=== PATIENT | male | born 1940 | race Caucasian/White ===

== ENCOUNTER 2016-11-20 06:00 | Inpatient (IN) | payer MEDICARE, BC ==
[2016-11-20] MEDS ORDERED: DILTIAZEM 125 MG in SODIUM CHLORIDE 0.9% 100 ML IV ONE (06:15)
[2016-11-20] MEDS ORDERED: DILTIAZEM 5 MG/ML 5 ML VIAL IVP STA (06:15)
[2016-11-20 06:35] LABS: Basophils # (A) 0.1 k/uL (0-0.2); Basophils % (A) 1 %; CH 27.6; CHCM 32.5; Eosinophils # (A) 0.3 k/uL (0-0.7); Eosinophils % (A) 3 %; HCT 43.8 % (39.0-53.0); HDW 2.66; HGB 14.3 gm/dL (13.0-17.5); Luc # (Auto) 0.13; Luc % (Auto) 1; Lymphocytes % (A) 10 %; MCHC 32.7 g/dL (31.0-37.0); MCV 85.6 fL (80.0-100.0); Mean Platelet Volume 6.9; Monocytes # (A) 0.6 k/uL (0-1.0); Monocytes % (A) 5 %; Neutrophils # (A) 8.5 k/uL (1.3-7.7); Neutrophils % (A) 80 %; RBC 5.12 m/uL (4.30-5.90); RDW 14.4 % (11.5-15.5); WBC 10.7 k/uL (3.8-10.6); WBC (Perox) 10.75
--- NOTE | 2016-11-20 06:40 | XR ---
EXAMINATION TYPE: XR chest 1V portable DATE OF EXAM: 11/20/2016 6:36 AM COMPARISON: Chest x-ray September 17, 2008. HISTORY: Chest pain today. TECHNIQUE: Single frontal view of the chest is obtained. FINDINGS: There is cardiomegaly with single lead pacemaker/AICD redemonstrated. Sternal wires and m ediastinal clips are again seen. There is new mild to moderate central vascular congestion. No suspic ious focal airspace opacity or pneumothorax is seen bilaterally. The osseous structures are intact. IMPRESSION: Consider CHF exacerbation as there is cardiomegaly with new mild to moderate central vas cular congestion felt present.
--- NOTE | 2016-11-20 06:50 | ED ---
SOB HPI - General Chief Complaint: Shortness of Breath Stated Complaint: YANETH Time Seen by Provider: 11/20/16 06:08 Source: EMS Mode of arrival: EMS Limitations: no limitations - History of Present Illness Initial Comments: This patient is 75-year-old man who presents to be evaluated for shortness of breath. States that it started coming on late in the night and continued to worsen over the course of this morning. She also is having orthopnea. Patient denies chest pain, diaphoresis, nausea or vomiting. MD Complaint: shortness of breath -: hour(s) Severity: moderate Consistency: constant Improves With: nothing Worsens With: lying flat Associated Symptoms: denies other symptoms Treatments Prior to Arrival: oxygen - Related Data Home Oxygen Therapy: No Home Medications Medication Instructions Recorded Confirmed Aspirin 81 mg PO DAILY 12/06/13 10/22/15 Metoprolol Succinate [Toprol XL] 50 mg PO W/SUPPER 12/06/13 10/22/15 Metoprolol Succinate [Toprol XL] 100 mg PO QAM 12/06/13 10/22/15 Quinapril HCl [Accupril] 20 mg PO DAILY 12/06/13 10/22/15 Spironolactone [Aldactone] 25 mg PO DAILY 12/06/13 10/22/15 Warfarin [Coumadin] 5 mg PO MOWEFR 12/06/13 10/23/15 Warfarin [Coumadin] 7.5 mg PO SUTUTHSA 12/06/13 10/23/15 amLODIPine [Norvasc] 5 mg PO DAILY 12/06/13 10/22/15 Cholecalciferol [Vitamin D3] 4,000 unit PO DAILY 10/22/15 10/22/15 Cyanocobalamin [Vitamin B-12] 2,500 mcg PO DAILY 10/22/15 10/22/15 INSULIN LISPRO (HumaLOG) [HumaLOG] 28 units SQ TID-W/MEALS 10/22/15 10/22/15 Lovastatin [Mevacor] 40 mg PO HS 10/22/15 10/22/15 Insuln Asp Prt/Insulin Aspart 65 AC-BRKFST 10/23/15 10/23/15 [NovoLOG MIX 70-30 VIAL] Insuln Asp Prt/Insulin Aspart 80 AC-SUPPER 10/23/15 10/23/15 [NovoLOG MIX 70-30 VIAL] Allergies Allergy/AdvReac Type Severity Reaction Status Date / Time No Known Allergies Allergy Verified 10/22/15 08:41 Review of Systems ROS Statement: Those systems with pertinent positive or pertinent negative responses have been documented in the HPI. ROS Other: All systems not noted in ROS Statement are negative. Constitutional: Denies: fever, chills, weakness Respiratory: Reports: dyspnea. Denies: cough, wheezes, hemoptysis Cardiovascular: Reports: orthopnea. Denies: chest pain, palpitations, edema, syncope Gastrointestinal: Denies: abdominal pain, nausea, vomiting Genitourinary: Denies: dysuria, hematuria Musculoskeletal: Denies: back pain Skin: Denies: rash Neurological: Denies: headache, weakness, numbness Past Medical History Past Medical History: Atrial Fibrillation, Diabetes Mellitus, GERD/Reflux, Hyperlipidemia, Hypertension, Rheumatoid Arthritis (RA) Additional Past Medical History / Comment(s): SEE DR NIETO H&P History of Any Multi-Drug Resistant Organisms: None Reported Past Surgical History: AICD, Coronary Bypass/CABG, Heart Catheterization Additional Past Surgical History / Comment(s): DEFIBRILLATOR THRESHOLD TESTING, JOSE cataracts Past Anesthesia/Blood Transfusion Reactions: No Reported Reaction Type of Cardiac Device: AICD Device Placement Date:: 2009 Past Psychological History: No Psychological Hx Reported Smoking Status: Former smoker Past Alcohol Use History: None Reported Additional Past Alcohol Use History / Comment(s): quit smoking 1994, smoked for 30 yrs < 1PPD Past Drug Use History: None Reported - Past Family History Sister(s) Family Medical History: Cancer General Exam Limitations: no limitations General appearance: alert, in distress (Patient is appear to be in mild respiratory distress), obese Head exam: Present: atraumatic, normocephalic Eye exam: Present: normal appearance. Absent: scleral icterus, conjunctival injection Neck exam: Present: normal inspection. Absent: meningismus Respiratory exam: Present: respiratory distress, rales. Absent: rhonchi, stridor, accessory muscle use, decreased breath sounds, prolonged expiratory Cardiovascular Exam: Present: tachycardia, irregular rhythm, normal heart sounds. Absent: systolic murmur, diastolic murmur, rubs, gallop GI/Abdominal exam: Present: soft. Absent: distended, tenderness, guarding, rebound Extremities exam: Present: normal inspection, normal capillary refill. Absent: pedal edema, calf tenderness Back exam: Present: normal inspection. Absent: CVA tenderness (R), CVA tenderness (L) Neurological exam: Present: alert Skin exam: Present: warm, dry, intact, normal color. Absent: rash Course Vital Signs 11/20/16 11/20/16 11/20/16 06:02 06:42 07:21 Temperature 97 F L Pulse Rate 87 96 70 Respiratory 20 20 18 Rate Blood Pressure 127/97 135/85 114/76 O2 Sat by Pulse 98 92 L 91 L Oximetry Medical Decision Making - Lab Data Result diagrams: 11/20/16 06:25 11/20/16 06:25 Lab Results 11/20/16 11/20/16 11/20/16 Range/Units 06:25 06:25 06:25 WBC 10.7 H (3.8-10.6) k/uL RBC 5.12 (4.30-5.90) m/uL Hgb 14.3 (13.0-17.5) gm/dL Hct 43.8 (39.0-53.0) % MCV 85.6 (80.0-100.0) fL MCH 28.0 (25.0-35.0) pg MCHC 32.7 (31.0-37.0) g/dL RDW 14.4 (11.5-15.5) % Plt Count 307 (150-450) k/uL Neutrophils % 80 % Lymphocytes % 10 % Monocytes % 5 % Eosinophils % 3 % Basophils % 1 % Neutrophils # 8.5 H (1.3-7.7) k/uL Lymphocytes # 1.0 (1.0-4.8) k/uL Monocytes # 0.6 (0-1.0) k/uL Eosinophils # 0.3 (0-0.7) k/uL Basophils # 0.1 (0-0.2) k/uL PT (9.0-12.0) sec INR (<1.1) APTT (22.0-30.0) sec D-Dimer (<0.60) mg/L FEU Sodium 143 (137-145) mmol/L Potassium 4.7 (3.5-5.1) mmol/L Chloride 105 (98-107) mmol/L Carbon Dioxide 25 (22-30) mmol/L Anion Gap 13 mmol/L BUN 27 H (9-20) mg/dL Creatinine 0.97 (0.66-1.25) mg/dL Est GFR (MDRD) Af Amer >60 (>60 ml/min/1.73 sqM) Est GFR (MDRD) Non-Af >60 (>60 ml/min/1.73 sqM) Glucose 140 H (74-99) mg/dL Calcium 9.4 (8.4-10.2) mg/dL Magnesium 1.9 (1.6-2.3) mg/dL Total Bilirubin 1.1 (0.2-1.3) mg/dL AST 29 (17-59) U/L ALT 32 (21-72) U/L Alkaline Phosphatase 163 H (38-126) U/L Total Creatine Kinase 96 (55-170) U/L CK-MB (CK-2) 1.2 (0.0-2.4) ng/mL CK-MB (CK-2) Rel Index 1.3 Troponin I 0.065 H* (0.000-0.034) ng/mL NT-Pro-B Natriuret Pep pg/mL Total Protein 8.7 H (6.3-8.2) g/dL Albumin 4.5 (3.5-5.0) g/dL 11/20/16 11/20/16 Range/Units 06:25 06:25 WBC (3.8-10.6) k/uL RBC (4.30-5.90) m/uL Hgb (13.0-17.5) gm/dL Hct (39.0-53.0) % MCV (80.0-100.0) fL MCH (25.0-35.0) pg MCHC (31.0-37.0) g/dL RDW (11.5-15.5) % Plt Count (150-450) k/uL Neutrophils % % Lymphocytes % % Monocytes % % Eosinophils % % Basophils % % Neutrophils # (1.3-7.7) k/uL Lymphocytes # (1.0-4.8) k/uL Monocytes # (0-1.0) k/uL Eosinophils # (0-0.7) k/uL Basophils # (0-0.2) k/uL PT 25.8 H (9.0-12.0) sec INR 2.7 (<1.1) APTT 36.0 H (22.0-30.0) sec D-Dimer 0.52 (<0.60) mg/L FEU Sodium (137-145) mmol/L Potassium (3.5-5.1) mmol/L Chloride (98-107) mmol/L Carbon Dioxide (22-30) mmol/L Anion Gap mmol/L BUN (9-20) mg/dL Creatinine (0.66-1.25) mg/dL Est GFR (MDRD) Af Amer (>60 ml/min/1.73 sqM) Est GFR (MDRD) Non-Af (>60 ml/min/1.73 sqM) Glucose (74-99) mg/dL Calcium (8.4-10.2) mg/dL Magnesium (1.6-2.3) mg/dL Total Bilirubin (0.2-1.3) mg/dL AST (17-59) U/L ALT (21-72) U/L Alkaline Phosphatase (38-126) U/L Total Creatine Kinase (55-170) U/L CK-MB (CK-2) (0.0-2.4) ng/mL CK-MB (CK-2) Rel Index Troponin I (0.000-0.034) ng/mL NT-Pro-B Natriuret Pep 2170 pg/mL Total Protein (6.3-8.2) g/dL Albumin (3.5-5.0) g/dL - EKG Data -: EKG Interpreted by Ms EKG shows normal: axis (Normal), intervals (Normal) Rate: tachycardia (Rate approximately 106 bpm) Interpretation: other (The underlying rhythm is atrial fibrillation and there is a rapid ventricular rate at 106 BPM. There is a left posterior fascicular block. Possible old anterior infarct) Disposition Clinical Impression: Congestive heart failure, Atrial fibrillation with rapid ventricular response Disposition: ADMITTED IP TO THIS [facility] Condition: Fair Referrals: None,Stated [Primary Care Provider] - 1-2 days
[2016-11-20 06:53] LABS: ALT 32 U/L (21-72); AST 29 U/L (17-59); Alkaline Phosphatase 163 U/L (38-126); Anion Gap 13 mmol/L; Blood Urea Nitrogen 27 mg/dL (9-20); Calcium 9.4 mg/dL (8.4-10.2); Carbon Dioxide 25 mmol/L (22-30); Chloride 105 mmol/L (98-107); Glucose 140 mg/dL (74-99); Magnesium 1.9 mg/dL (1.6-2.3); Non-African American GFR(MDRD) >60 (>60 ml/min/1.73 sqM); Potassium 4.7 mmol/L (3.5-5.1); Sodium 143 mmol/L (137-145); Total Bilirubin 1.1 mg/dL (0.2-1.3); Total Protein 8.7 g/dL (6.3-8.2)
[2016-11-20 07:02] LABS: INR 2.7 (<1.1)
[2016-11-20 07:03] LABS: Prothrombin Time 25.8 sec (9.0-12.0)
[2016-11-20 07:10] LABS: Creatine Kinase MB 1.2 ng/mL (0.0-2.4)
[2016-11-20 07:11] LABS: Troponin I 0.065 ng/mL (0.000-0.034)
[2016-11-20] MEDS ORDERED: FUROSEMIDE 10 MG/ML 4 ML VIAL IV STA (07:22)
[2016-11-20 08:51] LABS: Appearance,Urine Clear (Clear); Bacteria,Urine Rare /hpf; Bilirubin,Urine Negative (Negative); Glucose,Urine (UA) Negative (Negative); Ketones,Urine Negative (Negative); Leukocyte Esterase,Urine Negative (Negative); Mucus,Urine Rare /hpf; Nitrite,Urine Negative (Negative); PH, Urine 5.5 (5.0-8.0); Particle Count 837; Protein,Urine Trace (Negative); RBC,Urine 27 /hpf (0-5); UA Billing (MACRO vs. MICRO) MICRO; Urobilinogen,Urine <2.0 mg/dL (<2.0); WBC,Urine 1 /hpf (0-5)
[2016-11-20] MEDS: ASPIRIN 325 MG TAB PO SCH (09:27)
[2016-11-20] MEDS: NITROGLYCERIN OINT 1 INCH/GM PACKET TOPICAL SCH ×4 (09:27→21:06)
[2016-11-20 12:21] LABS: Glucose,Whole Blood 124 mg/dL (75-99)
[2016-11-20] MEDS: INSULIN LISPRO (humaLOG) 300 UNIT/3 ML VIAL SQ SCH ×2 (13:24→17:23)
--- NOTE | 2016-11-20 14:29 | HP ---
DATE OF ADMISSION: CHIEF COMPLAINT: A 75-year-old white male with PND, orthopnea, worsening shortness of breath. HISTORY OF PRESENT ILLNESS: This 75-year-old white male was noted to have increased PND, orthopnea, shortness of breath with exertion. Denied any chest pain, diaphoresis, nausea or vomiting. It was moderate in nature. He has never had this before. Improved with nothing. He had to sleep up in a chair for the last few days versus lying flat. Home medications include: 1. Aspirin 81 daily. 2. Metoprolol succinate 50 mg daily. 3. Toprol XL 100 mg each morning. 4. Accupril 20 daily. 5. Aldactone 25 daily. 6. Coumadin 5 mg Tuesday, Tuesday, Tuesday; 7.5 Tuesday, Tuesday, , Tuesday. 7. Norvasc 5 mg daily. 8. Humalog 28 units subcutaneously t.i.d. with meals. 9. Mevacor 40 at bedtime. 10. NovoLog Mix 70/30, ( ) units at supper, 65 in the morning. ALLERGIES: NO KNOWN DRUG ALLERGIES. REVIEW OF SYSTEMS: Fourteen-point review of systems negative except as mentioned in HPI. PULMONARY: As mentioned above. CARDIAC: As mentioned above. : Negative. MUSCULOSKELETAL: Generalized weakness. SKIN: Negative. ENDOCRINE: Difficulty with obesity. NEUROLOGIC: Negative. PAST MEDICAL HISTORY: 1. Atrial fibrillation. 2. Diabetes mellitus. 3. GERD. 4. Dyslipidemia. 5. Hypertension. 6. Rheumatoid arthritis. 7. AICD. 8. CABG surgery 20 years ago. 9. Heart catheterization. 10. Defibrillator. 11. Bilateral cataracts. Quit smoking in 1994; smoked for 30 years, 1 pack a day. FAMILY HISTORY: Sister with cancer. PHYSICAL EXAM: ENDOCRINE: BMI is over 40. He is on 2 L of oxygen, breathing okay at this time, in no acute distress. ABDOMEN: Obese, as mentioned above. OPHTHALMOLOGIC: Pupils equal, round and reactive to light and accommodation. No scleral icterus. CARDIOVASCULAR: S1, S2. Lungs show accessory muscle use, rales at the bases. Prolonged expiratory. HEART: S1, S2 without any murmurs, rubs, gallops. GI: Soft, nontender, distended, obese. Extremities show normal capillary. Two to three plus pedal edema bilaterally. BACK: Tenderness to palpation, left, and lower lumbar spine. NEUROLOGIC: Alert and oriented x3. SKIN: Warm, dry, intact. VITAL SIGNS: Temperature 97, pulse 86, respiratory rate 18 to 20, blood pressure 114 to 127 over 76 to 97. Oxygen saturation 91% on 2 L. White count 10.7, hemoglobin 14.3. Troponin 0.065. D-dimer is negative. BNP 2170. ASSESSMENT: 1. Atrial fibrillation with rapid ventricular response. 2. Congestive heart failure. 3. Obesity. 4. History of coronary artery disease. 5. Hypertension. 6. Diabetes mellitus. Please see further orders. Continue his Coumadin. Cardiology has been consulted. Given some IV Lasix at 40 IV q.12. Will await Cardiology's recommendations.
[2016-11-20 17:20] LABS: Glucose,Whole Blood 149 mg/dL (75-99)
[2016-11-20] MEDS: metFORMIN 500 MG TAB PO SCH (17:24)
[2016-11-20] MEDS: METOPROLOL SUCCINATE (ER) 50 MG TAB.ER.24H PO SCH (18:22)
[2016-11-20] MEDS: WARFARIN 7.5 MG TAB PO SCH (18:22)
[2016-11-20] MEDS: FUROSEMIDE 10 MG/ML 4 ML VIAL IV SCH (18:24)
[2016-11-20] MEDS: ATORVASTATIN 10 MG TAB PO SCH (21:06)
[2016-11-20 21:19] LABS: Glucose,Whole Blood 196 mg/dL (75-99)
[2016-11-20] MEDS: INSULIN GLARGINE 100 UNIT/ML 10 ML VIAL SQ SCH (21:24)
[2016-11-21 06:29] LABS: Glucose,Whole Blood 119 mg/dL (75-99)
[2016-11-21] MEDS: FUROSEMIDE 10 MG/ML 4 ML VIAL IV SCH ×2 (06:40→18:11)
[2016-11-21] MEDS: metFORMIN 500 MG TAB PO SCH ×2 (06:40→17:27)
[2016-11-21 07:20] LABS: INR 2.4 (<1.1); Prothrombin Time 23.4 sec (9.0-12.0)
[2016-11-21] MEDS: INSULIN LISPRO (humaLOG) 300 UNIT/3 ML VIAL SQ SCH ×3 (07:25→17:27)
[2016-11-21 07:27] LABS: ALT 34 U/L (21-72); AST 21 U/L (17-59); Alkaline Phosphatase 127 U/L (38-126); Anion Gap 10 mmol/L; Blood Urea Nitrogen 23 mg/dL (9-20); Calcium 9.1 mg/dL (8.4-10.2); Carbon Dioxide 28 mmol/L (22-30); Chloride 103 mmol/L (98-107); Glucose 123 mg/dL (74-99); Non-African American GFR(MDRD) >60 (>60 ml/min/1.73 sqM); Sodium 141 mmol/L (137-145); Total Bilirubin 1.7 mg/dL (0.2-1.3); Total Protein 7.5 g/dL (6.3-8.2)
[2016-11-21] MEDS: DORZOLAMIDE HCL 2% DROPS 10 ML BTL BOTH EYES SCH ×2 (08:24→21:00)
[2016-11-21] MEDS: ASPIRIN 325 MG TAB PO SCH (08:24)
[2016-11-21] MEDS: SPIRONOLACTONE 25 MG TAB PO SCH (08:25)
[2016-11-21] MEDS: METOPROLOL SUCCINATE (ER) 100 MG TAB.ER.24H PO SCH (08:25)
[2016-11-21] MEDS: LINAGLIPTIN 5 MG TABLET PO SCH (08:26)
[2016-11-21] MEDS: NITROGLYCERIN OINT 1 INCH/GM PACKET TOPICAL SCH ×4 (08:30→21:00)
[2016-11-21] MEDS: INSULIN GLARGINE 100 UNIT/ML 10 ML VIAL SQ SCH ×2 (08:32→22:01)
--- NOTE | 2016-11-21 10:29 | P.CRDCN ---
History of Present Illness Consult date: 11/21/16 Chief complaint: shortness of breath History of present illness: this is a pleasant 75-year-old gentleman who sees Dr. Alexander in as an outpatient with a past medical history significant for CAD and status post CABG with unknown details at this point, severe ischemic cardiomyopathy and status post AICD, chronic atrial fibrillation, as well as obesity, presented to the hospital because he was not feeling well. The patient has been experiencing slowly progressing exertional dyspnea without orthopnea and without any PND. He did not have any symptoms of bilateral lower extremities edema. He did not have any chest pain or chest discomfort. The patient did not gain any weight as well. In the ER, he was found to be in A. fib with RVR but currently the patient is in A. fib with controlled heart rates. He is not on any drips. The chest x-ray showed findings consistent with congestive heart failure. He had an echo enzymes which came in to be slightly abnormal which I do think it is related to the tachycardia when he presented to the emergency room. We will continue the current above dose of Lasix. The heart rate continues to be controlled on metoprolol by mouth. He is on, then for anticoagulation. We' ll obtain an echocardiogram was Doppler. e will obtain the results of the last stress test from the officeas well. Past Medical History Past Medical History: Atrial Fibrillation, Chest Pain / Angina, Heart Failure, Diabetes Mellitus, GERD/Reflux, Hyperlipidemia, Hypertension, Myocardial Infarction (CO), Rheumatoid Arthritis (RA) Additional Past Medical History / Comment(s): SEE DR NIETO H&P Last Myocardial Infarction Date:: 1991 History of Any Multi-Drug Resistant Organisms: None Reported Past Surgical History: AICD, Coronary Bypass/CABG, Heart Catheterization Additional Past Surgical History / Comment(s): DEFIBRILLATOR THRESHOLD TESTING, JOSE cataracts. 4 VESSEL BIPASS 1991, AICD 2009 Past Anesthesia/Blood Transfusion Reactions: No Reported Reaction Type of Cardiac Device: AICD Device Placement Date:: 2009 Past Psychological History: No Psychological Hx Reported Smoking Status: Former smoker Past Alcohol Use History: None Reported Additional Past Alcohol Use History / Comment(s): quit smoking 1994, smoked for 30 yrs < 1PPD Past Drug Use History: None Reported - Past Family History Sister(s) Family Medical History: Cancer Medications and Allergies Home Medications Medication Instructions Recorded Confirmed Type Metoprolol Succinate [Toprol XL] 50 mg PO W/SUPPER 12/06/13 11/20/16 History Metoprolol Succinate [Toprol XL] 100 mg PO QAM 12/06/13 11/20/16 History Quinapril HCl [Accupril] 20 mg PO DAILY 12/06/13 11/20/16 History Spironolactone [Aldactone] 25 mg PO DAILY 12/06/13 11/20/16 History Warfarin [Coumadin] 5 mg PO MOFR 12/06/13 11/20/16 History Warfarin [Coumadin] 7.5 mg PO SUTUWETHSA 12/06/13 11/20/16 History amLODIPine [Norvasc] 5 mg PO DAILY 12/06/13 11/20/16 History Cholecalciferol [Vitamin D3] 4,000 unit PO DAILY 10/22/15 11/20/16 History Cyanocobalamin (Vitamin B-12) 2,500 mcg PO DAILY 11/20/16 11/20/16 History [Vitamin B12] Dorzolamide 2% [Trusopt 2%] 1 drops BOTH EYES BID 11/20/16 11/20/16 History Insulin Glargine [Lantus] 45 units SQ BID 11/20/16 11/20/16 History Insulin Glulisine [Apidra] 10 unit SQ AC-TID 11/20/16 11/20/16 History Lovastatin [Mevacor] 20 mg PO HS 11/20/16 11/20/16 History metFORMIN HCL [Glucophage] 500 mg PO BID 11/20/16 11/20/16 History sitaGLIPtin PHOSPHATE [Januvia] 100 mg PO DAILY 11/20/16 11/20/16 History Allergies Allergy/AdvReac Type Severity Reaction Status Date / Time No Known Allergies Allergy Verified 11/20/16 10:08 Physical Exam Vitals: Vital Signs Temp Pulse Pulse Pulse Resp BP BP 11/21/16 08:00 97.6 F 77 16 122/67 11/21/16 03:16 97.1 F L 54 L 16 108/59 11/21/16 00:14 105/53 11/20/16 23:51 96.8 F L 67 16 90/53 11/20/16 19:35 96.8 F L 79 18 133/72 11/20/16 18:20 86 122/65 11/20/16 16:00 96.7 F L 73 16 110/65 11/20/16 12:45 97 F L 7 L 20 123/78 11/20/16 12:20 97.7 F 73 16 131/67 11/20/16 10:59 98.1 F 75 18 147/79 Pulse Ox 11/21/16 08:00 93 L 11/21/16 03:16 96 11/21/16 00:14 11/20/16 23:51 97 11/20/16 19:35 95 11/20/16 18:20 11/20/16 16:00 96 11/20/16 12:45 95 11/20/16 12:20 94 L 11/20/16 10:59 93 L Intake and Output 11/20/16 11/21/16 11/21/16 22:59 06:59 14:59 Intake Total 200 160 Output Total 1100 600 Balance -900 160 -600 Intake: IV 200 160 0.9% NS @ 20mL/hr 160 160 Diltiazem 125 mg In 40 Sodium Chloride 0.9% 100 ml @ 5 MG/HR 5 mls/hr IV .Q24H ONE Rx#:[id number] Output: Urine 1100 600 Other: Voiding Method Urinal Urinal Weight 104.8 kg - Constitutional General appearance: no acute distress - Respiratory Respiratory: bilateral: diminished - Cardiovascular Rhythm: irregularly irregular Heart sounds: normal: S1, S2 Results 11/20/16 06:25 11/21/16 06:41 Cardiac Enzymes 11/20/16 11/20/16 11/21/16 Range/Units 12:44 18:35 06:41 AST 21 (17-59) U/L Troponin I 0.069 H* 0.063 H* (0.000-0.034) ng/mL Coagulation 11/21/16 Range/Units 06:41 PT 23.4 H (9.0-12.0) sec Comprehensive Metabolic Panel 11/21/16 Range/Units 06:41 Sodium 141 (137-145) mmol/L Potassium 4.0 (3.5-5.1) mmol/L Chloride 103 (98-107) mmol/L Carbon Dioxide 28 (22-30) mmol/L BUN 23 H (9-20) mg/dL Creatinine 0.88 (0.66-1.25) mg/dL Glucose 123 H (74-99) mg/dL Calcium 9.1 (8.4-10.2) mg/dL AST 21 (17-59) U/L ALT 34 (21-72) U/L Alkaline Phosphatase 127 H (38-126) U/L Total Protein 7.5 (6.3-8.2) g/dL Albumin 3.8 (3.5-5.0) g/dL Current Medications Generic Name Dose Route Start Last Admin Trade Name Freq PRN Reason Stop Dose Admin Amlodipine Besylate 5 mg 11/21/16 09:00 Norvasc PO DAILY HEAVEN Aspirin 325 mg 11/20/16 09:00 11/21/16 08:24 Aspirin PO 325 mg DAILY HEAVEN Administration Atorvastatin Calcium 10 mg 11/20/16 21:00 11/20/16 21:06 Lipitor PO 10 mg HS HEAVEN Administration Dorzolamide HCl 1 drops 11/21/16 09:00 11/21/16 08:24 Trusopt BOTH EYES 1 drops BID HEAVEN Administration Furosemide 40 mg 11/20/16 18:00 11/21/16 06:40 Lasix IV 40 mg Q12H [facility]EN Administration Insulin Glargine 45 unit 11/20/16 21:00 11/21/16 08:32 Lantus SQ 45 unit BID HEAVEN Administration Insulin Human Lispro 10 unit 11/20/16 12:30 11/21/16 07:25 Humalog SQ 10 unit AC-TID [facility]EN Administration Linagliptin 5 mg 11/21/16 09:00 11/21/16 08:26 Tradjenta PO 5 mg DAILY [facility] Administration Lisinopril 20 mg 11/21/16 09:00 Zestril PO DAILY [facility] Metformin HCl 500 mg 11/20/16 17:30 11/21/16 06:40 Glucophage PO 500 mg BID-W/MEALS [facility] Administration Metoprolol Succinate 50 mg 11/20/16 17:30 11/20/16 18:22 Toprol Xl PO 50 mg W/SUPPER [facility] Administration Metoprolol Succinate 100 mg 11/21/16 09:00 11/21/16 08:25 Toprol Xl PO 100 mg QAM [facility]EN Administration Nitroglycerin 0.5 inch 11/20/16 09:00 11/21/16 08:30 Nitro-Bid Oint TOPICAL 0.5 inch QID [facility]EN Administration Sodium Chloride 10 ml 11/20/16 09:00 11/21/16 08:35 Saline Flush IV 10 ml BID [facility]EN Administration Spironolactone 25 mg 11/21/16 09:00 11/21/16 08:25 Aldactone PO 25 mg DAILY [facility]EN Administration Warfarin Sodium 5 mg 11/22/16 18:00 Coumadin PO MOFR [facility]EN Warfarin Sodium 7.5 mg 11/20/16 18:00 11/20/16 18:22 Coumadin PO 7.5 mg SUTUWETHSA [facility]EN Administration Intake and Output 11/20/16 11/21/16 11/21/16 22:59 06:59 14:59 Intake Total 200 160 Output Total 1100 600 Balance -900 160 -600 Intake: IV 200 160 0.9% NS @ 20mL/hr 160 160 Diltiazem 125 mg In 40 Sodium Chloride 0.9% 100 ml @ 5 MG/HR 5 mls/hr IV .Q24H ONE Rx#:[id number] Output: Urine 1100 600 Other: Voiding Method Urinal Urinal Weight 104.8 kg 11/21/16 06:41 Assessment and Plan Plan: Assessment Congestive heart failure exacerbation secondary to systolic dysfunction Severe cardiomyopathy Severe CAD and status post CABG Chronic atrial fibrillation was controlled heart rate Obesity Plan Continue the current above dose of Lasix Monitor the kidney function and electrolytes Obtain an echocardiogram was Doppler Follow-up with the patient
[2016-11-21] MEDS: LISINOPRIL 20 MG TAB PO SCH (12:11)
[2016-11-21 12:22] LABS: Glucose,Whole Blood 131 mg/dL (75-99)
--- NOTE | 2016-11-21 13:25 | PN ---
SUBJECTIVE: A 75-year-old white male with atrial fibrillation with rapid ventricular response. Overnight the patient has been doing fairly well. He is having no chest pain. Dyspnea is decreased. CARDIOVASCULAR: Irregular irregular rhythm. LUNGS: Transmitted upper airway sounds. HEMATOLOGIC: Negative Homans. PSYCHIATRIC: Fair mood and affect. Labs were reviewed. ASSESSMENT: 1. Congestive heart failure secondary to systolic dysfunction. 2. Severe cardiomyopathy. 3. Severe coronary artery disease, status post coronary artery bypass graft. 4. Controlled atrial fibrillation. 5. Obesity. Continue Lasix. Monitor kidney function. Echo. Possible discharge home in the next 24 to 48 hours.
[2016-11-21 13:59] LABS: Hemoglobin A1C 6.6 % (4.2-6.1)
[2016-11-21] MEDS: amLODIPine 5 MG TAB PO SCH (15:53)
[2016-11-21 17:09] LABS: Glucose,Whole Blood 134 mg/dL (75-99)
[2016-11-21] MEDS: WARFARIN 7.5 MG TAB PO SCH (18:11)
[2016-11-21] MEDS: METOPROLOL SUCCINATE (ER) 50 MG TAB.ER.24H PO SCH (18:12)
[2016-11-21] MEDS: ATORVASTATIN 10 MG TAB PO SCH (21:00)
[2016-11-21] MEDS ORDERED: ZOLPIDEM 5 MG TAB PO PRN (21:37)
[2016-11-21 21:56] LABS: Glucose,Whole Blood 129 mg/dL (75-99)
[2016-11-22 06:11] LABS: Glucose,Whole Blood 123 mg/dL (75-99)
[2016-11-22] MEDS: FUROSEMIDE 10 MG/ML 4 ML VIAL IV SCH (06:30)
[2016-11-22] MEDS: metFORMIN 500 MG TAB PO SCH (06:31)
[2016-11-22] MEDS: INSULIN LISPRO (humaLOG) 300 UNIT/3 ML VIAL SQ SCH ×2 (07:22→12:08)
[2016-11-22 07:24] LABS: ALT 29 U/L (21-72); AST 21 U/L (17-59); Alkaline Phosphatase 136 U/L (38-126); Anion Gap 15 mmol/L; Blood Urea Nitrogen 26 mg/dL (9-20); Calcium 9.3 mg/dL (8.4-10.2); Carbon Dioxide 26 mmol/L (22-30); Chloride 101 mmol/L (98-107); Glucose 123 mg/dL (74-99); Non-African American GFR(MDRD) >60 (>60 ml/min/1.73 sqM); Potassium 4.1 mmol/L (3.5-5.1); Sodium 142 mmol/L (137-145); Total Bilirubin 1.5 mg/dL (0.2-1.3); Total Protein 7.7 g/dL (6.3-8.2)
[2016-11-22] MEDS: LINAGLIPTIN 5 MG TABLET PO SCH (08:50)
[2016-11-22] MEDS: SPIRONOLACTONE 25 MG TAB PO SCH (08:51)
[2016-11-22] MEDS: ASPIRIN 325 MG TAB PO SCH (08:51)
[2016-11-22] MEDS: amLODIPine 5 MG TAB PO SCH (08:51)
[2016-11-22] MEDS: METOPROLOL SUCCINATE (ER) 100 MG TAB.ER.24H PO SCH (08:51)
[2016-11-22] MEDS: LISINOPRIL 20 MG TAB PO SCH (08:51)
[2016-11-22] MEDS: NITROGLYCERIN OINT 1 INCH/GM PACKET TOPICAL SCH ×2 (08:52→11:22)
[2016-11-22] MEDS: DORZOLAMIDE HCL 2% DROPS 10 ML BTL BOTH EYES SCH (08:56)
[2016-11-22] MEDS: INSULIN GLARGINE 100 UNIT/ML 10 ML VIAL SQ SCH (08:56)
[2016-11-22 11:25] VITALS: BP 96/51; PULSE 52; RESP 16; TEMP 97.4
--- NOTE | 2016-11-22 11:34 | ECHOF ---
Referral Reason:chf MEASUREMENTS -------- HEIGHT: 175.3 cm WEIGHT: 103.0 kg BP: 124/81 RVIDd: 3.1 cm (< 3.3) IVSd: 1.1 cm (0.6 - 1.1) LVIDd: 5.6 cm (3.9 - 5.3) LVPWd: 1.4 cm (0.6 - 1.1) IVSs: 1.3 cm LVIDs: 3.9 cm LVPWs: 1.7 cm LA Diam: 5.1 cm (2.7 - 3.8) Ao Diam: 3.4 cm (2.0 - 3.7) AV Cusp: 1.6 cm (1.5 - 2.6) LA Diam: 5.2 cm (2.7 - 3.8) MV EXCURSION: 15.119 mm (> 18.000) MV EF SLOPE: 87 mm/s (70 - 150) EPSS: 0.6 cm MV E Martin: 1.15 m/s MV DecT: 193 ms MV A Martin: 0.37 m/s MV E/A Ratio: 3.15 RAP: 5.00 mmHg RVSP: 32.43 mmHg FINDINGS -------- Atrial fibrillation. This was a techncally difficult study with suboptimal views, , Definity utilized for enhancement of images. There is mild concentric left ventricular hypertrophy. There is moderate global hypokinesis of LV . Overall left ventricular systolic function is moderately impaired with, an EF between 35 - 40 %. The right ventricle is normal in size. The left atrium is moderately dilated. The right atrial size is normal. 1.5MG OF DEFINITY UTLIZED: 2 OR MORE WALL SEGMENTS NOT VISUALIZED. There is mild aortic valve sclerosis. There is no evidence of aortic regurgitation. Mild mitral annular calcification present. Mild mitral regurgitation is present. Mild tricuspid regurgitation present. There is no evidence of pulmonary hypertension. The right ventricular systolic pressure, as measured by Doppler, is 32.43mmHg. The pulmonic valve was not well visualized. The aortic root size is normal. There is no pericardial effusion. CONCLUSIONS -------- 1. This was a techncally difficult study with suboptimal views, , Definity utilized for enhancement of images. 2. There is no evidence of pulmonary hypertension. 3. The right ventricular systolic pressure, as measured by Doppler, is 32.43mmHg. 4. The pulmonic valve was not well visualized. 5. There is mild concentric left ventricular hypertrophy. 6. There is moderate global hypokinesis of LV . 7. The left atrium is moderately dilated. 8. 1.5MG OF DEFINITY UTLIZED: 2 OR MORE WALL SEGMENTS NOT VISUALIZED. 9. There is mild aortic valve sclerosis. 10. Mild mitral annular calcification present. 11. Mild mitral regurgitation is present. 12. Mild tricuspid regurgitation present. APARTMENT MAINTENANCE MANAGER: Destiney Mcmullen RDCS
[2016-11-22 11:43] LABS: Glucose,Whole Blood 138 mg/dL (75-99)
--- NOTE | 2016-11-22 13:46 | P.PN ---
Subjective Principal diagnosis: Shortness of breath this is a pleasant 75-year-old gentleman who sees Dr. Gallardo as an outpatient with a past medical history significant for CAD and status post CABG with unknown details at this point, severe ischemic cardiomyopathy and status post AICD, chronic atrial fibrillation, as well as obesity, presented to the hospital because he was not feeling well. The patient has been experiencing slowly progressing exertional dyspnea without orthopnea and without any PND. He did not have any symptoms of bilateral lower extremity edema. He did not have any chest pain or chest discomfort. The patient did not gain any weight. In the ER, he was found to be in A. fib with RVR ,but currently the patient is in A. fib with controlled heart rates. enzymes came in to be slightly abnormal which I do think it is related to the tachycardia when he presented to the emergency room. A shunt was initiated on IV Lasix, he diuresed well through the night last night. Weight today is down 1 kg. Overall he is feeling significantly better and quite eager to be discharged home today. He is on Coumadin for anticoagulation, his INR yesterday 2.2. Objective - Vital Signs Vital signs: Vital Signs Temp 97.4 F L 11/22/16 11:23 Pulse 52 L 11/22/16 11:23 Resp 16 11/22/16 11:23 BP 96/51 11/22/16 11:23 Pulse Ox 96 11/22/16 11:23 Intake & Output 11/21/16 11/22/16 11/22/16 18:59 06:59 18:59 Intake Total 320 380 Output Total 1100 Balance -1100 320 380 Weight 103 kg Intake: IV 320 0.9% NS @ 20mL/hr 320 Oral 380 Output: Urine 1100 Other: Voiding Method Urinal Toilet # Voids 1 - Exam PHYSICAL EXAMINATION: HEENT: Head is atraumatic, normocephalic. Pupils equal, round. Neck is supple. There is no elevated jugular venous pressure. HEART EXAMINATION: S1 and S2 irregularly irregular CHEST EXAMINATION: Lungs reveal diminished air entry to bilateral bases. ABDOMEN: Soft, nontender. Bowel sounds are heard. No organomegaly noted. EXTREMITIES: 2+ peripheral pulses with no evidence of peripheral edema and no calf tenderness noted. NEUROLOGIC patient is awake, alert and oriented -3. . - Labs CBC & Chem 7: 11/20/16 06:25 11/22/16 06:18 Labs: Abnormal Lab Results - Last 24 Hours (Table) 11/21/16 11/21/16 11/21/16 Range/Units 06:41 16:41 21:54 BUN (9-20) mg/dL Glucose (74-99) mg/dL POC Glucose (mg/dL) 134 H 129 H (75-99) mg/dL Hemoglobin A1c 6.6 H (4.2-6.1) % Total Bilirubin (0.2-1.3) mg/dL Alkaline Phosphatase (38-126) U/L 11/22/16 11/22/16 11/22/16 Range/Units 06:00 06:18 11:41 BUN 26 H (9-20) mg/dL Glucose 123 H (74-99) mg/dL POC Glucose (mg/dL) 123 H 138 H (75-99) mg/dL Hemoglobin A1c (4.2-6.1) % Total Bilirubin 1.5 H (0.2-1.3) mg/dL Alkaline Phosphatase 136 H (38-126) U/L Assessment and Plan (1) Chronic a-fib Status: Acute (2) Systolic CHF, acute on chronic Status: Acute (3) Ischemic cardiomyopathy Status: Acute (4) AICD (automatic cardioverter/defibrillator) present Status: Acute (5) Hx of CABG Status: Acute (6) GERD (gastroesophageal reflux disease) Status: Acute Plan: From cardiology's perspective, we will discontinue the IV Lasix, start the patient on oral diuretics. Continue current dose of Coumadin. He may be able to be discharged home from cardiology's perspective, a follow-up appointment will be made in the office post discharge. DNP note has been reviewed, I agree with a documented findings and plan of care. Patient was seen and examined.
[2016-11-22 14:09] VITALS: BMI 33.5
[2016-11-22] MEDS ORDERED: FUROSEMIDE 40 MG TAB PO SCH (16:00)
[2016-11-22] MEDS ORDERED: WARFARIN 5 MG TAB PO SCH (18:00)
[2016-11-23] MEDS ORDERED: ASPIRIN 81 MG CHEW PO SCH (09:00)
--- NOTE | 2016-11-27 20:26 | DS ---
DATE OF ADMISSION: 11/20/2016 DATE OF DISCHARGE: 11/22/2016 DISCHARGE DIAGNOSES: 1. Congestive heart failure. 2. Atrial fibrillation with rapid ventricular response. 3. Atherosclerotic heart disease. 4. Hypertension. 5. Elevated troponin. 6. Defibrillator. 7. AICD. CONDITION: Stable. PROGNOSIS: Guarded. Ambulate as tolerated. HOSPITAL COURSE OF EVENTS: White male was admitted to the hospital, congestive heart failure, atrial fibrillation, was stabilized per cardiology and monitored for a couple days. Patient was cleared by cardiology for discharge. He has severe ischemic cardiomyopathy. He has chronic atrial fibrillation, obesity. He was given IV Lasix overnight and patient was stabilized after IV Lasix was given and switched to oral Lasix and Coumadin and he was discharged home to follow up as an outpatient. DISCHARGE MEDICATIONS: For 11/22/2016 include: 1. Coumadin 5 mg daily. Tuesday and Tuesday. 2. Amlodipine 5 mg daily. 3. Aldactone 25 mg daily. 4. Coumadin 7.5 on Tuesday, Tuesday, Tuesday, , Tuesday. 5. Quinapril 20 mg daily. 6. Metoprolol 30 milligrams daily. 7. Succinate 50 mg daily. 8. Vitamin D3 4000 units daily. 9. Januvia 100 mg daily. 10. Metformin 500 b.i.d. 11. Apidra 10 units subcu t.i.d. 12. Lantus 45 units subcu b.i.d. 13. Mevacor 20 mg daily. 14. Lasix 40 mg p.o. daily. Follow up as an outpatient in a week. Condition stable. Prognosis guarded.
== END 2016-11-22 14:33 | disposition home or self-care (01) | DRG 308 ==
LOC: EC 06:00 → 6SEL 07:34
PROVIDERS: ADMIT Family Medicine; ATTEND Family Medicine
DX: I48.2 Chronic atrial fibrillation (principal); I50.23 Acute on chronic systolic (congestive) heart failure; E11.9 Type 2 diabetes mellitus without complications; I44.5 Left posterior fascicular block; I11.0 Hypertensive heart disease with heart failure; I25.5 Ischemic cardiomyopathy; I25.10 Atherosclerotic heart disease of native coronary artery without angina pectoris; M06.9 Rheumatoid arthritis, unspecified; E78.5 Hyperlipidemia, unspecified; R53.1 Weakness; E66.9 Obesity, unspecified; K21.9 Gastro-esophageal reflux disease without esophagitis; Z79.82 Long term (current) use of aspirin; Z79.899 Other long term (current) drug therapy; Z80.9 Family history of malignant neoplasm, unspecified; Z95.810 Presence of automatic (implantable) cardiac defibrillator; Z87.891 Personal history of nicotine dependence; Z95.1 Presence of aortocoronary bypass graft; Z79.4 Long term (current) use of insulin; Z79.01 Long term (current) use of anticoagulants; I25.2 Old myocardial infarction; Z68.33 Body mass index [BMI] 33.0-33.9, adult; Z71.3 Dietary counseling and surveillance; Z98.42 Cataract extraction status, left eye; Z98.41 Cataract extraction status, right eye
CPT/HCPCS: 36415; 71010; 80053; 81001; 82550; 82553; 83036; 83735; 83880; 84443; 84484; 85025; 85379; 85610; 85730; 87040; 93005; 93306; 94760; 96365; 96366; 96375; 96376; 99285

== ENCOUNTER 2016-12-21 12:44 | Day surgery (SDC) | payer MEDICARE, BC ==
[2016-12-16 09:37] VITALS: BMI 34.0
[~2016-12-21 12:44] MED LIST: LACTATED RINGERS 1,000 ML IV SCH; SODIUM CHLORIDE 0.9% 1,000 ML IV SCH
[2016-12-21 13:31] LABS: Glucose,Whole Blood 135 mg/dL (75-99)
[2016-12-21] MEDS ORDERED: PROPOFOL 10 MG/ML 20 ML VIAL IV ONE (13:40)
[2016-12-21] MEDS ORDERED: LIDOCAINE 1% INJ 10MG/ML (20 ML MDV) ONE (13:40)
[2016-12-21] MEDS ORDERED: MIDAZOLAM 2 MG/2 ML VIAL ONE (13:40)
[2016-12-21 13:44] LABS: INR 2.3 (<1.1); Prothrombin Time 22.3 sec (9.0-12.0)
[2016-12-21 14:28] VITALS: TEMP 97.2
--- NOTE | 2016-12-21 15:26 | CE ---
DATE OF SERVICE: Myron Rey is admitted to the hospital for evaluation and management of a single-chamber defibrillator with elevated ventricular thresholds. He has a [employer] [place] model #[id number] cm in length. The patient was brought to the EP lab in a fasting state. Written informed consent was obtained prior to the procedure. Cinefluoroscopy of the leads performed. While there were no fractures or breaks noted, the screw of the ventricular lead appeared to be stressed and this is compared with 2014 and 2016 images and definitely it appears that the screw seems to be stressed out a bit. This device was interrogated and the pacing threshold is elevated at 2.5 v at 1.5 ms, sensing greater than 12 mV, pacing impedance 800 ohms, shock impedance 96 ohms. DFT TESTING: A shock and T wave protocol was used to induce ventricular fibrillation. This was adequately and appropriately detected at least sensitivity and with one dropout and successfully internally defibrillated with a 10 joule shock in anodal configuration. No postshock noise. Successful energy 10 joules. The device was then reprogrammed. The sensitivity was reprogrammed to 0.3 mV. Madit RIT Program was programmed. Patient tolerated the procedure well without any acute complications. IMPRESSION: Elevated RV thresholds most likely on account of the change in the shape and configuration of the screw at the tip of the lead. The patient does not pace the ventricle at all. The device was reprogrammed accordingly. cc: Lauren/Mary at [facility]
[2016-12-21 17:02] VITALS: BP 109/57; RESP 18
[2016-12-21 17:03] VITALS: PULSE 74
== END 2016-12-21 16:02 | disposition home or self-care (01) ==
LOC: CATHEP 12:44
PROVIDERS: ATTEND Internal Medicine Clinical Cardiac Electrophysiology
DX: I25.5 Ischemic cardiomyopathy (principal); E11.9 Type 2 diabetes mellitus without complications; I10 Essential (primary) hypertension; E78.2 Mixed hyperlipidemia; I48.92 Unspecified atrial flutter; I25.2 Old myocardial infarction; Z95.1 Presence of aortocoronary bypass graft; Z95.810 Presence of automatic (implantable) cardiac defibrillator; Z79.84 Long term (current) use of oral hypoglycemic drugs; Z79.899 Other long term (current) drug therapy; Z79.4 Long term (current) use of insulin; Z87.891 Personal history of nicotine dependence
CPT/HCPCS: 76000; 93644; 85610; J2250; J2001; J2704

== ENCOUNTER → 2016-12-27 | Outpatient (CLI) | payer MEDICARE, BC ==
--- NOTE | 2016-12-27 11:19 | FL ---
EXAMINATION TYPE: FL barium swallow w video DATE OF EXAM ORDERED: 12/27/2016 HISTORY: R13.10 dysphagia. COMPARISON: None. TECHNIQUE: The patient was challenged with varying food substances ranging from thin liquids through solids. FINDINGS: The patient handled all foodstuffs well. There is no evidence of penetration or aspiration . IMPRESSION: NORMAL MODIFIED BARIUM SWALLOW.
== END | disposition home or self-care (01) ==
LOC: RADFLMAIN 10:48
PROVIDERS: ATTEND Otolaryngology
DX: R13.10 Dysphagia, unspecified (principal); D68.9 Coagulation defect, unspecified
CPT/HCPCS: 74230

== ENCOUNTER → 2018-01-31 | Outpatient (CLI) | payer MEDICARE, BC ==
[2018-01-31 10:07] LABS: HCT 41.8 % (39.0-53.0); HGB 13.5 gm/dL (13.0-17.5); MCH 28.7 pg (25.0-35.0); MCHC 32.3 g/dL (31.0-37.0); MCV 88.9 fL (80.0-100.0); Mean Platelet Volume 6.9; Platelet Count 287 k/uL (150-450); RDW 15.3 % (11.5-15.5); WBC 14.6 k/uL (3.8-10.6)
[2018-01-31 10:43] LABS: Calcium 9.5 mg/dL (8.4-10.2); Potassium 5.1 mmol/L (3.5-5.1)
== END | disposition home or self-care (01) ==
LOC: LABWHC1 09:36
PROVIDERS: ATTEND Internal Medicine Clinical Cardiac Electrophysiology
DX: I25.5 Ischemic cardiomyopathy (principal)
CPT/HCPCS: 36415; 80048; 85027

== ENCOUNTER → 2018-02-16 | Day surgery (SDC) | payer MEDICARE, BC ==
[2018-02-10 12:49] VITALS: BMI 34.0
[~2018-02-16] MED LIST changes: -LACTATED RINGERS 1,000 ML IV SCH; +MIDAZOLAM 2 MG/2 ML VIAL ONE; +PROPOFOL 10 MG/ML 20 ML VIAL IV ONE
[2018-02-16 07:18] LABS: Glucose,Whole Blood 112 mg/dL (75-99)
[2018-02-16 07:30] LABS: INR 2.6 (<1.2); Prothrombin Time 23.8 sec (9.0-12.0)
[2018-02-16 08:03] VITALS: TEMP 97.4
--- NOTE | 2018-02-16 08:05 | P.PCN ---
Preoperative Diagnosis: Indication Cardio myopathy single-chamber ICD atrial fibrillation elevated RV thresholds Cinefluoroscopy of the leads Cinefluoroscopy of the ICD lead was performed. No fractures or breaks were noted with the lead screw with the tip appears stretched. ICD was interrogated threshold was 2.75 V at 1 ms for the RV lead pacing impedance Pacing impedance 780 ohms R waves greater than 12 mV Shocking impedance 94 DC. fibber shock was used to induce ventricular fibrillation this is adequately and appropriately detected at least sensitivity and successfully internally defibrillated with 10 J shock no post shock noise. Single chamber ICD was reprogrammed. Pacing after at 3.25 V at 1 ms. VVI 40 beats a minute backup pacing. MADIT RIT programming
[2018-02-16 08:45] LABS: Glucose,Whole Blood 119 mg/dL (75-99)
[2018-02-16 08:48] VITALS: PULSE 68
[2018-02-16 10:09] VITALS: BP 105/58; RESP 18
== END | disposition home or self-care (01) ==
LOC: CATHEP 06:32
PROVIDERS: ATTEND Internal Medicine Clinical Cardiac Electrophysiology
DX: I25.5 Ischemic cardiomyopathy (principal); Z45.02 Encounter for adjustment and management of automatic implantable cardiac defibrillator; Z95.1 Presence of aortocoronary bypass graft; I25.2 Old myocardial infarction; E78.2 Mixed hyperlipidemia; E11.9 Type 2 diabetes mellitus without complications; Z79.01 Long term (current) use of anticoagulants; Z79.4 Long term (current) use of insulin; Z79.899 Other long term (current) drug therapy
CPT/HCPCS: 93642; 76000; 85610; J2250; J2704

== ENCOUNTER → 2018-04-21 | Outpatient (CLI) | payer MEDICARE ==
[2018-04-21 10:52] LABS: HCT 40.7 % (39.0-53.0); MCH 28.8 pg (25.0-35.0); MCHC 32.1 g/dL (31.0-37.0); MCV 89.9 fL (80.0-100.0); Mean Platelet Volume 6.8; Platelet Count 295 k/uL (150-450); RBC 4.52 m/uL (4.30-5.90); RDW 15.5 % (11.5-15.5)
[2018-04-21 11:17] LABS: Albumin 3.8 g/dL (3.5-5.0); Calcium 9.1 mg/dL (8.4-10.2); Total Bilirubin 0.6 mg/dL (0.2-1.3); Total Protein 6.9 g/dL (6.3-8.2)
== END | disposition home or self-care (01) ==
LOC: LABPAT 09:56
PROVIDERS: ATTEND Internal Medicine Clinical Cardiac Electrophysiology
DX: Z01.812 Encounter for preprocedural laboratory examination (principal); I47.2 Ventricular tachycardia; I25.5 Ischemic cardiomyopathy
CPT/HCPCS: 80053; 84443; 85027

== ENCOUNTER 2018-04-28 17:17 | Inpatient (IN) | payer MEDICARE, BC ==
[2018-04-28] MEDS ORDERED: SODIUM CHLORIDE 0.9% 1,000 ML IV STA (17:38)
--- NOTE | 2018-04-28 17:44 | ED ---
General Adult HPI - General Chief complaint: Dizziness Stated complaint: Defibrillator went off Time Seen by Provider: 04/28/18 17:34 Source: patient, RN notes reviewed, old records reviewed Mode of arrival: wheelchair Limitations: no limitations - History of Present Illness Initial comments: This is a 77-year-old male the ER for evaluation. Patient is known heart patient with the fibrillator. Patient has difficulty with her fired today earlier to arrival. Patient has no recent medical history recent change in medications no nausea vomiting or diarrhea. Denies chest pain shows of breath or abdominal pain Liz. Patient currently has no complaints MD Complaint: Defibrillator firing -: minutes(s) Improves with: none Worsens with: none Associated Symptoms: denies other symptoms Treatments Prior to Arrival: none - Related Data Home Medications Medication Instructions Recorded Confirmed Metoprolol Succinate [Toprol XL] 150 mg PO QAM 12/06/13 04/28/18 Quinapril HCl [Accupril] 20 mg PO DAILY 12/06/13 04/28/18 Spironolactone [Aldactone] 25 mg PO DAILY 12/06/13 04/28/18 Warfarin [Coumadin] 5 mg PO MOTUWEFRSA 12/06/13 04/28/18 Warfarin [Coumadin] 7.5 mg PO SUTH 12/06/13 04/28/18 amLODIPine [Norvasc] 5 mg PO DAILY 12/06/13 04/28/18 Cholecalciferol [Vitamin D3] 1,000 unit PO DAILY 10/22/15 04/28/18 Dorzolamide 2% [Trusopt 2%] 1 drops BOTH EYES BID 11/20/16 04/28/18 Insulin Glargine [Lantus] 45 units SQ BID 11/20/16 04/28/18 metFORMIN HCL [Glucophage] 500 mg PO BID 11/20/16 04/28/18 sitaGLIPtin PHOSPHATE [Januvia] 100 mg PO DAILY 11/20/16 04/28/18 Cyanocobalamin [Vitamin B-12] 500 mcg PO DAILY 12/16/16 04/28/18 Insulin Glulisine [Apidra Solostar] 10 unit SQ AC-BRKFST 04/28/18 04/28/18 Insulin Glulisine [Apidra Solostar] 15 unit SQ AC-LUNCH 04/28/18 04/28/18 Insulin Glulisine [Apidra Solostar] 15 unit SQ HS 04/28/18 04/28/18 Lovastatin [Mevacor] 40 mg PO DAILY 04/28/18 04/28/18 Previous Rx's Medication Instructions Recorded Furosemide [Lasix] 40 mg PO BID #1 tablet 11/22/16 Allergies Allergy/AdvReac Type Severity Reaction Status Date / Time No Known Allergies Allergy Verified 04/28/18 17:43 Review of Systems ROS Statement: Those systems with pertinent positive or pertinent negative responses have been documented in the HPI. ROS Other: All systems not noted in ROS Statement are negative. Past Medical History Past Medical History: Atrial Fibrillation, Chest Pain / Angina, Heart Failure, Diabetes Mellitus, GERD/Reflux, Hyperlipidemia, Hypertension, Myocardial Infarction ([place]), Rheumatoid Arthritis ([place]) Additional Past Medical History / Comment(s): SEE DR NIETO H&P Last Myocardial Infarction Date:: 1991 History of Any Multi-Drug Resistant Organisms: None Reported Past Surgical History: AICD, Coronary Bypass/CABG, Heart Catheterization Additional Past Surgical History / Comment(s): DEFIBRILLATOR THRESHOLD TESTING, JOSE cataracts. 4 VESSEL BIPASS 1991, AICD 2009 Past Anesthesia/Blood Transfusion Reactions: No Reported Reaction Type of Cardiac Device: AICD Device Placement Date:: 2009 Past Psychological History: No Psychological Hx Reported Smoking Status: Former smoker Past Alcohol Use History: None Reported Past Drug Use History: None Reported - Past Family History Sister(s) Family Medical History: Cancer General Exam Limitations: no limitations General appearance: alert, in no apparent distress Head exam: Present: atraumatic, normocephalic, normal inspection Eye exam: Present: normal appearance, PERRL, EOMI. Absent: scleral icterus, conjunctival injection, periorbital swelling ENT exam: Present: normal exam, mucous membranes moist Neck exam: Present: normal inspection. Absent: tenderness, meningismus, lymphadenopathy Respiratory exam: Present: normal lung sounds bilaterally. Absent: respiratory distress, wheezes, rales, rhonchi, stridor Cardiovascular Exam: Present: regular rate, normal rhythm, normal heart sounds. Absent: systolic murmur, diastolic murmur, rubs, gallop, clicks GI/Abdominal exam: Present: soft, normal bowel sounds. Absent: distended, tenderness, guarding, rebound, rigid Extremities exam: Present: normal inspection, full ROM, normal capillary refill. Absent: tenderness, pedal edema, joint swelling, calf tenderness Back exam: Present: normal inspection Neurological exam: Present: alert, oriented X3, CN II-XII intact Psychiatric exam: Present: normal affect, normal mood Skin exam: Present: warm, dry, intact, normal color. Absent: rash Course Vital Signs 04/28/18 04/28/18 17:21 19:18 Temperature 97.9 F Pulse Rate 92 81 Respiratory 18 18 Rate Blood Pressure 120/70 103/67 O2 Sat by Pulse 96 98 Oximetry - Reevaluation(s) Reevaluation #1: 04/28/18 20:56 Patient remains asymptomatic EKG Findings - EKG Comments: EKG Findings:: EKG shows A. fib rate of 78, QRS 110, QTc 446 Medical Decision Making - Medical Decision Making 77 male the ER for evaluation of defibrillator firing, patient states he has had multiple events in the recent days and was told by cardiology this evening ablation next week, at this time patient secondary to fibular firing will be admitted for cardiology evaluation - Lab Data Result diagrams: 04/28/18 17:53 04/28/18 17:53 Lab Results 04/28/18 04/28/18 04/28/18 Range/Units 17:53 17:53 17:53 WBC 11.9 H (3.8-10.6) k/uL RBC 4.58 (4.30-5.90) m/uL Hgb 13.6 (13.0-17.5) gm/dL Hct 40.4 (39.0-53.0) % MCV 88.3 (80.0-100.0) fL MCH 29.6 (25.0-35.0) pg MCHC 33.6 (31.0-37.0) g/dL RDW 15.8 H (11.5-15.5) % Plt Count 304 (150-450) k/uL Neutrophils % 80 % Lymphocytes % 9 % Monocytes % 6 % Eosinophils % 4 % Basophils % 1 % Neutrophils # 9.4 H (1.3-7.7) k/uL Lymphocytes # 1.0 (1.0-4.8) k/uL Monocytes # 0.8 (0-1.0) k/uL Eosinophils # 0.4 (0-0.7) k/uL Basophils # 0.1 (0-0.2) k/uL PT (9.0-12.0) sec INR (<1.2) APTT (22.0-30.0) sec Sodium 135 L (137-145) mmol/L Potassium 5.3 H (3.5-5.1) mmol/L Chloride 99 (98-107) mmol/L Carbon Dioxide 26 (22-30) mmol/L Anion Gap 10 mmol/L BUN 36 H (9-20) mg/dL Creatinine 1.22 (0.66-1.25) mg/dL Est GFR (CKD-EPI)AfAm 67 (>60 ml/min/1.73 sqM) Est GFR (CKD-EPI)NonAf 58 (>60 ml/min/1.73 sqM) Glucose 195 H (74-99) mg/dL Calcium 9.9 (8.4-10.2) mg/dL Phosphorus 4.7 H (2.5-4.5) mg/dL Magnesium 2.0 (1.6-2.3) mg/dL Total Bilirubin 0.6 (0.2-1.3) mg/dL AST 32 (17-59) U/L ALT 27 (21-72) U/L Alkaline Phosphatase 129 H (38-126) U/L Total Creatine Kinase 60 (55-170) U/L CK-MB (CK-2) 0.8 (0.0-2.4) ng/mL CK-MB (CK-2) Rel Index 1.3 Troponin I <0.012 (0.000-0.034) ng/mL Total Protein 7.3 (6.3-8.2) g/dL Albumin 4.0 (3.5-5.0) g/dL 04/28/18 Range/Units 17:53 WBC (3.8-10.6) k/uL RBC (4.30-5.90) m/uL Hgb (13.0-17.5) gm/dL Hct (39.0-53.0) % MCV (80.0-100.0) fL MCH (25.0-35.0) pg MCHC (31.0-37.0) g/dL RDW (11.5-15.5) % Plt Count (150-450) k/uL Neutrophils % % Lymphocytes % % Monocytes % % Eosinophils % % Basophils % % Neutrophils # (1.3-7.7) k/uL Lymphocytes # (1.0-4.8) k/uL Monocytes # (0-1.0) k/uL Eosinophils # (0-0.7) k/uL Basophils # (0-0.2) k/uL PT 22.0 H (9.0-12.0) sec INR 2.4 H (<1.2) APTT 36.5 H (22.0-30.0) sec Sodium (137-145) mmol/L Potassium (3.5-5.1) mmol/L Chloride (98-107) mmol/L Carbon Dioxide (22-30) mmol/L Anion Gap mmol/L BUN (9-20) mg/dL Creatinine (0.66-1.25) mg/dL Est GFR (CKD-EPI)AfAm (>60 ml/min/1.73 sqM) Est GFR (CKD-EPI)NonAf (>60 ml/min/1.73 sqM) Glucose (74-99) mg/dL Calcium (8.4-10.2) mg/dL Phosphorus (2.5-4.5) mg/dL Magnesium (1.6-2.3) mg/dL Total Bilirubin (0.2-1.3) mg/dL AST (17-59) U/L ALT (21-72) U/L Alkaline Phosphatase (38-126) U/L Total Creatine Kinase (55-170) U/L CK-MB (CK-2) (0.0-2.4) ng/mL CK-MB (CK-2) Rel Index Troponin I (0.000-0.034) ng/mL Total Protein (6.3-8.2) g/dL Albumin (3.5-5.0) g/dL Critical Care Time Critical Care Time: Yes Total Critical Care Time: 31 Disposition Clinical Impression: Defibrillator discharge, Atrial fibrillation with rapid ventricular response, AICD (automatic cardioverter/defibrillator) present, Ischemic cardiomyopathy Disposition: ADMITTED IP TO THIS HOSP Condition: Fair Is patient prescribed a controlled substance at d/c from ED?: No Referrals: Walt Pastrana MD [Primary Care Provider] - 1-2 days
[2018-04-28 18:07] LABS: Basophils # (A) 0.1 k/uL (0-0.2); Basophils % (A) 1 %; Eosinophils # (A) 0.4 k/uL (0-0.7); Eosinophils % (A) 4 %; HCT 40.4 % (39.0-53.0); HGB 13.6 gm/dL (13.0-17.5); Lymphocytes % (A) 9 %; MCH 29.6 pg (25.0-35.0); MCHC 33.6 g/dL (31.0-37.0); MCV 88.3 fL (80.0-100.0); Mean Platelet Volume 6.4; Monocytes # (A) 0.8 k/uL (0-1.0); Monocytes % (A) 6 %; Neutrophils # (A) 9.4 k/uL (1.3-7.7); Neutrophils % (A) 80 %; Platelet Count 304 k/uL (150-450); RBC 4.58 m/uL (4.30-5.90); RDW 15.8 % (11.5-15.5); WBC 11.9 k/uL (3.8-10.6)
[2018-04-28 18:17] LABS: INR 2.4 (<1.2); Partial Thromboplastin Time 36.5 sec (22.0-30.0)
[2018-04-28 18:32] LABS: Calcium 9.9 mg/dL (8.4-10.2); Creatine Kinase 60 U/L (55-170); Phosphorus 4.7 mg/dL (2.5-4.5); Potassium 5.3 mmol/L (3.5-5.1); Total Bilirubin 0.6 mg/dL (0.2-1.3); Total Protein 7.3 g/dL (6.3-8.2)
[2018-04-28 18:44] LABS: Creatine Kinase MB 0.8 ng/mL (0.0-2.4); Troponin I <0.012 ng/mL (0.000-0.034)
[2018-04-28] MEDS ORDERED: NITROGLYCERIN SL TABS 0.4 MG TAB SUBLINGUAL PRN (20:55)
[2018-04-28 22:07] VITALS: BMI 34.0
[2018-04-28 22:14] LABS: Glucose,Whole Blood 243 mg/dL (75-99)
[2018-04-28] MEDS: INSULIN ASPART 100 UNIT/ML 1 ML 10 ML VIAL SQ SCH (22:36)
[2018-04-28] MEDS: INSULIN DETEMIR 100 UNIT/ML 10 ML VIAL SQ SCH (22:37)
[2018-04-29 00:59] LABS: Creatine Kinase MB 0.9 ng/mL (0.0-2.4); Troponin I 0.021 ng/mL (0.000-0.034)
[2018-04-29 06:13] LABS: Glucose,Whole Blood 124 mg/dL (75-99)
[2018-04-29 07:25] LABS: Cholesterol 113 mg/dL (<200); HDL Cholesterol 28 mg/dL (40-60); LDL Cholesterol,Calculated 64 mg/dL (0-99); Triglycerides 107 mg/dL (<150)
[2018-04-29 07:59] LABS: Creatine Kinase MB 0.9 ng/mL (0.0-2.4); Troponin I 0.021 ng/mL (0.000-0.034)
[2018-04-29] MEDS ORDERED: DEXTROSE 5% IN WATER 100 ML with AMIODARONE 150 MG IV ONE (09:00)
[2018-04-29] MEDS: AMIODARONE 450 MG in DEXTROSE 5% IN WATER 250 ML IV SCH ×4 (10:14→17:23)
[2018-04-29] MEDS: ASPIRIN 325 MG TAB PO SCH (10:21)
[2018-04-29] MEDS: INSULIN DETEMIR 100 UNIT/ML 10 ML VIAL SQ SCH ×2 (10:28→21:55)
--- NOTE | 2018-04-29 11:48 | P.HPIM ---
History of Present Illness H&P Date: 04/29/18 This is a 77-year-old male patient of Dr. Reyes would with a history of atrial fibrillation, MS, angina, cardiomyopathy, diabetes, GERD, hyperlipidemia, hypertension and, rheumatoid arthritis. Patient has a history of coronary bypass surgery in 1991, AICD insertion 2009. Patient is scheduled for a ventricular tachycardia ablation on 05/[address] Gallardo. Patient presented to the ER yesterday after his ICD fired. Patient denies any loss of consciousness. Patient did feel unwell prior to the episode. He reported feeling warm and dizziness. He denied any chest pain at that time. Patient was found to have multiple episodes of V. tach through his device with one episode resulting in defibrillation. Patient states that this is the first time his defibrillator has fired. Patient presents resting in bed with no acute distress. Patient denies abdominal pain, nausea or vomiting, shortness of breath, or chest pain at this time. Cardiology consult for possible addition of amiodarone to control VT. Review of Systems All systems: negative Constitutional: Reports fatigue, Denies chills, Denies fever Eyes: denies blurred vision, denies pain Ears, nose, mouth and throat: Denies headache, Denies sore throat Cardiovascular: Denies chest pain, Denies lightheadedness, Denies shortness of breath, Denies syncope, denies decreased exercise tolerance, denies dyspnea on exertion Respiratory: Denies cough, Denies cough with sputum, Denies dyspnea, Denies excessive sputum, Denies hemoptysis, Denies home oxygen, Denies wheezing Gastrointestinal: Denies abdominal pain, Denies diarrhea, Denies nausea, Denies vomiting Genitourinary: Denies dysuria Musculoskeletal: Denies myalgias Integumentary: Denies pruritus, Denies rash Neurological: Denies numbness, Denies weakness Psychiatric: Denies anxiety, Denies depression Endocrine: Denies fatigue, Denies weight change Past Medical History Past Medical History: Atrial Fibrillation, Chest Pain / Angina, Heart Failure, Diabetes Mellitus, GERD/Reflux, Hyperlipidemia, Hypertension, Myocardial Infarction ([place]), Rheumatoid Arthritis (RA) Last Myocardial Infarction Date:: 1991 History of Any Multi-Drug Resistant Organisms: None Reported Past Surgical History: AICD, Coronary Bypass/CABG, Heart Catheterization Additional Past Surgical History / Comment(s): DEFIBRILLATOR THRESHOLD TESTING, JOSE cataracts. 4 VESSEL BIPASS 1991, AICD 2009 Past Anesthesia/Blood Transfusion Reactions: No Reported Reaction Type of Cardiac Device: AICD Device Placement Date:: 2009 Past Psychological History: No Psychological Hx Reported Smoking Status: Former smoker Past Alcohol Use History: None Reported Additional Past Alcohol Use History / Comment(s): quit smoking 1994, smoked for 30 yrs < 1PPD Past Drug Use History: None Reported - Past Family History Sister(s) Family Medical History: Cancer Medications and Allergies Home Medications Medication Instructions Recorded Confirmed Type Metoprolol Succinate [Toprol XL] 150 mg PO QAM 12/06/13 04/28/18 History Quinapril HCl [Accupril] 20 mg PO DAILY 12/06/13 04/28/18 History Spironolactone [Aldactone] 25 mg PO DAILY 12/06/13 04/28/18 History Warfarin [Coumadin] 5 mg PO MOTUWEFRSA 12/06/13 04/28/18 History Warfarin [Coumadin] 7.5 mg PO SUTH 12/06/13 04/28/18 History amLODIPine [Norvasc] 5 mg PO DAILY 12/06/13 04/28/18 History Cholecalciferol [Vitamin D3] 1,000 unit PO DAILY 10/22/15 04/28/18 History Dorzolamide 2% [Trusopt 2%] 1 drops BOTH EYES BID 11/20/16 04/28/18 History Insulin Glargine [Lantus] 45 units SQ BID 11/20/16 04/28/18 History metFORMIN HCL [Glucophage] 500 mg PO BID 11/20/16 04/28/18 History sitaGLIPtin PHOSPHATE [Januvia] 100 mg PO DAILY 11/20/16 04/28/18 History Furosemide [Lasix] 40 mg PO BID #1 tablet 11/22/16 04/28/18 Rx Cyanocobalamin [Vitamin B-12] 500 mcg PO DAILY 12/16/16 04/28/18 History Insulin Glulisine [Apidra Solostar] 10 unit SQ AC-BRKFST 04/28/18 04/28/18 History Insulin Glulisine [Apidra Solostar] 15 unit SQ AC-LUNCH 04/28/18 04/28/18 History Insulin Glulisine [Apidra Solostar] 15 unit SQ HS 04/28/18 04/28/18 History Lovastatin [Mevacor] 40 mg PO DAILY 04/28/18 04/28/18 History Allergies Allergy/AdvReac Type Severity Reaction Status Date / Time No Known Allergies Allergy Verified 04/28/18 17:43 Physical Exam Vitals: Vital Signs Temp Pulse Pulse Resp BP BP Pulse Ox 04/29/18 04:00 97.8 F 85 18 127/70 99 04/29/18 00:00 97.9 F 65 18 118/52 100 04/28/18 21:39 97.3 F L 78 18 142/71 95 04/28/18 21:22 97.4 F L 67 16 122/59 97 04/28/18 21:01 93 18 121/64 100 04/28/18 19:18 81 18 103/67 98 04/28/18 17:21 97.9 F 92 18 120/70 96 Intake and Output 04/28/18 04/29/18 04/29/18 22:59 06:59 14:59 Intake Total 480 0 Balance 480 0 Intake: Oral 480 0 Other: Voiding Method Toilet Urinal # Voids 1 2 Weight 104.326 kg 102.6 kg Gen: HEENT: Head is atraumatic, normocephalic. Pupils equal, round. Sclerae is anicteric. NECK: Supple. No JVD. No lymphadenopathy. No thyromegaly. LUNGS: Clear to auscultation. No wheezes or rhonchi. No intercostal retractions. HEART: Regular rate and rhythm. No murmur. ABDOMEN: Soft. Bowel sounds are present. No masses. No tenderness. EXTREMITIES: No pedal edema. No calf tenderness. NEUROLOGICAL: Patient is awake, alert and oriented x3. Cranial nerves 2 through 12 are grossly intact. Results CBC & Chem 7: 04/28/18 17:53 04/28/18 17:53 Labs: Abnormal Lab Results - Last 24 Hours (Table) 04/28/18 04/28/18 04/28/18 Range/Units 17:53 17:53 17:53 WBC 11.9 H (3.8-10.6) k/uL RDW 15.8 H (11.5-15.5) % Neutrophils # 9.4 H (1.3-7.7) k/uL PT 22.0 H (9.0-12.0) sec INR 2.4 H (<1.2) APTT 36.5 H (22.0-30.0) sec Sodium 135 L (137-145) mmol/L Potassium 5.3 H (3.5-5.1) mmol/L BUN 36 H (9-20) mg/dL Glucose 195 H (74-99) mg/dL POC Glucose (mg/dL) (75-99) mg/dL Phosphorus 4.7 H (2.5-4.5) mg/dL Alkaline Phosphatase 129 H (38-126) U/L Total Creatine Kinase (55-170) U/L HDL Cholesterol (40-60) mg/dL 04/28/18 04/28/18 04/29/18 Range/Units 22:03 23:47 06:12 WBC (3.8-10.6) k/uL RDW (11.5-15.5) % Neutrophils # (1.3-7.7) k/uL PT (9.0-12.0) sec INR (<1.2) APTT (22.0-30.0) sec Sodium (137-145) mmol/L Potassium (3.5-5.1) mmol/L BUN (9-20) mg/dL Glucose (74-99) mg/dL POC Glucose (mg/dL) 243 H 124 H (75-99) mg/dL Phosphorus (2.5-4.5) mg/dL Alkaline Phosphatase (38-126) U/L Total Creatine Kinase 48 L (55-170) U/L HDL Cholesterol (40-60) mg/dL 04/29/18 04/29/18 Range/Units 06:34 06:34 WBC (3.8-10.6) k/uL RDW (11.5-15.5) % Neutrophils # (1.3-7.7) k/uL PT (9.0-12.0) sec INR (<1.2) APTT (22.0-30.0) sec Sodium (137-145) mmol/L Potassium (3.5-5.1) mmol/L BUN (9-20) mg/dL Glucose (74-99) mg/dL POC Glucose (mg/dL) (75-99) mg/dL Phosphorus (2.5-4.5) mg/dL Alkaline Phosphatase (38-126) U/L Total Creatine Kinase 48 L (55-170) U/L HDL Cholesterol 28 L (40-60) mg/dL Thrombosis Risk Factor Assmnt - Choose All That Apply Each Risk Factor Represents 3 Points: Age 75 years or older Thrombosis Risk Factor Assessment Total Risk Factor Score: 3 Thrombosis Risk Factor Assessment Level: Moderate Risk Assessment and Plan Plan: 1. Ventricular tachycardia status post AICD defibrillation. Cardiology consult , amiodarone titration, A. fib rhythm at this time. Echo scheduled Scheduled for ventricular tachycardia ablation 05/02 2. Atrial fibrillation, continue metoprolol 150 mg daily, Coumadin 5 mg daily, aspirin 325 mg 3. Diabetes mellitus, monitor blood sugars before meals at bedtime, continue Levemir 45 units twice a day, continue NovoLog 15 units at bedtime, insulin sliding scale before meals at bedtime. Obtain hemoglobin A1c. 4. Cardiomyopathy, stable 5. Hyperlipidemia, Lipitor 10 mg daily 6. Hypertension, stable 7. GERD, stable 8. Remote history of tobacco use 9. DVT prophylaxis, Coumadin Patient will be admitted to the hospital for minimum of 5 nights day. Discharge plan: To be determined is likely return home Impression and plan of care have been directed as dictated by the signing physician. Zaiad Collins nurse practitioner acting as scribe for signing physician.
[2018-04-29 12:18] LABS: Glucose,Whole Blood 401 mg/dL (75-99)
[2018-04-29] MEDS: INSULIN ASPART 100 UNIT/ML 1 ML 10 ML VIAL SQ SCH ×5 (12:43→21:55)
[2018-04-29 13:11] LABS: Hemoglobin A1C 7.1 % (4.0-6.0)
[2018-04-29 13:19] LABS: Potassium 4.5 mmol/L (3.5-5.1)
[2018-04-29] MEDS: METOPROLOL SUCCINATE (ER) 50 MG TAB.ER.24H PO SCH (13:36)
[2018-04-29] MEDS: MEXILETINE 150 MG CAP PO SCH ×2 (13:36→17:27)
--- NOTE | 2018-04-29 15:00 | CONS ---
CONSULTATION CHIEF COMPLAINT: Ventricular tachycardia. Myron is a 81-year-old gentleman with history of coronary artery disease, status post CABG, ischemic cardiomyopathy, diabetes, hypertension, dyslipidemia, who has a history of ventricular tachycardia and has had prior recurrent episodes of ventricular tachycardia and had an AICD. Yesterday his defibrillator went off. His monitor showed that he had runs of ventricular tachycardia and was appropriately shocked. The patient is currently scheduled to undergo a VT ablation next Tuesday. The patient had been admitted to start on IV amiodarone. He is currently on amiodarone and once he is loaded, we will load him and start him on oral amiodarone and the patient will undergo ablation on Tuesday. At the time of my evaluation, patient appears comfortable at rest. Did not have any further episodes of ventricular tachycardia. The patient has had 3 sets of troponins that are negative. INR is 2.4. PAST MEDICAL HISTORY: Significant for coronary artery disease, status post CABG, ischemic cardiomyopathy, ventricular tachycardia, diabetes, hypertension, dyslipidemia. MEDICATIONS: At home included Januvia, Glucophage, Norvasc 5 daily, Coumadin, Aldactone, Accupril 20 mg daily, Toprol-XL 150 mg daily, Mevacor 40 mg daily, insulin, Lasix, vitamin B12. ALLERGIES: No known drug allergies. FAMILY HISTORY: Negative for premature coronary artery disease. SOCIAL HISTORY: Negative for smoking, EtOH abuse, or drug abuse. REVIEW OF SYSTEMS: HEENT is unremarkable. Cardiac as described above. Respiratory as described above. GI negative. negative. Allergy/Immunology: Negative. Skin negative. Musculoskeletal negative. Endocrine negative. Derm negative. Constitutional negative. ONCOLOGICAL: Negative. Rest of the system review is not relevant. EXAM: Patient is comfortable at rest. Vital signs are stable. There is no jugular venous distention. Carotid upstroke is normal. There is no bruit. Chest exam reveals good air entry bilaterally. Heart exam reveals first and second heart sounds. No gallop. No murmur. No rub. Abdomen is soft, nontender. Exam of extremities did not reveal any edema. Peripheral pulses are felt. LABS: Are as described above. EKG shows atrial fibrillation with nonspecific ST-T wave changes. Cardiac enzymes have been negative. Potassium is elevated at 5.3, creatinine is 1.2, BUN is 36. ASSESSMENT: 1. Ventricular tachycardia status post defibrillation. 2. Coronary artery disease, status post coronary artery bypass grafting. 3. Ischemic cardiomyopathy. 4. Yti-iutfemu-mwfqsxjke diabetes. 5. Hypertension. 6. Dyslipidemia. PLAN: We will treat the patient with IV amiodarone and resume the beta blockers that the patient was on. Hold the Aldactone. Continue the Lasix and Coumadin. MMMEE / GABRIELAN: [id number] /
[2018-04-29 17:18] LABS: Glucose,Whole Blood 285 mg/dL (75-99)
[2018-04-29] MEDS ORDERED: WARFARIN 5 MG TAB PO SCH (17:30)
[2018-04-29] MEDS ORDERED: WARFARIN 5 MG TAB PO ONE (18:00)
[2018-04-29] MEDS: SPIRONOLACTONE 25 MG TAB PO SCH (18:06)
[2018-04-29] MEDS: DORZOLAMIDE HCL 2% DROPS 10 ML BTL BOTH EYES SCH (20:14)
[2018-04-29] MEDS: metFORMIN 500 MG TAB PO SCH (20:14)
[2018-04-29] MEDS: FUROSEMIDE 40 MG TAB PO SCH (20:14)
[2018-04-29 20:54] LABS: Glucose,Whole Blood 274 mg/dL (75-99)
[2018-04-29] MEDS ORDERED: INSULIN ASPART 100 UNIT/ML 1 ML 10 ML VIAL SQ SCH (22:20)
[2018-04-30] MEDS: MEXILETINE 150 MG CAP PO SCH ×3 (00:31→17:30)
[2018-04-30] MEDS: AMIODARONE 450 MG in DEXTROSE 5% IN WATER 250 ML IV SCH ×4 (01:47→08:01)
[2018-04-30 05:59] LABS: Glucose,Whole Blood 69 mg/dL (75-99)
[2018-04-30] MEDS: INSULIN ASPART 100 UNIT/ML 1 ML 10 ML VIAL SQ SCH ×7 (06:10→22:18)
[2018-04-30 06:21] LABS: Glucose,Whole Blood 103 mg/dL (75-99)
[2018-04-30 07:14] LABS: INR 2.4 (<1.2); Prothrombin Time 21.9 sec (9.0-12.0)
[2018-04-30] MEDS: ASPIRIN 325 MG TAB PO SCH (07:59)
[2018-04-30] MEDS: METOPROLOL SUCCINATE (ER) 50 MG TAB.ER.24H PO SCH (07:59)
[2018-04-30] MEDS: metFORMIN 500 MG TAB PO SCH ×2 (07:59→20:59)
[2018-04-30] MEDS: FUROSEMIDE 40 MG TAB PO SCH ×2 (08:00→20:59)
[2018-04-30] MEDS: CYANOCOBALAMIN 500 MCG TAB PO SCH (08:00)
[2018-04-30] MEDS: LINAGLIPTIN 5 MG TABLET PO SCH (08:00)
[2018-04-30] MEDS: amLODIPine 5 MG TAB PO SCH (08:00)
[2018-04-30] MEDS: CHOLECALCIFEROL 1,000 UNIT TAB PO SCH (08:00)
[2018-04-30] MEDS: ATORVASTATIN 10 MG TAB PO SCH (08:00)
[2018-04-30] MEDS: SPIRONOLACTONE 25 MG TAB PO SCH (08:01)
[2018-04-30] MEDS: LISINOPRIL 20 MG TAB PO SCH (08:01)
[2018-04-30] MEDS: DORZOLAMIDE HCL 2% DROPS 10 ML BTL BOTH EYES SCH ×2 (08:02→20:59)
[2018-04-30] MEDS ORDERED: METOPROLOL SUCCINATE (ER) 50 MG TAB.ER.24H PO SCH (09:00)
--- NOTE | 2018-04-30 09:44 | ECHOF ---
Referral Reason:aicd discharge MEASUREMENTS -------- HEIGHT: 175.3 cm WEIGHT: 102.5 kg BP: RVIDd: 3.3 cm (< 3.3) IVSd: 1.4 cm (0.6 - 1.1) LVIDd: 4.8 cm (3.9 - 5.3) LVPWd: 1.1 cm (0.6 - 1.1) IVSs: 1.3 cm LVIDs: 4.4 cm LVPWs: 1.3 cm LA Diam: 5.3 cm (2.7 - 3.8) Ao Diam: 2.8 cm (2.0 - 3.7) AV Cusp: 1.5 cm (1.5 - 2.6) LA Diam: 5.9 cm (2.7 - 3.8) MV EXCURSION: 23.037 mm (> 18.000) MV EF SLOPE: 89 mm/s (70 - 150) EPSS: 0.8 cm MV E Martin: 1.13 m/s MV DecT: 227 ms MV A Martin: 0.35 m/s MV E/A Ratio: 3.27 RAP: 5.00 mmHg RVSP: 46.26 mmHg FINDINGS -------- Paced rhythm. This was a techncally difficult study with suboptimal views, , Lumason utilized for enhancement of im ages. The left ventricular size is normal. There is mild concentric left ventricular hypertrophy. Overa ll left ventricular systolic function is moderately impaired with, an EF between 35 - 40 %. Anterse ptal Hypokinesis Inferior Hypokinesis The right ventricle is normal in size. The left atrial size is normal. The right atrial size is normal. 5.0mg OF Lumason UTLIZED: 2 OR MORE WALL SEGMENTS NOT VISUALIZED. The aortic valve is trileaflet, and appears structurally normal. No aortic stenosis or regurgitation. Mild mitral annular calcification present. Mild mitral regurgitation is present. Mild tricuspid regurgitation present. There is no evidence of pulmonary hypertension. The right v entricular systolic pressure, as measured by Doppler, is 46.26mmHg. Trace/mild (physiologic) pulmonic regurgitation. The aortic root size is normal. There is no pericardial effusion. CONCLUSIONS -------- 1. This was a techncally difficult study with suboptimal views, , Lumason utilized for enhancement of images. 2. The left ventricular size is normal. 3. There is mild concentric left ventricular hypertrophy. 4. Anterseptal Hypokinesis 5. Inferior Hypokinesis 6. The right ventricle is normal in size. 7. The left atrial size is normal. 8. The right atrial size is normal. 9. 5.0mg OF Lumason UTLIZED: 2 OR MORE WALL SEGMENTS NOT VISUALIZED. 10. The aortic valve is trileaflet, and appears structurally normal. No aortic stenosis or regurgitat ion. 11. Mild mitral annular calcification present. 12. Mild mitral regurgitation is present. 13. Mild tricuspid regurgitation present. 14. There is no evidence of pulmonary hypertension. 15. The right ventricular systolic pressure, as measured by Doppler, is 46.26mmHg. 16. Trace/mild (physiologic) pulmonic regurgitation. 17. The aortic root size is normal. 18. There is no pericardial effusion. MASTER SHIP: Destiney Mcmullen RDCS
[2018-04-30] MEDS: INSULIN DETEMIR 100 UNIT/ML 10 ML VIAL SQ SCH ×2 (10:09→22:11)
--- NOTE | 2018-04-30 12:25 | P.PN ---
Subjective Progress Note Date: 04/30/18 This is a 77-year-old male patient of Dr. Reyes would with a history of atrial fibrillation, ND, angina, cardiomyopathy, diabetes, GERD, hyperlipidemia, hypertension and, rheumatoid arthritis. Patient has a history of coronary bypass surgery in 1991, AICD insertion 2009. Patient is scheduled for a ventricular tachycardia ablation on 05/[address] Gallardo. Patient presented to the ER yesterday after his ICD fired. Patient denies any loss of consciousness. Patient did feel unwell prior to the episode. He reported feeling warm and dizziness. He denied any chest pain at that time. Patient was found to have multiple episodes of V. tach through his device with one episode resulting in defibrillation. Patient states that this is the first time his defibrillator has fired. Patient presents resting in bed with no acute distress. Patient denies abdominal pain, nausea or vomiting, shortness of breath, or chest pain at this time. Cardiology consult for possible addition of amiodarone to control VT. 04/29: Patient is resting comfortably in bed without any acute distress. Patient did have a sustained run of ventricular tachycardia during the night times one episode. Mexitil was added. Patient denies that his defibrillator fired at that time. Patient denies any complaints during the time of sustained VT. Echocardiogram done yesterday shows a paced rhythm with EF between 35 and 40% anterior septal hypokinesis and inferior hypokinesis. No pericardial effusion. Patient is scheduled to have a VT ablation on Tuesday with Dr. Gallardo. Objective - Vital Signs Vital signs: Vital Signs Temp 97.4 F L 04/30/18 08:00 Pulse 75 04/30/18 08:00 Resp 17 04/30/18 08:00 BP 105/52 04/30/18 08:00 Pulse Ox 98 04/30/18 08:00 Intake & Output 04/29/18 04/30/18 04/30/18 18:59 06:59 18:59 Intake Total 636.89 960 252.571 Output Total 1 951 Balance 635.89 9 252.571 Weight 100.3 kg Intake: Intake, IV Titration 636.89 252.571 Amount Amiodarone 450 mg In 246.89 252.571 Dextrose 5% in Water 250 ml @ 1 MG/MIN 34.53 mls/ hr IV .Q7H31M [facility] Rx#: [id number] Dextrose 5% in Water 100 250 ml @ 618 mls/hr IV .Q10M ONE with Amiodarone 150 mg Rx#:[id number] Sodium Chloride 0.9% 1, 140 000 ml @ 100 mls/hr IV . Q10H [facility] Rx#:[id number] Oral 960 Output: Urine 1 951 Other: Voiding Method Toilet Urinal # Voids 2 - Exam Gen: This is a 77-year-old male, in no acute distress, cooperative, obese HEENT: Head is atraumatic, normocephalic. Pupils equal, round. Sclerae is anicteric. NECK: Supple. No JVD. No lymphadenopathy. No thyromegaly. LUNGS: Clear to auscultation. No wheezes or rhonchi. No intercostal retractions. HEART: Regular rate and rhythm. No murmur. ABDOMEN: Soft. Bowel sounds are present. No masses. No tenderness. EXTREMITIES: No pedal edema. No calf tenderness. NEUROLOGICAL: Patient is awake, alert and oriented x3. Cranial nerves 2 through 12 are grossly intact. - Labs CBC & Chem 7: 04/28/18 17:53 04/29/18 06:34 Labs: Abnormal Lab Results - Last 24 Hours (Table) 04/28/18 04/29/18 04/29/18 Range/Units 23:47 12:12 17:08 PT (9.0-12.0) sec INR (<1.2) POC Glucose (mg/dL) 401 H 285 H (75-99) mg/dL Hemoglobin A1c 7.1 H (4.0-6.0) % 04/29/18 04/30/18 04/30/18 Range/Units 20:53 05:57 06:20 PT (9.0-12.0) sec INR (<1.2) POC Glucose (mg/dL) 274 H 69 L 103 H (75-99) mg/dL Hemoglobin A1c (4.0-6.0) % 04/30/18 Range/Units 06:30 PT 21.9 H (9.0-12.0) sec INR 2.4 H (<1.2) POC Glucose (mg/dL) (75-99) mg/dL Hemoglobin A1c (4.0-6.0) % Assessment and Plan Plan: 1. Ventricular tachycardia status post AICD defibrillation. Cardiology consult completed, amiodarone titration infusing, A. fib rhythm at this time. Echo: EF 35-40%, or septal hypokinesis, inferior hypokinesis mild mitral annular calcification present, mild mitral and tricuspid regurgitation present, no pericardial effusion. 8 beat sustained VT noted during the night Mexitil added. Plan is to move forth at this time with scheduled ventricular tachycardia ablation 05/02. 2. Atrial fibrillation, continue metoprolol 150 mg daily, Coumadin 5 mg daily, aspirin 325 mg, may hold Coumadin per cardiology order for VT ablation procedure. Continue to monitor INR, today INR 2.4 3. Diabetes mellitus, monitor blood sugars before meals at bedtime, continue Levemir 45 units twice a day, continue NovoLog 15 units at bedtime, insulin sliding scale before meals at bedtime. hemoglobin A1c 7.1 4. Cardiomyopathy, stable 5. Hyperlipidemia, Lipitor 10 mg daily 6. Hypertension, stable 7. GERD, stable 8. Remote history of tobacco use 9. DVT prophylaxis, Coumadin Impression and plan of care have been directed as dictated by the signing physician. Zaida Collins nurse practitioner acting as scribe for signing physician.
[2018-04-30 12:31] LABS: Glucose,Whole Blood 166 mg/dL (75-99)
--- NOTE | 2018-04-30 12:34 | P.PN ---
Subjective Progress Note Date: 04/30/18 This is a 77-year-old male patient who presented to the hospital yesterday after his AICD fired. He was found to be in ventricular tachycardia. He was started on an amiodarone drip. He's had no further episodes of ventricular tachycardia. He is hemodynamically stable and is scheduled for V. tach ablation on Tuesday. He denies any chest pain, shortness breath or palpitations. Objective - Vital Signs Vital signs: Vital Signs Temp 97.4 F L 04/30/18 08:00 Pulse 75 04/30/18 08:00 Resp 17 04/30/18 08:00 BP 105/52 04/30/18 08:00 Pulse Ox 98 04/30/18 08:00 Intake & Output 04/29/18 04/30/18 04/30/18 18:59 06:59 18:59 Intake Total 636.89 960 252.571 Output Total 1 951 Balance 635.89 9 252.571 Weight 100.3 kg Intake: Intake, IV Titration 636.89 252.571 Amount Amiodarone 450 mg In 246.89 252.571 Dextrose 5% in Water 250 ml @ 1 MG/MIN 34.53 mls/ hr IV .Q7H31M [facility] Rx#: [id number] Dextrose 5% in Water 100 250 ml @ 618 mls/hr IV .Q10M ONE with Amiodarone 150 mg Rx#:[id number] Sodium Chloride 0.9% 1, 140 000 ml @ 100 mls/hr IV . Q10H [facility] Rx#:[id number] Oral 960 Output: Urine 1 951 Other: Voiding Method Toilet Urinal # Voids 2 - Exam Gen: This is a 77-year-old male, in no acute distress, cooperative, obese HEENT: Head is atraumatic, normocephalic. Pupils equal, round. Sclerae is anicteric. NECK: Supple. No JVD. No lymphadenopathy. No thyromegaly. LUNGS: Clear to auscultation. No wheezes or rhonchi. No intercostal retractions. HEART: Regular rate and rhythm. No murmur. ABDOMEN: Soft. Bowel sounds are present. No masses. No tenderness. EXTREMITIES: No pedal edema. No calf tenderness. NEUROLOGICAL: Patient is awake, alert and oriented x3. Cranial nerves 2 through 12 are grossly intact. - Labs CBC & Chem 7: 04/28/18 17:53 04/29/18 06:34 Labs: Abnormal Lab Results - Last 24 Hours (Table) 04/28/18 04/29/18 04/29/18 Range/Units 23:47 17:08 20:53 PT (9.0-12.0) sec INR (<1.2) POC Glucose (mg/dL) 285 H 274 H (75-99) mg/dL Hemoglobin A1c 7.1 H (4.0-6.0) % 04/30/18 04/30/18 04/30/18 Range/Units 05:57 06:20 06:30 PT 21.9 H (9.0-12.0) sec INR 2.4 H (<1.2) POC Glucose (mg/dL) 69 L 103 H (75-99) mg/dL Hemoglobin A1c (4.0-6.0) % Assessment and Plan Assessment: Ventricular tachycardia status post defibrillation Paroxysmal atrial fibrillation CAD status post CABG Ischemic cardiomyopathy Diabetes mellitus Hypertension Hyperlipidemia Obesity Plan: Echocardiogram was reviewed and shows normal LV size with mild concentric LVH, anterior septal hypokinesis as well as inferior hypokinesis. EF of 35-40%. We will discontinue amiodarone drip and start 400 mg by mouth twice a day. Continue with Toprol, mexiletine, lisinopril and Norvasc. Holding Coumadin for planned ventricular tachycardia ablation on Tuesday. We will continue to monitor him closely.
[2018-04-30] MEDS: AMIODARONE 200 MG TAB PO SCH ×2 (12:53→22:26)
[2018-04-30 17:32] LABS: Glucose,Whole Blood 154 mg/dL (75-99)
[2018-04-30] MEDS ORDERED: WARFARIN 7.5 MG TAB PO SCH (18:00)
[2018-04-30 20:54] LABS: Glucose,Whole Blood 192 mg/dL (75-99)
[2018-05-01] MEDS: MEXILETINE 150 MG CAP PO SCH ×4 (00:41→21:48)
[2018-05-01 05:44] LABS: Glucose,Whole Blood 109 mg/dL (75-99)
[2018-05-01] MEDS: INSULIN ASPART 100 UNIT/ML 1 ML 10 ML VIAL SQ SCH ×7 (06:41→21:47)
[2018-05-01] MEDS: CHOLECALCIFEROL 1,000 UNIT TAB PO SCH (09:10)
[2018-05-01] MEDS: ASPIRIN 325 MG TAB PO SCH ×2 (09:10→10:56)
[2018-05-01] MEDS: LISINOPRIL 20 MG TAB PO SCH (09:10)
[2018-05-01] MEDS: CYANOCOBALAMIN 500 MCG TAB PO SCH (09:10)
[2018-05-01] MEDS: LINAGLIPTIN 5 MG TABLET PO SCH (09:10)
[2018-05-01] MEDS: amLODIPine 5 MG TAB PO SCH (09:10)
[2018-05-01] MEDS: metFORMIN 500 MG TAB PO SCH ×2 (09:11→21:46)
[2018-05-01] MEDS: ATORVASTATIN 10 MG TAB PO SCH (09:11)
[2018-05-01] MEDS: FUROSEMIDE 40 MG TAB PO SCH ×2 (09:11→20:09)
[2018-05-01] MEDS: SPIRONOLACTONE 25 MG TAB PO SCH (09:12)
[2018-05-01] MEDS: METOPROLOL SUCCINATE (ER) 50 MG TAB.ER.24H PO SCH (09:12)
[2018-05-01] MEDS: DORZOLAMIDE HCL 2% DROPS 10 ML BTL BOTH EYES SCH ×2 (09:17→21:47)
[2018-05-01] MEDS: INSULIN DETEMIR 100 UNIT/ML 10 ML VIAL SQ SCH ×2 (09:17→21:46)
[2018-05-01] MEDS ORDERED: SODIUM CHLORIDE 0.65% NASAL SPRAY 44 ML BTL NASAL PRN (10:47)
[2018-05-01] MEDS: guaiFENesin 600 MG TABLET.ER PO SCH ×2 (10:58→20:09)
[2018-05-01] MEDS: SODIUM CHLORIDE 0.9% 1,000 ML IV SCH (10:58)
--- NOTE | 2018-05-01 11:00 | P.CRDCN ---
History of Present Illness History of present illness: The patient was interviewed and examined by me. He is scheduled for VT ablation tomorrow IMPRESSION / ASSESSMENT: Ischemic cardiomyopathy with severe LV dysfunction Recurrent ventricular tachycardia, fast, treated with both antitachycardia pacing as well as defibrillation. On Tuesday antitachycardia pacing failed and he received an ICD shock CHF class II no orthopnea PND History of coronary artery bypass grafting Persistent atrial fibrillation PVCs on telemetry that resemble the first beat after sustained ventricular tachycardia that is documented on telemetry also. The QRS morphology is different in aVR but for most part is quite similar in other leads Sustained fast VT on telemetry predominantly negative QRSs in the inferior leads , right bundle branch block morphology in V1 Femoral pulses mildly diminished in upstroke, bilaterally PLAN: Proceed with EP study and VT ablation for recurrent ventricular tachycardia requiring ICD therapies including failed antitachycardia pacing and Tuesday Hold Coumadin today Hold amiodarone and mexiletine tomorrow Continue all other current medications Hold diabetes medications tomorrow HPI Patient experienced an ICD shock on Tuesday and was sent to the emergency room. Device interrogation revealed sustained fast ventricular tachycardia and failure to antitachycardia pacing ROS: No fever chills or rigors, no cough, phlegm or expectoration, no nausea, vomiting or diarrhea, no hematuria, dysuria, no musculoskeletal complaints, no strokes or seizures, no skin lesions. Patient received appropriate ICD shock for fast ventricular tachycardia EXAMINATION No JVD no hepatojugular reflux Breath sounds are reduced bilaterally no rhonchi no crackles Heart sounds are normal no murmurs or gallop Abdomen is soft nontender Femoral pulses are palpable bilaterally slightly diminished upstroke REVIEW OF LABS, ECG Labs reviewed White count 11.9 thousand, hemoglobin 13.6, Creatinine 1.2 Normal cardiac enzymes HDL 88, LDL 64 ECG shows narrow QRS, atrial fibrillation Past Medical History Past Medical History: Atrial Fibrillation, Chest Pain / Angina, Heart Failure, Diabetes Mellitus, GERD/Reflux, Hyperlipidemia, Hypertension, Myocardial Infarction ([place]), Rheumatoid Arthritis ([place]) Additional Past Medical History / Comment(s): SEE DR NIETO H&P Last Myocardial Infarction Date:: 1991 History of Any Multi-Drug Resistant Organisms: None Reported Past Surgical History: AICD, Coronary Bypass/CABG, Heart Catheterization Additional Past Surgical History / Comment(s): DEFIBRILLATOR THRESHOLD TESTING, JOSE cataracts. 4 VESSEL BIPASS 1991, AICD 2009 Past Anesthesia/Blood Transfusion Reactions: No Reported Reaction Type of Cardiac Device: AICD Device Placement Date:: 2009 Past Psychological History: No Psychological Hx Reported Smoking Status: Former smoker Past Alcohol Use History: None Reported Additional Past Alcohol Use History / Comment(s): quit smoking 1994, smoked for 30 yrs < 1PPD Past Drug Use History: None Reported - Past Family History Sister(s) Family Medical History: Cancer Medications and Allergies Home Medications Medication Instructions Recorded Confirmed Type Metoprolol Succinate [Toprol XL] 150 mg PO QAM 12/06/13 04/28/18 History Quinapril HCl [Accupril] 20 mg PO DAILY 12/06/13 04/28/18 History Spironolactone [Aldactone] 25 mg PO DAILY 12/06/13 04/28/18 History Warfarin [Coumadin] 5 mg PO [id number] 12/06/13 04/28/18 History Warfarin [Coumadin] 7.5 mg PO SUTH 12/06/13 04/28/18 History amLODIPine [Norvasc] 5 mg PO DAILY 12/06/13 04/28/18 History Cholecalciferol [Vitamin D3] 1,000 unit PO DAILY 10/22/15 04/28/18 History Dorzolamide 2% [Trusopt 2%] 1 drops BOTH EYES BID 11/20/16 04/28/18 History Insulin Glargine [Lantus] 45 units SQ BID 11/20/16 04/28/18 History metFORMIN HCL [Glucophage] 500 mg PO BID 11/20/16 04/28/18 History sitaGLIPtin PHOSPHATE [Januvia] 100 mg PO DAILY 11/20/16 04/28/18 History Furosemide [Lasix] 40 mg PO BID #1 tablet 11/22/16 04/28/18 Rx Cyanocobalamin [Vitamin B-12] 500 mcg PO DAILY 12/16/16 04/28/18 History Insulin Glulisine [Apidra Solostar] 10 unit SQ AC-BRKFST 04/28/18 04/28/18 History Insulin Glulisine [Apidra Solostar] 15 unit SQ AC-LUNCH 04/28/18 04/28/18 History Insulin Glulisine [Apidra Solostar] 15 unit SQ HS 04/28/18 04/28/18 History Lovastatin [Mevacor] 40 mg PO DAILY 04/28/18 04/28/18 History Allergies Allergy/AdvReac Type Severity Reaction Status Date / Time No Known Allergies Allergy Verified 04/28/18 17:43 Physical Exam Vitals: Vital Signs Temp Pulse Resp BP Pulse Ox 05/01/18 08:00 97.0 F L 70 18 104/65 95 05/01/18 04:00 97.1 F L 65 16 112/65 94 L 05/01/18 00:00 96.5 F L 69 16 117/51 92 L 04/30/18 20:00 96.8 F L 69 16 99/56 96 04/30/18 16:00 96.9 F L 72 17 92/53 96 04/30/18 12:00 61 17 101/56 97 Intake and Output 04/30/18 05/01/18 05/01/18 22:59 06:59 14:59 Intake Total 240 Output Total 150 Balance -150 240 Intake: Oral 240 Output: Urine 150 Other: Voiding Method Toilet Toilet Urinal # Voids 1 # Bowel Movements 1 Weight 100.4 kg Results 04/28/18 17:53 04/29/18 06:34 Current Medications Generic Name Dose Route Start Last Admin Trade Name Freq PRN Reason Stop Dose Admin Amiodarone HCl 400 mg 04/30/18 12:45 04/30/18 22:26 Cordarone PO 05/02/18 06:00 400 mg BID [facility] Administration Amlodipine Besylate 5 mg 04/30/18 09:00 05/01/18 09:10 Norvasc PO 5 mg DAILY [facility] Administration Atorvastatin Calcium 10 mg 04/30/18 09:00 05/01/18 09:11 Lipitor PO 10 mg DAILY [facility] Administration Cholecalciferol 1,000 unit 04/30/18 09:00 05/01/18 09:10 Vitamin D3 PO 1,000 unit DAILY [facility] Administration Cyanocobalamin 500 mcg 04/30/18 09:00 05/01/18 09:10 Vitamin B-12 PO 500 mcg DAILY [facility] Administration Dorzolamide HCl 1 drops 04/29/18 21:00 05/01/18 09:17 Trusopt BOTH EYES 1 drops BID [facility] Administration Furosemide 40 mg 04/29/18 21:00 05/01/18 09:11 Lasix PO 40 mg BID [facility] Administration Guaifenesin 600 mg 10/08/18 10:00 Mucinex PO Q12HR [facility] Sodium Chloride 1,000 mls @ 20 mls/hr 05/01/18 10:30 Saline 0.9% IV .Q24H [facility] Insulin Aspart 15 unit 04/28/18 22:30 04/30/18 22:18 Novolog SQ 15 unit HS [facility] Administration Insulin Aspart 0 unit 04/29/18 12:21 05/01/18 06:41 Novolog SQ Not Given ACHS [facility] Protocol Insulin Aspart 10 unit 04/30/18 07:30 05/01/18 07:19 Novolog SQ 10 unit AC-BRKFST [facility] Administration Insulin Aspart 15 unit 04/30/18 12:30 04/30/18 12:53 Novolog SQ 15 unit AC-LUNCH [facility] Administration Insulin Detemir 45 unit 04/28/18 22:30 05/01/18 09:17 Levemir SQ 45 unit BID [facility] Administration Linagliptin 5 mg 04/30/18 09:00 05/01/18 09:10 Tradjenta PO 5 mg DAILY [facility] Administration Lisinopril 20 mg 04/30/18 09:00 05/01/18 09:10 Zestril PO 20 mg DAILY [facility] Administration Melatonin 6 mg 05/01/18 21:00 Melatonin PO HS [facility] Metformin HCl 500 mg 04/29/18 21:00 05/01/18 09:11 Glucophage PO 500 mg BID [facility] Administration Metoprolol Succinate 150 mg 04/29/18 13:15 05/01/18 09:12 Toprol Xl PO 150 mg QAM [facility] Administration Mexiletine HCl 150 mg 04/29/18 16:00 05/01/18 09:10 Mexitil PO 05/02/18 06:00 150 mg Q8HR [facility] Administration Nitroglycerin 0.4 mg 04/28/18 20:55 Nitrostat SUBLINGUAL Q5M PRN Chest Pain Sodium Chloride 2 spray 05/01/18 10:47 [place] NASAL QID PRN Allergy Symptoms Spironolactone 25 mg 04/29/18 17:30 05/01/18 09:12 Aldactone PO 25 mg DAILY [facility] Administration Intake and Output 04/30/18 05/01/18 05/01/18 22:59 06:59 14:59 Intake Total 240 Output Total 150 Balance -150 240 Intake: Oral 240 Output: Urine 150 Other: Voiding Method Toilet Toilet Urinal # Voids 1 # Bowel Movements 1 Weight 100.4 kg 04/28/18 17:53 04/29/18 06:34
[2018-05-01 11:09] LABS: Glucose,Whole Blood 162 mg/dL (75-99)
--- NOTE | 2018-05-01 11:33 | P.PN ---
Subjective Progress Note Date: 05/01/18 Principal diagnosis: AICD discharge This is a 77-year-old gentleman who presented to the hospital after discharge from his AICD, he was found to be in ventricular tachycardia and initiated on IV amiodarone. He is currently on by mouth amiodarone. Throughout the night last night he was not noted to have any further runs of nonsustained ventricular tachycardia. Patient does have a history of ischemic cardiomyopathy with severe LV dysfunction, recurrent ventricular tachycardia, systolic congestive heart failure, chronic, history of coronary bypass grafting surgery, chronic persistent atrial fibrillation. He is scheduled tomorrow to undergo ventricular tachycardia ablation by Dr. Gallardo. He was seen and examined this morning, he feels well, no palpitations, no difficulty in breathing. Blood pressure this morning 90/70 with a heart rate in the 70s, 95% on room air. No lab data today. Objective - Vital Signs Vital signs: Vital Signs Temp 97.0 F L 05/01/18 11:01 Pulse 77 05/01/18 11:01 Resp 16 05/01/18 11:01 BP 90/74 05/01/18 11:01 Pulse Ox 95 05/01/18 11:01 Intake & Output 04/30/18 05/01/18 05/01/18 18:59 06:59 18:59 Intake Total 252.571 240 Output Total 550 Balance -297.429 240 Weight 100.4 kg Intake: Intake, IV Titration 252.571 Amount Amiodarone 450 mg In 252.571 Dextrose 5% in Water 250 ml @ 1 MG/MIN 34.53 mls/ hr IV .Q7H31M [facility] Rx#: [id number] Oral 240 Output: Urine 550 Other: Voiding Method Toilet # Voids 1 # Bowel Movements 1 - Exam PHYSICAL EXAMINATION: GENERAL: 77-year-old gentleman in no acute distress at the time of my examination HEENT: Head is atraumatic, normocephalic. Pupils equal, round. Sclera anicteric. Conjunctiva are clear. Mucous membranes of the mouth are moist. Neck is supple. There is no elevated jugular venous pressure. No carotid bruit is heard. HEART EXAMINATION: Heart S1-S2 irregularly irregular CHEST EXAMINATION:[Lungs are clear to auscultation and precussion. No chest wall tenderness is noted on palpation or with deep breathing.] ABDOMEN: [Soft, nontender. Bowel sounds are heard. No organomegaly noted] EXTREMITIES:[2+ peripheral pulses with no evidence of peripheral edema and no calf tenderness noted] NEUROLOGIC [atient is awake, alert and oriented X3. . - Labs CBC & Chem 7: 04/28/18 17:53 04/29/18 06:34 Labs: Abnormal Lab Results - Last 24 Hours (Table) 04/30/18 04/30/18 04/30/18 Range/Units 12:08 17:13 20:52 POC Glucose (mg/dL) 166 H 154 H 192 H (75-99) mg/dL 05/01/18 05/01/18 Range/Units 05:43 11:07 POC Glucose (mg/dL) 109 H 162 H (75-99) mg/dL Assessment and Plan Plan: Assessment and plan #1 ventricular tachycardia status post AICD discharge #2 ischemic cardiomyopathy #3 coronary artery disease with prior bypass surgery #4 chronic persistent atrial fibrillation #5 diabetes #6 hypertension #7 hyperlipidemia Plan Coumadin has been discontinued today prior to the procedure scheduled for tomorrow. Tomorrow morning's dose of amiodarone and mexiletine will be held. Patient scheduled morning undergo ventricular tachycardia ablation with Dr. Gallardo. DNP note has been reviewed, I agree with a documented findings and plan of care. Patient was seen and examined.
--- NOTE | 2018-05-01 11:55 | CDI ---
Last Revision, June 2017 Documentation Clarification Form Date: 05/01/18 From: Nehal Salter RN Admit Date: 04/28/2018 8:55:00 PM Patient Name: Myron Rey Visit Number: [id number] ATTENTION: The Clinical Documentation Specialists (CDI) and [facility] Coding Staff appreciate your assistance in clarifying documentation. Please respond to the clarification below the line at the bottom and electronically sign. The CDI & [facility] Coding staff will review the response and follow-up if needed. Please note: Queries are made part of the Legal Health Record. If you have any questions, please contact the author of this message via ITS. Siddharth Posey MD, Heart Failure is documented in the ED note 04/28, H&P 04/29 and the Cardiology consult 05/01. Pt. was admitted for defibrillator discharge. 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 Systolic Heart Failure: Acute Chronic Acute on Chronic Diastolic Heart Failure: Acute Chronic Acute on Chronic Systolic & Diastolic Heart Failure: Acute Chronic Acute on Chronic Heart Failure Unable to Determine Other, please specify MTDD
[2018-05-01] MEDS: AMIODARONE 200 MG TAB PO SCH ×2 (12:17→21:44)
--- NOTE | 2018-05-01 14:20 | XR ---
EXAMINATION TYPE: XR chest 2V DATE OF EXAM: 05/01/2018 COMPARISON: Prior chest x-ray 11/20/2016 HISTORY: Cough TECHNIQUE: Frontal and lateral views of the chest are obtained. FINDINGS: Patient is post median sternotomy and the heart remains enlarged. Pacemaker is stable with leads in the right ventricle. No evident pneumothorax or pleural effusion. Old healed right clavicul ar fracture is noted. Pulmonary vascularity and richardson within normal limits. There is improvement in ae ration as compared to prior exam. IMPRESSION: Improvement in volume status, aeration. Cardiomegaly.
--- NOTE | 2018-05-01 15:34 | P.PN ---
<Svitlana White A - Last Filed: 05/01/18 15:31> Subjective Progress Note Date: 05/01/18 This is a 77-year-old male patient of Dr. Reyes would with a history of atrial fibrillation, [place], angina, cardiomyopathy, diabetes, GERD, hyperlipidemia, hypertension and, rheumatoid arthritis. Patient has a history of coronary bypass surgery in 1991, AICD insertion 2009. Patient is scheduled for a ventricular tachycardia ablation on 05/[address] Gallardo. Patient presented to the ER yesterday after his ICD fired. Patient denies any loss of consciousness. Patient did feel unwell prior to the episode. He reported feeling warm and dizziness. He denied any chest pain at that time. Patient was found to have multiple episodes of V. tach through his device with one episode resulting in defibrillation. Patient states that this is the first time his defibrillator has fired. Patient presents resting in bed with no acute distress. Patient denies abdominal pain, nausea or vomiting, shortness of breath, or chest pain at this time. Cardiology consult for possible addition of amiodarone to control VT. 04/29: Patient is resting comfortably in bed without any acute distress. Patient did have a sustained run of ventricular tachycardia during the night times one episode. Mexitil was added. Patient denies that his defibrillator fired at that time. Patient denies any complaints during the time of sustained VT. Echocardiogram done yesterday shows a paced rhythm with EF between 35 and 40% anterior septal hypokinesis and inferior hypokinesis. No pericardial effusion. Patient is scheduled to have a VT ablation on Tuesday with Dr. Gallardo. 05/01: Patient's amiodarone drip has been switched over to oral at 400 mg twice daily. He is scheduled for ventricular tachycardia ablation on Tuesday. Patient states he is feeling better. He denies his ICD firing. He does complain of drainage down the back was throat and cough and Mucinex added. Chest x-ray reveals improvement of volume status, aeration. Cardiomegaly. Patient denies any abdominal pain. He states he didn't sleep well last night and melatonin started. Objective - Vital Signs Vital signs: Vital Signs Temp 97.1 F L 05/01/18 04:00 Pulse 65 05/01/18 04:00 Resp 16 10/08/18 04:00 BP 112/65 05/01/18 04:00 Pulse Ox 94 L 05/01/18 04:00 Intake & Output 04/30/18 05/01/18 05/01/18 18:59 06:59 18:59 Intake Total 252.571 240 Output Total 550 Balance -297.429 240 Weight 100.4 kg Intake: Intake, IV Titration 252.571 Amount Amiodarone 450 mg In 252.571 Dextrose 5% in Water 250 ml @ 1 MG/MIN 34.53 mls/ hr IV .[id number] [facility] Rx#: [id number] Oral 240 Output: Urine 550 Other: Voiding Method Toilet # Voids 1 # Bowel Movements 1 - Exam Gen: This is a 77-year-old male, in no acute distress, cooperative, obese HEENT: Head is atraumatic, normocephalic. Pupils equal, round. Sclerae is anicteric. NECK: Supple. No JVD. No lymphadenopathy. No thyromegaly. LUNGS: Clear to auscultation. No wheezes or rhonchi. No intercostal retractions. HEART: Regular rate and rhythm. No murmur. ABDOMEN: Soft. Bowel sounds are present. No masses. No tenderness. EXTREMITIES: No pedal edema. No calf tenderness. NEUROLOGICAL: Patient is awake, alert and oriented x3. Cranial nerves 2 through 12 are grossly intact. - Labs CBC & Chem 7: 04/28/18 17:53 04/29/18 06:34 Labs: Abnormal Lab Results - Last 24 Hours (Table) 04/30/18 04/30/18 04/30/18 Range/Units 12:08 17:13 20:52 POC Glucose (mg/dL) 166 H 154 H 192 H (75-99) mg/dL 05/01/18 Range/Units 05:43 POC Glucose (mg/dL) 109 H (75-99) mg/dL Assessment and Plan Plan: 1. Ventricular tachycardia status post AICD defibrillation. Cardiology consult completed, amiodarone titration infusing, A. fib rhythm at this time. Echo: EF 35-40%, or septal hypokinesis, inferior hypokinesis mild mitral annular calcification present, mild mitral and tricuspid regurgitation present, no pericardial effusion. 8 beat sustained VT noted during the night Mexitil added. Plan is to move forth at this time with scheduled ventricular tachycardia ablation 05/02. 2. Atrial fibrillation, continue metoprolol 150 mg daily, Coumadin 5 mg daily, aspirin 325 mg, may hold Coumadin per cardiology order for VT ablation procedure. Continue to monitor INR, today INR 2.4 3. Diabetes mellitus, monitor blood sugars before meals at bedtime, continue Levemir 45 units twice a day, continue NovoLog 15 units at bedtime, insulin sliding scale before meals at bedtime. hemoglobin A1c 7.1 4. Cardiomyopathy, stable 5. Hyperlipidemia, Lipitor 10 mg daily 6. Hypertension, stable 7. GERD, stable 8. Remote history of tobacco use 9. DVT prophylaxis, Coumadin 10. Cough with sinus drainage. Mucinex added. 11. Insomnia. Melatonin added. Discharge plan: Home Impression and plan of care have been directed as dictated by the signing physician. Svitlana White nurse practitioner acting as scribe for signing physician. <Roula Ken - Last Filed: 05/04/18 21:48> Subjective Constitutional: deniess weakness, Denies chills, Denies fever Eyes: denies blurred vision, denies pain Ears, nose, mouth and throat: Denies headache, Denies sore throat, Denies vertigo Cardiovascular: denies shortness of breath, Denies chest pain, Denies syncope Respiratory: endorses cough, denies dyspnea, Denies cough with sputum, Denies excessive sputum, Denies hemoptysis, Denies home oxygen, Denies wheezing Gastrointestinal: Denies abdominal pain, Denies diarrhea, Denies nausea, Denies vomiting Genitourinary: Denies dysuria, Denies hematuria Musculoskeletal: Denies myalgias Integumentary: Denies pruritus, Denies rash Neurological: Denies numbness, Denies weakness Psychiatric: Denies anxiety, Denies depression Endocrine: Denies fatigue, Denies weight change Objective - Vital Signs Vital signs: Vital Signs Temp 97.3 F L 05/03/18 15:50 Pulse 84 05/03/18 15:50 Resp 18 05/03/18 15:50 BP 85/43 05/03/18 15:50 Pulse Ox 96 05/03/18 15:50 - Labs CBC & Chem 7: 05/02/18 06:04 05/02/18 06:04 Labs: Microbiology - Last 24 Hours (Table) 05/02/18 18:51 Urine Culture - Final Urine,Catheterized
[2018-05-01 16:59] LABS: Glucose,Whole Blood 149 mg/dL (75-99)
[2018-05-01] MEDS: MELATONIN 3 MG TABLET PO SCH (20:10)
[2018-05-01 21:07] LABS: Glucose,Whole Blood 271 mg/dL (75-99)
[2018-05-02 06:04] LABS: Glucose,Whole Blood 187 mg/dL (75-99)
[2018-05-02] MEDS: METOPROLOL SUCCINATE (ER) 50 MG TAB.ER.24H PO SCH (06:10)
[2018-05-02] MEDS: ATORVASTATIN 10 MG TAB PO SCH (06:10)
[2018-05-02] MEDS: guaiFENesin 600 MG TABLET.ER PO SCH ×2 (06:10→21:53)
[2018-05-02] MEDS: SPIRONOLACTONE 25 MG TAB PO SCH (06:10)
[2018-05-02] MEDS: LISINOPRIL 20 MG TAB PO SCH (06:10)
[2018-05-02] MEDS ORDERED: ceFAZolin IN SWFI 2 GM/20 ML SYRINGE IVP ONE (06:30)
[2018-05-02 06:34] LABS: HCT 38.7 % (39.0-53.0); HGB 12.6 gm/dL (13.0-17.5); MCH 29.3 pg (25.0-35.0); MCHC 32.6 g/dL (31.0-37.0); Mean Platelet Volume 6.6; Platelet Count 281 k/uL (150-450); RDW 15.6 % (11.5-15.5); WBC 13.3 k/uL (3.8-10.6)
[2018-05-02 06:36] LABS: INR 2.2 (<1.2); Prothrombin Time 19.7 sec (9.0-12.0)
[2018-05-02 06:45] LABS: Albumin 3.6 g/dL (3.5-5.0); Potassium 4.6 mmol/L (3.5-5.1); Total Protein 6.4 g/dL (6.3-8.2)
[2018-05-02 06:46] LABS: Calcium 9.2 mg/dL (8.4-10.2); Total Bilirubin 0.7 mg/dL (0.2-1.3)
[2018-05-02] MEDS ORDERED: IV FLUID CONTINUATION 1,000 ML IV ONE (08:07)
[2018-05-02] MEDS ORDERED: KETAMINE 10 MG/ML 20 ML VIAL ONE (08:07)
[2018-05-02] MEDS ORDERED: MIDAZOLAM 2 MG/2 ML VIAL ONE (08:07)
[2018-05-02] MEDS ORDERED: ISOPROTERENOL 250 MCG/1.25 ML SYR IV ONE (08:07)
[2018-05-02] MEDS ORDERED: PROPOFOL 10 MG/ML 20 ML VIAL IV ONE (08:07)
[2018-05-02] MEDS ORDERED: ONDANSETRON 4 MG/2 ML VIAL ONE (08:07)
[2018-05-02] MEDS ORDERED: IV FLUID CONTINUATION 800 ML IV ONE (08:07)
[2018-05-02] MEDS ORDERED: FUROSEMIDE 10 MG/ML 2 ML VIAL ONE (08:07)
[2018-05-02] MEDS ORDERED: HEPARIN SODIUM,PORCINE 10,000 UNIT/ML 1 ML VIAL ONE (08:07)
[2018-05-02] MEDS ORDERED: ePHEDrine SULFATE/0.9% NACL/PF 50 MG/5 ML SYRINGE IV ONE (08:07)
[2018-05-02] MEDS ORDERED: HYDROmorphone (PF) 1 MG/ML ONE (08:07)
[2018-05-02] MEDS ORDERED: PROTAMINE SULFATE 10 MG/ML 5 ML VIAL IV ONE (08:07)
[2018-05-02] MEDS ORDERED: LIDOCAINE 1% INJ 10MG/ML (20 ML MDV) ONE (08:26)
[2018-05-02] MEDS ORDERED: LIDOCAINE 1% INJ 10MG/ML (20 ML MDV) SQ ONE (08:55)
[2018-05-02] MEDS: INSULIN ASPART 100 UNIT/ML 1 ML 10 ML VIAL SQ SCH ×7 (08:56→22:14)
[2018-05-02] MEDS ORDERED: HEPARIN SOD,PORK IN 0.45% NACL 25,000 UNIT in 0.45% NACL 1 500ML.BAG IV ONE (09:24)
[2018-05-02] MEDS ORDERED: HEPARIN SODIUM (1,000 UNIT/ML) 1,000 UNIT in SODIUM CHLORIDE 0.9% 1,000 ML IRRIGATION ONE ×2 (09:30→12:45)
--- NOTE | 2018-05-02 11:51 | P.PN ---
Subjective Progress Note Date: 05/02/18 This is a 77-year-old male patient of Dr. Reyes would with a history of atrial fibrillation, [place], angina, cardiomyopathy, diabetes, GERD, hyperlipidemia, hypertension and, rheumatoid arthritis. Patient has a history of coronary bypass surgery in 1991, AICD insertion 2009. Patient is scheduled for a ventricular tachycardia ablation on 05/[address] Gallardo. Patient presented to the ER yesterday after his ICD fired. Patient denies any loss of consciousness. Patient did feel unwell prior to the episode. He reported feeling warm and dizziness. He denied any chest pain at that time. Patient was found to have multiple episodes of V. tach through his device with one episode resulting in defibrillation. Patient states that this is the first time his defibrillator has fired. Patient presents resting in bed with no acute distress. Patient denies abdominal pain, nausea or vomiting, shortness of breath, or chest pain at this time. Cardiology consult for possible addition of amiodarone to control VT. 04/29: Patient is resting comfortably in bed without any acute distress. Patient did have a sustained run of ventricular tachycardia during the night times one episode. Mexitil was added. Patient denies that his defibrillator fired at that time. Patient denies any complaints during the time of sustained VT. Echocardiogram done yesterday shows a paced rhythm with EF between 35 and 40% anterior septal hypokinesis and inferior hypokinesis. No pericardial effusion. Patient is scheduled to have a VT ablation on Tuesday with Dr. Gallardo. 05/01: Patient's amiodarone drip has been switched over to oral at 400 mg twice daily. He is scheduled for ventricular tachycardia ablation on Tuesday. Patient states he is feeling better. He denies his ICD firing. He does complain of drainage down the back was throat and cough and Mucinex added. Chest x-ray reveals improvement of volume status, aeration. Cardiomegaly. Patient denies any abdominal pain. He states he didn't sleep well last night and melatonin started. 05/02: Vital signs have been stable with blood pressure on the lower side. BUN 42 and creatinine 1.56, WBC 13.3. Capillary blood glucose running between 149 and 271. INR is 2.2. Patient is undergoing V. tach ablation today. Objective - Vital Signs Vital signs: Vital Signs Temp 97.1 F L 10/09/18 05:00 Pulse 60 05/02/18 05:00 Resp 17 05/02/18 05:00 BP 103/57 05/02/18 05:00 Pulse Ox 96 05/02/18 05:00 Intake & Output 05/01/18 05/02/18 05/02/18 18:59 06:59 18:59 Intake Total 2070 Output Total 900 Balance 1170 Weight 99.9 kg Intake: IV 130 Invasive Line 1 20 Invasive Line 2 10 Sodium Chloride 0.9% 1, 100 000 ml @ 20 mls/hr IV . Q24H [facility] Rx#:[id number] Oral 1940 Output: Urine 900 Other: Voiding Method Toilet Toilet # Voids 1 1 - Exam Gen: This is a 77-year-old male, in no acute distress, cooperative, obese. HEENT: Head is atraumatic, normocephalic. Pupils equal, round. Sclerae is anicteric. Conjunctiva pink. NECK: Supple. No JVD. No lymphadenopathy. No thyromegaly. LUNGS: Clear to auscultation. No wheezes or rhonchi. No intercostal retractions. HEART: Regular rate and rhythm. No murmur. ABDOMEN: Soft. Bowel sounds are present. No masses. No tenderness. EXTREMITIES: No pedal edema. No calf tenderness. NEUROLOGICAL: Patient is awake, alert and oriented x3. Cranial nerves 2 through 12 are grossly intact. - Labs CBC & Chem 7: 05/02/18 06:04 05/02/18 06:04 Labs: Abnormal Lab Results - Last 24 Hours (Table) 05/01/18 05/01/18 05/01/18 Range/Units 11:07 16:57 21:05 WBC (3.8-10.6) k/uL Hgb (13.0-17.5) gm/dL Hct (39.0-53.0) % RDW (11.5-15.5) % PT (9.0-12.0) sec INR (<1.2) BUN (9-20) mg/dL Creatinine (0.66-1.25) mg/dL Glucose (74-99) mg/dL POC Glucose (mg/dL) 162 H 149 H 271 H (75-99) mg/dL 05/02/18 05/02/18 05/02/18 Range/Units 06:03 06:04 06:04 WBC 13.3 H (3.8-10.6) k/uL Hgb 12.6 L (13.0-17.5) gm/dL Hct 38.7 L (39.0-53.0) % RDW 15.6 H (11.5-15.5) % PT 19.7 H (9.0-12.0) sec INR 2.2 H (<1.2) BUN (9-20) mg/dL Creatinine (0.66-1.25) mg/dL Glucose (74-99) mg/dL POC Glucose (mg/dL) 187 H (75-99) mg/dL 05/02/18 Range/Units 06:04 WBC (3.8-10.6) k/uL Hgb (13.0-17.5) gm/dL Hct (39.0-53.0) % RDW (11.5-15.5) % PT (9.0-12.0) sec INR (<1.2) BUN 42 H (9-20) mg/dL Creatinine 1.56 H (0.66-1.25) mg/dL Glucose 178 H (74-99) mg/dL POC Glucose (mg/dL) (75-99) mg/dL Assessment and Plan Plan: 1. Ventricular tachycardia status post AICD defibrillation. Cardiology consult completed, amiodarone titration infusing, A. fib rhythm at this time. Echo: EF 35-40%, or septal hypokinesis, inferior hypokinesis mild mitral annular calcification present, mild mitral and tricuspid regurgitation present, no pericardial effusion. 8 beat sustained VT noted during the night Mexitil added. Scheduled for ventricular tachycardia ablation today. 2. Chronic atrial fibrillation, continue metoprolol 150 mg daily, Coumadin was held, aspirin on hold. INR 2.2. 3. Diabetes mellitus, monitor blood sugars before meals at bedtime, continue Levemir 45 units twice a day, continue NovoLog 15 units at bedtime, insulin sliding scale before meals at bedtime. hemoglobin A1c 7.1 4. Cardiomyopathy, stable 5. Hyperlipidemia, Lipitor 10 mg daily 6. Hypertension, stable 7. GERD, stable 8. Remote history of tobacco use 9. DVT prophylaxis, Coumadin 10. Cough with sinus drainage. Mucinex added. 11. Insomnia. Melatonin added. Discharge plan: Home Impression and plan of care have been directed as dictated by the signing physician. Svitlana White nurse practitioner acting as scribe for signing physician.
[2018-05-02] MEDS ORDERED: FUROSEMIDE 10 MG/ML 4 ML VIAL ONE (12:09)
[2018-05-02] MEDS ORDERED: FUROSEMIDE 10 MG/ML 4 ML VIAL IV ONE (12:10)
[2018-05-02] MEDS ORDERED: ACETAMINOPHEN TAB 325 MG TAB PO PRN (13:50)
[2018-05-02] MEDS ORDERED: ACETAMINOPHEN IV (For NPO) 1,000 MG in EMPTY BAG 1 BAG IVPB ONE (13:50)
--- NOTE | 2018-05-02 13:58 | P.PN ---
Progress Note - Text Patient underwent successful scar based VT ablation using the S2 mapping protocol/Isochronal mapping The core is lying for the multiple ventricular tachycardias were identified on the interatrial ventricular septum on the left side. Successful ablation was performed. Good power and good contact force was employed Prior to ablation VT was easily inducible with minimal stimulation and multiple different VT is of at least 4 different morphologies were noted Following ablation VT was not inducible on and off Isuprel with burst stimulation and ventricular extra stimulation Vitor Resume Coumadin since patient is permanent atrial fibrillation Mexiletine 150 mg every 8 hours for a month and then stop Amiodarone 100 mg by mouth daily for 1 month then stop Resume all other cardiac medications
--- NOTE | 2018-05-02 14:24 | P.PCN ---
Preoperative Diagnosis: Diagnosis Recurrent ventricular tachycardia exiting from the inferior wall of the left ventricle. Multiple a ICD therapies and failure of antitachycardia pacing and ICD shock Ischemic cardiomyopathy CAD permanent atrial fibrillation on Coumadin Procedure details Patient underwent scar based ablation for VT with the S2 mapping protocol Patient was brought to the EP lab in a fasting state. Written informed consent was obtained prior to the procedure. Both groins prepped and draped per protocol. The procedure's medical ICD was interrogated capture threshold in the ventricles was increased sensing was within normal limits impedances are stable VT therapies were turned off 2 venous accesses were obtained in the left femoral vein Right femoral arterial access was obtained for hemodynamic monitoring and sampling during the EP study and later for retrograde access into the left ventricle for VT ablation Diagnostic cath was replaced intracardiac echo cath was placed 3-D mapping of the left atrium was performed. A Pentaray cath was placed in the LV. Later a mapping and ablation irrigated tip catheter was placed Ventricular extra stimulation was performed. Baseline HV interval was 46 ms. Baseline QRS 190 ms. Patient was in atrial fibrillation the start of the study. He is permanent atrial fibrillation VT was induced very easily with minimal stimulation with the RV catheter as well as with a catheter in the left ventricle. The VT morphologies were as follows 1. VT 1 was a right bundle branch block morphology with deep S waves V1 through V4 upright QRS is in lead 2 and aVF as well as lead 1 and aVL #2. VT #2 was also noted while he was in the hospital right bundle branch block morphology, deep S waves in the inferior leads, prominent S waves V2-V6 #3 right bundle branch block pattern with a QR in V1 and upright QRS is in the inferior leads and an RS pattern in lead 1 and aVL pattern 3-D mapping was performed with intracardiac echo as well as with CARTO mapping. The 3-D mapping of the left ventricle was made during his intrinsic rhythm as well as during S2 mapping at 550/320 ms VT was induced on multiple occasions and required antitachycardia pacing Arrhythmias associated with a drop in blood pressure Scar was noted in the septum. Scar mapping was performed. Isochronal mapping was performed. During S2 mapping the isochromosome maps were very helpful in defining the functional isthmii in the septum The intrinsic rhythm mapped also to find the scar but the isochromosome mapped during intrinsic rhythm did not define the functional Isthmii In addition the scar mapped in the intrinsic rhythm did not define the exit of the inferior wall VT clearly S2 mapping was very helpful namely because of the isochromosome maps which defined the functional isthmii and defined the core VT circuit very well within a small area of the septum RF ablation was performed within this core Good power and good contact force achieved consistently greater than 10 g A complete anatomic lines were made to ablate the core VT circuit that is defined with S2 mapping/Isochronal maps Following that ventricle extra stimulation was performed with a more aggressive protocol with extrastimuli as well as a burst stimulation and other than a brief episode of nonsustained PSVT which was self-limiting and very brief, no monomorphic VT was induced No VT was induced on Isuprel The ICD was interrogated thresholds chronically elevated pacing threshold 2.75 V at 1 ms, pacing impedance 800 ohms R waves greater than 12 mV high-voltage impedance 110 ohms Sensitivity at 0.3 mV MADIT RIT programming Heparin was reversed. Arterial venous sheaths were removed hemostasis was assured FemoStop applied Patient tolerated the procedure well without any acute complications. Procedure performed under conscious sedation with [employer] anesthesia support Procedures performed ICD interrogation with reprogramming before the procedure Comprehensive diagnostic EP study with attempted arrhythmia induction LV pacing and recording Drug infusion Intracardiac echo 3-D [place], [address] ICD interrogation with reprogramming postprocedure
[2018-05-02] MEDS ORDERED: ONDANSETRON 4 MG/2 ML VIAL IVP ONE (14:44)
[2018-05-02 15:19] LABS: Glucose,Whole Blood 246 mg/dL (75-99)
[2018-05-02] MEDS: INSULIN DETEMIR 100 UNIT/ML 10 ML VIAL SQ SCH ×2 (15:24→21:48)
[2018-05-02] MEDS: metFORMIN 500 MG TAB PO SCH ×2 (15:25→21:43)
[2018-05-02 17:08] LABS: Glucose,Whole Blood 234 mg/dL (75-99)
[2018-05-02] MEDS: LINAGLIPTIN 5 MG TABLET PO SCH (17:18)
[2018-05-02] MEDS: CYANOCOBALAMIN 500 MCG TAB PO SCH (17:18)
[2018-05-02] MEDS: FUROSEMIDE 40 MG TAB PO SCH ×2 (17:18→21:42)
[2018-05-02] MEDS: CHOLECALCIFEROL 1,000 UNIT TAB PO SCH (17:18)
[2018-05-02] MEDS: amLODIPine 5 MG TAB PO SCH (17:20)
[2018-05-02] MEDS: DORZOLAMIDE HCL 2% DROPS 10 ML BTL BOTH EYES SCH ×2 (17:21→21:49)
[2018-05-02] MEDS: SODIUM CHLORIDE 0.9% 1,000 ML IV SCH (17:22)
[2018-05-02] MEDS: AMIODARONE 100 MG TAB PO SCH (17:26)
[2018-05-02] MEDS: MEXILETINE 150 MG CAP PO SCH ×2 (17:26→21:42)
[2018-05-02 19:16] LABS: Appearance,Urine Turbid (Clear); Bilirubin,Urine Negative (Negative); Blood,Urine Moderate (Negative); Color,Urine Yellow; Glucose,Urine (UA) Negative (Negative); Ketones,Urine Negative (Negative); Leukocyte Esterase,Urine Large (Negative); Mucus,Urine Occasional /hpf; Nitrite,Urine Negative (Negative); PH, Urine 5.5 (5.0-8.0); Protein,Urine 1+ (Negative); RBC,Urine 32 /hpf (0-5); Specific Gravity,Urine 1.018 (1.001-1.035); Urobilinogen,Urine <2.0 mg/dL (<2.0); WBC,Urine >182 /hpf (0-5)
[2018-05-02 21:03] LABS: Glucose,Whole Blood 197 mg/dL (75-99)
[2018-05-02] MEDS ORDERED: NITROFURANTOIN MONOHYD/M-CRYST 100 MG CAP PO SCH (21:30)
[2018-05-02] MEDS: MELATONIN 3 MG TABLET PO SCH (21:43)
[2018-05-02] MEDS ORDERED: ONDANSETRON 4 MG/2 ML VIAL IVP PRN (21:51)
[2018-05-02] MEDS: NYSTATIN 100,000 UNIT/GM POWD 15 GM TOPICAL SCH (22:13)
[2018-05-02 23:47] VITALS: RESP 18
[2018-05-03 06:22] LABS: Glucose,Whole Blood 170 mg/dL (75-99)
[2018-05-03 06:51] LABS: INR 1.9 (<1.2); Prothrombin Time 17.6 sec (9.0-12.0)
[2018-05-03] MEDS: INSULIN ASPART 100 UNIT/ML 1 ML 10 ML VIAL SQ SCH ×4 (07:05→12:33)
[2018-05-03] MEDS: AMIODARONE 100 MG TAB PO SCH (09:02)
[2018-05-03] MEDS: MEXILETINE 150 MG CAP PO SCH ×2 (09:02→15:56)
[2018-05-03] MEDS: guaiFENesin 600 MG TABLET.ER PO SCH (09:03)
[2018-05-03] MEDS: METOPROLOL SUCCINATE (ER) 50 MG TAB.ER.24H PO SCH (09:03)
[2018-05-03] MEDS: CHOLECALCIFEROL 1,000 UNIT TAB PO SCH (09:04)
[2018-05-03] MEDS: LINAGLIPTIN 5 MG TABLET PO SCH (09:04)
[2018-05-03] MEDS: CYANOCOBALAMIN 500 MCG TAB PO SCH (09:04)
[2018-05-03] MEDS: ATORVASTATIN 10 MG TAB PO SCH (09:04)
[2018-05-03] MEDS: metFORMIN 500 MG TAB PO SCH (09:04)
[2018-05-03] MEDS: DORZOLAMIDE HCL 2% DROPS 10 ML BTL BOTH EYES SCH (09:07)
[2018-05-03] MEDS: NYSTATIN 100,000 UNIT/GM POWD 15 GM TOPICAL SCH (09:08)
[2018-05-03] MEDS ORDERED: SODIUM CHLORIDE 0.9% 1,000 ML IV ONE (09:15)
[2018-05-03] MEDS: INSULIN DETEMIR 100 UNIT/ML 10 ML VIAL SQ SCH (09:26)
--- NOTE | 2018-05-03 11:52 | P.PN ---
Subjective Progress Note Date: 05/03/18 Principal diagnosis: AICD discharge This is a 77-year-old gentleman who presented to the hospital after discharge from his AICD, he was found to be in ventricular tachycardia and initiated on IV amiodarone. He is currently on by mouth amiodarone. Throughout the night last night he was not noted to have any further runs of nonsustained ventricular tachycardia. Patient does have a history of ischemic cardiomyopathy with severe LV dysfunction, recurrent ventricular tachycardia, systolic congestive heart failure, chronic, history of coronary bypass grafting surgery, chronic persistent atrial fibrillation. He is scheduled tomorrow to undergo ventricular tachycardia ablation by Dr. Gallardo. He was seen and examined this morning, he feels well, no palpitations, no difficulty in breathing. Blood pressure this morning 90/70 with a heart rate in the 70s, 95% on room air. No lab data today. 05/03/2018 Patient was seen and examined this morning, blood pressure was running low although the patient was asymptomatic. 87/50 lying, 81/53 sitting, and 78/63 standing. A fluid bolus was given, Norvasc was discontinued and the dose of IMTIAZ inhibitor cut in half. The patient did undergo ventricular tachycardia ablation yesterday with Dr. Gifford, he feels well, he has been up ambulating in the hallway without any difficulty. We will recheck the blood pressure and a little bit. Patient has had no documented further ventricular arrhythmias. Objective - Vital Signs Vital signs: Vital Signs Temp 96.1 F L 05/03/18 08:45 Pulse 85 05/03/18 08:45 Resp 18 05/03/18 08:45 BP 87/50 05/03/18 08:45 Pulse Ox 96 05/03/18 08:45 Intake & Output 05/02/18 05/03/18 05/03/18 18:59 06:59 18:59 Intake Total 2071 Output Total 195 105 9702 Balance 1621 -250 -1000 Weight 98.8 kg Intake: IV 1849 Oral 222 Output: Urine 173 685 0535 Uretheral ([place]) 400 1000 Other: Voiding Method Indwelling Catheter Indwelling Catheter # Voids 1 - Exam PHYSICAL EXAMINATION: GENERAL: 77-year-old gentleman in no acute distress at the time of my examination HEENT: Head is atraumatic, normocephalic. Pupils equal, round. Sclera anicteric. Conjunctiva are clear. Mucous membranes of the mouth are moist. Neck is supple. There is no elevated jugular venous pressure. No carotid bruit is heard. HEART EXAMINATION: Heart S1-S2 irregularly irregular CHEST EXAMINATION:[Lungs are clear to auscultation and precussion. No chest wall tenderness is noted on palpation or with deep breathing.] ABDOMEN: [Soft, nontender. Bowel sounds are heard. No organomegaly noted] EXTREMITIES:[2+ peripheral pulses with no evidence of peripheral edema and no calf tenderness noted, right and left groin is soft, no evidence of any hematoma. NEUROLOGIC [atient is awake, alert and oriented X3. . - Labs CBC & Chem 7: 05/02/18 06:04 05/02/18 06:04 Labs: Abnormal Lab Results - Last 24 Hours (Table) 05/02/18 05/02/18 05/02/18 Range/Units 14:54 16:58 18:51 PT (9.0-12.0) sec INR (<1.2) POC Glucose (mg/dL) 246 H 234 H (75-99) mg/dL Urine Protein 1+ H (Negative) Urine Blood Moderate H (Negative) Ur Leukocyte Esterase Large H (Negative) Urine RBC 32 H (0-5) /hpf Urine WBC >182 H (0-5) /hpf Urine WBC Clumps Many H (None) /hpf Urine Mucus Occasional H (None) /hpf 05/02/18 05/03/18 05/03/18 Range/Units 21:01 06:21 06:24 PT 17.6 H (9.0-12.0) sec INR 1.9 H (<1.2) POC Glucose (mg/dL) 197 H 170 H (75-99) mg/dL Urine Protein (Negative) Urine Blood (Negative) Ur Leukocyte Esterase (Negative) Urine RBC (0-5) /hpf Urine WBC (0-5) /hpf Urine WBC Clumps (None) /hpf Urine Mucus (None) /hpf Microbiology - Last 24 Hours (Table) 05/02/18 18:51 Urine Culture - Preliminary Urine,Catheterized Assessment and Plan Plan: Assessment and plan #1 ventricular tachycardia status post AICD discharge, status post ventricular tachycardia ablation. #2 ischemic cardiomyopathy #3 coronary artery disease with prior bypass surgery #4 chronic persistent atrial fibrillation #5 diabetes #6 hypertension #7 hyperlipidemia Plan Coumadin has been resumed, INR today is 1.9. Patient is on mexiletine and amiodarone. We will discontinue the Norvasc and decrease the dose of IMTIAZ inhibitor. Patient's blood pressure is stable he may be able to be discharged home later today to follow-up in the office with Dr. VC Garcia and Dr. Gallardo post discharge. DNP note has been reviewed, I agree with a documented findings and plan of care. Patient was seen and examined.
[2018-05-03] MEDS: CEPHALEXIN 500 MG CAP PO SCH ×2 (12:01→15:56)
[2018-05-03] MEDS: FUROSEMIDE 40 MG TAB PO SCH (12:01)
[2018-05-03] MEDS: SPIRONOLACTONE 25 MG TAB PO SCH (12:03)
[2018-05-03 12:10] LABS: Glucose,Whole Blood 225 mg/dL (75-99)
[2018-05-03 13:11] VITALS: TEMP 97.3
--- NOTE | 2018-05-03 13:36 | P.DS ---
Providers Date of admission: 04/28/18 20:55 Expected date of discharge: 05/03/18 Attending physician: Tien Wisdom Consults: 04/28/18 20:55 Consult Physician Urgent Consulting Provider: Jocelyne Turner Consult Reason/Comments: defib firing Do you want consulting provider notified?: Yes 05/01/18 11:01 Consult Physician Routine Consulting Provider: Cuco Gallardo Consult Reason/Comments: vtach Do you want consulting provider notified?: Already Contacted Primary care physician: [facility] Course: This is a 77-year-old male patient of Dr. Reyes would with a history of atrial fibrillation, SD, angina, cardiomyopathy, diabetes, GERD, hyperlipidemia, hypertension and, rheumatoid arthritis. Patient has a history of coronary bypass surgery in 1991, AICD insertion 2009. Patient is scheduled for a ventricular tachycardia ablation on 05/[address] Gallardo. Patient presented to the ER yesterday after his ICD fired. Patient denies any loss of consciousness. Patient did feel unwell prior to the episode. He reported feeling warm and dizziness. He denied any chest pain at that time. Patient was found to have multiple episodes of V. tach through his device with one episode resulting in defibrillation. Patient states that this is the first time his defibrillator has fired. Patient presents resting in bed with no acute distress. Patient denies abdominal pain, nausea or vomiting, shortness of breath, or chest pain at this time. Cardiology consult for possible addition of amiodarone to control VT. 04/29: Patient is resting comfortably in bed without any acute distress. Patient did have a sustained run of ventricular tachycardia during the night times one episode. Mexitil was added. Patient denies that his defibrillator fired at that time. Patient denies any complaints during the time of sustained VT. Echocardiogram done yesterday shows a paced rhythm with EF between 35 and 40% anterior septal hypokinesis and inferior hypokinesis. No pericardial effusion. Patient is scheduled to have a VT ablation on Tuesday with Dr. Gallardo. 05/01: Patient's amiodarone drip has been switched over to oral at 400 mg twice daily. He is scheduled for ventricular tachycardia ablation on Tuesday. Patient states he is feeling better. He denies his ICD firing. He does complain of drainage down the back was throat and cough and Mucinex added. Chest x-ray reveals improvement of volume status, aeration. Cardiomegaly. Patient denies any abdominal pain. He states he didn't sleep well last night and melatonin started. 05/02: Vital signs have been stable with blood pressure on the lower side. BUN 42 and creatinine 1.56, WBC 13.3. Capillary blood glucose running between 149 and 271. INR is 2.2. Patient is undergoing V. tach ablation today. 05/03: Patient is status post ablation done yesterday. He has low blood pressure readings this morning and positive orthostatics. Norvasc was discontinued by cardiology and lisinopril dose decreased. Patient did have Londono catheter placed for ablation and is now complaining of urinary symptoms with itching and burning. He was initially started on Macrobid last evening which will be switched to Keflex. Patient denies having any lightheadedness or dizziness. Anticipate discharge home today. INR is 1.9. Discharge diagnoses: 1. Ventricular tachycardia status post AICD defibrillation status post ventricular tachycardia ablation. 2. Chronic atrial fibrillation 3. Diabetes mellitus, hemoglobin A1c 7.1 4. Cardiomyopathy, stable 5. Hyperlipidemia 6. Hypertension 7. GERD 8. Remote history of tobacco use 9. Catheter associated urinary tract infection 10. Cough with sinus drainage. 11. Insomnia. Discharge plan: Home Impression and plan of care have been directed as dictated by the signing physician. Svitlana White nurse practitioner acting as scribe for signing physician. Patient Condition at Discharge: Good Plan - Discharge Summary Discharge Rx Participant: No New Discharge Prescriptions: New Amiodarone [Cordarone] 100 mg PO DAILY #30 tab Mexiletine [Mexitil] 150 mg PO Q8HR #90 capsule Cephalexin [Keflex] 500 mg PO TID #30 cap guaiFENesin [Mucinex] 600 mg PO Q12HR tablet.er Melatonin 6 mg PO HS tablet Continue Warfarin [Coumadin] 5 mg PO MOTUWEFRSA Spironolactone [Aldactone] 25 mg PO DAILY Warfarin [Coumadin] 7.5 mg PO SUTH Metoprolol Succinate [Toprol XL] 150 mg PO QAM Cholecalciferol [Vitamin D3] 1,000 unit PO DAILY sitaGLIPtin PHOSPHATE [Januvia] 100 mg PO DAILY metFORMIN HCL [Glucophage] 500 mg PO BID Insulin Glargine [Lantus] 45 units SQ BID Dorzolamide 2% [Trusopt 2%] 1 drops BOTH EYES BID Furosemide [Lasix] 40 mg PO BID #1 tablet Cyanocobalamin [Vitamin B-12] 500 mcg PO DAILY Insulin Glulisine [Apidra Solostar] 15 unit SQ HS Insulin Glulisine [Apidra Solostar] 15 unit SQ AC-LUNCH Insulin Glulisine [Apidra Solostar] 10 unit SQ AC-BRKFST Lovastatin [Mevacor] 40 mg PO DAILY Changed Quinapril HCl [Accupril] 10 mg PO DAILY #0 Discontinued amLODIPine [Norvasc] 5 mg PO DAILY Discharge Medication List Metoprolol Succinate [Toprol XL] 150 mg PO QAM 12/06/13 [History] Spironolactone [Aldactone] 25 mg PO DAILY 12/06/13 [History] Warfarin [Coumadin] 5 mg PO MOTUWEFRSA 12/06/13 [History] Warfarin [Coumadin] 7.5 mg PO SUTH 12/06/13 [History] Cholecalciferol [Vitamin D3] 1,000 unit PO DAILY 10/22/15 [History] Dorzolamide 2% [Trusopt 2%] 1 drops BOTH EYES BID 11/20/16 [History] Insulin Glargine [Lantus] 45 units SQ BID 11/20/16 [History] metFORMIN HCL [Glucophage] 500 mg PO BID 11/20/16 [History] sitaGLIPtin PHOSPHATE [Januvia] 100 mg PO DAILY 11/20/16 [History] Furosemide [Lasix] 40 mg PO BID #1 tablet 11/22/16 [Rx] Cyanocobalamin [Vitamin B-12] 500 mcg PO DAILY 12/16/16 [History] Insulin Glulisine [Apidra Solostar] 10 unit SQ AC-BRKFST 04/28/18 [History] Insulin Glulisine [Apidra Solostar] 15 unit SQ AC-LUNCH 04/28/18 [History] Insulin Glulisine [Apidra Solostar] 15 unit SQ HS 04/28/18 [History] Lovastatin [Mevacor] 40 mg PO DAILY 04/28/18 [History] Amiodarone [Cordarone] 100 mg PO DAILY #30 tab 05/03/18 [Rx] Cephalexin [Keflex] 500 mg PO TID #30 cap 05/03/18 [Rx] Melatonin 6 mg PO HS tablet 05/03/18 [Rx] Mexiletine [Mexitil] 150 mg PO Q8HR #90 capsule 05/03/18 [Rx] Quinapril HCl [Accupril] 10 mg PO DAILY #0 05/03/18 [Rx] guaiFENesin [Mucinex] 600 mg PO Q12HR tablet.er 05/03/18 [Rx] Follow up Appointment(s)/Referral(s): Walt Pastrana MD [Primary Care Provider] - 05/08/18 1:00 pm (TUESDAY) Luis Garcia MD [STAFF PHYSICIAN] - 1 Week Patient Instructions/Handouts: Cardiac Ablation (DC), Hypotension (DC) Activity/Diet/Wound Care/Special Instructions: Post EP study - Ablation instructions 1. Keep access sites dry for 2 days. 2. No heavy lifting or straining for 2 days. 3. Avoid bending the hips repeatedly for 2 days. 4. You may go up and down stairs slowly Call if the following is noted 1. Bleeding, increasing swelling or pain at the access sites. 2. Increasing chest discomfort, especially upon taking a deep breath. 3. Increasing shortness of breath, at rest or with exertion. 4. Undue cough / phlegm 5. Difficulty or pain while swallowing. 6. Pain or change in color in the extremities. 7. Fever, chills, rigors. 8. Increasing headache or neurologic symptoms. 9. Dizziness, fainting, palpitations Patient may go home today late afternoon by about 4 PM if groins are healing well, there is no bleeding or oozing or severe pain or tenderness Follow-up with Dr. Garcia within one week for a groin check Short term amiodarone 100 mg by mouth daily for one month only then stop Short-term mexiletine for one month only 150 mg 3 times a day, then stop Continue all other cardiac medications and heart failure medications without changes Continue Coumadin PT/INR check in the office in one week on a combination of Coumadin and amiodarone Repeat PT/INR checked in the office in 4 weeks on a combination of Coumadin and amiodarone dr. Gallardo Discharge Disposition: HOME SELF-CARE
[2018-05-03] MEDS ORDERED: TAMSULOSIN 0.4 MG CAP.ER.24H PO SCH (16:15)
[2018-05-03 17:04] VITALS: BP 85/43; PULSE 84
[2018-05-03] MEDS ORDERED: WARFARIN 5 MG TAB PO ONE (18:00)
[2018-05-04] MEDS ORDERED: LISINOPRIL 10 MG TAB PO SCH (09:00)
--- NOTE | 2018-05-05 08:52 | CDI ---
Last Revision, June 2017 Documentation Clarification Form Date: 05/05/18 From: Angelica Arian Alivia Valero, Binder Caser Hours-8:30 am & 5 pm Yulissa Admit Date: 04/28/2018 8:55:00 PM Patient Name: Myron Rey Visit Number: [id number] Discharge Date: 05/03/18 ATTENTION: The Clinical Documentation Specialists (CDI) and [facility] Coding Staff appreciate your assistance in clarifying documentation. Please respond to the clarification below the line at the bottom and electronically sign. The CDI & [facility] Coding staff will review the response and follow-up if needed. Please note: Queries are made part of the Legal Health Record. If you have any questions, please contact the author of this message via ITS. Tien Gonzalez MD Catheter associated urinary tract infection is documented in the discharge summary. Patient history/risk factors: VT w ablation Catheter placed on 05/02 day of procedure. Upon catheterization: cloudy, sediment, mucous threads Urine taken on 05/02-blood-mod, leukocyte esterase-large, RBC-32, WBC->182, WBC clumps-many; Urine culture: no growth Treatment: Macrobid po CAUTI Guidelines: Catheter-associated UTI (CAUTI): A UTI where an indwelling urinary catheter was in place for >2 calendar days on the date of event, with day of device placement being Day 1, AND an indwelling urinary catheter was in place on the date of event or the day before. If an indwelling urinary catheter was in place for > 2 calendar days and then removed, the date of event for the UTI must be the day of discontinuation or the next day for the UTI to be catheter-associated. UTI unrelated to catheter treated UTI 2nd to Catheter treated UTI ruled out Petra continue to document in your progress notes and discharge summary in order to capture severity of illness and risk of mortality. Include clinical findings that support your diagnosis. MTDD
--- NOTE | 2018-05-17 09:15 | CDI ---
Last Revision, June 2017 Documentation Clarification Form Date: 05/17/18 From: Angelica Arian Alivia Valero, Water Treatment Specialist Hours-8:30 am & 5 pm Yulissa Admit Date: 04/28/2018 8:55:00 PM Patient Name: Myron Rey Visit Number: [id number] Discharge Date: 05/03/18 ATTENTION: The Clinical Documentation Specialists (CDI) and [facility] Coding Staff appreciate your assistance in clarifying documentation. Please respond to the clarification below the line at the bottom and electronically sign. The CDI & [facility] Coding staff will review the response and follow-up if needed. Please note: Queries are made part of the Legal Health Record. If you have any questions, please contact the author of this message via ITS. Dr. Roula Ken Catheter associated urinary tract infection is documented in the discharge summary. Clinical Indicators: catheter placed on 05/02 day of procedure. Upon catheterization: cloudy, sediment, mucous threads Urine taken on 05/02-blood-mod, leukocyte esterase-large, RBC-32, WBC->182, WBC clumps-many: Urine culture: no growth Treatment: Macrobid po CDC CAUTI Guidelines: Catheter-associated UTI (CAUTI): A UTI where an indwelling urinary catheter was in place for >2 calendar days on the date of event, with day of device placement being Day 1, AND an indwelling urinary catheter was in place on the date of event or the day before. If an indwelling urinary catheter was in place for > 2 calendar days and then removed, the date of event for the UTI must be the day of discontinuation or the next day for the UTI to be catheter-associated. UTI --unrelated to catheter --treated UTI 2nd to Catheter --treated UTI ruled out Other UTI not related to catheter MTDD
== END 2018-05-03 17:32 | disposition home or self-care (01) | DRG 274 ==
LOC: EC 17:17 → 6SEL 20:55
PROVIDERS: ADMIT Internal Medicine Geriatric Medicine; ATTEND Internal Medicine Geriatric Medicine
PROC: 4A0274Z Measurement of Cardiac Electrical Activity, Via Natural or Artificial Opening (ICD-10-PCS; 2018-05-02)
PROC: 4B02XTZ Measurement of Cardiac Defibrillator, External Approach (ICD-10-PCS; 2018-05-02)
PROC: B246ZZ4 Ultrasonography of Right and Left Heart, Transesophageal (ICD-10-PCS; 2018-05-02)
PROC: 02583ZZ Destruction of Conduction Mechanism, Percutaneous Approach (ICD-10-PCS; principal; 2018-05-02 08:00)
PROC: 02K83ZZ Map Conduction Mechanism, Percutaneous Approach (ICD-10-PCS; 2018-05-02 08:00)
PROC: 4A027FZ Measurement of Cardiac Rhythm, Via Natural or Artificial Opening (ICD-10-PCS; 2018-05-02 08:00)
DX: I47.2 Ventricular tachycardia (principal); I50.22 Chronic systolic (congestive) heart failure; N39.0 Urinary tract infection, site not specified; I11.0 Hypertensive heart disease with heart failure; I08.1 Rheumatic disorders of both mitral and tricuspid valves; E11.9 Type 2 diabetes mellitus without complications; I25.5 Ischemic cardiomyopathy; I48.2 Chronic atrial fibrillation; I45.10 Unspecified right bundle-branch block; M06.9 Rheumatoid arthritis, unspecified; I25.10 Atherosclerotic heart disease of native coronary artery without angina pectoris; I25.2 Old myocardial infarction; K21.9 Gastro-esophageal reflux disease without esophagitis; E78.5 Hyperlipidemia, unspecified; G47.00 Insomnia, unspecified; E66.9 Obesity, unspecified; Z68.32 Body mass index [BMI] 32.0-32.9, adult; Z79.01 Long term (current) use of anticoagulants; Z79.4 Long term (current) use of insulin; Z79.899 Other long term (current) drug therapy; Z95.810 Presence of automatic (implantable) cardiac defibrillator; Z95.1 Presence of aortocoronary bypass graft; Z87.891 Personal history of nicotine dependence; Z98.42 Cataract extraction status, left eye; Z98.41 Cataract extraction status, right eye
CPT/HCPCS: 36415; 71046; 80053; 80061; 81001; 82550; 82553; 83036; 83735; 84100; 84132; 84484; 85025; 85027; 85347; 85610; 85730; 87086; 93005; 93306; 93623; 93654; 93662; 96360; 96361; 99291

== ENCOUNTER → 2018-05-15 | Outpatient (CLI) | payer MEDICARE, BC ==
[2018-05-15 12:23] LABS: Calcium 9.5 mg/dL (8.4-10.2)
== END | disposition home or self-care (01) ==
LOC: LABWHC1 10:38
PROVIDERS: ATTEND Internal Medicine Cardiovascular Disease
DX: I50.9 Heart failure, unspecified (principal)
CPT/HCPCS: 36415; 80048

== ENCOUNTER 2018-07-05 11:01 | Observation (INO) | payer MEDICARE, BC ==
--- NOTE | 2018-07-05 11:22 | ED ---
General Adult HPI - General Chief complaint: Shortness of Breath Stated complaint: sob Time Seen by Provider: 07/05/18 11:05 Source: patient, RN notes reviewed Mode of arrival: wheelchair Limitations: no limitations - History of Present Illness Initial comments: This is a 77-year-old male who has a past medical history significant for bypass surgery diabetes hypertension high cholesterol. Patient states he also has a history of congestive heart failure. Patient states he woke up this morning and noted that he has shortness of breath per patient states the shortness of breath was worse with exertion. Patient states he has noticed lately also that he's had a hard time lying flat because he become short of breath since been having to go to sleep sitting up a little. Patient denies any chest pain or palpitations. Patient denies any fever chills or cough. Patient denies any leg swelling or calf tenderness. Patient denies abdominal pain patient denies nausea vomiting diarrhea. Patient denies lightheadedness dizziness or syncopal episode. - Related Data Home Medications Medication Instructions Recorded Confirmed Metoprolol Succinate [Toprol XL] 50 mg PO HS 12/06/13 07/05/18 Spironolactone [Aldactone] 25 mg PO DAILY 12/06/13 07/05/18 Warfarin [Coumadin] 5 mg PO MOTUWEFRSA 12/06/13 07/05/18 Warfarin [Coumadin] 7.5 mg PO SUTH 12/06/13 07/05/18 Cholecalciferol [Vitamin D3] 1,000 unit PO DAILY 10/22/15 07/05/18 Dorzolamide 2% [Trusopt 2%] 1 drops BOTH EYES BID 11/20/16 07/05/18 Insulin Glargine [Lantus] 45 units SQ BID 11/20/16 07/05/18 metFORMIN HCL [Glucophage] 500 mg PO BID 11/20/16 07/05/18 sitaGLIPtin PHOSPHATE [Januvia] 100 mg PO DAILY 11/20/16 07/05/18 Cyanocobalamin [Vitamin B-12] 500 mcg PO DAILY 12/16/16 07/05/18 Insulin Glulisine [Apidra Solostar] 10 unit SQ AC-BRKFST 04/28/18 07/05/18 Insulin Glulisine [Apidra Solostar] 15 unit SQ AC-LUNCH 04/28/18 07/05/18 Insulin Glulisine [Apidra Solostar] 15 unit SQ HS 04/28/18 07/05/18 Lovastatin [Mevacor] 40 mg PO DAILY 04/28/18 07/05/18 Amiodarone [Cordarone] 200 mg PO DAILY 07/05/18 07/05/18 Insulin Glargine [Lantus] 45 unit SQ QAM 07/05/18 07/05/18 Metoprolol Succinate (ER) [Toprol 100 mg PO DAILY 07/05/18 07/05/18 Xl] Quinapril HCl [Accupril] 20 mg PO DAILY 07/05/18 07/05/18 amLODIPine [Norvasc] 5 mg PO DAILY 07/05/18 07/05/18 Previous Rx's Medication Instructions Recorded Furosemide [Lasix] 40 mg PO BID #1 tablet 11/22/16 Allergies Allergy/AdvReac Type Severity Reaction Status Date / Time No Known Allergies Allergy Verified 07/05/18 11:31 Review of Systems ROS Statement: Those systems with pertinent positive or pertinent negative responses have been documented in the HPI. ROS Other: All systems not noted in ROS Statement are negative. Past Medical History Past Medical History: Atrial Fibrillation, Chest Pain / Angina, Heart Failure, Diabetes Mellitus, GERD/Reflux, Hyperlipidemia, Hypertension, Myocardial Infarction (CA), Rheumatoid Arthritis (RA) Additional Past Medical History / Comment(s): SEE DR NIETO H&P Last Myocardial Infarction Date:: 1991 History of Any Multi-Drug Resistant Organisms: None Reported Past Surgical History: AICD, Coronary Bypass/CABG, Heart Catheterization Additional Past Surgical History / Comment(s): DEFIBRILLATOR THRESHOLD TESTING, JOSE cataracts. 4 VESSEL BIPASS 1991, AICD 2009 Past Anesthesia/Blood Transfusion Reactions: No Reported Reaction Type of Cardiac Device: AICD Device Placement Date:: 2009 Past Psychological History: No Psychological Hx Reported Smoking Status: Former smoker Past Alcohol Use History: None Reported Past Drug Use History: None Reported - Past Family History Sister(s) Family Medical History: Cancer General Exam - General Exam Comments Initial Comments: GENERAL: Patient is well-developed and well-nourished. Patient is nontoxic and well- hydrated and is in no acute distress. ENT: Neck is soft and supple. No significant lymphadenopathy is noted. Oropharynx is clear. Moist mucous membranes. Neck has full range of motion without eliciting any pain. EYES: The sclera were anicteric and conjunctiva were pink and moist. Extraocular movements were intact and pupils were equal round and reactive to light. Eyelids were unremarkable. PULMONARY: Unlabored respirations. Good breath sounds bilaterally. No audible rales rhonchi or wheezing was noted. CARDIOVASCULAR: There is a regular rate and rhythm without any murmurs gallops or rubs. ABDOMEN: Soft and nontender with normal bowel sounds. No palpable organomegaly was noted. There is no palpable pulsatile mass. SKIN: Skin is clear with no lesions or rashes and otherwise unremarkable. NEUROLOGIC: Patient is alert and oriented x3. Cranial nerves II through XII are grossly intact. Motor and sensory are also intact. Normal speech, volume and content. Symmetrical smile. MUSCULOSKELETAL: Normal extremities with adequate strength and full range of motion. No lower extremity swelling or edema. No calf tenderness. LYMPHATICS: No significant lymphadenopathy is noted PSYCHIATRIC: Normal psychiatric evaluation. Limitations: no limitations Course Vital Signs 07/05/18 07/05/18 07/05/18 11:05 11:06 11:30 Temperature 97.8 F Pulse Rate 115 H Respiratory 20 18 Rate Blood Pressure 123/76 O2 Sat by Pulse 95 96 Oximetry Medical Decision Making - Medical Decision Making EKG shows atrial fibrillation at 90 bpm QRS is under 40 QT interval 410 QTC is 523. Patient's EKG shows no ST segment elevation or ST segment depression. He is Patient's chest x-ray shows pulmonary edema. Patient's BNP was 4400. I gave the patient Lasix and Nitropaste. I spoke with Dr. Balderas he agreed to admit the patient admitted the patient wrote admitting orders I continued Lasix and nitro paste on the floor. I consulted cardiology. - Lab Data Result diagrams: 07/05/18 10:25 07/05/18 10:25 Lab Results 07/05/18 07/05/18 07/05/18 Range/Units 10:25 10:25 10:25 WBC 14.7 H (3.8-10.6) k/uL RBC 4.66 (4.30-5.90) m/uL Hgb 13.7 (13.0-17.5) gm/dL Hct 42.7 (39.0-53.0) % MCV 91.6 (80.0-100.0) fL MCH 29.4 (25.0-35.0) pg MCHC 32.1 (31.0-37.0) g/dL RDW 15.0 (11.5-15.5) % Plt Count 368 (150-450) k/uL Neutrophils % 83 % Lymphocytes % 8 % Monocytes % 6 % Eosinophils % 1 % Basophils % 0 % Neutrophils # 12.2 H (1.3-7.7) k/uL Lymphocytes # 1.2 (1.0-4.8) k/uL Monocytes # 0.9 (0-1.0) k/uL Eosinophils # 0.2 (0-0.7) k/uL Basophils # 0.0 (0-0.2) k/uL Hypochromasia Slight PT (9.0-12.0) sec INR (<1.2) APTT (22.0-30.0) sec Sodium 141 (137-145) mmol/L Potassium 4.3 (3.5-5.1) mmol/L Chloride 102 (98-107) mmol/L Carbon Dioxide 29 (22-30) mmol/L Anion Gap 10 mmol/L BUN 25 H (9-20) mg/dL Creatinine 1.22 (0.66-1.25) mg/dL Est GFR (CKD-EPI)AfAm 67 (>60 ml/min/1.73 sqM) Est GFR (CKD-EPI)NonAf 58 (>60 ml/min/1.73 sqM) Glucose 67 L (74-99) mg/dL Calcium 9.3 (8.4-10.2) mg/dL Magnesium 1.9 (1.6-2.3) mg/dL Total Bilirubin 1.1 (0.2-1.3) mg/dL AST 33 (17-59) U/L ALT 32 (21-72) U/L Alkaline Phosphatase 126 (38-126) U/L Total Creatine Kinase 66 (55-170) U/L CK-MB (CK-2) 1.5 (0.0-2.4) ng/mL CK-MB (CK-2) Rel Index 2.3 Troponin I <0.012 (0.000-0.034) ng/mL NT-Pro-B Natriuret Pep pg/mL Total Protein 7.1 (6.3-8.2) g/dL Albumin 4.0 (3.5-5.0) g/dL 07/05/18 07/05/18 Range/Units 10:25 10:25 WBC (3.8-10.6) k/uL RBC (4.30-5.90) m/uL Hgb (13.0-17.5) gm/dL Hct (39.0-53.0) % MCV (80.0-100.0) fL MCH (25.0-35.0) pg MCHC (31.0-37.0) g/dL RDW (11.5-15.5) % Plt Count (150-450) k/uL Neutrophils % % Lymphocytes % % Monocytes % % Eosinophils % % Basophils % % Neutrophils # (1.3-7.7) k/uL Lymphocytes # (1.0-4.8) k/uL Monocytes # (0-1.0) k/uL Eosinophils # (0-0.7) k/uL Basophils # (0-0.2) k/uL Hypochromasia PT 38.1 H (9.0-12.0) sec INR 4.0 H (<1.2) APTT 44.1 H (22.0-30.0) sec Sodium (137-145) mmol/L Potassium (3.5-5.1) mmol/L Chloride (98-107) mmol/L Carbon Dioxide (22-30) mmol/L Anion Gap mmol/L BUN (9-20) mg/dL Creatinine (0.66-1.25) mg/dL Est GFR (CKD-EPI)AfAm (>60 ml/min/1.73 sqM) Est GFR (CKD-EPI)NonAf (>60 ml/min/1.73 sqM) Glucose (74-99) mg/dL Calcium (8.4-10.2) mg/dL Magnesium (1.6-2.3) mg/dL Total Bilirubin (0.2-1.3) mg/dL AST (17-59) U/L ALT (21-72) U/L Alkaline Phosphatase (38-126) U/L Total Creatine Kinase (55-170) U/L CK-MB (CK-2) (0.0-2.4) ng/mL CK-MB (CK-2) Rel Index Troponin I (0.000-0.034) ng/mL NT-Pro-B Natriuret Pep 4440 pg/mL Total Protein (6.3-8.2) g/dL Albumin (3.5-5.0) g/dL Disposition Clinical Impression: Acute pulmonary edema Disposition: ADMITTED IP TO THIS HOSP Referrals: Walt Pastrana MD [Primary Care Provider] - 1-2 days Time of Disposition: 13:10
[2018-07-05 11:46] LABS: Basophils % (A) 0 %; Eosinophils # (A) 0.2 k/uL (0-0.7); Eosinophils % (A) 1 %; HCT 42.7 % (39.0-53.0); HGB 13.7 gm/dL (13.0-17.5); Hypochromasia Slight; Lymphocytes # (A) 1.2 k/uL (1.0-4.8); Lymphocytes % (A) 8 %; MCH 29.4 pg (25.0-35.0); MCHC 32.1 g/dL (31.0-37.0); MCV 91.6 fL (80.0-100.0); Mean Platelet Volume 6.6; Monocytes # (A) 0.9 k/uL (0-1.0); Monocytes % (A) 6 %; Neutrophils # (A) 12.2 k/uL (1.3-7.7); Neutrophils % (A) 83 %; Platelet Count 368 k/uL (150-450); RBC 4.66 m/uL (4.30-5.90); WBC 14.7 k/uL (3.8-10.6)
[2018-07-05 11:54] LABS: Partial Thromboplastin Time 44.1 sec (22.0-30.0); Prothrombin Time 38.1 sec (9.0-12.0)
[2018-07-05 11:57] LABS: Calcium 9.3 mg/dL (8.4-10.2); Magnesium 1.9 mg/dL (1.6-2.3); Potassium 4.3 mmol/L (3.5-5.1); Total Bilirubin 1.1 mg/dL (0.2-1.3); Total Protein 7.1 g/dL (6.3-8.2)
--- NOTE | 2018-07-05 11:58 | XR ---
EXAMINATION TYPE: XR chest 2V DATE OF EXAM: 07/05/2018 COMPARISON: Prior chest x-ray 2017 HISTORY: Shortness of breath, history of congestive heart failure, difficulty breathing TECHNIQUE: Frontal and lateral views of the chest are obtained. FINDINGS: Patient is post median sternotomy and the heart is enlarged. Intracardiac defibrillator le ad in the right ventricle is stable. There are overlying cardiac leads. No pneumothorax. Blunting the costophrenic angles is present, there is increase in the interstitium. The aorta is dense. Question calcification along the pericardium seen on lateral view. IMPRESSION: Correlate for possible pulmonary venous hypertension and interstitial edema, there may b e small effusions.
[2018-07-05 12:16] LABS: Creatine Kinase 66 U/L (55-170)
[2018-07-05 12:29] LABS: Creatine Kinase MB 1.5 ng/mL (0.0-2.4); Troponin I <0.012 ng/mL (0.000-0.034)
[2018-07-05] MEDS ORDERED: FUROSEMIDE 10 MG/ML 4 ML VIAL IV STA (12:50)
[2018-07-05] MEDS ORDERED: NITROGLYCERIN OINT 1 INCH/GM PACKET TOPICAL STA (12:51)
[2018-07-05] MEDS ORDERED: ASPIRIN 325 MG TAB PO STA (13:10)
[2018-07-05] MEDS ORDERED: FUROSEMIDE 10 MG/ML 4 ML VIAL IV SCH (13:15)
[2018-07-05] MEDS ORDERED: WARFARIN 5 MG TAB PO SCH (13:45)
[2018-07-05 20:12] LABS: Glucose,Whole Blood 228 mg/dL (75-99)
[2018-07-05] MEDS ORDERED: INSULIN ASPART 100 UNIT/ML 1 ML 10 ML VIAL SQ SCH (21:00)
[2018-07-05] MEDS ORDERED: METOPROLOL SUCCINATE (ER) 50 MG TAB.ER.24H PO SCH (21:00)
[2018-07-05 21:08] VITALS: RESP 16
[2018-07-05 21:16] LABS: Glucose,Whole Blood 229 mg/dL (75-99)
[2018-07-05] MEDS: FUROSEMIDE 10 MG/ML 4 ML VIAL IV SCH (23:01)
[2018-07-05] MEDS: INSULIN DETEMIR 100 UNIT/ML 10 ML VIAL SQ SCH (23:21)
[2018-07-06 06:01] LABS: Glucose,Whole Blood 72 mg/dL (75-99)
[2018-07-06] MEDS: DORZOLAMIDE HCL 2% DROPS 10 ML BTL BOTH EYES SCH ×2 (06:29→08:19)
[2018-07-06] MEDS: NITROGLYCERIN OINT 1 INCH/GM PACKET TOPICAL SCH ×5 (06:29→14:26)
[2018-07-06 06:43] LABS: Basophils % (A) 0 %; Eosinophils # (A) 0.3 k/uL (0-0.7); Eosinophils % (A) 3 %; HCT 37.9 % (39.0-53.0); HGB 11.9 gm/dL (13.0-17.5); Hypochromasia Slight; Lymphocytes % (A) 11 %; MCH 28.9 pg (25.0-35.0); MCHC 31.3 g/dL (31.0-37.0); MCV 92.3 fL (80.0-100.0); Mean Platelet Volume 6.7; Monocytes # (A) 0.8 k/uL (0-1.0); Monocytes % (A) 8 %; Neutrophils # (A) 7.4 k/uL (1.3-7.7); Neutrophils % (A) 76 %; Platelet Count 269 k/uL (150-450); RBC 4.11 m/uL (4.30-5.90); RDW 15.3 % (11.5-15.5); WBC 9.7 k/uL (3.8-10.6)
[2018-07-06 06:54] LABS: Albumin 3.3 g/dL (3.5-5.0); Magnesium 1.8 mg/dL (1.6-2.3); Potassium 3.8 mmol/L (3.5-5.1); Total Bilirubin 1.1 mg/dL (0.2-1.3)
[2018-07-06 06:57] LABS: INR 3.3 (<1.2); Prothrombin Time 31.6 sec (9.0-12.0)
[2018-07-06] MEDS ORDERED: INSULIN ASPART 100 UNIT/ML 1 ML 10 ML VIAL SQ SCH ×2 (07:30→12:30)
[2018-07-06] MEDS: FUROSEMIDE 10 MG/ML 4 ML VIAL IV SCH (08:07)
[2018-07-06] MEDS ORDERED: AMIODARONE 200 MG TAB PO SCH (09:00)
[2018-07-06] MEDS ORDERED: LISINOPRIL 20 MG TAB PO SCH (09:00)
[2018-07-06] MEDS ORDERED: NON-FORMULARY DRUG (Insulin Glargine 45 UNIT) SQ SCH (09:00)
[2018-07-06] MEDS ORDERED: SPIRONOLACTONE 25 MG TAB PO SCH (09:00)
[2018-07-06] MEDS ORDERED: ATORVASTATIN 10 MG TAB PO SCH (09:00)
[2018-07-06] MEDS ORDERED: CYANOCOBALAMIN 500 MCG TAB PO SCH (09:00)
[2018-07-06] MEDS ORDERED: amLODIPine 5 MG TAB PO SCH (09:00)
[2018-07-06] MEDS ORDERED: METOPROLOL SUCCINATE (ER) 100 MG TAB.ER.24H PO SCH (09:00)
[2018-07-06] MEDS ORDERED: CHOLECALCIFEROL 1,000 UNIT TAB PO SCH (09:00)
[2018-07-06] MEDS ORDERED: LINAGLIPTIN 5 MG TABLET PO SCH (09:00)
[2018-07-06] MEDS ORDERED: AMIODARONE 100 MG TAB PO SCH (09:00)
[2018-07-06 09:11] VITALS: BP 115/58; PULSE 78; TEMP 97.6
[2018-07-06] MEDS: INSULIN DETEMIR 100 UNIT/ML 10 ML VIAL SQ SCH (09:27)
[2018-07-06] MEDS ORDERED: FUROSEMIDE 40 MG TAB PO STA (10:00)
[2018-07-06 11:37] LABS: Glucose,Whole Blood 104 mg/dL (75-99)
[2018-07-06] MEDS ORDERED: ASPIRIN 325 MG TAB PO SCH (12:00)
[2018-07-06] MEDS ORDERED: WARFARIN 7.5 MG TAB PO SCH (13:37)
[2018-07-06 14:03] LABS: Hemoglobin A1C 7.4 % (4.0-6.0)
[2018-07-06 14:26] VITALS: BMI 34.5
--- NOTE | 2018-07-06 14:31 | P.DS ---
Providers Date of admission: 07/05/18 13:10 Expected date of discharge: 07/06/18 Attending physician: Tim Balderas Consults: 07/05/18 13:10 Consult Physician Routine Consulting Provider: [facility] Consult Reason/Comments: Acute pulmonary edema Do you want consulting provider notified?: Yes Primary care physician: [facility] Course: This is a 77-year-old male one of Dr. Murillo with a previous medical history significant for CAD post CABG 4 in 1991 with ischemic cardiopathy post AICD implant patient 2009 followed by the tach ablation in April 2018, hypertension and hypertensive cardio vascular disease, hyperlipidemia, diabetes mellitus type 2, history of atrial fibrillation, patient presented to the emergency department at [facility] today with a 2 day history of increased shortness breath without any chest pain or pressure and palpitation patient was seen and evaluated in the ER he was found to be in a mild CHF he was started on IV Lasix 40 mg IV push every 12 hours he was admitted to the hospital for IV diuretics and optimization of his heart failure. Patient stated he was taken down to amiodarone 200 mg orally once every day recently and he was down and Lasix to 40 mg orally once every day for the past 6 weeks. He drinks less than 36 ounces of water a daily basis. 07/06: Patient states that he is feeling much improved today. He has been on IV Lasix which will be transitioned to oral. Patient has been afebrile, vital signs are stable, blood pressure is 115/58 and pulse ox 93% on room air. INR is 3.3, creatinine 1.05. Patient will be discharged home today in stable condition. Discharge diagnoses: 1. Acute systolic heart failure. 2. CAD post CABG with ischemic cardiomyopathy post AICD. 3. History of V. tach post ablation. 4. Chronic atrial fibrillation. 5. Hypertension and hypertensive cardiovascular disease. 6. Hyperlipidemia. 7. Diabetes mellitus type 2. 8. History of glaucoma. 9. Vitamin D deficiency. 10. Acute kidney injury and top of chronic kidney disease 3. Discharge plan: Return home Impression and plan of care have been directed as dictated by the signing physician. Svitlana White nurse practitioner acting as scribe for signing physician. Patient Condition at Discharge: Good Plan - Discharge Summary Discharge Rx Participant: No New Discharge Prescriptions: New Aspirin 81 mg PO DAILY chew Furosemide [Lasix] 80 mg PO DAILY #60 tab Continue Warfarin [Coumadin] 5 mg PO MOTUWEFRSA Spironolactone [Aldactone] 25 mg PO DAILY Warfarin [Coumadin] 7.5 mg PO SUTH Metoprolol Succinate [Toprol XL] 50 mg PO HS Cholecalciferol [Vitamin D3] 1,000 unit PO DAILY sitaGLIPtin PHOSPHATE [Januvia] 100 mg PO DAILY metFORMIN HCL [Glucophage] 500 mg PO BID Insulin Glargine [Lantus] 45 units SQ HS Dorzolamide 2% [Trusopt 2%] 1 drops BOTH EYES BID Cyanocobalamin [Vitamin B-12] 500 mcg PO DAILY Insulin Glulisine [Apidra Solostar] 15 unit SQ HS Insulin Glulisine [Apidra Solostar] 15 unit SQ AC-LUNCH Insulin Glulisine [Apidra Solostar] 10 unit SQ AC-BRKFST Lovastatin [Mevacor] 40 mg PO DAILY Amiodarone [Cordarone] 100 mg PO DAILY Quinapril HCl [Accupril] 20 mg PO DAILY Insulin Glargine [Lantus] 45 unit SQ QAM Metoprolol Succinate (ER) [Toprol XL] 100 mg PO DAILY amLODIPine [Norvasc] 5 mg PO DAILY Discontinued Furosemide [Lasix] 40 mg PO BID #1 tablet Discharge Medication List Metoprolol Succinate [Toprol XL] 50 mg PO HS 12/06/13 [History] Spironolactone [Aldactone] 25 mg PO DAILY 12/06/13 [History] Warfarin [Coumadin] 5 mg PO MOTUWEFRSA 12/06/13 [History] Warfarin [Coumadin] 7.5 mg PO SUTH 12/06/13 [History] Cholecalciferol [Vitamin D3] 1,000 unit PO DAILY 10/22/15 [History] Dorzolamide 2% [Trusopt 2%] 1 drops BOTH EYES BID 11/20/16 [History] Insulin Glargine [Lantus] 45 units SQ HS 11/20/16 [History] metFORMIN HCL [Glucophage] 500 mg PO BID 11/20/16 [History] sitaGLIPtin PHOSPHATE [Januvia] 100 mg PO DAILY 11/20/16 [History] Cyanocobalamin [Vitamin B-12] 500 mcg PO DAILY 12/16/16 [History] Insulin Glulisine [Apidra Solostar] 10 unit SQ AC-BRKFST 04/28/18 [History] Insulin Glulisine [Apidra Solostar] 15 unit SQ AC-LUNCH 04/28/18 [History] Insulin Glulisine [Apidra Solostar] 15 unit SQ HS 04/28/18 [History] Lovastatin [Mevacor] 40 mg PO DAILY 04/28/18 [History] Amiodarone [Cordarone] 100 mg PO DAILY 07/05/18 [History] Insulin Glargine [Lantus] 45 unit SQ QAM 07/05/18 [History] Metoprolol Succinate (ER) [Toprol XL] 100 mg PO DAILY 07/05/18 [History] Quinapril HCl [Accupril] 20 mg PO DAILY 07/05/18 [History] amLODIPine [Norvasc] 5 mg PO DAILY 07/05/18 [History] Aspirin 81 mg PO DAILY chew 07/06/18 [Rx] Furosemide [Lasix] 80 mg PO DAILY #60 tab 07/06/18 [Rx] Follow up Appointment(s)/Referral(s): Sal Dominguez MD [REFERRING] - 07/10/18 9:30 am Walt Pastrana MD [Primary Care Provider] - 1-2 days (Dr. Pastrana out of office for holidays, please follow up with associate Dr. Dominguez until Dr. Pastrana returns.) Luis Garcia MD [STAFF PHYSICIAN] - 07/20/18 2:30 pm Patient Instructions/Handouts: Heart Failure (DC), Pulmonary Edema (DC), Heart Healthy Diet (DC)
[2018-07-06] MEDS ORDERED: FUROSEMIDE 40 MG TAB PO SCH (17:00)
--- NOTE | 2018-07-06 17:44 | P.HPIM ---
History of Present Illness H&P Date: 07/05/18 Chief Complaint: acute systolic hear failure History of Present Illness H&P Date: 07/05/18 Chief Complaint: acute systolic heart failure. This is a 77-year-old male one of Dr. Murillo with a previous medical history significant for CAD post CABG 4 in 1991 with ischemic cardiopathy post AICD implant patient 2009 followed by the tach ablation in April 2018, hypertension and hypertensive cardio vascular disease, hyperlipidemia, diabetes mellitus type 2, history of atrial fibrillation, patient presented to the emergency department at [facility] with a 2 day history of increased shortness breath without any chest pain or pressure and palpitation patient was seen and evaluated in the ER he was found to be in a mild CHF he was started on IV Lasix 40 mg IV push every 12 hours he was admitted to the hospital for IV diuretics and optimization of his heart failure. Patient stated he was taken down to amiodarone 200 mg orally once every day recently and he was down and Lasix to 40 mg orally once every day for the past 6 weeks. He drinks less than 36 ounces of water a daily basis. Review of Systems Review of Systems Constitutional: Denies anorexia, Denies chronic headaches, Denies lethargy, Denies weakness Eyes: denies blurred vision, denies bulging eye Ears: deny: decreased hearing Ears, nose, mouth and throat: Denies dysphagia, Denies neck lump, Denies swelling in throat, Denies sore throat Cardiovascular: Reports decreased exercise tolerance, Reports dyspnea on exertion, Reports high blood pressure, Reports irregular heart beat, Reports shortness of breath, Denies chest pain, Denies rapid heart beat, Denies syncope Respiratory: Denies congestion, Denies cough with sputum, Denies home oxygen, Denies sleep apnea, Denies snoring, Denies wheezing Gastrointestinal: Denies abdominal pain, Denies bloating, Denies BRBPR, Denies excessive gas, Denies heartburn, Denies melena, Denies nausea, Denies vomiting Genitourinary: Reports nocturia, Denies dysuria, Denies polyuria Musculoskeletal: Denies myalgias Musculoskeletal: absent: ankle pain, ankle stiffness, ankle swelling, elbow pain , elbow stiffness, elbow swelling, foot pain, foot stiffness, foot swelling, hand pain, hand stiffness, hand swelling, hip pain, hip stiffness, hip swelling , knee pain, knee stiffness, knee swelling, shoulder pain, shoulder stiffness, shoulder swelling, wrist pain, wrist stiffness, wrist swelling Integumentary: Denies pruritus, Denies rash Neurological: Denies numbness, Denies weakness Psychiatric: Denies anxiety, Denies depression Endocrine: Denies fatigue, Denies weight change Past Medical History Past Medical History: Atrial Fibrillation, Chest Pain / Angina, Heart Failure, Diabetes Mellitus, GERD/Reflux, Hyperlipidemia, Hypertension, Myocardial Infarction (VT), Rheumatoid Arthritis (RA) Additional Past Medical History / Comment(s): SEE DR NIETO , cardiomyopathy, past uti, insomnia Last Myocardial Infarction Date:: 1991 History of Any Multi-Drug Resistant Organisms: None Reported Past Surgical History: AICD, Coronary Bypass/CABG, Heart Catheterization Additional Past Surgical History / Comment(s): DEFIBRILLATOR THRESHOLD TESTING, JOSE cataracts. 4 VESSEL Bypass 1991, AICD 2009 Past Anesthesia/Blood Transfusion Reactions: No Reported Reaction Additional Past Anesthesia/Blood Transfusion Reaction / Comment(s): pt stated has never recieved any blood transfusions Type of Cardiac Device: AICD Device Placement Date:: 2009 Smoking Status: Former smoker - Past Family History Sister(s) Family Medical History: Cancer Mother Family Medical History: CVA/TIA Father Family Medical History: Hyperlipidemia, Hypertension, Myocardial Infarction (VT) Medications and Allergies Home Medications Medication Instructions Recorded Confirmed Type Metoprolol Succinate [Toprol XL] 50 mg PO HS 12/06/13 07/05/18 History Spironolactone [Aldactone] 25 mg PO DAILY 12/06/13 07/05/18 History Warfarin [Coumadin] 5 mg PO MOTUWEFRSA 12/06/13 07/05/18 History Warfarin [Coumadin] 7.5 mg PO SUTH 12/06/13 07/05/18 History Cholecalciferol [Vitamin D3] 1,000 unit PO DAILY 10/22/15 07/05/18 History Dorzolamide 2% [Trusopt 2%] 1 drops BOTH EYES BID 11/20/16 07/05/18 History Insulin Glargine [Lantus] 45 units SQ HS 11/20/16 07/05/18 History metFORMIN HCL [Glucophage] 500 mg PO BID 11/20/16 07/05/18 History sitaGLIPtin PHOSPHATE [Januvia] 100 mg PO DAILY 11/20/16 07/05/18 History Cyanocobalamin [Vitamin B-12] 500 mcg PO DAILY 12/16/16 07/05/18 History Insulin Glulisine [Apidra Solostar] 10 unit SQ AC-BRKFST 04/28/18 07/05/18 History Insulin Glulisine [Apidra Solostar] 15 unit SQ AC-LUNCH 04/28/18 07/05/18 History Insulin Glulisine [Apidra Solostar] 15 unit SQ HS 04/28/18 07/05/18 History Lovastatin [Mevacor] 40 mg PO DAILY 04/28/18 07/05/18 History Amiodarone [Cordarone] 100 mg PO DAILY 07/05/18 07/05/18 History Insulin Glargine [Lantus] 45 unit SQ QAM 07/05/18 07/05/18 History Metoprolol Succinate (ER) [Toprol 100 mg PO DAILY 07/05/18 07/05/18 History XL] Quinapril HCl [Accupril] 20 mg PO DAILY 07/05/18 07/05/18 History amLODIPine [Norvasc] 5 mg PO DAILY 07/05/18 07/05/18 History Aspirin 81 mg PO DAILY chew 07/06/18 Rx Furosemide [Lasix] 80 mg PO DAILY #60 tab 07/06/18 Rx Allergies Allergy/AdvReac Type Severity Reaction Status Date / Time No Known Allergies Allergy Verified 07/05/18 11:31 Physical Exam Vitals: Vital Signs Temp Pulse Resp BP BP Pulse Ox 07/06/18 08:00 97.6 F 76 16 115/58 93 L 07/06/18 04:00 97.8 F 68 16 105/56 94 L 07/06/18 00:00 97.7 F 63 16 104/58 94 L 07/05/18 20:53 98.0 F 80 16 128/81 92 L 07/05/18 19:56 97.7 F 80 15 119/62 98 Intake and Output 07/06/18 07/06/18 07/06/18 06:59 14:59 22:59 Intake Total 120 Output Total 1200 350 Balance -1200 -230 Intake: Oral 120 Output: Urine 1200 350 Other: Voiding Method Urinal Urinal # Voids 1 # Bowel Movements 1 Weight 106.1 kg 106.1 kg Physical Exam - Constitutional General appearance: average body habitus, mild distress - EENT Eyes: anicteric sclerae, EOMI, PERRLA, no ptosis, no scleral icterus, normal appearance ENT: hearing grossly normal, NA/AT, normal oropharynx, no thrush Ears: bilateral: normal - Neck Neck: no lymphadenopathy, normal ROM, no rigidity, no stridor, no thyromegaly Carotids: bilateral: upstroke normal Thyroid: bilateral: normal size - Respiratory Respiratory: bilateral: diminished, negative: dullness, rales, rhonchi, wheezing , prolonged expiration, prolonged inspiration - Cardiovascular Rhythm: irregularly irregular Heart sounds: normal: S1, S2 Abnormal Heart Sounds: systolic murmur (there is AICD in the left upper chest.) - Gastrointestinal General gastrointestinal: normal bowel sounds, soft, no splenomegaly, no tenderness, no umbilical hernia, no ventral hernia - Integumentary Integumentary: normal, normal turgor - Musculoskeletal Musculoskeletal: strength equal bilaterally - Psychiatric Psychiatric: A&O x's 3, appropriate affect, intact judgment & insight Results CBC & Chem 7: 07/06/18 05:37 07/06/18 05:37 Labs: Abnormal Lab Results - Last 24 Hours (Table) 07/05/18 07/05/18 07/06/18 Range/Units 20:10 21:14 05:37 RBC (4.30-5.90) m/uL Hgb (13.0-17.5) gm/dL Hct (39.0-53.0) % PT (9.0-12.0) sec INR (<1.2) BUN (9-20) mg/dL Glucose (74-99) mg/dL POC Glucose (mg/dL) 228 H 229 H (75-99) mg/dL Hemoglobin A1c 7.4 H (4.0-6.0) % Total Protein (6.3-8.2) g/dL Albumin (3.5-5.0) g/dL 07/06/18 07/06/18 07/06/18 Range/Units 05:37 05:37 05:37 RBC 4.11 L (4.30-5.90) m/uL Hgb 11.9 L (13.0-17.5) gm/dL Hct 37.9 L (39.0-53.0) % PT 31.6 H (9.0-12.0) sec INR 3.3 H (<1.2) BUN 24 H (9-20) mg/dL Glucose 69 L (74-99) mg/dL POC Glucose (mg/dL) (75-99) mg/dL Hemoglobin A1c (4.0-6.0) % Total Protein 6.0 L (6.3-8.2) g/dL Albumin 3.3 L (3.5-5.0) g/dL 07/06/18 07/06/18 Range/Units 05:59 11:36 RBC (4.30-5.90) m/uL Hgb (13.0-17.5) gm/dL Hct (39.0-53.0) % PT (9.0-12.0) sec INR (<1.2) BUN (9-20) mg/dL Glucose (74-99) mg/dL POC Glucose (mg/dL) 72 L 104 H (75-99) mg/dL Hemoglobin A1c (4.0-6.0) % Total Protein (6.3-8.2) g/dL Albumin (3.5-5.0) g/dL Thrombosis Risk Factor Assmnt - DVT/VTE Prophylaxis DVT/VTE Prophylaxis: Pharmacologic Prophylaxis ordered, Mechanical Prophylaxis ordered - Choose All That Apply Any of the Below Risk Factors Present?: Yes Each Factor Represents 1 point: Obesity (BMI >25) Other Risk Factors: Yes Each Risk Factor Represents 3 Points: Age 75 years or older Other congenital or acquired thrombophilia - If yes, enter type in comment: No Thrombosis Risk Factor Assessment Total Risk Factor Score: 4 Thrombosis Risk Factor Assessment Level: Moderate Risk Assessment and Plan Assessment: Assessment and Plan Assessment: Assessment and plan: 1. Acute systolic heart failure. Continue patient on Lasix 40 mg IV push every 12 hours for the next 24 hours, continue patient on metoprolol 150 mg orally once every day, quinapril 20 mg orally once every day, continue spironolactone 25 mg orally once every day, input and output and daily weight, cardiology consultation. 2. CAD post CABG with ischemic cardiomyopathy post AICD. Continue Toprol XL 150 mg orally once every day, aspirin 81 mg once every day, continue patient on lovastatin 40 mg orally once every day. 3. History of V. tach post ablation. Continue amiodarone 200 mg orally once every day. 4. Chronic atrial fibrillation. Continue Toprol-XL 150 mg orally once every day as well as Coumadin keep INR between 2-3, continue amiodarone 200 mg orally once every day. 5. Hypertension and hypertensive cardiovascular disease. Continue Toprol-XL 150 mg orally once every day, amlodipine 5 mg orally once every day, and quinapril 20 mg orally once every day. 6. Hyperlipidemia. Continue Pravachol 40 mg orally once at bed time. 7. Diabetes mellitus type 2. Continue Lantus 45 units subcutaneously twice every day, continue Humalog 10 units before breakfast 15 before lunch and dinner , continue consistent carbohydrate, blood glucose level before each meal and at bedtime, hold off metformin. 8. History of glaucoma. Continue with dorzolamide eyedrops. 9. Vitamin D deficiency. Continue vitamin D supplement. 10. DVT prophylaxis. Currently on Coumadin. 11. GI prophylaxis. Continue with Protonix 40 mg once every day. 12. Acute kidney injury and top of chronic kidney disease. Monitor the patient CMP and we'll repeat the next 24 hours. Discontinue metformin. 13. Admit to inpatient. Estimate a length of stay 2 midnights. 14. Patient is full code.
[2018-07-06] MEDS ORDERED: WARFARIN 3 MG TAB PO ONE ×2 (18:00)
[2018-07-06] MEDS ORDERED: WARFARIN 0.5 MG TAB PO ONE (18:00)
--- NOTE | 2018-07-06 19:00 | CONS ---
CONSULTATION This is an elderly gentleman who is 77 years of age. He has a diagnosis of ischemic cardiomyopathy, chronic persistent atrial fibrillation. He underwent an ablation that was unsuccessful and he is back in atrial fibrillation. He also has an ICD as well for secondary prevention. He is also on amiodarone that was started recently. He sees Dr. Anabela Garcia in the outpatient setting. He has type 2 diabetes, hypertension, hyperlipidemia, chronic persistent atrial fibrillation. He has ejection fraction in the range of about 35% with inferior wall hypokinesis and anteroseptal hypokinesia. This gentleman was doing fairly well at home, but he developed increasing shortness of breath for the last couple of days and came into the hospital with this complaint. After arrival he was found to be in mild heart failure. He was in atrial fibrillation. His rate was slightly faster. He received some diuretics. He feels better. He is resting comfortably without symptoms at the time of my evaluation. PAST MEDICAL HISTORY: 1. CAD with prior bypass surgery, ischemic cardiomyopathy with ICD. 2. Chronic persistent atrial fibrillation. Apparently he had a pulmonary vein isolation type procedure which was not successful. He is back in atrial fibrillation and amiodarone was restarted. 3. Hypertension. 4. Hyperlipidemia. 5. Type 2 diabetes mellitus. MEDICATIONS: Medications at home include: 1. Aldactone 25 mg daily. 2. Toprol-XL 50 mg daily. 3. Coumadin. 4. Vitamin supplements. 5. Insulin. 6. Metformin. 7. Amiodarone 200 mg daily. 8. Accupril 20 mg daily. 9. Amlodipine 5 mg daily. ALLERGIES: NONE. REVIEW OF SYSTEMS: Unremarkable other than above-mentioned facts. PHYSICAL EXAMINATION: Blood pressure is 118/70. Pulse rate is 70 per minute, irregular HEENT: Unremarkable. Fundus was not examined by me. Neck is supple. There is no JVD. I do not hear a carotid bruit. Heart exam reveals S1, S2 with irregular rate, rhythm. Short systolic murmur. Lungs reveal decent air entry. Breath sounds are somewhat diminished over the bases. Abdomen is soft, nontender. Lower extremities reveal trace edema. Central nervous system is grossly within normal limits. 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 Minor IVCD is noted. IMPRESSION: 1. Exacerbation of systolic heart failure in a patient with known ischemic cardiomyopathy. 2. Ischemic cardiomyopathy. 3. Chronic persistent atrial fibrillation. 4. Type 2 diabetes mellitus. RECOMMENDATIONS: I am recommending that we switch him from IV to oral Lasix with 80 mg in the morning and 40 mg in the afternoon. His INR is slightly high at 3.3. We will give him only 3.5 mg of Coumadin today. We will increase activity, and if he does well he can be discharged on the increased dose of Lasix and see Dr. Anabela Garcia in the office in 2-3 weeks or so. He is to call us sooner if he has a question, concern or problem. Thank you very much for the consult. ADAMS / ARIK: [id number] /
[2018-07-07] MEDS ORDERED: FUROSEMIDE 80 MG TAB PO SCH (09:00)
[2018-07-07] MEDS ORDERED: ASPIRIN 81 MG PO SCH (09:00)
[2018-07-07] MEDS ORDERED: WARFARIN 5 MG TAB PO SCH (18:00)
== END 2018-07-06 14:23 | disposition home or self-care (01) ==
LOC: EC 11:01 → 3SCARD 13:10
PROVIDERS: ADMIT Internal Medicine; ATTEND Internal Medicine
DX: I13.0 Hypertensive heart and chronic kidney disease with heart failure and stage 1 through stage 4 chronic kidney disease, or unspecified chronic kidney disease (principal); N18.3 Chronic kidney disease, stage 3 (moderate); E11.22 Type 2 diabetes mellitus with diabetic chronic kidney disease; I50.21 Acute systolic (congestive) heart failure; I25.10 Atherosclerotic heart disease of native coronary artery without angina pectoris; Z95.1 Presence of aortocoronary bypass graft; I48.2 Chronic atrial fibrillation; E78.5 Hyperlipidemia, unspecified; H40.9 Unspecified glaucoma; E55.9 Vitamin D deficiency, unspecified; N17.9 Acute kidney failure, unspecified; E11.9 Type 2 diabetes mellitus without complications; K21.9 Gastro-esophageal reflux disease without esophagitis; I25.2 Old myocardial infarction; M06.9 Rheumatoid arthritis, unspecified; Z87.440 Personal history of urinary (tract) infections; G47.00 Insomnia, unspecified; Z95.810 Presence of automatic (implantable) cardiac defibrillator; I25.5 Ischemic cardiomyopathy; Z87.891 Personal history of nicotine dependence; Z80.9 Family history of malignant neoplasm, unspecified; Z82.3 Family history of stroke; Z79.899 Other long term (current) drug therapy; Z79.01 Long term (current) use of anticoagulants; Z79.4 Long term (current) use of insulin; Z79.82 Long term (current) use of aspirin
CPT/HCPCS: 96376; 96374; 99285; 36415; 93005; 83880; 80053 ×2; 82550; 82553; 83735 ×2; 84484 ×2; 85025 ×2; 85610 ×2; 85730; 83036; 71046; G0378 ×2; J1940 ×2

== ENCOUNTER 2018-09-15 02:12 | Observation (INO) | payer MEDICARE, BC ==
[2018-09-15 02:19] LABS: Glucose,Whole Blood 158 mg/dL (75-99)
[2018-09-15 02:36] LABS: Basophils % (A) 0 %; Eosinophils # (A) 0.1 k/uL (0-0.7); Eosinophils % (A) 1 %; HCT 37.7 % (39.0-53.0); HGB 11.9 gm/dL (13.0-17.5); Lymphocytes # (A) 0.7 k/uL (1.0-4.8); Lymphocytes % (A) 7 %; MCH 28.6 pg (25.0-35.0); MCHC 31.5 g/dL (31.0-37.0); MCV 90.8 fL (80.0-100.0); Mean Platelet Volume 7.8; Monocytes # (A) 0.5 k/uL (0-1.0); Monocytes % (A) 6 %; Neutrophils # (A) 8.3 k/uL (1.3-7.7); Neutrophils % (A) 85 %; Platelet Count 247 k/uL (150-450); RBC 4.15 m/uL (4.30-5.90); RDW 15.9 % (11.5-15.5); WBC 9.8 k/uL (3.8-10.6)
[2018-09-15 02:45] LABS: INR 3.8 (<1.2); Partial Thromboplastin Time 45.7 sec (22.0-30.0); Prothrombin Time 36.3 sec (9.0-12.0)
[2018-09-15 02:51] LABS: Albumin 3.8 g/dL (3.5-5.0); Calcium 8.8 mg/dL (8.4-10.2); Potassium 3.8 mmol/L (3.5-5.1); Total Bilirubin 0.8 mg/dL (0.2-1.3); Total Protein 6.8 g/dL (6.3-8.2)
--- NOTE | 2018-09-15 03:00 | ED ---
General Adult HPI - General Chief complaint: Recheck/Abnormal Lab/Rx Stated complaint: Altered Mental Status Time Seen by Provider: 09/15/18 02:19 Source: patient, EMS Mode of arrival: EMS Limitations: no limitations - History of Present Illness Initial comments: Myron is a pleasant 77-year-old gentleman with extensive past medical history is brought to the emergency department today via EMS for evaluation of altered mental status. Per EMS were called to the patient's home for altered mental status. His reported that they went to bed at the usual time around 10 PM , she woke around 2 AM to him snoring and making odd noises she couldn't wake him she noted he was sweaty and called 911. Upon EMS arrival they found the patient altered, he was sitting 1-2 words at a time but not making any sense. During transport it was determined that his blood glucose was only 49, IV access was established was given an amp of D50 at which time he became awake alert and oriented. Patient was confused as he did not recall EMS arrival her getting into the ambulance. However he was otherwise appropriate. It's that he's had severe diarrhea lately and is currently being treated with oral bank myosin for C. diff. He also reports that he's had a nonproductive cough and some mild shortness of breath he states he's been taking Mucinex for this with minimal improvement. EMS does report that he was hypoxic to 92% on room air upon their arrival. Upon arrival to the emergency department patient has noxious saturation of 95% on 2 L of oxygen via nasal cannula. - Related Data Home Medications Medication Instructions Recorded Confirmed Metoprolol Succinate [Toprol XL] 50 mg PO HS 12/06/13 07/05/18 Spironolactone [Aldactone] 25 mg PO DAILY 12/06/13 07/05/18 Warfarin [Coumadin] 5 mg PO [id number] 12/06/13 07/05/18 Warfarin [Coumadin] 7.5 mg PO SUTH 12/06/13 07/05/18 Cholecalciferol [Vitamin D3] 1,000 unit PO DAILY 10/22/15 07/05/18 Dorzolamide 2% [Trusopt 2%] 1 drops BOTH EYES BID 11/20/16 07/05/18 Insulin Glargine [Lantus] 45 units SQ HS 11/20/16 07/05/18 metFORMIN HCL [Glucophage] 500 mg PO BID 11/20/16 07/05/18 sitaGLIPtin PHOSPHATE [Januvia] 100 mg PO DAILY 11/20/16 07/05/18 Cyanocobalamin [Vitamin B-12] 500 mcg PO DAILY 12/16/16 07/05/18 Insulin Glulisine [Apidra Solostar] 10 unit SQ AC-BRKFST 04/28/18 07/05/18 Insulin Glulisine [Apidra Solostar] 15 unit SQ AC-LUNCH 04/28/18 07/05/18 Insulin Glulisine [Apidra Solostar] 15 unit SQ HS 04/28/18 07/05/18 Lovastatin [Mevacor] 40 mg PO DAILY 04/28/18 07/05/18 Amiodarone [Cordarone] 100 mg PO DAILY 07/05/18 07/05/18 Insulin Glargine [Lantus] 45 unit SQ QAM 07/05/18 07/05/18 Metoprolol Succinate (ER) [Toprol 100 mg PO DAILY 07/05/18 07/05/18 XL] Quinapril HCl [Accupril] 20 mg PO DAILY 07/05/18 07/05/18 amLODIPine [Norvasc] 5 mg PO DAILY 07/05/18 07/05/18 Previous Rx's Medication Instructions Recorded Aspirin 81 mg PO DAILY chew 07/06/18 Furosemide [Lasix] 80 mg PO DAILY #60 tab 07/06/18 Allergies Allergy/AdvReac Type Severity Reaction Status Date / Time No Known Allergies Allergy Verified 07/05/18 11:31 Review of Systems ROS Statement: Those systems with pertinent positive or pertinent negative responses have been documented in the HPI. ROS Other: All systems not noted in ROS Statement are negative. Past Medical History Past Medical History: Atrial Fibrillation, Chest Pain / Angina, Heart Failure, Diabetes Mellitus, GERD/Reflux, Hyperlipidemia, Hypertension, Myocardial Infarction ([place]), Rheumatoid Arthritis (RA) Additional Past Medical History / Comment(s): SEE DR NIETO , cardiomyopathy, past uti, insomnia Last Myocardial Infarction Date:: 1991 History of Any Multi-Drug Resistant Organisms: None Reported Past Surgical History: AICD, Coronary Bypass/CABG, Heart Catheterization Additional Past Surgical History / Comment(s): DEFIBRILLATOR THRESHOLD TESTING, JOSE cataracts. 4 VESSEL Bypass 1991, AICD 2009 Past Anesthesia/Blood Transfusion Reactions: No Reported Reaction Additional Past Anesthesia/Blood Transfusion Reaction / Comment(s): pt stated has never recieved any blood transfusions Type of Cardiac Device: AICD Device Placement Date:: 2009 Past Psychological History: No Psychological Hx Reported Smoking Status: Former smoker - Past Family History Sister(s) Family Medical History: Cancer Mother Family Medical History: CVA/TIA Father Family Medical History: Hyperlipidemia, Hypertension, Myocardial Infarction ([place]) General Exam - General Exam Comments Initial Comments: Physical Exam GENERAL: Patient is well-developed and well-nourished. Patient is nontoxic and well-hydrated and is in no distress. HENT: Normocephalic, Atraumatic. EYES: PERRL, EOMI PULMONARY: Expiratory wheezing more prominent on left than right Wet sounding nonproductive cough throughout the evaluation CARDIOVASCULAR: Irregularly irregular ABDOMEN: Obese, Soft and nontender with normal bowel sounds. SKIN: Pale, Skin is clear with no lesions or rashes and otherwise unremarkable. : Deferred NEUROLOGIC: Patient is alert and oriented x3. Moving all extremities spontaneously MUSCULOSKELETAL: Normal extremities with adequate strength and full range of motion. No lower extremity swelling or edema. No calf tenderness. PSYCHIATRIC: Normal psychiatric evaluation. Situational confusion and anxiety Limitations: no limitations Limitations: no limitations Course Vital Signs 09/15/18 09/15/18 02:17 04:56 Temperature 97.8 F Pulse Rate 71 671 H Respiratory 19 8 L Rate Blood Pressure 118/74 112/60 O2 Sat by Pulse 96 96 Oximetry EKG Findings - EKG Comments: EKG Findings:: EKG obtained at 2:30 AM, rate is 72 rhythm is irregularly irregular consistent with atrial fibrillation. QRS is mildly widened at 1:30 QTC prolonged at 556. There is no acute ST elevations or depressions no evidence of acute ischemia or infarction. Medical Decision Making - Medical Decision Making The patient was seen and evaluated history was obtained from the patient, EMS and at bedside Patient appears to have had a hypoglycemic episode resulting in significant altered mental status which resolved prior to arrival after administration of IV dextrose Patient reports he took his usual dose of insulin as well as had a normal meal. I'm concerned that his hypoglycemia may be precipitated by sepsis as the patient is currently being treated for C. diff and does have a productive cough. Sepsis workup was initiated. Labs with no leukocytosis, Anemia constant Mildly elevated BUN and Cr concerning for intravascular depleation, however CXR concerning for CHF exacerbation Patient repeat glucose 89 - patient given food Considering that the patient has underlying C. diff, based on labs appears to be intravascularly depleted though chest x-rays concerning for CHF exacerbation as his physical exam I do feel the patient requires close monitoring. In addition I can concern that the infection is causing his recurrent hypoglycemia. I do feel the patient requires close monitoring. His agreeable to plan for admission patient care was discussed with Dr. Wisdom per PCP Dr. Pastrana preference. Dr. Wisdom accepts admission for elderly male with known C. diff, recurrent episodes of hypoglycemia, CHF exacerbation with hypoxia as well as concern for intravascular volume depletion. Cardiology was consulted upon admission. Chart was dictated using gDecide dictation software. Attempts were made to correct any dictation errors however some typographical errors may persist. - Lab Data Result diagrams: 09/15/18 02:20 09/15/18 02:20 Lab Results 09/15/18 09/15/18 09/15/18 Range/Units 02:17 02:20 02:20 WBC 9.8 (3.8-10.6) k/uL RBC 4.15 L (4.30-5.90) m/uL Hgb 11.9 L (13.0-17.5) gm/dL Hct 37.7 L (39.0-53.0) % MCV 90.8 (80.0-100.0) fL MCH 28.6 (25.0-35.0) pg MCHC 31.5 (31.0-37.0) g/dL RDW 15.9 H (11.5-15.5) % Plt Count 247 (150-450) k/uL Neutrophils % 85 % Lymphocytes % 7 % Monocytes % 6 % Eosinophils % 1 % Basophils % 0 % Neutrophils # 8.3 H (1.3-7.7) k/uL Lymphocytes # 0.7 L (1.0-4.8) k/uL Monocytes # 0.5 (0-1.0) k/uL Eosinophils # 0.1 (0-0.7) k/uL Basophils # 0.0 (0-0.2) k/uL PT (9.0-12.0) sec INR (<1.2) APTT (22.0-30.0) sec Sodium 136 L (137-145) mmol/L Potassium 3.8 (3.5-5.1) mmol/L Chloride 99 (98-107) mmol/L Carbon Dioxide 28 (22-30) mmol/L Anion Gap 9 mmol/L BUN 35 H (9-20) mg/dL Creatinine 1.38 H (0.66-1.25) mg/dL Est GFR (CKD-EPI)AfAm 58 (>60 ml/min/1.73 sqM) Est GFR (CKD-EPI)NonAf 50 (>60 ml/min/1.73 sqM) Glucose 151 H (74-99) mg/dL POC Glucose (mg/dL) 158 H (75-99) mg/dL POC Glu Tank Hoop Bender Patricia Champagne Plasma Lactic Acid Pierre (0.7-2.0) mmol/L Calcium 8.8 (8.4-10.2) mg/dL Total Bilirubin 0.8 (0.2-1.3) mg/dL AST 30 (17-59) U/L ALT 35 (21-72) U/L Alkaline Phosphatase 143 H (38-126) U/L Troponin I (0.000-0.034) ng/mL NT-Pro-B Natriuret Pep pg/mL Total Protein 6.8 (6.3-8.2) g/dL Albumin 3.8 (3.5-5.0) g/dL Urine Color Urine Appearance (Clear) Urine pH (5.0-8.0) Ur Specific [place] (1.001-1.035) Urine Protein (Negative) Urine Glucose (UA) (Negative) Urine Ketones (Negative) Urine Blood (Negative) Urine Nitrite (Negative) Urine Bilirubin (Negative) Urine Urobilinogen (<2.0) mg/dL Ur Leukocyte Esterase (Negative) Influenza Type A RNA (Not Detectd) Influenza Type B (PCR) (Not Detectd) 09/15/18 09/15/18 09/15/18 Range/Units 02:20 02:20 02:20 WBC (3.8-10.6) k/uL RBC (4.30-5.90) m/uL Hgb (13.0-17.5) gm/dL Hct (39.0-53.0) % MCV (80.0-100.0) fL MCH (25.0-35.0) pg MCHC (31.0-37.0) g/dL RDW (11.5-15.5) % Plt Count (150-450) k/uL Neutrophils % % Lymphocytes % % Monocytes % % Eosinophils % % Basophils % % Neutrophils # (1.3-7.7) k/uL Lymphocytes # (1.0-4.8) k/uL Monocytes # (0-1.0) k/uL Eosinophils # (0-0.7) k/uL Basophils # (0-0.2) k/uL PT 36.3 H (9.0-12.0) sec INR 3.8 H (<1.2) APTT 45.7 H (22.0-30.0) sec Sodium (137-145) mmol/L Potassium (3.5-5.1) mmol/L Chloride (98-107) mmol/L Carbon Dioxide (22-30) mmol/L Anion Gap mmol/L BUN (9-20) mg/dL Creatinine (0.66-1.25) mg/dL Est GFR (CKD-EPI)AfAm (>60 ml/min/1.73 sqM) Est GFR (CKD-EPI)NonAf (>60 ml/min/1.73 sqM) Glucose (74-99) mg/dL POC Glucose (mg/dL) (75-99) mg/dL POC Glu Tank Hoop Bender ID Plasma Lactic Acid Pierre 1.0 (0.7-2.0) mmol/L Calcium (8.4-10.2) mg/dL Total Bilirubin (0.2-1.3) mg/dL AST (17-59) U/L ALT (21-72) U/L Alkaline Phosphatase (38-126) U/L Troponin I (0.000-0.034) ng/mL NT-Pro-B Natriuret Pep pg/mL Total Protein (6.3-8.2) g/dL Albumin (3.5-5.0) g/dL Urine Color Urine Appearance (Clear) Urine pH (5.0-8.0) Ur Specific [place] (1.001-1.035) Urine Protein (Negative) Urine Glucose (UA) (Negative) Urine Ketones (Negative) Urine Blood (Negative) Urine Nitrite (Negative) Urine Bilirubin (Negative) Urine Urobilinogen (<2.0) mg/dL Ur Leukocyte Esterase (Negative) Influenza Type A RNA Not Detected (Not Detectd) Influenza Type B (PCR) Not Detected (Not Detectd) 09/15/18 09/15/18 09/15/18 Range/Units 02:20 02:20 04:20 WBC (3.8-10.6) k/uL RBC (4.30-5.90) m/uL Hgb (13.0-17.5) gm/dL Hct (39.0-53.0) % MCV (80.0-100.0) fL MCH (25.0-35.0) pg MCHC (31.0-37.0) g/dL RDW (11.5-15.5) % Plt Count (150-450) k/uL Neutrophils % % Lymphocytes % % Monocytes % % Eosinophils % % Basophils % % Neutrophils # (1.3-7.7) k/uL Lymphocytes # (1.0-4.8) k/uL Monocytes # (0-1.0) k/uL Eosinophils # (0-0.7) k/uL Basophils # (0-0.2) k/uL PT (9.0-12.0) sec INR (<1.2) APTT (22.0-30.0) sec Sodium (137-145) mmol/L Potassium (3.5-5.1) mmol/L Chloride (98-107) mmol/L Carbon Dioxide (22-30) mmol/L Anion Gap mmol/L BUN (9-20) mg/dL Creatinine (0.66-1.25) mg/dL Est GFR (CKD-EPI)AfAm (>60 ml/min/1.73 sqM) Est GFR (CKD-EPI)NonAf (>60 ml/min/1.73 sqM) Glucose (74-99) mg/dL POC Glucose (mg/dL) (75-99) mg/dL POC Glu Tank Hoop Bender ID Plasma Lactic Acid Pierre (0.7-2.0) mmol/L Calcium (8.4-10.2) mg/dL Total Bilirubin (0.2-1.3) mg/dL AST (17-59) U/L ALT (21-72) U/L Alkaline Phosphatase (38-126) U/L Troponin I <0.012 (0.000-0.034) ng/mL NT-Pro-B Natriuret Pep 1980 pg/mL Total Protein (6.3-8.2) g/dL Albumin (3.5-5.0) g/dL Urine Color Yellow Urine Appearance Clear (Clear) Urine pH 5.0 (5.0-8.0) Ur Specific [place] 1.009 (1.001-1.035) Urine Protein Negative (Negative) Urine Glucose (UA) Negative (Negative) Urine Ketones Negative (Negative) Urine Blood Negative (Negative) Urine Nitrite Negative (Negative) Urine Bilirubin Negative (Negative) Urine Urobilinogen <2.0 (<2.0) mg/dL Ur Leukocyte Esterase Negative (Negative) Influenza Type A RNA (Not Detectd) Influenza Type B (PCR) (Not Detectd) 09/15/18 Range/Units 04:34 WBC (3.8-10.6) k/uL RBC (4.30-5.90) m/uL Hgb (13.0-17.5) gm/dL Hct (39.0-53.0) % MCV (80.0-100.0) fL MCH (25.0-35.0) pg MCHC (31.0-37.0) g/dL RDW (11.5-15.5) % Plt Count (150-450) k/uL Neutrophils % % Lymphocytes % % Monocytes % % Eosinophils % % Basophils % % Neutrophils # (1.3-7.7) k/uL Lymphocytes # (1.0-4.8) k/uL Monocytes # (0-1.0) k/uL Eosinophils # (0-0.7) k/uL Basophils # (0-0.2) k/uL PT (9.0-12.0) sec INR (<1.2) APTT (22.0-30.0) sec Sodium (137-145) mmol/L Potassium (3.5-5.1) mmol/L Chloride (98-107) mmol/L Carbon Dioxide (22-30) mmol/L Anion Gap mmol/L BUN (9-20) mg/dL Creatinine (0.66-1.25) mg/dL Est GFR (CKD-EPI)AfAm (>60 ml/min/1.73 sqM) Est GFR (CKD-EPI)NonAf (>60 ml/min/1.73 sqM) Glucose (74-99) mg/dL POC Glucose (mg/dL) 86 (75-99) mg/dL POC Glu Tank Hoop Bender KELLEE Medeiros Lashonda Plasma Lactic Acid Pierre (0.7-2.0) mmol/L Calcium (8.4-10.2) mg/dL Total Bilirubin (0.2-1.3) mg/dL AST (17-59) U/L ALT (21-72) U/L Alkaline Phosphatase (38-126) U/L Troponin I (0.000-0.034) ng/mL NT-Pro-B Natriuret Pep pg/mL Total Protein (6.3-8.2) g/dL Albumin (3.5-5.0) g/dL Urine Color Urine Appearance (Clear) Urine pH (5.0-8.0) Ur Specific [place] (1.001-1.035) Urine Protein (Negative) Urine Glucose (UA) (Negative) Urine Ketones (Negative) Urine Blood (Negative) Urine Nitrite (Negative) Urine Bilirubin (Negative) Urine Urobilinogen (<2.0) mg/dL Ur Leukocyte Esterase (Negative) Influenza Type A RNA (Not Detectd) Influenza Type B (PCR) (Not Detectd) Disposition Clinical Impression: Hypoglycemia associated with diabetes, Clostridium difficile diarrhea, CHF exacerbation, Congestive heart failure, Acute pulmonary edema, Chronic a-fib Disposition: ADMITTED IP TO THIS HOSP
--- NOTE | 2018-09-15 04:02 | XR ---
EXAM: XR Chest, 2 Views CLINICAL HISTORY: ITS.REASON XR Reason: cough TECHNIQUE: Frontal and lateral views of the chest. COMPARISON: 07/05/18 FINDINGS: Cardiac and mediastinal silhouette is likely unchanged allowing for differences in technique. Prominence of the cardiac silhouette is again noted as well as postop changes and pacer. There is improved aeration at lung bases. Pleural effusions seen on the previous no longer identified. Possible vascular congestion. No consolidation. Unchanged findings include old right clavicle fracture and suspected pericardial calcification. IMPRESSION: Possible vascular congestion.
[2018-09-15 04:35] LABS: Glucose,Whole Blood 86 mg/dL (75-99)
[2018-09-15 04:43] LABS: Appearance,Urine Clear (Clear); Bilirubin,Urine Negative (Negative); Blood,Urine Negative (Negative); Color,Urine Yellow; Glucose,Urine (UA) Negative (Negative); Ketones,Urine Negative (Negative); Leukocyte Esterase,Urine Negative (Negative); Nitrite,Urine Negative (Negative); Protein,Urine Negative (Negative); Specific Gravity,Urine 1.009 (1.001-1.035); Urobilinogen,Urine <2.0 mg/dL (<2.0)
[2018-09-15] MEDS ORDERED: NALOXONE 0.4 MG/ML 1 ML VIAL IV PRN (05:18)
[2018-09-15] MEDS ORDERED: CHERRY FLAVOR 60 ML BOTTLE PO SCH (06:00)
[2018-09-15] MEDS ORDERED: VANCOMYCIN ORAL SOLUTION 250 MG/5 ML BOTTLE PO SCH (06:00)
[2018-09-15 07:44] VITALS: BP 125/71; PULSE 55; RESP 18; TEMP 98.4
[2018-09-15] MEDS: INSULIN ASPART (NovoLOG) 100 UNIT/ML VIAL SQ SCH ×2 (07:59→12:00)
[2018-09-15 08:07] VITALS: BMI 33.3
[2018-09-15] MEDS ORDERED: metroNIDAZOLE 500 MG TAB PO SCH (09:00)
[2018-09-15] MEDS ORDERED: ALLOPURINOL 300 MG TAB PO SCH (11:45)
[2018-09-15] MEDS ORDERED: AMIODARONE 200 MG TAB PO SCH (11:45)
[2018-09-15] MEDS ORDERED: amLODIPine 5 MG TAB PO SCH (11:45)
--- NOTE | 2018-09-15 11:58 | P.HPIM ---
History of Present Illness H&P Date: 09/15/18 Chief Complaint: Hypoglycemia HISTORY AND PHYSICAL AND DISCHARGE SUMMARY: This is a 77-year-old male one of Dr. Pastrana with a previous medical history significant for CAD post CABG 4 in 1991 with ischemic cardiopathy post AICD implant patient 2009 followed by the tach ablation in April 2018, hypertension and hypertensive cardiovascular disease, hyperlipidemia, diabetes mellitus type 2, chronic atrial fibrillation. Patient has been under treatment with his PCP on vancomycin orally for C. difficile colitis. Patient states that he had a mental status change and his thought he was having a stroke ended up calling 911 and patient was brought in the hospital by EMS. Patient's did not check blood sugar at home but on transport it was 49 and he was given an amp of D50 and the patient became awake alert and oriented. Patient states he is having diarrhea stools one time per day he is also complaining of some sinus drainage. Pulse ox was 92% on room air and 95 on 2 L nasal cannula. Patient will be monitored into the afternoon and if blood sugars remain over 100, discharge home. Review of Systems All systems: negative Constitutional: Reports poor appetite, Denies chills, Denies fatigue, Denies fever, Denies weight loss Eyes: denies blurred vision, denies pain Ears, nose, mouth and throat: Denies dysphagia, Denies headache, Denies sore throat Cardiovascular: Denies chest pain, Denies dyspnea on exertion, Denies edema, Denies leg edema, Denies lightheadedness, Denies shortness of breath, Denies syncope Respiratory: Reports cough, Denies cough with sputum, Denies dyspnea, Denies excessive sputum, Denies hemoptysis, Denies home oxygen, Denies respiratory infections, Denies sleep apnea, Denies snoring Gastrointestinal: Reports diarrhea, Reports loss of appetite, Denies abdominal pain, Denies nausea, Denies vomiting Genitourinary: Denies dysuria Musculoskeletal: Denies frequent falls, Denies gait dysfunction, Denies low back pain, Denies muscle weakness, Denies myalgias Integumentary: Denies pruritus, Denies rash, Denies wounds Neurological: Reports change in mentation, Reports confusion, Denies aphasia, Denies change in speech, Denies head injury, Denies numbness, Denies seizures, Denies weakness Psychiatric: Denies anxiety, Denies depression Endocrine: Denies fatigue, Denies weight change Past Medical History Past Medical History: Atrial Fibrillation, Chest Pain / Angina, Heart Failure, Diabetes Mellitus, GERD/Reflux, Hyperlipidemia, Hypertension, Myocardial Infarction ([place]), Rheumatoid Arthritis (RA) Additional Past Medical History / Comment(s): SEE DR NIETO , cardiomyopathy, past uti, insomnia Last Myocardial Infarction Date:: 1991 History of Any Multi-Drug Resistant Organisms: None Reported Past Surgical History: AICD, Coronary Bypass/CABG, Heart Catheterization Additional Past Surgical History / Comment(s): DEFIBRILLATOR THRESHOLD TESTING, JOSE cataracts. 4 VESSEL Bypass 1991, AICD 2009 Past Anesthesia/Blood Transfusion Reactions: No Reported Reaction Additional Past Anesthesia/Blood Transfusion Reaction / Comment(s): pt stated has never recieved any blood transfusions Type of Cardiac Device: AICD Device Placement Date:: 2009 Past Psychological History: No Psychological Hx Reported Smoking Status: Former smoker Past Alcohol Use History: None Reported Additional Past Alcohol Use History / Comment(s): started smoking a in 1959,quit smoking 1996 - Past Drug Use History: None Reported - Past Family History Sister(s) Family Medical History: Cancer Mother Family Medical History: CVA/TIA Father Family Medical History: Hyperlipidemia, Hypertension, Myocardial Infarction ([place]) Medications and Allergies Home Medications Medication Instructions Recorded Confirmed Type Metoprolol Succinate [Toprol XL] 50 mg PO HS 12/06/13 09/15/18 History Spironolactone [Aldactone] 25 mg PO DAILY 12/06/13 09/15/18 History Warfarin [Coumadin] 5 mg PO MOWEFR 12/06/13 09/15/18 History Warfarin [Coumadin] 7.5 mg PO SUTUTHSA 12/06/13 09/15/18 History Cholecalciferol [Vitamin D3] 1,000 unit PO DAILY 10/22/15 09/15/18 History Cyanocobalamin [Vitamin B-12] 500 mcg PO DAILY 12/16/16 09/15/18 History Lovastatin [Mevacor] 40 mg PO DAILY 04/28/18 09/15/18 History Amiodarone [Cordarone] 200 mg PO DAILY 07/05/18 09/15/18 History Metoprolol Succinate (ER) [Toprol 100 mg PO DAILY 07/05/18 09/15/18 History XL] Quinapril HCl [Accupril] 10 mg PO DAILY 07/05/18 09/15/18 History amLODIPine [Norvasc] 5 mg PO DAILY 07/05/18 09/15/18 History Allopurinol [Zyloprim] 300 mg PO DAILY 09/15/18 09/15/18 History Furosemide [Lasix] 40 mg PO BID 09/15/18 09/15/18 History INSULIN ASPART (NovoLOG) [NovoLOG 5 unit SQ AC-BRKFST #0 09/15/18 09/15/18 Rx (formulary)] INSULIN ASPART (NovoLOG) [NovoLOG 5 unit SQ BID@1200,1700 #0 09/15/18 09/15/18 Rx (formulary)] Insulin Glargine [Lantus] 35 unit SQ BID #0 09/15/18 09/15/18 Rx Vancomycin HCl 125 mg PO DAILY 09/15/18 09/15/18 History Allergies Allergy/AdvReac Type Severity Reaction Status Date / Time No Known Allergies Allergy Verified 09/15/18 09:23 Physical Exam Vitals: Vital Signs Temp Pulse Pulse Resp BP BP Pulse Ox 09/15/18 08:25 55 L 18 09/15/18 07:43 98.4 F 55 L 18 125/71 94 L 09/15/18 06:56 97.8 F 76 17 121/66 92 L 09/15/18 04:56 671 H 8 L 112/60 96 09/15/18 02:17 97.8 F 71 19 118/74 96 Intake and Output 09/14/18 09/15/18 09/15/18 22:59 06:59 14:59 Intake Total 240 Balance 240 Intake: Oral 240 Other: Weight 101 kg General appearance: average body habitus, mild distress - EENT Eyes: anicteric sclerae, EOMI, PERRLA, no ptosis, no scleral icterus, normal appearance ENT: hearing grossly normal, NA/AT, normal oropharynx, no thrush Ears: bilateral: normal - Neck Neck: no lymphadenopathy, normal ROM, no rigidity, no stridor, no thyromegaly Carotids: bilateral: upstroke normal Thyroid: bilateral: normal size - Respiratory Respiratory: bilateral: diminished, negative: dullness, rales, rhonchi, wheezing, prolonged expiration, prolonged inspiration - Cardiovascular Rhythm: irregularly irregular Heart sounds: normal: S1, S2 Abnormal Heart Sounds: systolic murmur (there is AICD in the left upper chest.) - Gastrointestinal General gastrointestinal: normal bowel sounds, soft, no splenomegaly, no tenderness, no umbilical hernia, no ventral hernia - Integumentary Integumentary: normal, normal turgor - Musculoskeletal Musculoskeletal: strength equal bilaterally - Psychiatric Psychiatric: A&O x's 3, appropriate affect, intact judgment & insight Results CBC & Chem 7: 09/15/18 02:20 09/15/18 02:20 Labs: Abnormal Lab Results - Last 24 Hours (Table) 09/15/18 09/15/18 09/15/18 Range/Units 02:17 02:20 02:20 RBC 4.15 L (4.30-5.90) m/uL Hgb 11.9 L (13.0-17.5) gm/dL Hct 37.7 L (39.0-53.0) % RDW 15.9 H (11.5-15.5) % Neutrophils # 8.3 H (1.3-7.7) k/uL Lymphocytes # 0.7 L (1.0-4.8) k/uL PT (9.0-12.0) sec INR (<1.2) APTT (22.0-30.0) sec Sodium 136 L (137-145) mmol/L BUN 35 H (9-20) mg/dL Creatinine 1.38 H (0.66-1.25) mg/dL Glucose 151 H (74-99) mg/dL POC Glucose (mg/dL) 158 H (75-99) mg/dL Alkaline Phosphatase 143 H (38-126) U/L 09/15/18 Range/Units 02:20 RBC (4.30-5.90) m/uL Hgb (13.0-17.5) gm/dL Hct (39.0-53.0) % RDW (11.5-15.5) % Neutrophils # (1.3-7.7) k/uL Lymphocytes # (1.0-4.8) k/uL PT 36.3 H (9.0-12.0) sec INR 3.8 H (<1.2) APTT 45.7 H (22.0-30.0) sec Sodium (137-145) mmol/L BUN (9-20) mg/dL Creatinine (0.66-1.25) mg/dL Glucose (74-99) mg/dL POC Glucose (mg/dL) (75-99) mg/dL Alkaline Phosphatase (38-126) U/L Thrombosis Risk Factor Assmnt - Choose All That Apply Each Risk Factor Represents 2 Points: Age 61-74 years Thrombosis Risk Factor Assessment Total Risk Factor Score: 2 Thrombosis Risk Factor Assessment Level: Low Risk Assessment and Plan Plan: 1. Acute metabolic encephalopathy secondary to hypoglycemia status post D50, resolved. Patient will be resumed on reduced dose of long-acting and short- acting insulin and metformin and Januvia will be placed on hold. 2. CAD post CABG with ischemic cardiomyopathy post AICD. Continue Toprol XL 100 mg in the morning and 50 mg at night, lovastatin 40 mg orally once every day. 3. History of V. tach post ablation. Continue amiodarone 200 mg orally once every day. 4. Chronic atrial fibrillation. Continue Toprol-XL as well as Coumadin keep INR between 2-3, continue amiodarone 200 mg orally once every day. 5. Hypertension and hypertensive cardiovascular disease. Continue Toprol-XL, amlodipine 5 mg orally once every day, and quinapril 10 mg orally once every day. 6. Hyperlipidemia. Continue Pravachol 40 mg orally once at bed time. 7. Diabetes mellitus type 2. Continue Lantus and scheduled NovoLog at reduced doses, hold Januvia and metformin. Continue NovoLog scale. 8. History of glaucoma. Continue with dorzolamide eyedrops. 9. Vitamin D deficiency. Continue vitamin D supplement. 10. DVT prophylaxis. Currently on Coumadin. 11. GI prophylaxis. Continue with Protonix 40 mg once every day. Patient placed as observation status. Discharge plan: Home Impression and plan of care have been directed as dictated by the signing physician. Svitlana White nurse practitioner acting as scribe for signing physician.
[2018-09-15 12:02] LABS: Glucose,Whole Blood 173 mg/dL (75-99)
[2018-09-15 12:02] LABS: Glucose,Whole Blood 164 mg/dL (75-99)
[2018-09-15 12:02] LABS: Glucose,Whole Blood 129 mg/dL (75-99)
[2018-09-15 12:02] LABS: Glucose,Whole Blood 198 mg/dL (75-99)
[2018-09-15 12:05] LABS: Glucose,Whole Blood 171 mg/dL (75-99)
[2018-09-15] MEDS ORDERED: INSULIN ASPART (NovoLOG) 100 UNIT/ML VIAL SQ SCH (12:30)
[2018-09-15 14:15] LABS: Glucose,Whole Blood 202 mg/dL (75-99)
[2018-09-15] MEDS ORDERED: METOPROLOL SUCCINATE (ER) 50 MG TAB.ER.24H PO SCH (21:00)
[2018-09-15] MEDS ORDERED: INSULIN DETEMIR (LEVEMIR) 100 UNIT/ML SYR SQ SCH (21:00)
[2018-09-16] MEDS ORDERED: ATORVASTATIN 10 MG TAB PO SCH (09:00)
[2018-09-16] MEDS ORDERED: METOPROLOL SUCCINATE (ER) 100 MG TAB.ER.24H PO SCH (09:00)
[2018-09-16] MEDS ORDERED: LISINOPRIL 10 MG TAB PO SCH (09:00)
== END 2018-09-15 15:00 | disposition home or self-care (01) ==
LOC: EC 02:12 → 4SSUR 05:20
PROVIDERS: ADMIT Internal Medicine Geriatric Medicine; ATTEND Internal Medicine Geriatric Medicine
DX: E11.649 Type 2 diabetes mellitus with hypoglycemia without coma (principal); I48.2 Chronic atrial fibrillation; I11.0 Hypertensive heart disease with heart failure; I25.10 Atherosclerotic heart disease of native coronary artery without angina pectoris; Z95.1 Presence of aortocoronary bypass graft; I25.5 Ischemic cardiomyopathy; E55.9 Vitamin D deficiency, unspecified; G47.00 Insomnia, unspecified; E78.5 Hyperlipidemia, unspecified; G93.41 Metabolic encephalopathy; H40.9 Unspecified glaucoma; I25.2 Old myocardial infarction; I50.9 Heart failure, unspecified; K21.9 Gastro-esophageal reflux disease without esophagitis; M06.9 Rheumatoid arthritis, unspecified; R09.02 Hypoxemia; Z79.01 Long term (current) use of anticoagulants; Z79.4 Long term (current) use of insulin; Z79.82 Long term (current) use of aspirin; Z79.899 Other long term (current) drug therapy; Z87.440 Personal history of urinary (tract) infections; Z95.810 Presence of automatic (implantable) cardiac defibrillator; Z98.42 Cataract extraction status, left eye; Z98.41 Cataract extraction status, right eye; Z87.891 Personal history of nicotine dependence; Z82.49 Family history of ischemic heart disease and other diseases of the circulatory system; Z86.19 Personal history of other infectious and parasitic diseases
CPT/HCPCS: 99285; 36415; 93005; 83880; 80053; 83605; 84484; 85025; 85610; 85730; 81003; 87040; 87086; 87502; 71046; G0378

== ENCOUNTER → 2019-05-16 | Outpatient (CLI) | payer MEDICARE, BC ==
[2019-05-16 11:23] LABS: Calcium 9.3 mg/dL (8.4-10.2); Potassium 4.6 mmol/L (3.5-5.1)
== END | disposition home or self-care (01) ==
LOC: LABPAT 10:01
PROVIDERS: ATTEND Internal Medicine Clinical Cardiac Electrophysiology
DX: Z01.812 Encounter for preprocedural laboratory examination (principal); I25.5 Ischemic cardiomyopathy; I47.2 Ventricular tachycardia
CPT/HCPCS: 36415; 80048

== ENCOUNTER 2019-05-22 11:28 | Day surgery (SDC) | payer MEDICARE, BC ==
[2019-05-18 09:19] VITALS: BMI 33.2
[~2019-05-22 11:28] MED LIST changes: -MIDAZOLAM 2 MG/2 ML VIAL ONE; -PROPOFOL 10 MG/ML 20 ML VIAL IV ONE
[2019-05-22 11:51] VITALS: TEMP 97.9
[2019-05-22 11:54] LABS: Glucose,Whole Blood 142 mg/dL (75-99)
[2019-05-22 12:25] LABS: INR 2.2 (<1.2); Prothrombin Time 21.6 sec (9.0-12.0)
[2019-05-22] MEDS ORDERED: PROPOFOL 10 MG/ML 20 ML VIAL IV ONE (14:12)
[2019-05-22] MEDS ORDERED: LIDOCAINE 1% INJ 10MG/ML (20 ML MDV) ONE (14:12)
[2019-05-22 14:53] VITALS: BP 104/57; PULSE 75; RESP 16
--- NOTE | 2019-05-22 17:12 | P.PCN ---
Preoperative Diagnosis: Diagnosis Cardio myopathy Dual-chamber ICD, creatinine lead ICD was interrogated RV threshold 3.25 V at 1.0 ms R waves 12 mV Pacing impedance in the mid 700s, 740 ohms High-voltage impedance 76 ohms Defibrillation level testing Ventricular fibrillation was induced and detected at least sensitivity with several dropouts but successfully internally defibrillated with 10 J shock. No post shock noise Charge time 1.9 seconds shocking impedance 96 ohms ICD was programmed per minute and reprogramming with appropriate antitachycardia pacing cardioversion and defibrillation Backup VVI pacing at 40 beats a minute Cinefluoroscopy of the leads did not reveal any externalization of the reactor lead. This is a dual coil lead Impression Elevated RV pacing thresholds of 3.25 V at 1 ms with stable impedances and high- voltage impedance is over time and stable RV sensing DFT at or below 10 J
== END 2019-05-22 15:30 | disposition home or self-care (01) ==
LOC: CATHEP 11:28
PROVIDERS: ATTEND Internal Medicine Clinical Cardiac Electrophysiology
DX: Z45.02 Encounter for adjustment and management of automatic implantable cardiac defibrillator (principal); I25.5 Ischemic cardiomyopathy; I48.4 Atypical atrial flutter; I10 Essential (primary) hypertension; E78.5 Hyperlipidemia, unspecified; E11.9 Type 2 diabetes mellitus without complications; Z87.891 Personal history of nicotine dependence; Z95.1 Presence of aortocoronary bypass graft; I25.2 Old myocardial infarction; Z79.01 Long term (current) use of anticoagulants; Z79.4 Long term (current) use of insulin; Z79.899 Other long term (current) drug therapy
CPT/HCPCS: 93642; 76000; 85610; J2001; J2704

== ENCOUNTER 2022-04-14 08:08 | Day surgery (SDC) | payer BC, MEDICARE ==
[2022-04-13 08:35] VITALS: BMI 30.2
[~2022-04-14 08:08] MED LIST changes: +LACTATED RINGERS 1,000 ML IV SCH; -SODIUM CHLORIDE 0.9% 1,000 ML IV SCH
[2022-04-14 08:38] VITALS: TEMP 97.6
[2022-04-14 08:50] LABS: Glucose,Whole Blood 85 mg/dL (70-110)
[2022-04-14] MEDS ORDERED: PROPOFOL 10 MG/ML 20 ML VIAL IV ONE (09:20)
[2022-04-14] MEDS ORDERED: LIDOCAINE 2% INJ 20 MG/ML (2 ML VIAL) ONE (09:20)
--- NOTE | 2022-04-14 09:39 | P.PCN ---
Date of Procedure: 04/14/22 Procedure(s) Performed: BRIEF HISTORY: Patient is a 81-year-old, pleasant, white male scheduled for an upper endoscopy as a part of evaluation of black tarry stools for the last 2 months duration. He was diagnosed with A. fib and was started on Xarelto approximately 2 months ago. Recently was started on omeprazole 40 mg daily and the melenahas resolved... PROCEDURE PERFORMED: Esophagogastroduodenoscopy. PREOPERATIVE DIAGNOSIS: anemia and black tarry stools. IV sedation per anesthesia. PROCEDURE: After informed consent was obtained, the patient was brought into the endoscopy unit. IV sedation was administered by Anesthesia under continuous monitoring. Initially the Olympus GIF-140 video endoscope was inserted into the mouth. Esophagus intubated without any difficulty. It was gradually advanced into the stomach and duodenum and carefully examined. The bulb and the second part of the duodenum appeared normal.biopsies were done from the duodenum to rule out celiac disease The scope at this time was withdrawn to the stomach, adequately insufflated with air, and upon careful examination, mucosa of the antrum,had mild gastritis and biopsies were done from this area. The body, cardia and the fundus appeared normal. The scope was then withdrawn into the esophagus. The GE junction was located at 39 cm from the incisors.small sliding type hiatal hernia noted. The esophagus appeared normal. There were no erosions or ulcerations seen and the patient tolerated the procedure well. IMPRESSION: 1. Mild antral gastritis. 2. No evidence of esophagitis or peptic ulcer disease. RECOMMENDATIONS: The findings of this examination were discussed with the patient as well as his family. He was advised to follow with the biopsy results. Continue on omeprazole 40 mg daily and follow antireflux measures. Resume Xarelto today..
[2022-04-14 09:43] VITALS: RESP 16
[2022-04-14 09:57] VITALS: BP 105/71; PULSE 58
== END 2022-04-14 10:15 | disposition home or self-care (01) ==
LOC: ORWHC2ENDO 08:08
PROVIDERS: ATTEND Internal Medicine Gastroenterology
DX: K29.50 Unspecified chronic gastritis without bleeding (principal); K31.89 Other diseases of stomach and duodenum; D64.9 Anemia, unspecified; K92.1 Melena; I11.0 Hypertensive heart disease with heart failure; I50.9 Heart failure, unspecified; E78.5 Hyperlipidemia, unspecified; I25.10 Atherosclerotic heart disease of native coronary artery without angina pectoris; I48.91 Unspecified atrial fibrillation; I42.9 Cardiomyopathy, unspecified; E11.9 Type 2 diabetes mellitus without complications; Z79.4 Long term (current) use of insulin; Z79.890 Hormone replacement therapy; Z79.899 Other long term (current) drug therapy; K44.9 Diaphragmatic hernia without obstruction or gangrene
CPT/HCPCS: 43239; 88305; J2704; J2001

== ENCOUNTER 2022-05-01 14:06 | Emergency (ER) | payer MEDICARE ==
[2022-05-01 14:12] VITALS: TEMP 97.4
--- NOTE | 2022-05-01 14:22 | ED ---
Male Urogenital HPI - General Chief complaint: Urogenital Stated complaint: blood in urine Time Seen by Provider: 05/01/22 14:13 Source: patient, RN notes reviewed, old records reviewed Mode of arrival: ambulatory Limitations: no limitations - History of Present Illness Initial comments: Well-appearing 81-year-old male presents ambulatory with complaints of 2 episodes of bloody urine. Patient denies any pain or discomfort. Denies any other abnormal bleeding. He is taking Xarelto for afib. He is a previous smoker, quit 20 years ago. MD Complaint: other (hematuria) -: days(s) (1) Severity scale (1-10): 0 Reports: denies other symptoms - Related Data Home Medications Medication Instructions Recorded Confirmed Cyanocobalamin [Vitamin B-12] 500 mcg PO DAILY 12/16/16 04/14/22 Metoprolol Succinate (ER) [Toprol 100 mg PO DAILY 07/05/18 04/14/22 XL] Furosemide [Lasix] 80 mg PO DAILY 09/15/18 04/14/22 allopurinoL [Zyloprim] 100 mg PO DAILY 09/15/18 04/14/22 Dorzolamide HCl/Pf [Dorzolamide 2% 1 drop BOTH EYES DAILY 05/18/19 04/14/22 Eye Drop] Insulin Aspart [Novolog] 10 unit SQ AC-TID 05/18/19 04/14/22 Insulin Glargine [Lantus Vial] 35 unit SQ QAM 05/18/19 04/14/22 Amiodarone [Cordarone] 100 mg PO DAILY 04/13/22 04/14/22 Evolocumab [Repatha Syringe] 0 mg SQ Q14D 04/13/22 04/14/22 Insulin Glargine,Hum.rec.anlog 30 units SQ AC-SUPPER 04/13/22 04/14/22 [Lantus Solostar Pen] Losartan [Cozaar] 50 mg PO DAILY 04/13/22 04/14/22 Omeprazole 20 mg PO DAILY 04/13/22 04/14/22 Pravastatin Sodium [Pravachol] 20 mg PO HS 04/13/22 04/14/22 Rivaroxaban [Xarelto] 15 mg PO DAILY 04/13/22 04/14/22 Allergies Allergy/AdvReac Type Severity Reaction Status Date / Time No Known Allergies Allergy Verified 05/01/22 14:10 Review of Systems ROS Statement: Those systems with pertinent positive or pertinent negative responses have been documented in the HPI. ROS Other: All systems not noted in ROS Statement are negative. Past Medical History Past Medical History: Atrial Fibrillation, Coronary Artery Disease (CAD), Chest Pain / Angina, Heart Failure, Diabetes Mellitus, GERD/Reflux, Hyperlipidemia, Hypertension, Myocardial Infarction (ME), Osteoarthritis (OA) Additional Past Medical History / Comment(s): cardiomyopathy, gout, states some difficulty swallowing Last Myocardial Infarction Date:: 1991 History of Any Multi-Drug Resistant Organisms: None Reported Past Surgical History: AICD, Coronary Bypass/CABG, Heart Catheterization Additional Past Surgical History / Comment(s): DEFIBRILLATOR THRESHOLD TESTING, JOSE cataracts. 4 VESSEL Bypass 1996, AICD 2009 Past Anesthesia/Blood Transfusion Reactions: No Reported Reaction Additional Past Anesthesia/Blood Transfusion Reaction / Comment(s): . Type of Cardiac Device: AICD Device Placement Date:: 2009 Past Psychological History: No Psychological Hx Reported Smoking Status: Former smoker Past Alcohol Use History: None Reported Past Drug Use History: None Reported - Past Family History Sister(s) Family Medical History: Cancer Mother Family Medical History: CVA/TIA Father Family Medical History: Hyperlipidemia, Hypertension, Myocardial Infarction (ME) General Exam Limitations: no limitations General appearance: alert, in no apparent distress Head exam: Present: atraumatic, normocephalic Eye exam: Absent: scleral icterus, conjunctival injection, periorbital swelling Respiratory exam: Present: normal lung sounds bilaterally. Absent: respiratory distress, wheezes, rales, rhonchi, stridor, chest wall tenderness, accessory muscle use Cardiovascular Exam: Present: regular rate GI/Abdominal exam: Present: soft. Absent: distended, tenderness, rigid Extremities exam: Present: normal capillary refill. Absent: tenderness, pedal edema, calf tenderness Neurological exam: Present: alert, oriented X3 Psychiatric exam: Present: normal affect, normal mood Skin exam: Present: warm, dry, normal color. Absent: cyanosis, diaphoretic, petechiae, pallor Course Vital Signs 05/01/22 14:10 Temperature 97.4 F L Pulse Rate 79 Respiratory 18 Rate Blood Pressure 135/74 O2 Sat by Pulse 98 Oximetry Medical Decision Making - Medical Decision Making Hemoglobin and hematocrit are stable, platelet count within normal limits. INR 1.3. BUN 32 creatinine 1.28, patient's last creatinine was 1.65 on 03/13/2022. Urinalysis shows large amounts of blood, small leukocyte esterase, few bacteria and 10 wbc's. Urine was sent for culture. Ultrasound of the bladder shows evidence of a 1.5 cm bladder mass suggestive of tumor. There is also a right renal cortical cyst, no evidence of solid mass or obstruction. Patient is a previous smoker, quit 20 years ago. I did discuss the findings with the patient. I stressed the importance that this may be bladder cancer and he needs to followup with urology next week. He was discharged home to follow up with urology. Return to the emergency room with any new or concerning symptoms. Patient states understanding. Case discussed with Dr. Degroot - Lab Data Result diagrams: 05/01/22 14:21 05/01/22 14:21 Lab Results 05/01/22 05/01/22 05/01/22 Range/Units 14:21 14:21 14:21 WBC 6.5 (3.8-10.6) k/uL RBC 4.63 (4.30-5.90) m/uL Hgb 12.6 L (13.0-17.5) gm/dL Hct 40.2 (39.0-53.0) % MCV 86.9 (80.0-100.0) fL MCH 27.2 (25.0-35.0) pg MCHC 31.3 (31.0-37.0) g/dL RDW 15.8 H (11.5-15.5) % Plt Count 222 (150-450) k/uL MPV 7.8 Neutrophils % 64 % Lymphocytes % 16 % Monocytes % 9 % Eosinophils % 6 % Basophils % 1 % Neutrophils # 4.2 (1.3-7.7) k/uL Lymphocytes # 1.0 (1.0-4.8) k/uL Monocytes # 0.6 (0-1.0) k/uL Eosinophils # 0.4 (0-0.7) k/uL Basophils # 0.0 (0-0.2) k/uL Hypochromasia Moderate PT 13.6 H (9.0-12.0) sec INR 1.3 H (<1.2) APTT 36.7 H (22.0-30.0) sec Sodium (137-145) mmol/L Potassium (3.5-5.1) mmol/L Chloride (98-107) mmol/L Carbon Dioxide (22-30) mmol/L Anion Gap mmol/L BUN (9-20) mg/dL Creatinine (0.66-1.25) mg/dL Est GFR (CKD-EPI)AfAm (>60 ml/min/1.73 sqM) Est GFR (CKD-EPI)NonAf (>60 ml/min/1.73 sqM) Glucose (74-99) mg/dL Calcium (8.4-10.2) mg/dL Total Bilirubin (0.2-1.3) mg/dL AST (17-59) U/L ALT (4-49) U/L Alkaline Phosphatase (38-126) U/L Total Protein (6.3-8.2) g/dL Albumin (3.5-5.0) g/dL Urine Color Red Urine Appearance Cloudy (Clear) Urine pH 5.5 (5.0-8.0) Ur Specific [place] 1.015 (1.001-1.035) Urine Protein 1+ H (Negative) Urine Glucose (UA) Negative (Negative) Urine Ketones Negative (Negative) Urine Blood Large H (Negative) Urine Nitrite Negative (Negative) Urine Bilirubin Negative (Negative) Urine Urobilinogen <2.0 (<2.0) mg/dL Ur Leukocyte Esterase Small H (Negative) Urine RBC >182 H (0-5) /hpf Urine WBC 10 H (0-5) /hpf Urine Bacteria Few H (None) /hpf 05/01/22 Range/Units 14:21 WBC (3.8-10.6) k/uL RBC (4.30-5.90) m/uL Hgb (13.0-17.5) gm/dL Hct (39.0-53.0) % MCV (80.0-100.0) fL MCH (25.0-35.0) pg MCHC (31.0-37.0) g/dL RDW (11.5-15.5) % Plt Count (150-450) k/uL MPV Neutrophils % % Lymphocytes % % Monocytes % % Eosinophils % % Basophils % % Neutrophils # (1.3-7.7) k/uL Lymphocytes # (1.0-4.8) k/uL Monocytes # (0-1.0) k/uL Eosinophils # (0-0.7) k/uL Basophils # (0-0.2) k/uL Hypochromasia PT (9.0-12.0) sec INR (<1.2) APTT (22.0-30.0) sec Sodium 138 (137-145) mmol/L Potassium 4.0 (3.5-5.1) mmol/L Chloride 102 (98-107) mmol/L Carbon Dioxide 23 (22-30) mmol/L Anion Gap 13 mmol/L BUN 32 H (9-20) mg/dL Creatinine 1.28 H (0.66-1.25) mg/dL Est GFR (CKD-EPI)AfAm 61 (>60 ml/min/1.73 sqM) Est GFR (CKD-EPI)NonAf 53 (>60 ml/min/1.73 sqM) Glucose 84 (74-99) mg/dL Calcium 9.0 (8.4-10.2) mg/dL Total Bilirubin 1.5 H (0.2-1.3) mg/dL AST 34 (17-59) U/L ALT 19 (4-49) U/L Alkaline Phosphatase 301 H (38-126) U/L Total Protein 7.0 (6.3-8.2) g/dL Albumin 4.0 (3.5-5.0) g/dL Urine Color Urine Appearance (Clear) Urine pH (5.0-8.0) Ur Specific [place] (1.001-1.035) Urine Protein (Negative) Urine Glucose (UA) (Negative) Urine Ketones (Negative) Urine Blood (Negative) Urine Nitrite (Negative) Urine Bilirubin (Negative) Urine Urobilinogen (<2.0) mg/dL Ur Leukocyte Esterase (Negative) Urine RBC (0-5) /hpf Urine WBC (0-5) /hpf Urine Bacteria (None) /hpf Disposition Clinical Impression: Hematuria, Bladder tumor Disposition: HOME SELF-CARE Condition: Good Additional Instructions: On ultrasound of your bladder there is a 1.5 cm solid mass that may be cancer. This often causes painless bloody urine. It is very important that you follow up for further evaluation with the urologist next week. Increase your fluid intake and try to urinate every couple of hours. Return to the emergency room for any pain, fevers or inability to urinate. Is patient prescribed a controlled substance at d/c from ED?: No Referrals: Sal Dominguez MD [Primary Care Provider] - 1-2 days Mauri Raymond MD [STAFF PHYSICIAN] - 1-2 days Time of Disposition: 15:27
[2022-05-01 14:38] LABS: Basophils % (A) 1 %; Eosinophils # (A) 0.4 k/uL (0-0.7); Eosinophils % (A) 6 %; HCT 40.2 % (39.0-53.0); HGB 12.6 gm/dL (13.0-17.5); Hypochromasia Moderate; Lymphocytes % (A) 16 %; MCH 27.2 pg (25.0-35.0); MCHC 31.3 g/dL (31.0-37.0); MCV 86.9 fL (80.0-100.0); Mean Platelet Volume 7.8; Monocytes # (A) 0.6 k/uL (0-1.0); Monocytes % (A) 9 %; Neutrophils # (A) 4.2 k/uL (1.3-7.7); Neutrophils % (A) 64 %; Platelet Count 222 k/uL (150-450); RBC 4.63 m/uL (4.30-5.90); RDW 15.8 % (11.5-15.5); WBC 6.5 k/uL (3.8-10.6)
[2022-05-01 14:53] LABS: INR 1.3 (<1.2); Partial Thromboplastin Time 36.7 sec (22.0-30.0); Prothrombin Time 13.6 sec (9.0-12.0)
[2022-05-01 15:07] LABS: Total Bilirubin 1.5 mg/dL (0.2-1.3)
[2022-05-01 15:09] LABS: Appearance,Urine Cloudy (Clear); Bacteria,Urine Few /hpf; Bilirubin,Urine Negative (Negative); Blood,Urine Large (Negative); Color,Urine Red; Glucose,Urine (UA) Negative (Negative); Ketones,Urine Negative (Negative); Leukocyte Esterase,Urine Small (Negative); Nitrite,Urine Negative (Negative); PH, Urine 5.5 (5.0-8.0); Protein,Urine 1+ (Negative); RBC,Urine >182 /hpf (0-5); Specific Gravity,Urine 1.015 (1.001-1.035); Urobilinogen,Urine <2.0 mg/dL (<2.0); WBC,Urine 10 /hpf (0-5)
--- NOTE | 2022-05-01 15:13 | US ---
EXAMINATION TYPE: US renals and bladder DATE OF EXAM: 05/01/2022 COMPARISON: NONE CLINICAL HISTORY: uti, back pain, hx of kidney stones. EXAM MEASUREMENTS: Right Kidney: 11.1 x 4.4 x 5.0 cm Left Kidney: 11.6 x 5.2 x 4.8 cm Patient of large body habitus. Small stones may not be detected by ultrasound. Right Kidney: cyst measuring 1.9 x 1.9 x 1.5cm Left Kidney: No hydronephrosis or masses seen Bladder: Hyperechoic non shadowing mass seen right bladder measuring 1.3 x 1.5 x 1.3cm Bilateral Jets seen: Yes IMPRESSION: Right renal cortical cyst. No evidence of solid renal mass or obstruction. 1.5 cm solid bladder mass suggestive of tumor.
[2022-05-01 15:37] VITALS: BP 94/85; PULSE 81; RESP 16
== END 2022-05-01 15:37 | disposition home or self-care (01) ==
LOC: EC 14:06
DX: R31.9 Hematuria, unspecified (principal); C67.9 Malignant neoplasm of bladder, unspecified; I10 Essential (primary) hypertension; E11.9 Type 2 diabetes mellitus without complications; E78.5 Hyperlipidemia, unspecified; I48.91 Unspecified atrial fibrillation; K21.9 Gastro-esophageal reflux disease without esophagitis; I25.10 Atherosclerotic heart disease of native coronary artery without angina pectoris; I50.9 Heart failure, unspecified; I21.9 Acute myocardial infarction, unspecified; M19.90 Unspecified osteoarthritis, unspecified site; Z87.891 Personal history of nicotine dependence; Z79.83 Long term (current) use of bisphosphonates; Z79.4 Long term (current) use of insulin; Z79.899 Other long term (current) drug therapy; Z79.51 Long term (current) use of inhaled steroids; Z79.01 Long term (current) use of anticoagulants
CPT/HCPCS: 36415; 76770; 80053; 81001; 85025; 85610; 85730; 99283; 99284

== ENCOUNTER → 2022-05-20 | Outpatient (CLI) | payer MEDICARE ==
--- NOTE | 2022-05-20 16:34 | CT ---
EXAMINATION TYPE: CT urogram wo/w con CT DLP: 2730.0 mGycm, Automated exposure control for dose reduction was used. DATE OF EXAM: 05/20/2022 3:57 PM COMPARISON: Renal ultrasound 05/01/2022. CLINICAL INDICATION:Male, 81 years old with history of R31.0 Gross hematuria; PHH, gross hematuria. b ladder tumor. TECHNIQUE: Urogram of the abdomen and pelvis before and after the uneventful administration of 80 mL of Isovue 3 00 intravenously. Coronal and sagittal reformats were performed. One or more CT dose reduction strate gies were utilized during this examination. 2D and 3D reconstructions are performed to assist visuali zation of the urinary tract on a separate workstation. FINDINGS: GENITOURINARY: RIGHT KIDNEY AND URETER: Nonobstructive right mid kidney 3 mm calculus. No hydronephrosis or hydroure ter. No solid lesion. Right lower pole 2.3 cm cyst. No urothelial lesions: no filling defect, dilatio n, stricture or wall thickening. LEFT KIDNEY AND URETER: No calculi. No hydronephrosis or hydroureter. No renal mass or other lesions. No urothelial lesions: no filling defect, dilation, stricture or wall thickening. URINARY BLADDER: There is a 2.0 x 1.8 cm posterior bladder wall is irregular filling defect with loss of fat plane with the prostate gland (series 22, image 86 and series 23, image 102).. REPRODUCTIVE: Prostate gland is mildly prominent measuring up to 4.6 cm. Central prostate calcificati ons noted.. ABDOMEN LIVER: Unremarkable. GALLBLADDER AND BILE DUCTS: Cholelithiasis. No biliary ductal dilatation. PANCREAS: Unremarkable. SPLEEN: Mildly enlarged spleen measuring 15.4 cm in CC dimension. ADRENAL GLANDS: Right adrenal gland is unremarkable. Left adrenal gland nodule measuring 3.2 x 3.0 cm . This demonstrate the Hounsfield unit of 21 on noncontrast imaging and a Hounsfield unit of 69 venou s phase.. This demonstrates a Hounsfield unit of 55 on the delayed phase. STOMACH AND BOWEL: Unremarkable. No evidence of bowel obstruction. PERITONEUM: No evidence of pneumoperitoneum. No adenopathy. Trace perihepatic free fluid. VASCULATURE: Moderate atherosclerotic calcification of the aorta and its branches. No abdominal aorti c aneurysm. MUSCULOSKELETAL: No acute osseous abnormalities. Partial visualization of median sternotomy wire. SOFT TISSUE/ABDOMINAL WALL: Unremarkable. LOWER CHEST: Moderate cardiomegaly. Partial visualization of cardiac pacemaking leads. Pericardial an d coronary artery calcifications. Visualized lung bases are clear. IMPRESSION: 1. Posterior urinary bladder wall mass with loss of fat plane with the prostate gland corresponding t o ultrasound. This is concerning for malignancy. Direct visualization is recommended. 2. Indeterminate left adrenal gland 3.2 cm nodule. Further evaluation with CT abdomen adrenal mass pr otocol is recommended. 3. Nonobstructive right renal calculus. 4. Mild splenomegaly. 5. Cholelithiasis.
== END | disposition home or self-care (01) ==
LOC: RADCTMAIN 14:20
PROVIDERS: ATTEND Urology
DX: R31.0 Gross hematuria (principal)
CPT/HCPCS: 82565; 84520; 74178; 36415; 74400; Q9967

== ENCOUNTER 2022-06-11 02:59 | Inpatient (IN) | payer MEDICARE ==
[2022-06-11] MEDS ORDERED: SODIUM CHLORIDE 0.9% 500 ML 500 ML IV STA (03:08)
[2022-06-11] MEDS ORDERED: SODIUM CHLORIDE 0.9% 1,000 ML IV STA (03:08)
[2022-06-11] MEDS ORDERED: DEXTROSE 5% IN WATER 100 ML with AMIODARONE 150 MG IV ONE (03:08)
--- NOTE | 2022-06-11 03:09 | ED ---
Weakness HPI - General Stated complaint: Chest Pain Time Seen by Provider: 06/11/22 03:08 Source: RN notes reviewed, old records reviewed Mode of arrival: EMS Limitations: language barrier, altered mental status, physical limitation - History of Present Illness Initial comments: This is a 81-year-old male to the emergency department for evaluation. Patient fell. Sweaty, pale. Patient is recent change in medications does is AICD with defibrillator. Patient is found to be ventricular tachycardia MD Complaint: generalized weakness, focal weakness, lack of energy, difficulty walking -: hour(s) Location: generalized Severity: severe Severity scale (1-10): 10 Quality: constant Consistency: constant Improves with: none Worsens with: none Associated Symptoms: denies other symptoms - Related Data Home Medications Medication Instructions Recorded Confirmed Cyanocobalamin [Vitamin B-12] 500 mcg PO DAILY 12/16/16 06/11/22 Metoprolol Succinate (ER) [Toprol 100 mg PO DAILY 07/05/18 06/11/22 XL] Furosemide [Lasix] 80 mg PO DAILY 09/15/18 06/11/22 allopurinoL [Zyloprim] 100 mg PO DAILY 09/15/18 06/11/22 Dorzolamide HCl/Pf [Dorzolamide 2% 1 drop BOTH EYES BID 05/18/19 06/11/22 Eye Drop] Insulin Glargine [Lantus Vial] 30 unit SQ BID 05/18/19 06/11/22 Amiodarone [Cordarone] 100 mg PO DAILY 04/13/22 06/11/22 Evolocumab [Repatha Syringe] 140 mg SQ Q14D 04/13/22 06/11/22 Losartan [Cozaar] 50 mg PO DAILY 04/13/22 06/11/22 Omeprazole 20 mg PO DAILY 04/13/22 06/11/22 Pravastatin Sodium [Pravachol] 20 mg PO HS 04/13/22 06/11/22 Apixaban [Eliquis] 5 mg PO BID 06/11/22 06/11/22 Insulin Aspart [NovoLOG Flexpen] 10 units SQ AC-LUNCH 06/11/22 06/11/22 Insulin Aspart [NovoLOG Flexpen] 18 units SQ AC-SUPPER 06/11/22 06/11/22 Spironolactone [Aldactone] 25 mg PO DAILY 06/11/22 06/11/22 Allergies Allergy/AdvReac Type Severity Reaction Status Date / Time No Known Allergies Allergy Verified 06/11/22 08:46 Review of Systems ROS Statement: Those systems with pertinent positive or pertinent negative responses have been documented in the HPI. ROS Other: All systems not noted in ROS Statement are negative. Past Medical History Past Medical History: Atrial Fibrillation, Coronary Artery Disease (CAD), Chest Pain / Angina, Heart Failure, Diabetes Mellitus, GERD/Reflux, Hyperlipidemia, Hypertension, Myocardial Infarction ([place]), Osteoarthritis (OA) Additional Past Medical History / Comment(s): cardiomyopathy, gout, states some difficulty swallowing Last Myocardial Infarction Date:: 1991 History of Any Multi-Drug Resistant Organisms: None Reported Past Surgical History: AICD, Coronary Bypass/CABG, Heart Catheterization Additional Past Surgical History / Comment(s): DEFIBRILLATOR THRESHOLD TESTING, JOSE cataracts. 4 VESSEL Bypass 1996, AICD 2009 Past Anesthesia/Blood Transfusion Reactions: No Reported Reaction Additional Past Anesthesia/Blood Transfusion Reaction / Comment(s): . Type of Cardiac Device: AICD Device Placement Date:: 2009 Past Psychological History: No Psychological Hx Reported Smoking Status: Former smoker Past Alcohol Use History: None Reported Past Drug Use History: None Reported - Past Family History Sister(s) Family Medical History: Cancer Mother Family Medical History: CVA/TIA Father Family Medical History: Hyperlipidemia, Hypertension, Myocardial Infarction ([place]) General Exam Limitations: altered mental status, physical limitation General appearance: anxious, lethargic, obtunded, in distress Head exam: Present: atraumatic, normocephalic, normal inspection Eye exam: Present: normal appearance, PERRL, EOMI. Absent: scleral icterus, conjunctival injection, periorbital swelling ENT exam: Present: normal exam, mucous membranes moist Neck exam: Present: normal inspection. Absent: tenderness, meningismus, lymphadenopathy Respiratory exam: Present: normal lung sounds bilaterally. Absent: respiratory distress, wheezes, rales, rhonchi, stridor Cardiovascular Exam: Present: regular rate, normal rhythm, normal heart sounds. Absent: systolic murmur, diastolic murmur, rubs, gallop, clicks GI/Abdominal exam: Present: soft, normal bowel sounds. Absent: distended, tenderness, guarding, rebound, rigid Extremities exam: Present: normal inspection, full ROM, normal capillary refill. Absent: tenderness, pedal edema, joint swelling, calf tenderness Back exam: Present: normal inspection Neurological exam: Present: alert, oriented X3, CN II-XII intact Psychiatric exam: Present: normal affect, normal mood Skin exam: Present: warm, dry, intact, normal color. Absent: rash Course Vital Signs 06/11/22 06/11/22 06/11/22 03:09 03:36 03:48 Temperature 97.2 F L Pulse Rate 111 H 72 Respiratory 24 8 L 8 L Rate Blood Pressure 113/82 89/49 O2 Sat by Pulse 97 99 Oximetry 06/11/22 06/11/22 06/11/22 03:50 03:56 03:58 Temperature Pulse Rate 78 78 Respiratory 20 26 H 18 Rate Blood Pressure 103/80 O2 Sat by Pulse 100 98 Oximetry 06/11/22 06/11/22 06/11/22 04:00 04:30 04:45 Temperature Pulse Rate 82 70 68 Respiratory 26 H 24 26 H Rate Blood Pressure 106/79 104/63 88/54 O2 Sat by Pulse 95 95 98 Oximetry 06/11/22 06/11/22 06/11/22 06:22 07:00 07:02 Temperature Pulse Rate 58 L 52 L 53 L Respiratory 24 24 Rate Blood Pressure 88/51 75/45 80/40 O2 Sat by Pulse 95 94 L 93 L Oximetry 06/11/22 06/11/22 06/11/22 08:00 09:00 10:00 Temperature Pulse Rate 48 L 45 L 44 L Respiratory Rate Blood Pressure 86/49 77/50 87/49 O2 Sat by Pulse 94 L 94 L 96 Oximetry 06/11/22 06/11/22 06/11/22 11:00 12:00 13:00 Temperature Pulse Rate 43 L 42 L 43 L Respiratory Rate Blood Pressure 91/52 89/48 101/49 O2 Sat by Pulse 96 98 99 Oximetry 06/11/22 06/11/22 06/11/22 14:00 15:00 16:00 Temperature Pulse Rate 49 L 53 L 67 Respiratory Rate Blood Pressure 116/69 116/69 116/69 O2 Sat by Pulse 98 97 96 Oximetry 06/11/22 06/11/22 06/11/22 18:56 19:35 21:39 Temperature Pulse Rate 56 L 57 L 52 L Respiratory 18 18 18 Rate Blood Pressure 100/61 101/53 97/47 O2 Sat by Pulse 95 95 96 Oximetry 06/11/22 06/11/22 22:44 23:25 Temperature Pulse Rate 52 L 52 L Respiratory 18 Rate Blood Pressure 95/51 86/48 O2 Sat by Pulse 95 Oximetry - Reevaluation(s) Reevaluation #1: 06/11/22 03:37 Medical records reviewed Reevaluation #2: 06/11/22 03:37 Patient responded well to cardioversion Reevaluation #3: 06/11/22 03:37 Blood pressure improving mental status improving heart rate is improving EKG Findings - EKG Comments: EKG Findings:: EKG is ventricular tachycardia and out of ventricular fibrillation rate around 160 QRS 138 QTc 367 Medical Decision Making - Medical Decision Making 81 male who does present in some significant distress coming in for findings of ventricular fibrillation and tachycardia. Patient is able to be cardioverted successfully here in the ER and will be admitted for for further evaluation management - Lab Data Result diagrams: 06/15/22 07:44 06/15/22 07:44 Lab Results 06/11/22 06/11/22 06/11/22 Range/Units 03:04 03:04 03:04 WBC 17.7 H (3.8-10.6) k/uL RBC 4.93 (4.30-5.90) m/uL Hgb 13.6 (13.0-17.5) gm/dL Hct 44.8 (39.0-53.0) % MCV 90.8 (80.0-100.0) fL MCH 27.5 (25.0-35.0) pg MCHC 30.3 L (31.0-37.0) g/dL RDW 16.1 H (11.5-15.5) % Plt Count 254 (150-450) k/uL MPV 8.4 Neutrophils % 80 % Lymphocytes % 10 % Monocytes % 6 % Eosinophils % 1 % Basophils % 1 % Neutrophils # 14.2 H (1.3-7.7) k/uL Lymphocytes # 1.7 (1.0-4.8) k/uL Monocytes # 1.0 (0-1.0) k/uL Eosinophils # 0.2 (0-0.7) k/uL Basophils # 0.1 (0-0.2) k/uL Hypochromasia Marked Anisocytosis Slight PT 12.1 H (9.0-12.0) sec INR 1.1 (<1.2) APTT 25.5 (22.0-30.0) sec Sodium 140 (137-145) mmol/L Potassium 4.3 (3.5-5.1) mmol/L Chloride 101 (98-107) mmol/L Carbon Dioxide 22 (22-30) mmol/L Anion Gap 17 mmol/L BUN 25 H (9-20) mg/dL Creatinine 1.39 H (0.66-1.25) mg/dL Est GFR (CKD-EPI)AfAm 56 (>60 ml/min/1.73 sqM) Est GFR (CKD-EPI)NonAf 48 (>60 ml/min/1.73 sqM) Glucose 269 H (74-99) mg/dL Plasma Lactic Acid Pierre (0.7-2.0) mmol/L Calcium 8.8 (8.4-10.2) mg/dL Phosphorus 3.8 (2.5-4.5) mg/dL Magnesium 1.8 (1.6-2.3) mg/dL Total Bilirubin 1.5 H (0.2-1.3) mg/dL AST 32 (17-59) U/L ALT 20 (4-49) U/L Alkaline Phosphatase 249 H (38-126) U/L Troponin I (0.000-0.034) ng/mL Total Protein 6.9 (6.3-8.2) g/dL Albumin 4.0 (3.5-5.0) g/dL 06/11/22 06/11/22 Range/Units 03:04 03:04 WBC (3.8-10.6) k/uL RBC (4.30-5.90) m/uL Hgb (13.0-17.5) gm/dL Hct (39.0-53.0) % MCV (80.0-100.0) fL MCH (25.0-35.0) pg MCHC (31.0-37.0) g/dL RDW (11.5-15.5) % Plt Count (150-450) k/uL MPV Neutrophils % % Lymphocytes % % Monocytes % % Eosinophils % % Basophils % % Neutrophils # (1.3-7.7) k/uL Lymphocytes # (1.0-4.8) k/uL Monocytes # (0-1.0) k/uL Eosinophils # (0-0.7) k/uL Basophils # (0-0.2) k/uL Hypochromasia Anisocytosis PT (9.0-12.0) sec INR (<1.2) APTT (22.0-30.0) sec Sodium (137-145) mmol/L Potassium (3.5-5.1) mmol/L Chloride (98-107) mmol/L Carbon Dioxide (22-30) mmol/L Anion Gap mmol/L BUN (9-20) mg/dL Creatinine (0.66-1.25) mg/dL Est GFR (CKD-EPI)AfAm (>60 ml/min/1.73 sqM) Est GFR (CKD-EPI)NonAf (>60 ml/min/1.73 sqM) Glucose (74-99) mg/dL Plasma Lactic Acid Pierre 9.7 H* (0.7-2.0) mmol/L Calcium (8.4-10.2) mg/dL Phosphorus (2.5-4.5) mg/dL Magnesium (1.6-2.3) mg/dL Total Bilirubin (0.2-1.3) mg/dL AST (17-59) U/L ALT (4-49) U/L Alkaline Phosphatase (38-126) U/L Troponin I 0.028 (0.000-0.034) ng/mL Total Protein (6.3-8.2) g/dL Albumin (3.5-5.0) g/dL - EKG Data -: EKG Interpreted by Me (EKG is corrected to sinus rhythm 74 OR 240 QRS 118 QTc 434) EKG shows normal: sinus rhythm (Sinuses rhythm has present after cardioversion) - Radiology Data Radiology results: report reviewed (Chest x-rays positive for mild heart failure with congestion), image reviewed Critical Care Time Critical Care Time: Yes Total Critical Care Time: 65 Disposition Clinical Impression: AICD (automatic cardioverter/defibrillator) present, Hx of CABG, Ventricular tachycardia, Congestive heart failure, Systolic CHF, acute on chronic, Chronic a-fib, Ischemic cardiomyopathy Disposition: ADMITTED IP TO THIS [facility] Condition: Critical Is patient prescribed a controlled substance at d/c from ED?: No Time of Disposition: 04:45
[2022-06-11 03:18] LABS: Anisocytosis Slight; Basophils # (A) 0.1 k/uL (0-0.2); Basophils % (A) 1 %; Eosinophils # (A) 0.2 k/uL (0-0.7); Eosinophils % (A) 1 %; HCT 44.8 % (39.0-53.0); HGB 13.6 gm/dL (13.0-17.5); Hypochromasia Marked; Lymphocytes # (A) 1.7 k/uL (1.0-4.8); Lymphocytes % (A) 10 %; MCH 27.5 pg (25.0-35.0); MCHC 30.3 g/dL (31.0-37.0); MCV 90.8 fL (80.0-100.0); Mean Platelet Volume 8.4; Monocytes % (A) 6 %; Neutrophils # (A) 14.2 k/uL (1.3-7.7); Neutrophils % (A) 80 %; Platelet Count 254 k/uL (150-450); RBC 4.93 m/uL (4.30-5.90); RDW 16.1 % (11.5-15.5); WBC 17.7 k/uL (3.8-10.6)
[2022-06-11] MEDS ORDERED: DEXTROSE 5% IN WATER 250 ML with AMIODARONE 300 MG IV ONE (03:20)
[2022-06-11] MEDS ORDERED: HYDROmorphone 1 MG/ML 1 ML SYRINGE IVP STA (03:24)
[2022-06-11 03:26] LABS: INR 1.1 (<1.2); Partial Thromboplastin Time 25.5 sec (22.0-30.0); Prothrombin Time 12.1 sec (9.0-12.0)
[2022-06-11] MEDS ORDERED: LORazepam 2 MG/ML INJ IV STA (03:28)
[2022-06-11 03:30] LABS: Calcium 8.8 mg/dL (8.4-10.2); Magnesium 1.8 mg/dL (1.6-2.3); Phosphorus 3.8 mg/dL (2.5-4.5); Potassium 4.3 mmol/L (3.5-5.1); Total Bilirubin 1.5 mg/dL (0.2-1.3); Total Protein 6.9 g/dL (6.3-8.2)
[2022-06-11] MEDS ORDERED: POTASSIUM BICARBONATE/CIT AC 20 MEQ TABLET.EFF PO ONE (03:38)
[2022-06-11] MEDS ORDERED: MAGNESIUM OXIDE 400 MG TAB PO STA ×2 (03:38)
[2022-06-11] MEDS ORDERED: NALOXONE 0.4 MG/ML 1 ML VIAL IVP STA (03:42)
[2022-06-11] MEDS ORDERED: POTASSIUM CHLORIDE 20 MEQ in WATER FOR INJECTION 1 100ML.BAG IVPB STA (03:43)
[2022-06-11] MEDS ORDERED: NALOXONE 0.4 MG/ML 1 ML VIAL IV PRN (03:50)
[2022-06-11] MEDS ORDERED: MORPHINE SULFATE 4 MG/ML SYRINGE IV PRN (03:50)
[2022-06-11] MEDS: MAGNESIUM SULFATE-D5W PMX 1 GM in DEXTROSE/WATER 1 100ML.BAG IVPB SCH ×2 (04:19→06:00)
--- NOTE | 2022-06-11 04:20 | XR ---
EXAMINATION TYPE: XR chest 1V portable DATE OF EXAM: 06/11/2022 COMPARISON: 09/15/2018 HISTORY: Cough. Short of breath TECHNIQUE: FINDINGS: Heart is enlarged. There is some pulmonary vascular congestion. There is left axillary pace maker. There are chest leads. No definite pleural effusion. IMPRESSION: Cardiomegaly and mild congestion. Acute heart failure is suspected. Pulmonary congestion increased compared to old exam.
[2022-06-11] MEDS: SODIUM CHLORIDE 0.9% 1,000 ML IV SCH ×3 (06:03→22:48)
[2022-06-11] MEDS ORDERED: DEXTROSE 50% SYRINGE 50 ML IVP PRN ×2 (06:33)
[2022-06-11] MEDS: AMIODARONE 450 MG in DEXTROSE 5% IN WATER 250 ML IV SCH ×6 (07:36→22:10)
[2022-06-11 07:57] LABS: Glucose,Whole Blood 381 mg/dL (70-110)
[2022-06-11] MEDS: INSULIN ASPART (NovoLOG) 100 UNIT/ML VIAL SQ SCH ×4 (08:37→21:24)
[2022-06-11] MEDS: PANTOPRAZOLE 40 MG/10 ML VIAL IV SCH (08:38)
--- NOTE | 2022-06-11 09:43 | P.HPIM ---
History of Present Illness This is a pleasant 81 years old male with multiple medical problems. Patient presents because of dyspnea which is started yesterday when he woke up. And he vomited this morning with no blood. He denies chest pain or coughing. No other GI or urinary complaints. Patient denies smoking alcohol or illicit drugs Blood pressure on the low side 88/51 this morning with heart rate 58 and patient is tachypneic 24-26. Patient has mild leukocytosis of 17.7. Hemoglobin normal. INR 1.1. Creatinine is slightly elevated at 1.39 which looks at baseline of 1.0-1.6. Elevated lactic acid 9.7. Bilirubin 1.5. Liver enzymes not elevated. Chest x-ray: Cardiomegaly with mild congestion. Acute heart failure suspected. Pulmonary congestion increased compared to old exam EKG showing looks like ventricular tachycardia versus LIZZIE patient was started on amiodarone drip, received pain medication of Dilaudid, Ativan, potassium and magnesium and was placed on morphine and normal saline at 130 mL/h Review of Systems Review of systems CONSTITUTIONAL: No fever, no malaise, no fatigue. HEENT: No recent visual problems or hearing problems. Denied any sore throat. CARDIOVASCULAR: No orthopnea, PND, no palpitations, no syncope. PULMONARY: no cough, no hemoptysis. GASTROINTESTINAL: No diarrhea, no nausea, no vomiting, no abdominal pain. Normoactive bowel sounds. NEUROLOGICAL: No headaches, no weakness, no numbness. HEMATOLOGICAL: Denies any bleeding or petechiae. GENITOURINARY: Denies any burning micturition, frequency, or urgency. MUSCULOSKELETAL/RHEUMATOLOGICAL: Denies any joint pain, swelling, or any muscle pain. ENDOCRINE: Denies any polyuria or polydipsia. Past Medical History Past Medical History: Atrial Fibrillation, Coronary Artery Disease (CAD), Chest Pain / Angina, Heart Failure, Diabetes Mellitus, GERD/Reflux, Hyperlipidemia, Hypertension, Myocardial Infarction ([place]), Osteoarthritis (OA) Additional Past Medical History / Comment(s): cardiomyopathy, gout, states some difficulty swallowing Last Myocardial Infarction Date:: 1991 History of Any Multi-Drug Resistant Organisms: None Reported Past Surgical History: AICD, Coronary Bypass/CABG, Heart Catheterization Additional Past Surgical History / Comment(s): DEFIBRILLATOR THRESHOLD TESTING, JOSE cataracts. 4 VESSEL Bypass 1996, AICD 2009 Past Anesthesia/Blood Transfusion Reactions: No Reported Reaction Additional Past Anesthesia/Blood Transfusion Reaction / Comment(s): . Type of Cardiac Device: AICD Device Placement Date:: 2009 Past Psychological History: No Psychological Hx Reported Smoking Status: Former smoker Past Alcohol Use History: None Reported Past Drug Use History: None Reported - Past Family History Sister(s) Family Medical History: Cancer Mother Family Medical History: CVA/TIA Father Family Medical History: Hyperlipidemia, Hypertension, Myocardial Infarction ([place]) Medications and Allergies Home Medications Medication Instructions Recorded Confirmed Type Cyanocobalamin [Vitamin B-12] 500 mcg PO DAILY 12/16/16 06/11/22 History Metoprolol Succinate (ER) [Toprol 100 mg PO DAILY 07/05/18 06/11/22 History XL] Furosemide [Lasix] 80 mg PO DAILY 09/15/18 06/11/22 History allopurinoL [Zyloprim] 100 mg PO DAILY 09/15/18 06/11/22 History Dorzolamide HCl/Pf [Dorzolamide 2% 1 drop BOTH EYES BID 05/18/19 06/11/22 History Eye Drop] Insulin Glargine [Lantus Vial] 30 unit SQ BID 05/18/19 06/11/22 History Amiodarone [Cordarone] 100 mg PO DAILY 04/13/22 06/11/22 History Evolocumab [Repatha Syringe] 140 mg SQ Q14D 04/13/22 06/11/22 History Losartan [Cozaar] 50 mg PO DAILY 04/13/22 06/11/22 History Omeprazole 20 mg PO DAILY 04/13/22 06/11/22 History Pravastatin Sodium [Pravachol] 20 mg PO HS 04/13/22 06/11/22 History Apixaban [Eliquis] 5 mg PO BID 06/11/22 06/11/22 History Insulin Aspart [NovoLOG Flexpen] 10 units SQ AC-LUNCH 06/11/22 06/11/22 History Insulin Aspart [NovoLOG Flexpen] 18 units SQ AC-SUPPER 06/11/22 06/11/22 History Spironolactone [Aldactone] 25 mg PO DAILY 06/11/22 06/11/22 History Allergies Allergy/AdvReac Type Severity Reaction Status Date / Time No Known Allergies Allergy Verified 06/11/22 08:46 Physical Exam Vitals: Vital Signs Temp Pulse Resp BP Pulse Ox 06/11/22 04:45 68 26 H 88/54 98 06/11/22 04:30 70 24 104/63 95 06/11/22 04:00 82 26 H 106/79 95 06/11/22 03:58 78 18 98 06/11/22 03:56 26 H 06/11/22 03:50 78 20 103/80 100 06/11/22 03:48 8 L 06/11/22 03:36 72 8 L 89/49 99 06/11/22 03:09 97.2 F L 111 H 24 113/82 97 Intake and Output 06/10/22 06/10/22 06/11/22 14:59 22:59 06:59 Other: Weight 86.183 kg -GENERAL: The patient is alert and oriented x3, not in any acute distress. Well developed, well nourished. Generally weak HEENT: Pupils are round and equally reacting to light. EOMI. No scleral icterus. No conjunctival pallor. Normocephalic, atraumatic. No pharyngeal erythema. No thyromegaly. CARDIOVASCULAR: S1 and S2 present. No murmurs, rubs, or gallops. -PULMONARY: Chest is clear to auscultation, no wheezing or crackles. The Neck. On nasal cannula ABDOMEN: Soft, nontender, nondistended, normoactive bowel sounds. No palpable organomegaly. MUSCULOSKELETAL: No joint swelling or deformity. EXTREMITIES: No cyanosis, clubbing, or pedal edema. NEUROLOGICAL: Gross neurological examination did not reveal any focal deficits. SKIN: No rashes. no petechiae. Results CBC & Chem 7: 06/11/22 03:04 06/11/22 03:04 Labs: Abnormal Lab Results - Last 24 Hours (Table) 06/11/22 06/11/22 06/11/22 Range/Units 03:04 03:04 03:04 WBC 17.7 H (3.8-10.6) k/uL MCHC 30.3 L (31.0-37.0) g/dL RDW 16.1 H (11.5-15.5) % Neutrophils # 14.2 H (1.3-7.7) k/uL PT 12.1 H (9.0-12.0) sec BUN 25 H (9-20) mg/dL Creatinine 1.39 H (0.66-1.25) mg/dL Glucose 269 H (74-99) mg/dL Plasma Lactic Acid Pierre (0.7-2.0) mmol/L Total Bilirubin 1.5 H (0.2-1.3) mg/dL Alkaline Phosphatase 249 H (38-126) U/L 06/11/22 Range/Units 03:04 WBC (3.8-10.6) k/uL MCHC (31.0-37.0) g/dL RDW (11.5-15.5) % Neutrophils # (1.3-7.7) k/uL PT (9.0-12.0) sec BUN (9-20) mg/dL Creatinine (0.66-1.25) mg/dL Glucose (74-99) mg/dL Plasma Lactic Acid Pierre 9.7 H* (0.7-2.0) mmol/L Total Bilirubin (0.2-1.3) mg/dL Alkaline Phosphatase (38-126) U/L Assessment and Plan Assessment: V. tach, currently patient is a bradycardic Borderline low blood pressure Elevated lactic acid Atrial fibrillation History of coronary artery disease, status post 4 VESSEL Bypass 1996, AICD 2009 Chronic heart failure Diabetes mellitus Chronic kidney disease stage III most likely diabetic nephropathy Hypertension Hyperlipidemia History of osteoarthritis Plan: This is a pleasant 81 years old male presents with multiple problems including V. tach, CHF, hypotension Continue with amiodarone. Replace electrolytes and monitor heart rate and blood pressure closely Resume his insulin and anticoagulation, he was on liquids at home Check urine analysis on the bladder scan Cardiology consult pulmonary and critical care consult consult Check procalcitonin and hemoglobin A1c Hold lisinopril and metoprolol and Aldactone Labs and medication were reviewed.. Continue same treatment. Continue with symptomatic treatment. Resume home medication. Monitor labs and vitals. DVT and GI prophylaxis. Further recommendations as per clinical course of the patient DVT prophylaxis: Patient was on at [facility] PT/OT: Deferred Prognosis is guarded discussed with the bedside nurse
[2022-06-11 09:46] LABS: Appearance,Urine Cloudy (Clear); Bacteria,Urine Many /hpf; Bilirubin,Urine Negative (Negative); Blood,Urine Large (Negative); Color,Urine Yellow; Glucose,Urine (UA) Negative (Negative); Ketones,Urine Negative (Negative); Leukocyte Esterase,Urine Small (Negative); Mucus,Urine Occasional /hpf; Nitrite,Urine Negative (Negative); Protein,Urine 1+ (Negative); RBC,Urine 77 /hpf (0-5); Specific Gravity,Urine 1.014 (1.001-1.035); Squamous Epithelial Cell,Urine 3 /hpf (0-4); WBC,Urine 8 /hpf (0-5)
[2022-06-11] MEDS ORDERED: MAGNESIUM SULFATE-D5W PMX 1 GM in DEXTROSE/WATER 1 100ML.BAG IVPB ONE (10:14)
[2022-06-11] MEDS ORDERED: ONDANSETRON 4 MG/2 ML VIAL IVP PRN (10:15)
[2022-06-11] MEDS: NOREPINEPHRINE 4 MG in SODIUM CHLORIDE 0.9% 250 ML IV SCH (10:34)
--- NOTE | 2022-06-11 10:53 | P.CRDCN ---
History of Present Illness Consult date: 06/11/22 History of present illness: HISTORY OF PRESENT ILLNESS: This is a 81 year old male with a past medical history significant for coronary artery disease with previous CABG, ischemic cardiomyopathy with an ejection fraction of 35%, history of ventricular tachycardia with previous ablation, AICD implantation, carotid artery stenosis, hypertension, hyperlipidemia, diabetes, and chronic atrial fibrillation. Patient follows in the office with Dr. Micheal dixon. We have been asked to see the patient in consultation for ventricular tachycardia. Patient examined at the bedside. Patient presented to the hospital with a chief complaint of shortness of breath. He denied any chest pain or pressure. Denied palpitations. Patient was found to be in ventricular tachycardia. He was cardioverted by the ER physician. At the time of examination, patient feels tired and weak. He is hypotension with a SBP 70-80s. He is in sinus mechanism with a heart rate in the 40-50s. * EKG reveals ventricular tachycardia. Repeat EKG reveals sinus bradycardia. * Chest xray cardiomegaly and mild congestion. Acute heart failure is suspected. Pulmonary congestion increased compared to old exam. * Laboratory data: WBC 17.7. Hemoglobin 13.6. Platelet count 254. Sodium 140. Potassium 4.3. BUN 25. Creatinine 1.39. Magnesium 1.8. Troponin 0.028. 1.620. * Current home cardiac medications include Eliquis 5mg BID, Aldactone 25 mg daily, metoprolol succinate 100 mg daily, Pravachol 20 mg at night, losartan 50 mg daily, Lasix 80 mg daily, amiodarone 100 mg daily, and Repatha 140 subcu Q14 days * Most recent echocardiogram obtained in April 2022 revealed ejection fraction 30-35% with global LV hypokinesis, moderate mitral regurgitation, severe tricuspid regurgitation REVIEW OF SYSTEMS: At the time of my exam: CONSTITUTIONAL: Denies fever or chills. HEENT: Denies blurred vision, vision changes, or eye pain. Denies hemoptysis CARDIOVASCULAR: Denies chest pain. Denies orthopnea. Denies PND. Denies palpitations RESPIRATORY: Denies shortness of breath. GASTROINTESTINAL: Denies abdominal pain. Denies nausea or vomiting. HEMATOLOGIC: Denies bleeding disorders. GENITOURINARY: Denies any blood in urine. SKIN: Denies pruitis. Denies rash. PHYSICAL EXAM: VITAL SIGNS: Reviewed. GENERAL: Well-developed in no acute distress. HEENT: Head is normocephalic. Pupils are equal, round. Sclerae anicteric. Mucous membranes of the mouth are moist. Neck supple. No JVD or thyromegaly LUNGS: Respirations even and unlabored. Lungs diminished bilaterally. HEART: Regular rate and rhythm. S1 and S2 heard. ABDOMEN: Soft. Nondistended. Nontender. EXTREMITIES: Normal range of motion. No clubbing or cyanosis. Peripheral pulses intact. No lower extremity edema NEUROLOGIC: Awake and alert. Oriented x 3. ASSESSMENT: Shortness of breath Sustained ventricular tachycardia, status post cardioversion in ER Hypotension Sinus bradycardia Coronary artery disease with previous CABG Ischemic cardiomyopathy with previous ejection fraction of 35% History of ventricular tachycardia with previous ablation History of AICD implantation Hypertension Hyperlipidemia Diabetes Carotid artery stenosis PLAN: Obtain limited echo Interrogate AICD Patient received magnesium supplementation Continue IV amiodarone Begin Levophed drip to maintain systolic blood pressure of 95 Begin sotalol 40 mg twice a day Continue anticoagulation with Eliquis Continue to hold additional home cardiac medications secondary to hypotension and bradycardia Patient will be transferred to ICU Dr. Vazquez spoke with the patients via phone and updated her on patient condition and plan of care Prognosis guarded Further recommendations pending patient course Nurse practitioner note has been reviewed by physician. Signing provider agrees with the documented findings, assessment, and plan of care. Past Medical History Past Medical History: Atrial Fibrillation, Coronary Artery Disease (CAD), Chest Pain / Angina, Heart Failure, Diabetes Mellitus, GERD/Reflux, Hyperlipidemia, Hypertension, Myocardial Infarction ([place]), Osteoarthritis (OA) Additional Past Medical History / Comment(s): cardiomyopathy, gout, states some difficulty swallowing Last Myocardial Infarction Date:: 1991 History of Any Multi-Drug Resistant Organisms: None Reported Past Surgical History: AICD, Coronary Bypass/CABG, Heart Catheterization Additional Past Surgical History / Comment(s): DEFIBRILLATOR THRESHOLD TESTING, JOSE cataracts. 4 VESSEL Bypass 1996, AICD 2009 Past Anesthesia/Blood Transfusion Reactions: No Reported Reaction Additional Past Anesthesia/Blood Transfusion Reaction / Comment(s): . Type of Cardiac Device: AICD Device Placement Date:: 2009 Past Psychological History: No Psychological Hx Reported Smoking Status: Former smoker Past Alcohol Use History: None Reported Past Drug Use History: None Reported - Past Family History Sister(s) Family Medical History: Cancer Mother Family Medical History: CVA/TIA Father Family Medical History: Hyperlipidemia, Hypertension, Myocardial Infarction ([place]) Medications and Allergies Home Medications Medication Instructions Recorded Confirmed Type Cyanocobalamin [Vitamin B-12] 500 mcg PO DAILY 12/16/16 06/11/22 History Metoprolol Succinate (ER) [Toprol 100 mg PO DAILY 07/05/18 06/11/22 History XL] Furosemide [Lasix] 80 mg PO DAILY 09/15/18 06/11/22 History allopurinoL [Zyloprim] 100 mg PO DAILY 09/15/18 06/11/22 History Dorzolamide HCl/Pf [Dorzolamide 2% 1 drop BOTH EYES BID 05/18/19 06/11/22 History Eye Drop] Insulin Glargine [Lantus Vial] 30 unit SQ BID 05/18/19 06/11/22 History Amiodarone [Cordarone] 100 mg PO DAILY 04/13/22 06/11/22 History Evolocumab [Repatha Syringe] 140 mg SQ Q14D 04/13/22 06/11/22 History Losartan [Cozaar] 50 mg PO DAILY 04/13/22 06/11/22 History Omeprazole 20 mg PO DAILY 04/13/22 06/11/22 History Pravastatin Sodium [Pravachol] 20 mg PO HS 04/13/22 06/11/22 History Apixaban [Eliquis] 5 mg PO BID 06/11/22 06/11/22 History Insulin Aspart [NovoLOG Flexpen] 10 units SQ AC-LUNCH 06/11/22 06/11/22 History Insulin Aspart [NovoLOG Flexpen] 18 units SQ AC-SUPPER 06/11/22 06/11/22 History Spironolactone [Aldactone] 25 mg PO DAILY 06/11/22 06/11/22 History Allergies Allergy/AdvReac Type Severity Reaction Status Date / Time No Known Allergies Allergy Verified 06/11/22 08:46 Physical Exam Vitals: Vital Signs Temp Pulse Resp BP Pulse Ox 06/11/22 09:00 45 L 77/50 94 L 06/11/22 08:00 48 L 86/49 94 L 06/11/22 07:02 53 L 24 80/40 93 L 06/11/22 07:00 52 L 75/45 94 L 06/11/22 06:22 58 L 24 88/51 95 06/11/22 04:45 68 26 H 88/54 98 06/11/22 04:30 70 24 104/63 95 06/11/22 04:00 82 26 H 106/79 95 06/11/22 03:58 78 18 98 06/11/22 03:56 26 H 06/11/22 03:50 78 20 103/80 100 06/11/22 03:48 8 L 06/11/22 03:36 72 8 L 89/49 99 06/11/22 03:09 97.2 F L 111 H 24 113/82 97 Intake and Output 06/10/22 06/11/22 06/11/22 22:59 06:59 14:59 Output Total 420 Balance -420 Output: Urine 420 Uretheral ([place]) 420 Other: Weight 86.183 kg Results 06/11/22 03:04 06/11/22 03:04 Cardiac Enzymes 06/11/22 06/11/22 06/11/22 Range/Units 03:04 03:04 07:23 AST 32 (17-59) U/L Troponin I 0.028 1.620 H* (0.000-0.034) ng/mL Coagulation 06/11/22 Range/Units 03:04 PT 12.1 H (9.0-12.0) sec APTT 25.5 (22.0-30.0) sec CBC 06/11/22 Range/Units 03:04 WBC 17.7 H (3.8-10.6) k/uL RBC 4.93 (4.30-5.90) m/uL Hgb 13.6 (13.0-17.5) gm/dL Hct 44.8 (39.0-53.0) % Plt Count 254 (150-450) k/uL Comprehensive Metabolic Panel 06/11/22 Range/Units 03:04 Sodium 140 (137-145) mmol/L Potassium 4.3 (3.5-5.1) mmol/L Chloride 101 (98-107) mmol/L Carbon Dioxide 22 (22-30) mmol/L BUN 25 H (9-20) mg/dL Creatinine 1.39 H (0.66-1.25) mg/dL Glucose 269 H (74-99) mg/dL Calcium 8.8 (8.4-10.2) mg/dL AST 32 (17-59) U/L ALT 20 (4-49) U/L Alkaline Phosphatase 249 H (38-126) U/L Total Protein 6.9 (6.3-8.2) g/dL Albumin 4.0 (3.5-5.0) g/dL Current Medications Generic Name Dose Route Start Last Admin Trade Name Freq PRN Reason Stop Dose Admin Allopurinol 100 mg 06/12/22 09:00 Allopurinol 100 Mg Tab PO DAILY HEAVEN Apixaban 5 mg 06/11/22 21:00 Apixaban 5 Mg Tab PO BID HEAVEN Protocol Cyanocobalamin 500 mcg 06/12/22 09:00 Cyanocobalamin 500 Mcg Tab PO DAILY HEAVEN Dextrose/Water 25 ml 06/11/22 06:33 Dextrose 50% Syringe 50 Ml IVP PER PROTOCOL PRN Hypoglycemia Protocol Dextrose/Water 50 ml 06/11/22 06:33 Dextrose 50% Syringe 50 Ml IVP PER PROTOCOL PRN Hypoglycemia Protocol Dorzolamide HCl 1 drops 06/11/22 10:30 Dorzolamide Hcl 2% Drops 10 Ml Btl BOTH EYES BID HEAVEN Sodium Chloride 1,000 mls @ 130 mls/hr 06/11/22 03:08 06/11/22 04:36 Saline 0.9% IV 06/11/22 10:49 130 mls/hr .Q7H42M STA Administration Sodium Chloride 1,000 mls @ 130 mls/hr 06/11/22 04:00 06/11/22 06:03 Saline 0.9% IV Not Given .Q7H42M HEAVEN Amiodarone HCl 450 mg/ 250 mls @ 16.667 mls/hr 06/11/22 07:00 06/11/22 07:36 Dextrose/Water IV 06/12/22 00:59 0.5 mg/min .Q15H HEAVEN 16.667 mls/hr Administration Protocol 0.5 MG/MIN Norepinephrine Bitartrate 4 mg 254 mls @ 9.851 mls/hr 06/11/22 10:15 06/11/22 10:34 / Sodium Chloride IV 0.03 mcg/kg/min .Q24H HEAVEN 9.851 mls/hr Administration Protocol 0.03 MCG/KG/MIN Insulin Aspart 0 unit 06/11/22 07:30 06/11/22 08:37 Insulin Aspart (Novolog) 100 Unit/Ml Vial SQ 10 unit ACHS HEAVEN Administration Protocol Morphine Sulfate 4 mg 06/11/22 03:50 Morphine Sulfate 4 Mg/Ml Syringe IV Q4HR PRN Severe Pain (Scale 7 to 10) Naloxone HCl 0.2 mg 06/11/22 03:50 Naloxone 0.4 Mg/Ml 1 Ml Vial IV Q2M PRN Opioid Reversal Repatha (Evolocumab) 140 mg 06/11/22 12:00 Syringe 140 Mg/Ml SQ Each Q14D HEAVEN Ondansetron HCl 4 mg 06/11/22 10:15 06/11/22 10:24 Ondansetron 4 Mg/2 Ml Vial IVP 4 mg Q6HR PRN Administration Nausea And Vomiting Pantoprazole Sodium 40 mg 06/11/22 09:00 06/11/22 08:38 Pantoprazole 40 Mg/10 Ml Vial IV 40 mg DAILY HEAVEN Administration Pravastatin Sodium 20 mg 06/11/22 21:00 Pravastatin Sodium 20 Mg Tab PO HS HEAVEN Sotalol HCl 40 mg 06/11/22 10:30 Sotalol 80 Mg Tab PO BID HEAVEN Intake and Output 06/10/22 06/11/22 06/11/22 22:59 06:59 14:59 Output Total 420 Balance -420 Output: Urine 420 Uretheral ([place]) 420 Other: Weight 86.183 kg 06/11/22 03:04 06/11/22 03:04
[2022-06-11 11:52] LABS: Glucose,Whole Blood 221 mg/dL (70-110)
--- NOTE | 2022-06-11 11:54 | P.CNPUL ---
History of Present Illness Consult date: 06/11/22 Requesting physician: Toñito Pérez Reason for consult: other Chief complaint: Ventricular tachycardia. History of present illness: Pulmonary/critical care consult dated 06/11/2022. 81-year-old gentleman with an extensive cardiac history, presents to the emergency room on June 11 at 3:00 in the morning. He came in with complaints of chest pain, weakness, lack of energy, and difficulty ambulating. He described the pain as severe. The patient apparently was found to have ventricular tachycardia, and was cardioverted. He is currently in the ER, room #1, and will be admitted to the intensive care unit. He is a bit hypotensive, and the patient was started on norepinephrine. He apparently has a history of atrial fibrillation, coronary disease, angina, heart failure, diabetes, GERD, hyperlipidemia, hypertension, myocardial infarction, osteoarthritis, and previous bypass grafting, and AICD placement. White count 17.7, hemoglobin 13.6, hematocrit 44.8, and platelet count 254,000. PT was 12.1. Sodium, potassium, chloride, CO2, all normal. Anion gap is increased at 17, with a BUN and creatinine of 25 and 1.39. Initial lactate was 9.7. Most recent lactate was down to 2.1. Troponin was 1.620. Pro-calcitonin level is 5.13. Urine is yellow and cloudy with 1+ protein. Leukocyte esterase was small positive, with 8 WBCs, and many bacteria. Chest x-ray shows evidence of cardiomegaly, and mild heart failure. Review of Systems REVIEW OF SYSTEMS: CONSTITUTIONAL: Weakness. NEUROLOGIC: [ Negative.] HEENT: [ Negative.] CARDIAC: Chest pain. PULMONARY: [Negative.] GI: [Negative.] : [Negative.] RHEUMATOLOGIC: [ Negative.] IMMUNOLOGIC: [ Negative.] ENDOCRINE: [Negative. ] DERMATOLOGIC: [Negative.] Past Medical History Past Medical History: Atrial Fibrillation, Coronary Artery Disease (CAD), Chest Pain / Angina, Heart Failure, Diabetes Mellitus, GERD/Reflux, Hyperlipidemia, Hypertension, Myocardial Infarction ([place]), Osteoarthritis ([place]) Additional Past Medical History / Comment(s): cardiomyopathy, gout, states some difficulty swallowing Last Myocardial Infarction Date:: 1991 History of Any Multi-Drug Resistant Organisms: None Reported Past Surgical History: AICD, Coronary Bypass/CABG, Heart Catheterization Additional Past Surgical History / Comment(s): DEFIBRILLATOR THRESHOLD TESTING, JOSE cataracts. 4 VESSEL Bypass 1996, AICD 2009 Past Anesthesia/Blood Transfusion Reactions: No Reported Reaction Additional Past Anesthesia/Blood Transfusion Reaction / Comment(s): . Type of Cardiac Device: AICD Device Placement Date:: 2009 Past Psychological History: No Psychological Hx Reported Smoking Status: Former smoker Past Alcohol Use History: None Reported Past Drug Use History: None Reported - Past Family History Sister(s) Family Medical History: Cancer Mother Family Medical History: CVA/TIA Father Family Medical History: Hyperlipidemia, Hypertension, Myocardial Infarction ([place]) Medications and Allergies Home Medications Medication Instructions Recorded Confirmed Type Cyanocobalamin [Vitamin B-12] 500 mcg PO DAILY 12/16/16 06/11/22 History Metoprolol Succinate (ER) [Toprol 100 mg PO DAILY 07/05/18 06/11/22 History XL] Furosemide [Lasix] 80 mg PO DAILY 09/15/18 06/11/22 History allopurinoL [Zyloprim] 100 mg PO DAILY 09/15/18 06/11/22 History Dorzolamide HCl/Pf [Dorzolamide 2% 1 drop BOTH EYES BID 05/18/19 06/11/22 History Eye Drop] Insulin Glargine [Lantus Vial] 30 unit SQ BID 05/18/19 06/11/22 History Amiodarone [Cordarone] 100 mg PO DAILY 04/13/22 06/11/22 History Evolocumab [Repatha Syringe] 140 mg SQ Q14D 04/13/22 06/11/22 History Losartan [Cozaar] 50 mg PO DAILY 04/13/22 06/11/22 History Omeprazole 20 mg PO DAILY 04/13/22 06/11/22 History Pravastatin Sodium [Pravachol] 20 mg PO HS 04/13/22 06/11/22 History Apixaban [Eliquis] 5 mg PO BID 06/11/22 06/11/22 History Insulin Aspart [NovoLOG Flexpen] 10 units SQ AC-LUNCH 06/11/22 06/11/22 History Insulin Aspart [NovoLOG Flexpen] 18 units SQ AC-SUPPER 06/11/22 06/11/22 History Spironolactone [Aldactone] 25 mg PO DAILY 06/11/22 06/11/22 History Allergies Allergy/AdvReac Type Severity Reaction Status Date / Time No Known Allergies Allergy Verified 06/11/22 08:46 Physical Exam Osteopathic Statement: *. No significant issues noted on an osteopathic structural exam other than those noted in the History and Physical/Consult. Vitals: Vital Signs Temp Pulse Resp BP Pulse Ox 06/11/22 11:00 43 L 91/52 96 06/11/22 10:00 44 L 87/49 96 06/11/22 09:00 45 L 77/50 94 L 06/11/22 08:00 48 L 86/49 94 L 06/11/22 07:02 53 L 24 80/40 93 L 06/11/22 07:00 52 L 75/45 94 L 06/11/22 06:22 58 L 24 88/51 95 06/11/22 04:45 68 26 H 88/54 98 06/11/22 04:30 70 24 104/63 95 06/11/22 04:00 82 26 H 106/79 95 06/11/22 03:58 78 18 98 06/11/22 03:56 26 H 06/11/22 03:50 78 20 103/80 100 06/11/22 03:48 8 L 06/11/22 03:36 72 8 L 89/49 99 06/11/22 03:09 97.2 F L 111 H 24 113/82 97 Intake and Output 06/10/22 06/11/22 06/11/22 22:59 06:59 14:59 Output Total 420 Balance -420 Output: Urine 420 Uretheral ([place]) 420 Other: Weight 86.183 kg No acute distress, oriented 3. Currently on 3 L of oxygen. HEENT examination is grossly unremarkable. Neck supple. Full range of motion. No adenopathy thyromegaly or neck vein distention. Cardiovascular examination reveals regular rhythm rate. S1-S2 normal. No S3 or S4. No discernible murmur noted. Heart sounds are distant. Heart rate 43 bpm. Lungs reveal mostly clear breath sounds. Scattered rhonchi and crackles are noted. No wheezes. Saturations are 93-96% on 3 L. Abdomen soft bowel sounds are heard. No masses or tenderness. Extremities are intact. No cyanosis clubbing or edema. Skin is without rash or lesion. Neurologic examination is brief but nonfocal. Results - Laboratory Findings CBC and BMP: 11/18/22 03:04 06/11/22 03:04 PT/INR, D-dimer PT 12.1 sec (9.0-12.0) H 06/11/22 03:04 INR 1.1 (<1.2) 06/11/22 03:04 Abnormal lab findings: Abnormal Labs 06/11/22 06/11/22 06/11/22 03:04 03:04 03:04 WBC 17.7 H MCHC 30.3 L RDW 16.1 H Neutrophils # 14.2 H PT 12.1 H BUN 25 H Creatinine 1.39 H Glucose 269 H POC Glucose (mg/dL) Plasma Lactic Acid Pierre Total Bilirubin 1.5 H Alkaline Phosphatase 249 H Troponin I Procalcitonin Urine Protein Urine Blood Ur Leukocyte Esterase Urine RBC Urine WBC Urine Bacteria Urine Mucus 06/11/22 06/11/22 06/11/22 03:04 07:23 07:23 WBC MCHC RDW Neutrophils # PT BUN Creatinine Glucose POC Glucose (mg/dL) Plasma Lactic Acid Pierre 9.7 H* 2.5 H* Total Bilirubin Alkaline Phosphatase Troponin I 1.620 H* Procalcitonin Urine Protein Urine Blood Ur Leukocyte Esterase Urine RBC Urine WBC Urine Bacteria Urine Mucus 06/11/22 06/11/22 06/11/22 07:23 07:54 08:11 WBC MCHC RDW Neutrophils # PT BUN Creatinine Glucose POC Glucose (mg/dL) 381 H Plasma Lactic Acid Pierre Total Bilirubin Alkaline Phosphatase Troponin I Procalcitonin 5.13 H Urine Protein 1+ H Urine Blood Large H Ur Leukocyte Esterase Small H Urine RBC 77 H Urine WBC 8 H Urine Bacteria Many H Urine Mucus Occasional H 06/11/22 10:59 WBC MCHC RDW Neutrophils # PT BUN Creatinine Glucose POC Glucose (mg/dL) Plasma Lactic Acid Pierre 2.1 H* Total Bilirubin Alkaline Phosphatase Troponin I Procalcitonin Urine Protein Urine Blood Ur Leukocyte Esterase Urine RBC Urine WBC Urine Bacteria Urine Mucus - Diagnostic Findings Chest x-ray: image reviewed Assessment and Plan Assessment: Sustained ventricular tachycardia, status post cardioversion. Anion gap metabolic acidosis, secondary to lactic acidemia. Post cardioversion hypotension, sinus bradycardia. CAD with previous bypass grafting, and prior myocardial infarction. Ischemic cardiomyopathy, with ejection fraction of 35%. Prior history of ablation for ventricular tachycardia. Status post AICD implantation. History of hypertension. History of hyperlipidemia. She of diabetes mellitus. History of carotid artery stenosis. History of gout. Plan: Plan dated 06/11/2022. The patient be transferred to the intensive care unit. No active pulmonary issues at this time. Chest x-ray does reveal some mild fluid overload/CHF. Not unusual given his overall ejection fraction, and the fact that he underwent cardioversion today in the emergency department. We will continue to follow and make recommendations along the way. Prognosis is certainly guarded. The patient has an extensive cardiac history. Time with Patient: Greater than 30
[2022-06-11] MEDS ORDERED: REPATHA 140 MG/ML SQ SCH (12:00)
[2022-06-11] MEDS: DORZOLAMIDE HCL 2% DROPS 10 ML BTL BOTH EYES SCH (12:05)
--- NOTE | 2022-06-11 12:35 | CA ---
Transthoracic Echo Report Name: Myron Rey Age: 81 Gender: M : 1940 Exam Date: 06/11/2022 12:07 Exam Location: [place] Echo Ht (in): 68 Wt (lb): 190 Ordering Physician: Meaghan Moreno Attending/Referring Phys: [id number], [place] [employer] Adelaide Khan RDCS Procedure CPT: Indications: LV function, s/p ventricular tachycardia Cardiac Hx: Technical Quality: Good Contrast 1: Total Dose (mL): Contrast 2: Total Dose (mL): MEASUREMENTS (Male / Female) Normal Values 2D ECHO LV Diastolic Diameter PLAX 5.5 cm 4.2 - 5.9 / 3.9 - 5.3 cm LV Systolic Diameter PLAX 4.0 cm IVS Diastolic Thickness 1.2 cm 0.6 - 1.0 / 0.6 - 0.9 cm LVPW Diastolic Thickness 1.2 cm 0.6 - 1.0 / 0.6 - 0.9 cm LV Relative Wall Thickness 0.4 RV Internal Dim ED PLAX 4.1 cm LVOT Diameter 2.2 cm LA Systolic Diameter LX 5.0 cm 3.0 - 4.0 / 2.7 - 3.8 cm LV Diastolic Volume MOD 4C 99.2 cm??? LV Systolic Volume MOD 4C 65.6 cm??? LV Ejection Fraction MOD 4C 33.9 % LV Diastolic Length 4C 8.4 cm LV Systolic Length 4C 7.8 cm LV Diastolic Volume MOD 2C 201.1 cm??? LV Systolic Volume MOD 2C 127.9 cm??? LV Ejection Fraction MOD 2C 36.4 % LV Diastolic Length 2C 9.1 cm LV Systolic Length 2C 8.2 cm LA Volume 84.0 cm??? 18 - 58 / 22 - 52 cm??? M-MODE Aortic Root Diameter MM 3.5 cm AV Cusp Separation MM 1.6 cm DOPPLER AV Peak Velocity 163.0 cm/s AV Peak Gradient 10.6 mmHg AV Mean Velocity 109.1 cm/s AV Mean Gradient 5.3 mmHg AV Velocity Time Integral 43.8 cm LVOT Peak Velocity 105.4 cm/s LVOT Peak Gradient 4.4 mmHg AV Area Cont Eq pk 2.4 cm??? MV Area PHT 2.1 cm??? MV Deceleration Time 458.0 ms TR Peak Velocity 313.3 cm/s TR Peak Gradient 39.3 mmHg Right Ventricular Systolic Press 53.6 mmHg FINDINGS Left Ventricle Left ventricular ejection fraction is estimated at 35-40 %. Left ventricular cavity size normal. Mild concentric left ventricular hypertrophy. No clear segmental wall motion abnormality Right Ventricle Severe right ventricular dilatation. Moderate to severe pulmonary hypertension.catheter/pacemaker wire in the right ventricular cavity. Right Atrium Normal right atrial size. Left Atrium Moderately increased left atrial diameter. Severely increased left atrial volume. Mildly increased left atrial area. No evidence for an atrial septal defect. Mitral Valve Mitral valve thickened. Mitral annular calcification. Mild to moderate mitral regurgitation. Aortic Valve Trileaflet aortic valve. Focal thickening of the aortic valve cusps. Tricuspid Valve Structurally normal tricuspid valve. moderate tricuspid regurgitation. Pulmonic Valve Trace pulmonic regurgitation. Pericardium Normal pericardium. No pericardial effusion. Aorta Normal size aortic root and proximal ascending aorta. CONCLUSIONS 1. Moderately impaired left ventricle systolic function 2. [id number] mitral with moderate tricuspid regurgitation and moderate to severe pulmonary hypertension 3. A wire was noted in the right ventricle Previewed by: Dr. Jocelyne Turner MD (Electronically Signed) Final Date: 11 June 2022 12:34
[2022-06-11 12:59] LABS: Glucose,Whole Blood 253 mg/dL (70-110)
[2022-06-11] MEDS: SOTALOL 80 MG TAB PO SCH ×2 (15:51→21:39)
[2022-06-11 18:47] LABS: Glucose,Whole Blood 174 mg/dL (70-110)
[2022-06-11 21:23] LABS: Glucose,Whole Blood 115 mg/dL (70-110)
[2022-06-11] MEDS: PRAVASTATIN SODIUM 20 MG TAB PO SCH (22:01)
[2022-06-11] MEDS: APIXABAN 5 MG TAB PO SCH (22:01)
[2022-06-11 23:36] LABS: Glucose,Whole Blood 125 mg/dL (70-110)
[2022-06-12] MEDS: DORZOLAMIDE HCL 2% DROPS 10 ML BTL BOTH EYES SCH ×3 (00:28→20:37)
[2022-06-12] MEDS: SODIUM CHLORIDE 0.9% 1,000 ML IV SCH ×2 (05:06→12:01)
[2022-06-12] MEDS: NOREPINEPHRINE 4 MG in SODIUM CHLORIDE 0.9% 250 ML IV SCH (06:18)
[2022-06-12 07:01] LABS: Basophils # (A) 0.1 k/uL (0-0.2); Basophils % (A) 0 %; Eosinophils % (A) 0 %; HCT 38.8 % (39.0-53.0); HGB 12.1 gm/dL (13.0-17.5); Hypochromasia Marked; Lymphocytes # (A) 1.2 k/uL (1.0-4.8); Lymphocytes % (A) 6 %; MCHC 31.1 g/dL (31.0-37.0); Mean Platelet Volume 8.4; Monocytes # (A) 1.4 k/uL (0-1.0); Monocytes % (A) 7 %; Neutrophils # (A) 17.6 k/uL (1.3-7.7); Neutrophils % (A) 85 %; Platelet Count 167 k/uL (150-450); RBC 4.32 m/uL (4.30-5.90); RDW 15.9 % (11.5-15.5); WBC 20.7 k/uL (3.8-10.6)
[2022-06-12 07:22] LABS: Albumin 3.3 g/dL (3.5-5.0); Calcium 8.2 mg/dL (8.4-10.2); Magnesium 2.2 mg/dL (1.6-2.3); Potassium 4.4 mmol/L (3.5-5.1); Total Protein 5.8 g/dL (6.3-8.2)
[2022-06-12 08:38] LABS: Glucose,Whole Blood 136 mg/dL (70-110)
[2022-06-12] MEDS: INSULIN ASPART (NovoLOG) 100 UNIT/ML VIAL SQ SCH ×4 (09:29→20:40)
[2022-06-12] MEDS: allopurinoL 100 MG TAB PO SCH (10:25)
[2022-06-12] MEDS: APIXABAN 5 MG TAB PO SCH ×2 (10:25→20:40)
[2022-06-12] MEDS: PANTOPRAZOLE 40 MG/10 ML VIAL IV SCH (10:25)
[2022-06-12] MEDS: SOTALOL 80 MG TAB PO SCH ×2 (10:25→20:38)
[2022-06-12] MEDS: CYANOCOBALAMIN 500 MCG TAB PO SCH (10:25)
[2022-06-12 11:30] LABS: Glucose,Whole Blood 202 mg/dL (70-110)
--- NOTE | 2022-06-12 12:08 | P.PN ---
Subjective Progress Note Date: 06/12/22 Principal diagnosis: Chest pain and shortness of breath. Pulmonary/critical care consult dated 06/11/2022. 81-year-old gentleman with an extensive cardiac history, presents to the emergency room on June 11 at 3:00 in the morning. He came in with complaints of chest pain, weakness, lack of energy, and difficulty ambulating. He described the pain as severe. The patient apparently was found to have ventricular tachycardia, and was cardioverted. He is currently in the ER, room #1, and will be admitted to the intensive care unit. He is a bit hypotensive, and the patient was started on norepinephrine. He apparently has a history of atrial fibrillation, coronary disease, angina, heart failure, diabetes, GERD, hyperlipidemia, hypertension, myocardial infarction, osteoarthritis, and previous bypass grafting, and AICD placement. White count 17.7, hemoglobin 13.6, hematocrit 44.8, and platelet count 254,000. PT was 12.1. Sodium, potassium, chloride, CO2, all normal. Anion gap is increased at 17, with a BUN and creatinine of 25 and 1.39. Initial lactate was 9.7. Most recent lactate was down to 2.1. Troponin was 1.620. Pro-calcitonin level is 5.13. Urine is yellow and cloudy with 1+ protein. Leukocyte esterase was small positive, with 8 WBCs, and many bacteria. Chest x-ray shows evidence of cardiomegaly, and mild heart failure. Progress note dated 06/12/2022. The patient was seen yesterday in consultation, down in the emergency department. Today he is seen up in the intensive care unit, room 254. He's currently on 2 L of oxygen. The patient's also on norepinephrine at 5.2 mcg/m, and saline at 50 mL an hour. The patient is still exhibiting sinus bradycardia on his rhythm monitor. White count 20.7, hemoglobin 12.1, hematocrit 38.8, and platelet count 267,000. Sodium 137, potassium 4.4, chlorides 105, CO2 23, BUN 41, and creatinine 1.72. No chest x-ray today. Objective - Vital Signs Vital signs: Vital Signs Temp 97.7 F 06/12/22 08:00 Pulse 46 L 06/12/22 11:00 Resp 15 06/12/22 11:00 BP 95/47 06/12/22 11:00 Pulse Ox 96 06/12/22 11:00 FiO2 Intake & Output 06/11/22 06/12/22 06/12/22 18:59 06:59 18:59 Intake Total 787.824 331.431 Output Total 420 1110 235 Balance -420 -322.176 96.431 Weight 88.5 kg Intake: IV 350 250 Sodium Chloride 0.9% 1, 350 250 000 ml @ 50 mls/hr IV . Q20H [facility] Rx#:[id number] Intake, IV Titration 437.824 81.431 Amount Amiodarone 450 mg In 242.227 Dextrose 5% in Water 250 ml @ 0.5 MG/MIN 16.667 mls/hr IV .Q15H [facility] Rx#: [id number] Norepinephrine 4 mg In 195.597 81.431 Sodium Chloride 0.9% 250 ml @ 0.03 MCG/KG/MIN 9. 851 mls/hr IV .Q24H [facility] Rx#:[id number] Output: Urine 420 1110 235 Uretheral ([place]) 420 - Exam No acute distress, oriented 3. Currently on 2 L of oxygen. HEENT examination is grossly unremarkable. Neck supple. Full range of motion. No adenopathy thyromegaly or neck vein dis tention. Cardiovascular examination reveals regular rhythm rate. S1-S2 normal. No S3 or S4. No discernible murmur noted. Heart sounds are distant. Heart rate 46 bpm. Lungs reveal mostly clear breath sounds. Scattered rhonchi and crackles are noted. No wheezes. Saturations is 96% on 2 L. Abdomen soft bowel sounds are heard. No masses or tenderness. Extremities are intact. No cyanosis clubbing or edema. Skin is without rash or lesion. Neurologic examination is brief but nonfocal. - Labs CBC & Chem 7: 06/12/22 06:03 06/12/22 06:03 Labs: Abnormal Lab Results - Last 24 Hours (Table) 06/11/22 06/11/22 06/11/22 Range/Units 12:57 14:00 14:40 WBC (3.8-10.6) k/uL Hgb (13.0-17.5) gm/dL Hct (39.0-53.0) % RDW (11.5-15.5) % Neutrophils # (1.3-7.7) k/uL Monocytes # (0-1.0) k/uL BUN (9-20) mg/dL Creatinine (0.66-1.25) mg/dL Glucose (74-99) mg/dL POC Glucose (mg/dL) 253 H (70-110) mg/dL Plasma Lactic Acid Pierre 3.8 H* (0.7-2.0) mmol/L Calcium (8.4-10.2) mg/dL Total Bilirubin (0.2-1.3) mg/dL Alkaline Phosphatase (38-126) U/L Troponin I 1.410 H* (0.000-0.034) ng/mL Total Protein (6.3-8.2) g/dL Albumin (3.5-5.0) g/dL 06/11/22 06/11/22 06/11/22 Range/Units 17:07 17:10 21:21 WBC (3.8-10.6) k/uL Hgb (13.0-17.5) gm/dL Hct (39.0-53.0) % RDW (11.5-15.5) % Neutrophils # (1.3-7.7) k/uL Monocytes # (0-1.0) k/uL BUN (9-20) mg/dL Creatinine (0.66-1.25) mg/dL Glucose (74-99) mg/dL POC Glucose (mg/dL) 174 H 115 H (70-110) mg/dL Plasma Lactic Acid Pierre 4.9 H* (0.7-2.0) mmol/L Calcium (8.4-10.2) mg/dL Total Bilirubin (0.2-1.3) mg/dL Alkaline Phosphatase (38-126) U/L Troponin I (0.000-0.034) ng/mL Total Protein (6.3-8.2) g/dL Albumin (3.5-5.0) g/dL 06/11/22 06/12/22 06/12/22 Range/Units 23:35 06:03 06:03 WBC 20.7 H (3.8-10.6) k/uL Hgb 12.1 L (13.0-17.5) gm/dL Hct 38.8 L (39.0-53.0) % RDW 15.9 H (11.5-15.5) % Neutrophils # 17.6 H (1.3-7.7) k/uL Monocytes # 1.4 H (0-1.0) k/uL BUN 41 H (9-20) mg/dL Creatinine 1.72 H (0.66-1.25) mg/dL Glucose 123 H (74-99) mg/dL POC Glucose (mg/dL) 125 H (70-110) mg/dL Plasma Lactic Acid Pierre (0.7-2.0) mmol/L Calcium 8.2 L (8.4-10.2) mg/dL Total Bilirubin 2.0 H (0.2-1.3) mg/dL Alkaline Phosphatase 162 H (38-126) U/L Troponin I (0.000-0.034) ng/mL Total Protein 5.8 L (6.3-8.2) g/dL Albumin 3.3 L (3.5-5.0) g/dL 06/12/22 06/12/22 Range/Units 08:36 11:28 WBC (3.8-10.6) k/uL Hgb (13.0-17.5) gm/dL Hct (39.0-53.0) % RDW (11.5-15.5) % Neutrophils # (1.3-7.7) k/uL Monocytes # (0-1.0) k/uL BUN (9-20) mg/dL Creatinine (0.66-1.25) mg/dL Glucose (74-99) mg/dL POC Glucose (mg/dL) 136 H 202 H (70-110) mg/dL Plasma Lactic Acid Pierre (0.7-2.0) mmol/L Calcium (8.4-10.2) mg/dL Total Bilirubin (0.2-1.3) mg/dL Alkaline Phosphatase (38-126) U/L Troponin I (0.000-0.034) ng/mL Total Protein (6.3-8.2) g/dL Albumin (3.5-5.0) g/dL Assessment and Plan Assessment: Sustained ventricular tachycardia, status post cardioversion. Anion gap metabolic acidosis, secondary to lactic acidemia. Post cardioversion hypotension, sinus bradycardia. CAD with previous bypass grafting, and prior myocardial infarction. Ischemic cardiomyopathy, with ejection fraction of 35%. Prior history of ablation for ventricular tachycardia. Status post AICD implantation. History of hypertension. History of hyperlipidemia. She of diabetes mellitus. History of carotid artery stenosis. History of gout. Plan: Plan dated 06/11/2022. The patient be transferred to the intensive care unit. No active pulmonary issues at this time. Chest x-ray does reveal some mild fluid overload/CHF. Not unusual given his overall ejection fraction, and the fact that he underwent cardioversion today in the emergency department. We will continue to follow and make recommendations along the way. Prognosis is certainly guarded. The patient has an extensive cardiac history. Plan dated 06/12/2022. Labs, x-rays, and medications are reviewed. He was seen in room 254. He was seen in the emergency department yesterday. The patient appears to be doing reasonably well although he is hypotensive, and requiring norepinephrine at 5.2 mcg/m. We will continue to follow and make recommendations along the way. Overall prognosis remains guarded. The patient remains in sinus bradycardia. Time with Patient: Greater than 30
[2022-06-12] MEDS ORDERED: SOTALOL 80 MG TAB PO STA (12:18)
[2022-06-12 16:35] LABS: Glucose,Whole Blood 174 mg/dL (70-110)
[2022-06-12 20:35] LABS: Glucose,Whole Blood 188 mg/dL (70-110)
[2022-06-12] MEDS: PRAVASTATIN SODIUM 20 MG TAB PO SCH (20:37)
--- NOTE | 2022-06-12 23:33 | PN ---
PROGRESS NOTE HISTORY OF PRESENT ILLNESS: Myron is a 81-year-old gentleman with history of ischemic cardiomyopathy with an ejection fraction of 35%, ventricular tachycardia, status post prior ablation, status post AICD, who presented to hospital with shortness of breath. He was found to be in ventricular tachycardia and was defibrillated in the emergency room. Since being admitted to hospital, the patient has remained free of symptoms and did not have any further episodes of ventricular tachycardia. He is currently on sotalol. His ACID will be evaluated. He is currently on Eliquis 5 b.i.d., Pravachol and sotalol 40 b.i.d., which I am going to increase to 80 b.i.d. Once the blood pressure improves, we will resume the metoprolol that he was on. PHYSICAL EXAMINATION: VITAL SIGNS: Heart rate is 50 beats per minute, blood pressure is 112/67, respiratory rate is 18, and O2 saturation is 98% on 2 L. NECK: There is no jugular venous distention. Carotid upstroke is normal. There is no bruit. CHEST: Reveals good air entry bilaterally. HEART: Reveals first and second heart sounds and a systolic murmur at the left lower sternal border. ABDOMEN: Soft. EXTREMITIES: Did not reveal any edema. Peripheral pulses are palpable. LABORATORY DATA: Labs show that the hemoglobin is 12, white cell count is 20, potassium is 4.4, creatinine is 1.7. ASSESSMENT: 1. Ventricular tachycardia, status post defibrillation. 2. Renal insufficiency. 3. Ischemic cardiomyopathy. 4. History of atrial fibrillation. PLAN: I will increase the dose of sotalol. The patient will need evaluation for underlying CAD. If the renal functions remain stable, we might consider doing a cardiac catheterization on this admission. If not, we may do a stress test on him. MMODL / IJN: [id number] /
--- NOTE | 2022-06-13 02:45 | PN ---
PROGRESS NOTE DATE OF SERVICE: 06/12/2022 SUBJECTIVE: This 81-year-old gentleman was admitted after and cardioversion in the ER, also had amiodarone post cardioversion patient monitored closely in the ICU. The patient is on Levophed drip at this time. Creatinine is 1.72. Multiple consultants are following the patient closely. PAST MEDICAL: Reviewed. REVIEW OF SYSTEMS: 14-point review is negative except as mentioned earlier. CURRENT MEDICATIONS: Reviewed, include Levophed . OBJECTIVE: VITAL SIGNS: Pulse is 48, blood pressure 96/40, respirations 14. HEENT: Conjunctivae normal. bradycardic LABS: Reviewed. ASSESSMENT: 1. Sustained ventricular tachycardia, status post cardioversion. 2. Hypotension, on Levophed drip, cardiogenic. 3. Cardiomyopathy, ejection fraction 35%. 4. History of atrial fibrillation. 5. History of diabetes mellitus type 2. 6. Multiple medical issues. RECOMMENDATIONS: This 81-year-old gentleman who presented with multiple complex medical issues. We will monitor the patient closely. Continue the Levophed, monitor in ICU. Repeat labs. The patient is started on Eliquis also. Cardiology has been consulted. A 2D echocardiogram showed mild to moderate mitral and moderate tricuspid regurgitation with moderate severe pulmonary hypertension as well as moderately impaired left ventricular systolic function. Overall prognosis guarded. Discussed with the patient and staff. Further recommendations to follow. ADAMS / ARIK: [id number] / MTDD
[2022-06-13 06:38] LABS: Basophils % (A) 0 %; Eosinophils # (A) 0.1 k/uL (0-0.7); Eosinophils % (A) 1 %; HCT 35.2 % (39.0-53.0); HGB 11.2 gm/dL (13.0-17.5); Hypochromasia Moderate; Lymphocytes # (A) 0.8 k/uL (1.0-4.8); Lymphocytes % (A) 8 %; MCHC 31.9 g/dL (31.0-37.0); MCV 87.9 fL (80.0-100.0); Mean Platelet Volume 8.1; Monocytes # (A) 0.6 k/uL (0-1.0); Monocytes % (A) 6 %; Neutrophils # (A) 8.5 k/uL (1.3-7.7); Neutrophils % (A) 83 %; Platelet Count 145 k/uL (150-450); RDW 15.9 % (11.5-15.5); WBC 10.2 k/uL (3.8-10.6)
[2022-06-13 06:50] LABS: Potassium 4.4 mmol/L (3.5-5.1)
[2022-06-13] MEDS: INSULIN ASPART (NovoLOG) 100 UNIT/ML VIAL SQ SCH ×5 (06:52→20:20)
[2022-06-13] MEDS: SOTALOL 80 MG TAB PO SCH ×2 (08:21→20:19)
[2022-06-13] MEDS: APIXABAN 5 MG TAB PO SCH ×2 (08:21→20:19)
[2022-06-13] MEDS: allopurinoL 100 MG TAB PO SCH (08:22)
[2022-06-13] MEDS: PANTOPRAZOLE 40 MG/10 ML VIAL IV SCH (08:22)
[2022-06-13] MEDS: CYANOCOBALAMIN 500 MCG TAB PO SCH (08:22)
[2022-06-13] MEDS: SODIUM CHLORIDE 0.9% 1,000 ML IV SCH (08:22)
[2022-06-13] MEDS: DORZOLAMIDE HCL 2% DROPS 10 ML BTL BOTH EYES SCH ×2 (08:23→20:21)
[2022-06-13 11:20] LABS: Glucose,Whole Blood 278 mg/dL (70-110)
--- NOTE | 2022-06-13 11:49 | P.PN ---
Subjective Progress Note Date: 06/13/22 Principal diagnosis: Chest pain and shortness of breath. Pulmonary/critical care consult dated 06/11/2022. 81-year-old gentleman with an extensive cardiac history, presents to the emergency room on June 11 at 3:00 in the morning. He came in with complaints of chest pain, weakness, lack of energy, and difficulty ambulating. He described the pain as severe. The patient apparently was found to have ventricular tachycardia, and was cardioverted. He is currently in the ER, room #1, and will be admitted to the intensive care unit. He is a bit hypotensive, and the patient was started on norepinephrine. He apparently has a history of atrial fibrillation, coronary disease, angina, heart failure, diabetes, GERD, hyperlipidemia, hypertension, myocardial infarction, osteoarthritis, and previous bypass grafting, and AICD placement. White count 17.7, hemoglobin 13.6, hematocrit 44.8, and platelet count 254,000. PT was 12.1. Sodium, potassium, chloride, CO2, all normal. Anion gap is increased at 17, with a BUN and creatinine of 25 and 1.39. Initial lactate was 9.7. Most recent lactate was down to 2.1. Troponin was 1.620. Pro-calcitonin level is 5.13. Urine is yellow and cloudy with 1+ protein. Leukocyte esterase was small positive, with 8 WBCs, and many bacteria. Chest x-ray shows evidence of cardiomegaly, and mild heart failure. Progress note dated 06/12/2022. The patient was seen yesterday in consultation, down in the emergency department. Today he is seen up in the intensive care unit, room 254. He's currently on 2 L of oxygen. The patient's also on norepinephrine at 5.2 mcg/m, and saline at 50 mL an hour. The patient is still exhibiting sinus bradycardia on his rhythm monitor. White count 20.7, hemoglobin 12.1, hematocrit 38.8, and platelet count 267,000. Sodium 137, potassium 4.4, chlorides 105, CO2 23, BUN 41, and creatinine 1.72. No chest x-ray today. Progress note dated 06/13/2022. The patient is again seen today in room 254. The patient appears to be doing relatively well. The patient's currently on room air. Norepinephrine has been off since 2:30 in the morning. The patient's getting saline at 50 mL an hour. In my opinion, the patient could be transferred out to the 3 S. floor. He denies any chest pain or shortness of breath. White count 10.2, hemoglobin 11.2, hematocrit 35.2, and a platelet count of 145,000. Sodium 136, potassium 4.4, chlorides 108, CO2 24, BUN 43, and creatinine 1.22. Calcium is 8. Objective - Vital Signs Vital signs: Vital Signs Temp 97.6 F 06/13/22 08:00 Pulse 55 L 06/13/22 08:30 Resp 15 06/13/22 08:30 BP 110/57 06/13/22 08:30 Pulse Ox 94 L 06/13/22 08:30 FiO2 Intake & Output 06/12/22 06/13/22 06/13/22 18:59 06:59 18:59 Intake Total 788.895 815.67 150 Output Total 580 585 175 Balance 208.895 230.67 -25 Weight 94.5 kg Intake: IV 650 550 150 Sodium Chloride 0.9% 1, 650 550 150 000 ml @ 50 mls/hr IV . Q20H [facility] Rx#:[id number] Intake, IV Titration 138.895 65.67 Amount Norepinephrine 4 mg In 138.895 65.67 Sodium Chloride 0.9% 250 ml @ 0.03 MCG/KG/MIN 9. 851 mls/hr IV .Q24H [facility] Rx#:[id number] Oral 200 Output: Urine 580 585 175 - Exam No acute distress, oriented 3. Currently on room air. HEENT examination is grossly unremarkable. Neck supple. Full range of motion. No adenopathy thyromegaly or neck vein distention. Cardiovascular examination reveals regular rhythm rate. S1-S2 normal. No S3 or S4. No discernible murmur noted. Heart sounds are distant. Heart rate 55 bpm. Lungs reveal mostly clear breath sounds. Scattered rhonchi and crackles are noted. No wheezes. Saturations are 94% on room air. Abdomen soft bowel sounds are heard. No masses or tenderness. Extremities are intact. No cyanosis clubbing or edema. Skin is without rash or lesion. Neurologic examination is brief but nonfocal. - Labs CBC & Chem 7: 06/13/22 06:24 06/13/22 06:24 Labs: Abnormal Lab Results - Last 24 Hours (Table) 06/12/22 06/12/22 06/13/22 Range/Units 16:33 20:34 06:24 RBC 4.00 L (4.30-5.90) m/uL Hgb 11.2 L (13.0-17.5) gm/dL Hct 35.2 L (39.0-53.0) % RDW 15.9 H (11.5-15.5) % Plt Count 145 L (150-450) k/uL Neutrophils # 8.5 H (1.3-7.7) k/uL Lymphocytes # 0.8 L (1.0-4.8) k/uL Sodium (137-145) mmol/L Chloride (98-107) mmol/L BUN (9-20) mg/dL Glucose (74-99) mg/dL POC Glucose (mg/dL) 174 H 188 H (70-110) mg/dL Calcium (8.4-10.2) mg/dL 06/13/22 06/13/22 Range/Units 06:24 11:18 RBC (4.30-5.90) m/uL Hgb (13.0-17.5) gm/dL Hct (39.0-53.0) % RDW (11.5-15.5) % Plt Count (150-450) k/uL Neutrophils # (1.3-7.7) k/uL Lymphocytes # (1.0-4.8) k/uL Sodium 136 L (137-145) mmol/L Chloride 108 H (98-107) mmol/L BUN 43 H (9-20) mg/dL Glucose 129 H (74-99) mg/dL POC Glucose (mg/dL) 278 H (70-110) mg/dL Calcium 8.0 L (8.4-10.2) mg/dL Assessment and Plan Assessment: Sustained ventricular tachycardia, status post cardioversion. Anion gap metabolic acidosis, secondary to lactic acidemia, resolved. Post cardioversion hypotension, sinus bradycardia. CAD with previous bypass grafting, and prior myocardial infarction. Ischemic cardiomyopathy, with ejection fraction of 35%. Prior history of ablation for ventricular tachycardia. Status post AICD implantation. History of hypertension. History of hyperlipidemia. She of diabetes mellitus. History of carotid artery stenosis. History of gout. Plan: Plan dated 06/11/2022. The patient be transferred to the intensive care unit. No active pulmonary issues at this time. Chest x-ray does reveal some mild fluid overload/CHF. Not unusual given his overall ejection fraction, and the fact that he underwent car dioversion today in the emergency department. We will continue to follow and make recommendations along the way. Prognosis is certainly guarded. The patient has an extensive cardiac history. Plan dated 06/12/2022. Labs, x-rays, and medications are reviewed. He was seen in room 254. He was seen in the emergency department yesterday. The patient appears to be doing reasonably well although he is hypotensive, and requiring norepinephrine at 5.2 mcg/m. We will continue to follow and make recommendations along the way. Overall prognosis remains guarded. The patient remains in sinus bradycardia. Plan dated 06/13/2022. In my opinion, the patient could be transferred up to the cardiology floor. The patient's on room air. Saturations are excellent. Norepinephrine has been off since 2:30 in the morning. The patient's on saline at 50 mL an hour. He denies any shortness of breath, chest pain, chest discomfort, or any other cardiac complaints. Labs, x-rays, and medications are reviewed. Prognosis is guarded. Time with Patient: Less than 30
[2022-06-13] MEDS ORDERED: Magnesium Replacement Protocol 1 EACH MISC MISCELLANE PRN (13:33)
[2022-06-13 16:39] LABS: Glucose,Whole Blood 213 mg/dL (70-110)
[2022-06-13 20:11] LABS: Glucose,Whole Blood 180 mg/dL (70-110)
[2022-06-13] MEDS: PRAVASTATIN SODIUM 20 MG TAB PO SCH (20:19)
[2022-06-13] MEDS: INSULIN DETEMIR (LEVEMIR) 100 UNIT/ML SYR SQ SCH (20:19)
--- NOTE | 2022-06-14 00:13 | PN ---
PROGRESS NOTE SUBJECTIVE: Myron is a 81-year-old gentleman with history of ischemic cardiomyopathy, ventricular tachycardia status post AICD, who came in to hospital having had an episode of ventricular tachycardia, was on sotalol, whose dose I have increased. He has not had any further episodes of VT and this morning he is feeling better. OBJECTIVE: GENERAL: On exam, comfortable at rest. VITAL SIGNS: Stable. NECK: There is no jugular venous distention. CHEST: Reveals good air entry bilaterally. HEART: Reveals first and second heart sounds. No gallop. EXTREMITIES: Mild edema, peripheral pulses are felt. MEDICATIONS: Patient is currently on, 1. Eliquis. 2. Insulin. 3. Lasix. 4. Increased dose of sotalol. PLAN: He is stable to be transferred out of ICU. MMMARYL / GABRIELAN: [id number] /
[2022-06-14] MEDS: SODIUM CHLORIDE 0.9% 1,000 ML IV SCH ×2 (03:44→18:54)
--- NOTE | 2022-06-14 04:35 | PN ---
PROGRESS NOTE DATE OF SERVICE: 06/13/2022 SUBJECTIVE: This 81-year-old gentleman, who was admitted after cardioversion, also had ventricular tachycardia. The patient also had hypotension and some CHF. The patient is being closely monitored. Multiple consultants are following the patient closely. The patient is off Levophed at this time. The patient was monitored in the ICU. PAST MEDICAL HISTORY: Reviewed. REVIEW OF SYSTEMS: A 14-point review of systems is negative as mentioned earlier. MEDICATIONS: Reviewed and include Eliquis. Dose and rest of medication noted. PHYSICAL EXAMINATION: VITAL SIGNS: Pulse is 55, blood pressure 110/57, respirations 15. HEENT: Conjunctivae normal. NECK: No JVD. CARDIOVASCULAR: S1, S2 muffled. RESPIRATION: Breath sounds diminished at the bases. A few rhonchi. ABDOMEN: Soft. NERVOUS SYSTEM: Nonfocal. LABORATORY DATA: Reviewed. ASSESSMENT: 1. Sustained ventricular tachycardia, status post cardioversion. 2. Hypotension, status post Levophed, cardiogenic shock. 3. Cardiomyopathy, ejection fraction 35%. 4. History of atrial fibrillation. 5. Multiple medical issues. RECOMMENDATIONS: I recommend to continue current medications and symptomatic treatment. Otherwise at this time, I recommend to continue with Eliquis, and sotalol has been initiated with 80 mg p.o. b.i.d. Repeat labs. We will check a mag also. Further recommendations to follow. MMODL / IJN: [id number] /
[2022-06-14] MEDS: INSULIN ASPART (NovoLOG) 100 UNIT/ML VIAL SQ SCH ×6 (06:37→21:46)
[2022-06-14 06:38] LABS: Glucose,Whole Blood 91 mg/dL (70-110)
[2022-06-14] MEDS: PANTOPRAZOLE 40 MG TABLET PO SCH ×2 (08:18→09:57)
[2022-06-14 08:32] LABS: Basophils % (A) 0 %; Eosinophils # (A) 0.2 k/uL (0-0.7); Eosinophils % (A) 2 %; HCT 37.7 % (39.0-53.0); HGB 11.7 gm/dL (13.0-17.5); Hypochromasia Marked; Lymphocytes # (A) 0.7 k/uL (1.0-4.8); Lymphocytes % (A) 7 %; MCV 90.3 fL (80.0-100.0); Mean Platelet Volume 8.7; Monocytes # (A) 0.6 k/uL (0-1.0); Monocytes % (A) 6 %; Neutrophils % (A) 84 %; Platelet Count 184 k/uL (150-450); RBC 4.17 m/uL (4.30-5.90); RDW 15.9 % (11.5-15.5); WBC 9.6 k/uL (3.8-10.6)
[2022-06-14 08:49] LABS: ALT 21 U/L (4-49); AST 24 U/L (17-59); African American GFR (CKD) 72 (>60 ml/min/1.73 sqM); Albumin 3.1 g/dL (3.5-5.0); Alkaline Phosphatase 188 U/L (38-126); Anion Gap 6 mmol/L; Blood Urea Nitrogen 35 mg/dL (9-20); Calcium 8.4 mg/dL (8.4-10.2); Carbon Dioxide 24 mmol/L (22-30); Chloride 109 mmol/L (98-107); Glucose 140 mg/dL (74-99); Magnesium 2.3 mg/dL (1.6-2.3); Non-African American GFR(CKD) 62 (>60 ml/min/1.73 sqM); Potassium 4.2 mmol/L (3.5-5.1); Sodium 139 mmol/L (137-145); Total Bilirubin 1.4 mg/dL (0.2-1.3); Total Protein 5.8 g/dL (6.3-8.2)
--- NOTE | 2022-06-14 09:19 | P.PN ---
Subjective Progress Note Date: 06/14/22 81-year-old male patient was currently in the intensive care unit for episodes of ventricular tachycardia. The patient is being monitored closely in the intensive care unit. The patient's has known history of CAD, CHF with an ejection fraction of 30-35%, diabetes mellitus, hyperlipidemia, hypertension and previous coronary artery bypass surgery. The patient also has a AICD in place. The patient is currently on room air oxygen. He is hemodynamically stable with a pulse ox of 95%. Cardiac rhythm is sinus rhythm. His blood work today shows a white cell count of 9.6 with a hemoglobin of 11.7, electrolytes are all within normal limits. His troponin peaked at 1.6 and up to 1.4. In terms of his medication, the patient is currently on a combination of sotalol 80 mg by mouth twice a day, and he is also on anticoagulation with Eliquis 5 mg by mouth twice a day. He is on diuretics receiving Lasix 80 mg by mouth daily. In terms of diabetes he is on Levemir insulin 8 units, 30 units twice a day in addition to NovoLog 18 units at supper and 10 units with meals in the morning and a slight scale coverage. He was receiving amiodarone an outpatient basis and this was discontinued. He was also taking Cozaar an outpatient basis that was discontinued and metoprolol was also discontinued. The adjustments in his cardiac medication were done by cardiology because of hypotension and bradycardia. Objective - Vital Signs Vital signs: Vital Signs Temp 97.7 F 06/14/22 08:00 Pulse 53 L 06/14/22 08:00 Resp 24 06/14/22 08:00 BP 111/55 06/14/22 08:00 Pulse Ox 97 06/14/22 08:00 FiO2 Intake & Output 06/13/22 06/14/22 06/14/22 18:59 06:59 18:59 Intake Total 600 650 Output Total 560 775 Balance 40 -125 Weight 90.1 kg Intake: IV 600 650 Sodium Chloride 0.9% 1, 600 650 000 ml @ 50 mls/hr IV . Q20H [facility] Rx#:[id number] Output: Urine 560 775 - Exam No acute distress, oriented 3. Currently on room air. HEENT examination is grossly unremarkable. Neck supple. Full range of motion. No adenopathy thyromegaly or neck vein distention. Cardiovascular examination reveals regular rhythm rate. S1-S2 normal. No S3 or S4. No discernible murmur noted. Heart sounds are distant. Lungs reveal mostly clear breath sounds. Scattered rhonchi and crackles are noted. No wheezes. Saturations are 94% on room air. Abdomen soft bowel sounds are heard. No masses or tenderness. Extremities are intact. No cyanosis clubbing or edema. Skin is without rash or lesion. Neurologic examination is brief but nonfocal. - Labs CBC & Chem 7: 06/14/22 07:51 06/14/22 07:54 Labs: Abnormal Lab Results - Last 24 Hours (Table) 06/13/22 06/13/22 06/13/22 Range/Units 11:18 16:37 20:10 RBC (4.30-5.90) m/uL Hgb (13.0-17.5) gm/dL Hct (39.0-53.0) % RDW (11.5-15.5) % Neutrophils # (1.3-7.7) k/uL Lymphocytes # (1.0-4.8) k/uL Chloride (98-107) mmol/L BUN (9-20) mg/dL Glucose (74-99) mg/dL POC Glucose (mg/dL) 278 H 213 H 180 H (70-110) mg/dL Total Bilirubin (0.2-1.3) mg/dL Alkaline Phosphatase (38-126) U/L Total Protein (6.3-8.2) g/dL Albumin (3.5-5.0) g/dL 06/14/22 06/14/22 Range/Units 07:51 07:54 RBC 4.17 L (4.30-5.90) m/uL Hgb 11.7 L (13.0-17.5) gm/dL Hct 37.7 L (39.0-53.0) % RDW 15.9 H (11.5-15.5) % Neutrophils # 8.0 H (1.3-7.7) k/uL Lymphocytes # 0.7 L (1.0-4.8) k/uL Chloride 109 H (98-107) mmol/L BUN 35 H (9-20) mg/dL Glucose 140 H (74-99) mg/dL POC Glucose (mg/dL) (70-110) mg/dL Total Bilirubin 1.4 H (0.2-1.3) mg/dL Alkaline Phosphatase 188 H (38-126) U/L Total Protein 5.8 L (6.3-8.2) g/dL Albumin 3.1 L (3.5-5.0) g/dL Assessment and Plan Plan: Sustained ventricular tachycardia, status post cardioversion. This is probably an ischemic V. tach and the patient had a abnormal troponin that peaked 1.6. Currently free of any chest pain. The patient is currently on sotalol 80 mg twi ce a day. He is on no pressors for now resting comfortably in the intensive care unit. The patient has been followed up by Dr. Mccloud. He has had a previous history of VT ablation. Anion gap metabolic acidosis, secondary to lactic acidemia, resolved. Post cardioversion hypotension, sinus bradycardia. CAD with previous bypass grafting, and prior myocardial infarction. Ischemic cardiomyopathy, with ejection fraction of 35%. Prior history of ablation for ventricular tachycardia. Status post AICD implantation. History of hypertension. History of hyperlipidemia. The patient is currently on statins. She of diabetes mellitus. The patient is mentally on Levemir insulin History of carotid artery stenosis. History of gout. Plan: Stable from the pulmonary standpoint Awaiting further recommendation from cardiology regarding any medication adjustments, or any other intervention such as repeat cardiac catheterization or ablation. Defibrillator was interrogated Continue sotalol Continue Eliquis Patient's family chest pain Monitor the cardiac rhythm Awaiting further recommendations from cardiology
[2022-06-14 09:51] LABS: T4, Free (Free Thyroxine) 4.27 ng/dL (0.78-2.19)
[2022-06-14] MEDS: INSULIN DETEMIR (LEVEMIR) 100 UNIT/ML SYR SQ SCH ×2 (09:56→21:47)
[2022-06-14] MEDS: FUROSEMIDE 40 MG TAB PO SCH (09:56)
[2022-06-14] MEDS: CYANOCOBALAMIN 500 MCG TAB PO SCH (09:57)
[2022-06-14] MEDS: APIXABAN 5 MG TAB PO SCH ×2 (09:57→21:47)
[2022-06-14] MEDS: SOTALOL 80 MG TAB PO SCH ×2 (09:57→21:41)
[2022-06-14] MEDS: allopurinoL 100 MG TAB PO SCH (09:57)
[2022-06-14] MEDS: DORZOLAMIDE HCL 2% DROPS 10 ML BTL BOTH EYES SCH ×2 (09:58→21:47)
[2022-06-14] MEDS: PANTOPRAZOLE 40 MG/10 ML VIAL IV SCH (09:58)
--- NOTE | 2022-06-14 10:00 | P.PN ---
Subjective Progress Note Date: 06/14/22 The patient is a 81-year-old male with multiple comorbid conditions including history of ventricular tachycardia status post AICD. The patient had been feeling unwell over the course of a couple hours and presented to the emergency room. He was found to be in a slow ventricular tachycardia. His amiodarone had been discontinued with in the several months prior to his admission, which she believes was secondary to thyroid dysfunction. He was started on sotalol 80 mg twice a day. He now has resting rates in the 50s. Dr. Gallardo reviewed device interrogation report. The T1 zone 176, VT to zone 214, VF zone 240. EKG on arrival showed ventricular tachycardia with heart rate in the 176. No therapy was given. The patient was interviewed and examined lying comfortably in bed. He states he is feeling much better since his admission. He denies any chest pain or chest pressure. He denies any illness prior to his admission. No dyspnea or orthopnea currently. GENERAL: Well-appearing, well-nourished and in no acute distress. NECK: Supple without JVD or thyromegaly. LUNGS: Breath sounds clear to auscultation bilaterally. Respiration equal and unlabored. No wheezes, rales or rhonchi. HEART: Regular rate and rhythm. Systolic ejection murmur. No rubs or gallops. S1 and S2 heard. EXTREMITIES: Normal range of motion, no edema. No clubbing or cyanosis. Peripheral pulses intact and strong. VITALS: Blood pressure 111/55, pulse 53, respiratory rate 24, SpO2 97% on room air, temp 97.7F TELEMETRY: Sinus bradycardia LABS: WBC 9.6, hemoglobin 11.7, hematocrit 37.7, platelet 184, sodium 139, potassium 4.2, BUN 35, creatinine 1.12, AST 24, ALT 21, ALP 188, TSH less than 0.015, free T4 4 0.27 IMPRESSION: Ventricular tachycardia, slow with heart rate at 160 Hyperthyroidism, possibly secondary to amiodarone History of Coronary artery disease History of Ischemic cardiomyopathy status post AICD History of VT ablation Anemia PLAN: Device reprogramming to be done with this on one being dropped to 160 range Continue sotalol for antiarrhythmic therapy Consideration for repeat VT ablation Further recommendations to be based upon clinical course I am dictating on behalf of Dr Cuco Gallardo's history/physical and assessment/plan. Objective - Vital Signs Vital signs: Vital Signs Temp 97.7 F 06/14/22 08:00 Pulse 53 L 06/14/22 08:00 Resp 24 06/14/22 08:00 BP 111/55 06/14/22 08:00 Pulse Ox 97 06/14/22 08:00 FiO2 Intake & Output 06/13/22 06/14/22 06/14/22 18:59 06:59 18:59 Intake Total 600 650 100 Output Total 560 775 150 Balance 40 -125 -50 Weight 90.1 kg Intake: IV 600 650 100 Sodium Chloride 0.9% 1, 600 650 100 000 ml @ 50 mls/hr IV . Q20H [facility] Rx#:[id number] Output: Urine 560 775 150 - Labs CBC & Chem 7: 06/14/22 07:51 06/14/22 07:54 Labs: Abnormal Lab Results - Last 24 Hours (Table) 06/13/22 06/13/22 06/13/22 Range/Units 11: 16:37 20:10 RBC (4.30-5.90) m/uL Hgb (13.0-17.5) gm/dL Hct (39.0-53.0) % RDW (11.5-15.5) % Neutrophils # (1.3-7.7) k/uL Lymphocytes # (1.0-4.8) k/uL Chloride (98-107) mmol/L BUN (9-20) mg/dL Glucose (74-99) mg/dL POC Glucose (mg/dL) 278 H 213 H 180 H (70-110) mg/dL Total Bilirubin (0.2-1.3) mg/dL Alkaline Phosphatase (38-126) U/L Total Protein (6.3-8.2) g/dL Albumin (3.5-5.0) g/dL TSH (0.465-4.680) mIU/L Free T4 (0.78-2.19) ng/dL 06/14/22 06/14/22 Range/Units 07:51 07:54 RBC 4.17 L (4.30-5.90) m/uL Hgb 11.7 L (13.0-17.5) gm/dL Hct 37.7 L (39.0-53.0) % RDW 15.9 H (11.5-15.5) % Neutrophils # 8.0 H (1.3-7.7) k/uL Lymphocytes # 0.7 L (1.0-4.8) k/uL Chloride 109 H (98-107) mmol/L BUN 35 H (9-20) mg/dL Glucose 140 H (74-99) mg/dL POC Glucose (mg/dL) (70-110) mg/dL Total Bilirubin 1.4 H (0.2-1.3) mg/dL Alkaline Phosphatase 188 H (38-126) U/L Total Protein 5.8 L (6.3-8.2) g/dL Albumin 3.1 L (3.5-5.0) g/dL TSH <0.015 L (0.465-4.680) mIU/L Free T4 4.27 H (0.78-2.19) ng/dL
--- NOTE | 2022-06-14 10:11 | CDI ---
Documentation Clarification Form Date: 06/14/2022 From: Leyla Poole RN, CCDS Admit Date: 06/11/2022 03:50:00 AM Patient Name: Myron Rey Visit Number: [id number] Discharge Date: ATTENTION: The Clinical Documentation Specialists (CDI) and [facility] Coding Staff appreciate your assistance in clarifying documentation. Please respond to the clarification below the line at the bottom and electronically sign. The CDI & [facility] Coding staff will review the response and follow-up if needed. Please note: Queries are made part of the Legal Health Record. If you have any questions, please contact the author of this message via ITS. Dr. Radha Amaya Your patient has the documented diagnosis of unspecified CHF in the H/P and the progress note on 06/13/22. Additional information regarding the type, acuity] of CHF is requested. History/Risk Factors: Atrial fibrillation, CAD, CHF, Diabetes mellitus, Hypertension Clinical Indicators: 81-year-old male present with chest pains, EKG showing ventricular tachycardia in and out of ventricular fibrillation rate around 160. He has a history of heart failure. 06/11 VS/Pulse OX: 113/82 111/24 98/49 72 8 06/11 Echocardiogram Results: EF 35-45 % severe right ventricular dilation. Moderate to severe pulmonary hypertension. 06/11 Chest X Ray: Cardiomegaly and mild congestion. Acute heart failure is suspected. Pulmonary congestion increased compared to old exam. Treatment: ICU/Telemetry monitoring Lasix 80 MG PO Daily 06/14 Betapace 80 MG PO BID In your professional opinion, can you please clarify the acuity and type of CHF if known? [ ] Acute Systolic Heart Failure (reduced EF) [ ] Chronic Systolic Heart Failure (reduced EF) [ ] Acute on Chronic Systolic Heart Failure (reduced EF) [ ] Acute Diastolic Heart Failure (preserved EF) [ ] Chronic Diastolic Heart Failure (preserved EF) [ ] Acute on Chronic Diastolic Heart Failure (preserved EF) [ ] Acute Systolic & Diastolic Heart Failure [ ] Chronic Systolic & Diastolic Heart Failure [ ] Acute on Chronic Heart Failure Systolic & Diastolic Heart Failure [ ] Other, please specify [ ] Unable to determine (Template Last Revised: August 2020) Acute Systolic Heart Failure (reduced EF) MTDD
[2022-06-14 11:28] LABS: Glucose,Whole Blood 211 mg/dL (70-110)
--- NOTE | 2022-06-14 14:47 | P.PN ---
Subjective Progress Note Date: 06/14/22 This is a pleasant 81-year-old male who was recently admitted after cardioversion also had ventricular tachycardia and is being closely monitored in the ICU. Patient also with some hypotension along with CHF exacerbation and being continued on telemetry monitoring. Cardiology along with pulmonary foll owing closely. Heart rate is currently 53. Magnesium was replaced and improved at 2.3 today. TSH was low and T4 is currently pending. Pulmonary has cleared the patient and awaiting for a stepdown bed as he is a transfer and hold currently in the ICU until a bed becomes available. Cardiology is following and discussing further intervention. Patient is currently afebrile denies chest pain or worsening shortness of breath. Patient does continue with an indwelling Londono catheter and recommend to remove and monitor for any retention. Review of systems: Constitutional: No reports of fatigue, fever, or chills Cardiovascular: No reports of chest pain or palpitations Respiratory: No reports of worsening shortness of breath or cough GI: reports of nausea, no reports of of vomiting, : No reports of dysuria or retention Neurovascular: reports of generalized weakness All medications have been reviewed Active Medications Allopurinol (Allopurinol 100 Mg Tab) 100 mg PO DAILY [facility] Last Admin: 06/14/22 09:57 Dose: 100 mg Apixaban (Apixaban 5 Mg Tab) 5 mg PO BID [facility]; Protocol Last Admin: 06/14/22 09:57 Dose: 5 mg Cyanocobalamin (Cyanocobalamin 500 Mcg Tab) 500 mcg PO DAILY [facility] Last Admin: 06/14/22 09:57 Dose: 500 mcg Dextrose/Water (Dextrose 50% Syringe 50 Ml) 25 ml IVP PER PROTOCOL PRN; Protocol PRN Reason: Hypoglycemia Dextrose/Water (Dextrose 50% Syringe 50 Ml) 50 ml IVP PER PROTOCOL PRN; Protocol PRN Reason: Hypoglycemia Dorzolamide HCl (Dorzolamide Hcl 2% Drops 10 Ml Btl) 1 drops BOTH EYES BID [facility] Last Admin: 06/14/22 09:58 Dose: 1 drops Furosemide (Furosemide 40 Mg Tab) 80 mg PO DAILY [facility] Last Admin: 06/14/22 09:56 Dose: 80 mg Sodium Chloride (Saline 0.9%) 1,000 mls @ 50 mls/hr IV .Q20H [facility] Last Admin: 06/14/22 03:44 Dose: 50 mls/hr Insulin Aspart (Insulin Aspart (Novolog) 100 Unit/Ml Vial) 0 unit SQ ACHS [facility]; Protocol Last Admin: 06/14/22 12:15 Dose: 4 unit Insulin Aspart (Insulin Aspart (Novolog) 100 Unit/Ml Vial) 10 unit SQ AC-LUNCH [facility] Last Admin: 06/14/22 12:15 Dose: 10 unit Insulin Aspart (Insulin Aspart (Novolog) 100 Unit/Ml Vial) 18 unit SQ AC-SUPPER [facility] Last Admin: 06/13/22 17:51 Dose: 18 unit Insulin Detemir (Insulin Detemir (Levemir) 100 Unit/Ml Syr) 30 unit SQ BID [facility] Last Admin: 06/14/22 09:56 Dose: 30 unit Miscellaneous Information (Magnesium Replacement Protocol 1 Each Misc) 1 each MISCELLANE DAILY PRN; Protocol PRN Reason: Per Protocol Morphine Sulfate (Morphine Sulfate 4 Mg/Ml Syringe) 4 mg IV Q4HR PRN PRN Reason: Severe Pain (Scale 7 to 10) Naloxone HCl (Naloxone 0.4 Mg/Ml 1 Ml Vial) 0.2 mg IV Q2M PRN PRN Reason: Opioid Reversal Repatha (Evolocumab) Syringe 140 Mg/Ml Each 140 mg SQ Q14D [facility] Last Admin: 06/11/22 15:52 Dose: Not Given Ondansetron HCl (Ondansetron 4 Mg/2 Ml Vial) 4 mg IVP Q6HR PRN PRN Reason: Nausea And Vomiting Last Admin: 06/11/22 10:24 Dose: 4 mg Pantoprazole Sodium (Pantoprazole 40 Mg/10 Ml Vial) 40 mg IV DAILY [facility] Last Admin: 06/14/22 09:58 Dose: Not Given Pantoprazole Sodium (Pantoprazole 40 Mg Tablet) 40 mg PO DAILY [facility] Last Admin: 06/14/22 09:57 Dose: 40 mg Pravastatin Sodium (Pravastatin Sodium 20 Mg Tab) 20 mg PO HS [facility] Last Admin: 06/13/22 20:19 Dose: 20 mg Sotalol HCl (Sotalol 80 Mg Tab) 80 mg PO BID [facility] Last Admin: 06/14/22 09:57 Dose: 80 mg PHYSICAL EXAMINATION: GENERAL: The patient is alert and oriented x4, Well developed, well nourished. Obese. HEENT: Pupils are round and equally reacting to light. EOMI. no scleral icterus. No conjunctival pallor. Normocephalic, atraumatic. No pharyngeal erythema. No thyromegaly. CARDIOVASCULAR: S1 and S2 muffled PULMONARY: diminished breath sounds bilaterally with no wheezing, some scattered rhonchi noted. ABDOMEN: soft. Nontender on exam. obese. non-distended, normoactive bowel sounds. No palpable organomegaly. MUSCULOSKELETAL: No joint swelling or deformity. EXTREMITIES: No cyanosis, clubbing, or pedal edema. NEUROLOGICAL: Gross neurological examination did not reveal any focal deficits. Diffuse weakness SKIN: No rashes. 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 Patient is continued on telemetry monitoring and currently a hold for transfer out of the ICU awaiting a stepdown bed. Patient has transitioned oral Lasix and continued on gentle IV hydration. Patient is off pressor support and is continued on sotalol. Magnesium was checked and replaced currently 2.3. Patient continues with indwelling Londono catheter and will attempt a trial void and remove the Londono. Recommend bladder scanning with post void residuals and if retaining okay to resume Londono catheter. Cardiology following closely with abnormal thyroid functions and n oted hyperthyroidism which is possibly is related to amiodarone which has been discontinued. Discussion with cardiology of device reprogramming to be done of his AICD and also discussing possible consideration of repeat VT ablation and will await cardiology clearance for discharge. Encouraged increase activity as tolerated and continue telemetry monitoring. Due to multiple complex medical issues, prognosis is guarded. Possible discharge in 24-48 hours once cleared by cardiology. The impression and plan of care has been dictated by Kaylie Nevarez nurse practitioner as directed. Dr. Jose Luis MD I have performed a history and examination and MDM of this patient, discussed the same with the dictator, and agree with the dictator's assessment and plan as written ,documented as a scribe. Based on total visit time, I have performed more than 50% of the visit. Any additional findings or plans will be noted. Objective - Vital Signs Vital signs: Vital Signs Temp 97.7 F 06/14/22 08:00 Pulse 53 L 11/21/22 08:00 Resp 24 06/14/22 08:00 BP 111/55 06/14/22 08:00 Pulse Ox 97 06/14/22 08:00 FiO2 Intake & Output 06/13/22 06/14/22 06/14/22 18:59 06:59 18:59 Intake Total 600 650 150 Output Total 560 775 240 Balance 40 -125 -90 Weight 90.1 kg Intake: IV 600 650 150 Sodium Chloride 0.9% 1, 600 650 150 000 ml @ 50 mls/hr IV . Q20H [facility] Rx#:[id number] Output: Urine 560 775 240 - Labs CBC & Chem 7: 06/14/22 07:51 06/14/22 07:54 Labs: Abnormal Lab Results - Last 24 Hours (Table) 06/13/22 06/13/22 06/14/22 Range/Units 16:37 20:10 07:51 RBC 4.17 L (4.30-5.90) m/uL Hgb 11.7 L (13.0-17.5) gm/dL Hct 37.7 L (39.0-53.0) % RDW 15.9 H (11.5-15.5) % Neutrophils # 8.0 H (1.3-7.7) k/uL Lymphocytes # 0.7 L (1.0-4.8) k/uL Chloride (98-107) mmol/L BUN (9-20) mg/dL Glucose (74-99) mg/dL POC Glucose (mg/dL) 213 H 180 H (70-110) mg/dL Total Bilirubin (0.2-1.3) mg/dL Alkaline Phosphatase (38-126) U/L Total Protein (6.3-8.2) g/dL Albumin (3.5-5.0) g/dL TSH (0.465-4.680) mIU/L Free T4 (0.78-2.19) ng/dL 06/14/22 06/14/22 Range/Units 07:54 11:27 RBC (4.30-5.90) m/uL Hgb (13.0-17.5) gm/dL Hct (39.0-53.0) % RDW (11.5-15.5) % Neutrophils # (1.3-7.7) k/uL Lymphocytes # (1.0-4.8) k/uL Chloride 109 H (98-107) mmol/L BUN 35 H (9-20) mg/dL Glucose 140 H (74-99) mg/dL POC Glucose (mg/dL) 211 H (70-110) mg/dL Total Bilirubin 1.4 H (0.2-1.3) mg/dL Alkaline Phosphatase 188 H (38-126) U/L Total Protein 5.8 L (6.3-8.2) g/dL Albumin 3.1 L (3.5-5.0) g/dL TSH <0.015 L (0.465-4.680) mIU/L Free T4 4.27 H (0.78-2.19) ng/dL
[2022-06-14 16:44] LABS: Glucose,Whole Blood 109 mg/dL (70-110)
[2022-06-14 20:25] LABS: Glucose,Whole Blood 91 mg/dL (70-110)
[2022-06-14] MEDS: PRAVASTATIN SODIUM 20 MG TAB PO SCH (21:48)
[2022-06-15 06:17] LABS: Glucose,Whole Blood 59 mg/dL (70-110)
[2022-06-15 06:34] LABS: Glucose,Whole Blood 71 mg/dL (70-110)
[2022-06-15] MEDS: INSULIN ASPART (NovoLOG) 100 UNIT/ML VIAL SQ SCH ×6 (07:23→20:20)
[2022-06-15] MEDS: PANTOPRAZOLE 40 MG/10 ML VIAL IV SCH (07:56)
[2022-06-15] MEDS: INSULIN DETEMIR (LEVEMIR) 100 UNIT/ML SYR SQ SCH ×2 (07:59→09:50)
[2022-06-15 08:22] LABS: Basophils % (A) 0 %; Eosinophils # (A) 0.1 k/uL (0-0.7); Eosinophils % (A) 2 %; HCT 38.2 % (39.0-53.0); HGB 12.1 gm/dL (13.0-17.5); Hypochromasia Marked; Lymphocytes # (A) 0.6 k/uL (1.0-4.8); Lymphocytes % (A) 9 %; MCH 27.9 pg (25.0-35.0); MCHC 31.6 g/dL (31.0-37.0); MCV 88.3 fL (80.0-100.0); Mean Platelet Volume 7.7; Monocytes # (A) 0.5 k/uL (0-1.0); Monocytes % (A) 7 %; Neutrophils % (A) 81 %; Platelet Count 191 k/uL (150-450); RBC 4.32 m/uL (4.30-5.90); RDW 15.8 % (11.5-15.5); WBC 7.4 k/uL (3.8-10.6)
[2022-06-15] MEDS: allopurinoL 100 MG TAB PO SCH (08:23)
[2022-06-15] MEDS: APIXABAN 5 MG TAB PO SCH ×2 (08:23→20:31)
[2022-06-15] MEDS: CYANOCOBALAMIN 500 MCG TAB PO SCH (08:23)
[2022-06-15] MEDS: FUROSEMIDE 40 MG TAB PO SCH (08:23)
[2022-06-15] MEDS: PANTOPRAZOLE 40 MG TABLET PO SCH (08:23)
[2022-06-15] MEDS: DORZOLAMIDE HCL 2% DROPS 10 ML BTL BOTH EYES SCH ×2 (08:23→20:31)
[2022-06-15 08:39] LABS: Calcium 8.2 mg/dL (8.4-10.2)
[2022-06-15 09:50] LABS: Glucose,Whole Blood 294 mg/dL (70-110)
[2022-06-15] MEDS: SOTALOL 80 MG TAB PO SCH ×3 (10:44→20:31)
[2022-06-15 11:31] LABS: Glucose,Whole Blood 118 mg/dL (70-110)
--- NOTE | 2022-06-15 12:36 | P.PN ---
Subjective The patient is a 81-year-old male with multiple comorbid conditions including history of ventricular tachycardia status post AICD. The patient had been feeling unwell over the course of a couple hours and presented to the emergency room. He was found to be in a slow ventricular tachycardia. His amiodarone had been discontinued with in the several months prior to his admission, which she believes was secondary to thyroid dysfunction. He was started on sotalol [address] Gallardo reviewed device interrogation report. The T1 zone 176, VT to zone 214, VF zone 240. EKG on arrival showed ventricular tachycardia with heart rate in the 176. No therapy was given. 06/15/2022 Patient seen and examined lying comfortably in bed. His HR have been sinus bradycardia mostly in the 50s, occasionally high 40s. Occasional PVCs. He states he is feeling much better since his admission. He denies any chest pain or chest pressure. He denies any illness prior to his admission. No dyspnea or orthopnea currently. TSH <0.015, free T4 4.27 VITALS: Blood pressure 129/54, heart rate 52, afebrile, oxygen saturations 90% on room air GENERAL: Well-appearing, well-nourished and in no acute distress. NECK: Supple without JVD or thyromegaly. LUNGS: Breath sounds clear to auscultation bilaterally. Respiration equal and unlabored. No wheezes, rales or rhonchi. HEART: Regular rate and rhythm. Systolic ejection murmur. No rubs or gallops. S1 and S2 heard. EXTREMITIES: Normal range of motion, no edema. No clubbing or cyanosis. Peripheral pulses intact and strong. LABS: WBC 9.6, hemoglobin 11.7, hematocrit 37.7, platelet 184, sodium 139, potassium 4.2, BUN 35, creatinine 1.12, AST 24, ALT 21, ALP 188, TSH less than 0.015, free T4 4 0.27 IMPRESSION: Ventricular tachycardia, slow with heart rate at 160 Hyperthyroidism History of Coronary artery disease History of Ischemic cardiomyopathy status post AICD History of VT ablation Anemia PLAN: Device reprogramming to be done with this on one being dropped to 160 range Decrease sotalol 40mg BID for antiarrhythmic therapy Consideration for repeat VT ablation Hyperthyroidism management per primary Further recommendations to be based upon clinical course Nurse practitioner note has been reviewed by physician. Signing provider agrees with the documented findings, assessment, and plan of care. Objective - Vital Signs Vital signs: Vital Signs Temp 97.8 F 06/15/22 08:17 Pulse 55 L 06/15/22 08:17 Resp 16 06/15/22 08:17 BP 141/68 06/15/22 08:17 Pulse Ox 98 06/15/22 08:17 FiO2 Intake & Output 06/14/22 06/15/22 06/15/22 18:59 06:59 18:59 Intake Total 550 240 118 Output Total 1655 425 Balance -1105 -185 118 Intake: IV 550 Sodium Chloride 0.9% 1, 550 000 ml @ 50 mls/hr IV . Q20H [facility] Rx#:[id number] Oral 240 118 Output: Urine 1655 425 Straight 425 Other: Voiding Method Toilet Toilet # Voids 0 # Bowel Movements 1 1 - Labs CBC & Chem 7: 06/15/22 07:44 06/15/22 07:44 Labs: Abnormal Lab Results - Last 24 Hours (Table) 06/14/22 06/15/22 06/15/22 Range/Units 11:27 06:16 07:44 Hgb 12.1 L (13.0-17.5) gm/dL Hct 38.2 L (39.0-53.0) % RDW 15.8 H (11.5-15.5) % Lymphocytes # 0.6 L (1.0-4.8) k/uL BUN (9-20) mg/dL Glucose (74-99) mg/dL POC Glucose (mg/dL) 211 H 59 L (70-110) mg/dL Calcium (8.4-10.2) mg/dL 06/15/22 06/15/22 Range/Units 07:44 09:48 Hgb (13.0-17.5) gm/dL Hct (39.0-53.0) % RDW (11.5-15.5) % Lymphocytes # (1.0-4.8) k/uL BUN 27 H (9-20) mg/dL Glucose 127 H (74-99) mg/dL POC Glucose (mg/dL) 294 H (70-110) mg/dL Calcium 8.2 L (8.4-10.2) mg/dL
[2022-06-15] MEDS: TAMSULOSIN 0.4 MG CAP.ER.24H PO SCH (14:00)
--- NOTE | 2022-06-15 15:25 | P.PN ---
Subjective Progress Note Date: 06/15/22 This is a pleasant 81-year-old male who was recently admitted after cardioversion also had ventricular tachycardia and is being closely monitored in the ICU. Patient also with some hypotension along with CHF exacerbation and being continued on telemetry monitoring. Cardiology along with pulmonary foll owing closely. Heart rate is currently 53. Magnesium was replaced and improved at 2.3 today. TSH was low and T4 is currently pending. Pulmonary has cleared the patient and awaiting for a stepdown bed as he is a transfer and hold currently in the ICU until a bed becomes available. Cardiology is following and discussing further intervention. Patient is currently afebrile denies chest pain or worsening shortness of breath. Patient does continue with an indwelling Londono catheter and recommend to remove and monitor for any retention. 06/15/2022 Patient is seen and evaluated in follow-up today currently sitting on the edge of the bed with cardiology and pulmonary following closely. Patient is maintained on oral Lasix and sotalol was also adjusted per cardiology with other medications. Patient's blood sugars variable although on the lower side and will adjust medications. Patient denies shortness of breath and is currently 98% on room air. Heart rate 52-55. Recommend continue telemetry monitoring. Patient's TSH and T4 are low and have added T3 which is pending. Patient will need outpatient endocrine follow-up. Patient reported he would like to go home. Will await cardiology clearance. Patient is currently afebrile denies chest pain, shortness of breath, or palpitations. Patient denies nausea or vomiting and is tolerating diet. Patient has had Londono catheter removed and urinating although having to be straight cathed last night per nursing staff and recommend continue with bladder scans postvoid and will add Flomax. Review of systems: Constitutional: No reports of fatigue, fever, or chills Cardiovascular: No reports of chest pain or palpitations Respiratory: No reports of worsening shortness of breath or cough GI: No reports of nausea, no reports of of vomiting, or diarrhea : No reports of dysuria or retention Neurovascular: no reports of generalized weakness All medications have been reviewed Active Medications Allopurinol (Allopurinol 100 Mg Tab) 100 mg PO DAILY [facility] Last Admin: 06/15/22 08:23 Dose: 100 mg Apixaban (Apixaban 5 Mg Tab) 5 mg PO BID [facility]; Protocol Last Admin: 06/15/22 08:23 Dose: 5 mg Cyanocobalamin (Cyanocobalamin 500 Mcg Tab) 500 mcg PO DAILY [facility] Last Admin: 06/15/22 08:23 Dose: 500 mcg Dextrose/Water (Dextrose 50% Syringe 50 Ml) 25 ml IVP PER PROTOCOL PRN; Protocol PRN Reason: Hypoglycemia Dextrose/Water (Dextrose 50% Syringe 50 Ml) 50 ml IVP PER PROTOCOL PRN; Protocol PRN Reason: Hypoglycemia Dorzolamide HCl (Dorzolamide Hcl 2% Drops 10 Ml Btl) 1 drops BOTH EYES BID [facility] Last Admin: 06/15/22 08:23 Dose: 1 drops Furosemide (Furosemide 40 Mg Tab) 80 mg PO DAILY [facility] Last Admin: 06/15/22 08:23 Dose: 80 mg Sodium Chloride (Saline 0.9%) 1,000 mls @ 50 mls/hr IV .Q20H [facility] Last Admin: 06/14/22 18:54 Dose: 50 mls/hr Insulin Aspart (Insulin Aspart (Novolog) 100 Unit/Ml Vial) 0 unit SQ ACHS [facility]; Protocol Last Admin: 06/15/22 07:23 Dose: Not Given Insulin Aspart (Insulin Aspart (Novolog) 100 Unit/Ml Vial) 10 unit SQ AC-LUNCH [facility] Last Admin: 06/14/22 12:15 Dose: 10 unit Insulin Aspart (Insulin Aspart (Novolog) 100 Unit/Ml Vial) 18 unit SQ AC-SUPPER [facility] Last Admin: 06/14/22 18:07 Dose: 18 unit Insulin Detemir (Insulin Detemir (Levemir) 100 Unit/Ml Syr) 30 unit SQ BID [facility] Last Admin: 06/15/22 09:50 Dose: 30 unit Miscellaneous Information (Magnesium Replacement Protocol 1 Each Misc) 1 each MISCELLANE DAILY PRN; Protocol PRN Reason: Per Protocol Morphine Sulfate (Morphine Sulfate 4 Mg/Ml Syringe) 4 mg IV Q4HR PRN PRN Reason: Severe Pain (Scale 7 to 10) Naloxone HCl (Naloxone 0.4 Mg/Ml 1 Ml Vial) 0.2 mg IV Q2M PRN PRN Reason: Opioid Reversal Repatha (Evolocumab) Syringe 140 Mg/Ml Each 140 mg SQ Q14D [facility] Last Admin: 06/11/22 15:52 Dose: Not Given Ondansetron HCl (Ondansetron 4 Mg/2 Ml Vial) 4 mg IVP Q6HR PRN PRN Reason: Nausea And Vomiting Last Admin: 06/11/22 10:24 Dose: 4 mg Pantoprazole Sodium (Pantoprazole 40 Mg/10 Ml Vial) 40 mg IV DAILY [facility] Last Admin: 06/15/22 07:56 Dose: Not Given Pantoprazole Sodium (Pantoprazole 40 Mg Tablet) 40 mg PO DAILY [facility] Last Admin: 06/15/22 08:23 Dose: 40 mg Pravastatin Sodium (Pravastatin Sodium 20 Mg Tab) 20 mg PO HS [facility] Last Admin: 06/14/22 21:48 Dose: 20 mg Sotalol HCl (Sotalol 80 Mg Tab) 40 mg PO BID [facility] Last Admin: 06/15/22 10:47 Dose: 40 mg PHYSICAL EXAMINATION: GENERAL: The patient is alert and oriented x4, Well developed, well nourished. Obese. HEENT: Pupils are round and equally reacting to light. EOMI. no scleral icterus. No conjunctival pallor. Normocephalic, atraumatic. No pharyngeal erythema. No thyromegaly. CARDIOVASCULAR: S1 and S2 muffled PULMONARY: diminished breath sounds bilaterally with no wheezing, some scattered rhonchi noted. ABDOMEN: soft. Nontender on exam. obese. non-distended, normoactive bowel sounds. No palpable organomegaly. MUSCULOSKELETAL: No joint swelling or deformity. EXTREMITIES: No cyanosis, clubbing, or pedal edema. NEUROLOGICAL: Gross neurological examination did not reveal any focal deficits. SKIN: No rashes. 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 Patient is continued on telemetry monitoring [facility] Patient has transitioned oral Lasix and continued on gentle IV hydration. sotalol and cardiac medications being adjusted. Only catheter was removed, per nursing staff patient required a straight catheterization overnight and recommend bladder scanning with post void residuals and if retaining okay to straight cath and will add Flomax. Cardiology following closely with abnormal thyroid functions and noted hyperthyroidism which is possibly is related to amiodarone which has been discontinued. T3 free pending at this time. Patient will likely need endocrine outpatient follow-up. Discussion with cardiology of device readjustment was done of his AICD. Will await cardiology clearance for discharge. Patient is anxious to go home. Encouraged increase activity as tolerated and continue tel emetry monitoring. Due to multiple complex medical issues, prognosis is guarded. Possible discharge in 24-48 hours once cleared by cardiology. The impression and plan of care has been dictated by Kaylie Nevarez, nurse practitioner as directed. Dr. Jose Luis MD I have performed a history and examination and MDM of this patient, discussed the same with the dictator, and agree with the dictator's assessment and plan as written ,documented as a scribe. Based on total visit time, I have performed more than 50% of the visit. Any additional findings or plans will be noted. Objective - Vital Signs Vital signs: Vital Signs Temp 97.8 F 06/15/22 08:17 Pulse 55 L 06/15/22 08:17 Resp 16 06/15/22 08:17 BP 141/68 06/15/22 08:17 Pulse Ox 98 06/15/22 08:17 FiO2 Intake & Output 06/14/22 06/15/22 06/15/22 18:59 06:59 18:59 Intake Total 550 240 118 Output Total 1655 425 Balance -1105 -185 118 Intake: IV 550 Sodium Chloride 0.9% 1, 550 000 ml @ 50 mls/hr IV . Q20H [facility] Rx#:[id number] Oral 240 118 Output: Urine 1655 425 Straight 425 Other: Voiding Method Toilet Toilet # Voids 0 # Bowel Movements 1 1 - Labs CBC & Chem 7: 06/15/22 07:44 06/15/22 07:44 Labs: Abnormal Lab Results - Last 24 Hours (Table) 06/14/22 06/15/22 06/15/22 Range/Units 11:27 06:16 07:44 Hgb 12.1 L (13.0-17.5) gm/dL Hct 38.2 L (39.0-53.0) % RDW 15.8 H (11.5-15.5) % Lymphocytes # 0.6 L (1.0-4.8) k/uL BUN (9-20) mg/dL Glucose (74-99) mg/dL POC Glucose (mg/dL) 211 H 59 L (70-110) mg/dL Calcium (8.4-10.2) mg/dL 06/15/22 06/15/22 Range/Units 07:44 09:48 Hgb (13.0-17.5) gm/dL Hct (39.0-53.0) % RDW (11.5-15.5) % Lymphocytes # (1.0-4.8) k/uL BUN 27 H (9-20) mg/dL Glucose 127 H (74-99) mg/dL POC Glucose (mg/dL) 294 H (70-110) mg/dL Calcium 8.2 L (8.4-10.2) mg/dL
--- NOTE | 2022-06-15 15:37 | P.PN ---
Subjective Progress Note Date: 06/15/22 81-year-old male patient was currently in the intensive care unit for episodes of ventricular tachycardia. The patient is being monitored closely in the intensive care unit. The patient's has known history of CAD, CHF with an ejection fraction of 30-35%, diabetes mellitus, hyperlipidemia, hypertension and previous coronary artery bypass surgery. The patient also has a AICD in place. The patient is currently on room air oxygen. He is hemodynamically stable with a pulse ox of 95%. Cardiac rhythm is sinus rhythm. His blood work today shows a white cell count of 9.6 with a hemoglobin of 11.7, electrolytes are all within normal limits. His troponin peaked at 1.6 and up to 1.4. In terms of his medication, the patient is currently on a combination of sotalol 80 mg by mouth twice a day, and he is also on anticoagulation with Eliquis 5 mg by mouth twice a day. He is on diuretics receiving Lasix 80 mg by mouth daily. In terms of diabetes he is on Levemir insulin 8 units, 30 units twice a day in addition to NovoLog 18 units at supper and 10 units with meals in the morning and a slight scale coverage. He was receiving amiodarone an outpatient basis and this was discontinued. He was also taking Cozaar an outpatient basis that was discontinued and metoprolol was also discontinued. The adjustments in his cardiac medication were done by cardiology because of hypotension and bradycardia. On today's evaluation of 06/15/2022, the patient is resting comfortably in bed. The patient was transferred out of the intensive care unit yesterday. Noted the patient was having issues with ventricular tachycardia. The patient was seen by cardiology and the device/AICD was reprogrammed and the patient's sotalol was reduced to 40 mg by mouth twice a day. The patient is also being considered for a VT ablation. Otherwise, the patient is doing well. No specific complaints. No angina or palpitations. No shortness of breath. No episodes of syncope. The patient is hemodynamically stable at this point in time. No cough no sputum production no chest tightness or wheezing. The WBC count is at 7.4 with a hemoglobin of 12.1 and a platelet count of 191. The patient has a sodium level of 139, BUN of 27 and a creatinine of 0.9. Objective - Vital Signs Vital signs: Vital Signs Temp 97.8 F 06/15/22 08:17 Pulse 55 L 06/15/22 08:17 Resp 16 06/15/22 08:17 BP 141/68 06/15/22 08:17 Pulse Ox 98 06/15/22 08:17 FiO2 Intake & Output 06/14/22 06/15/22 06/15/22 18:59 06:59 18:59 Intake Total 550 240 118 Output Total 1655 425 Balance -1105 -185 118 Intake: IV 550 Sodium Chloride 0.9% 1, 550 000 ml @ 50 mls/hr IV . Q20H [facility] Rx#:[id number] Oral 240 118 Output: Urine 1655 425 Straight 425 Other: Voiding Method Toilet Toilet # Voids 0 # Bowel Movements 1 1 - Exam No acute distress, oriented 3. Currently on room air. HEENT examination is grossly unremarkable. Neck supple. Full range of motion. No adenopathy thyromegaly or neck vein distention. Cardiovascular examination reveals regular rhythm rate. S1-S2 normal. No S3 or S4. No discernible murmur noted. Heart sounds are distant. Lungs reveal mostly clear breath sounds. Scattered rhonchi and crackles are noted. No wheezes. Saturations are 94% on room air. Abdomen soft bowel sounds are heard. No masses or tenderness. Extremities are intact. No cyanosis clubbing or edema. Skin is without rash or lesion. Neurologic examination is brief but nonfocal. - Labs CBC & Chem 7: 06/15/22 07:44 06/15/22 07:44 Labs: Abnormal Lab Results - Last 24 Hours (Table) 06/14/22 06/15/22 06/15/22 Range/Units 11:27 06:16 07:44 Hgb 12.1 L (13.0-17.5) gm/dL Hct 38.2 L (39.0-53.0) % RDW 15.8 H (11.5-15.5) % Lymphocytes # 0.6 L (1.0-4.8) k/uL BUN (9-20) mg/dL Glucose (74-99) mg/dL POC Glucose (mg/dL) 211 H 59 L (70-110) mg/dL Calcium (8.4-10.2) mg/dL 06/15/22 06/15/22 Range/Units 07:44 09:48 Hgb (13.0-17.5) gm/dL Hct (39.0-53.0) % RDW (11.5-15.5) % Lymphocytes # (1.0-4.8) k/uL BUN 27 H (9-20) mg/dL Glucose 127 H (74-99) mg/dL POC Glucose (mg/dL) 294 H (70-110) mg/dL Calcium 8.2 L (8.4-10.2) mg/dL Assessment and Plan Plan: Sustained ventricular tachycardia, status post cardioversion. This is probably an ischemic V. tach and the patient had a abnormal troponin that peaked 1.6. Currently free of any chest pain. The patient is currently on sotalol 40 mg twice a day. He is on no pressors for now resting comfortably in the intensive care unit. The patient has been followed up by Dr. Mccloud. He has had a previous history of VT ablation. The patient is being considered for another VT ablation. The patient had AICD reprogram and the sotalol dose has been reduced to 40 mg twice a day. Anion gap metabolic acidosis, secondary to lactic acidemia, resolved. Post cardioversion hypotension, sinus bradycardia. CAD with previous bypass grafting, and prior myocardial infarction. Ischemic cardiomyopathy, with ejection fraction of 35%. Prior history of ablation for ventricular tachycardia. Status post AICD implantation. History of hypertension. History of hyperlipidemia. The patient is currently on statins. She of diabetes mellitus. The patient is mentally on Levemir insulin History of carotid artery stenosis. History of gout. Plan: Cardiology pressures of the VT Possibly another VT ablation Sotalol 40 mg twice a day Continue Eliquis Patient's free of any chest pain Monitor the cardiac rhythm We'll follow
[2022-06-15 16:15] LABS: Glucose,Whole Blood 114 mg/dL (70-110)
[2022-06-15] MEDS: SODIUM CHLORIDE 0.9% 1,000 ML IV SCH (17:06)
[2022-06-15] MEDS ORDERED: INSULIN ASPART (NovoLOG) 100 UNIT/ML VIAL SQ SCH (17:30)
[2022-06-15 20:00] LABS: Glucose,Whole Blood 78 mg/dL (70-110)
[2022-06-15] MEDS: PRAVASTATIN SODIUM 20 MG TAB PO SCH (20:31)
[2022-06-15] MEDS ORDERED: INSULIN DETEMIR (LEVEMIR) 100 UNIT/ML SYR SQ SCH (21:00)
[2022-06-16] MEDS ORDERED: INSULIN DETEMIR (LEVEMIR) 100 UNIT/ML SYR SQ SCH (07:00)
[2022-06-16 07:14] LABS: Glucose,Whole Blood 70 mg/dL (70-110)
[2022-06-16] MEDS ORDERED: LOSARTAN 50 MG TAB PO SCH (09:00)
[2022-06-16] MEDS: INSULIN ASPART (NovoLOG) 100 UNIT/ML VIAL SQ SCH ×3 (09:05→12:12)
[2022-06-16] MEDS ORDERED: METOPROLOL SUCCINATE (ER) 25 MG TAB.ER.24H PO SCH (09:15)
[2022-06-16 09:29] VITALS: BMI 30.2
[2022-06-16] MEDS: PANTOPRAZOLE 40 MG TABLET PO SCH (09:34)
[2022-06-16] MEDS: CYANOCOBALAMIN 500 MCG TAB PO SCH (09:35)
[2022-06-16] MEDS: APIXABAN 5 MG TAB PO SCH (09:35)
[2022-06-16] MEDS: allopurinoL 100 MG TAB PO SCH (09:36)
[2022-06-16] MEDS: TAMSULOSIN 0.4 MG CAP.ER.24H PO SCH (09:36)
[2022-06-16] MEDS ORDERED: IV FLUID CONTINUATION 1,000 ML IV ONE (09:55)
[2022-06-16] MEDS ORDERED: IOPAMIDOL-370 50ML BTL INJ ONE (09:55)
[2022-06-16] MEDS: SOTALOL 80 MG TAB PO SCH (10:43)
[2022-06-16] MEDS: DORZOLAMIDE HCL 2% DROPS 10 ML BTL BOTH EYES SCH (10:43)
[2022-06-16] MEDS: FUROSEMIDE 40 MG TAB PO SCH (10:43)
--- NOTE | 2022-06-16 11:06 | P.EPPROC ---
- EP Procedure Note Electrophysiology Procedure Note: Diagnosis Ischemic cardio myopathy Status post single chamber ICD, [facility] 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 [facility] interrogated RV threshold 2.75 V at 1 ms, R waves 11 mV and pacing impedance 560 ohms High-voltage impedance 77 ohms The VT zone was reprogrammed to 164 beats a minute to allow for detection of sustained VT below the cutoff Appropriate Antitachycardia Pacing Cardioversion and Defibrillation Programmed Plan Endocrinology evaluation as an outpatient I contacted dr alegre, endocrinology Consideration for VT ablation. Patient was admitted with sustained ventricular tachycardia He has had a VT ablation in the past, scar based VT Retrograde approach versus antegrade approach crossing in the mitral valve Upgrade to a dual-chamber system for atrial pacing Intraoperative evaluation of the RV lead function and if needed implantation of a rate-sense lead Possibly left bundle pacing to accomplish this RV is quite dilated elevated RV pressures Ischemic cardio myopathy ejection fraction 35-40%
--- NOTE | 2022-06-16 11:35 | P.PN ---
Subjective The patient is a 81-year-old male with multiple comorbid conditions including history of ventricular tachycardia status post AICD. The patient had been feeling unwell over the course of a couple hours and presented to the emergency room. He was found to be in a slow ventricular tachycardia. His amiodarone had been discontinued with in the several months prior to his admission, which she believes was secondary to thyroid dysfunction. He was started on sotalol [address] Gallardo reviewed device interrogation report. The T1 zone 176, VT to zone 214, VF zone 240. EKG on arrival showed ventricular tachycardia with heart rate in the 176. No therapy was given. 06/16/2022 Patient seen and examined lying comfortably in bed. His HR have been sinus rhythm in the 60s. He states he is feeling much better since his admission, b ack to baseline. He denies any chest pain or chest pressure.No dyspnea or orthopnea currently. TSH <0.015, free T4 4.27. Plan for primary to have patient follow up with Endocrinology He is on Sotalol 40mg BID. VITALS: Vitals reviewed GENERAL: Well-appearing, well-nourished and in no acute distress. NECK: Supple without JVD or thyromegaly. LUNGS: Breath sounds clear to auscultation bilaterally. Respiration equal and unlabored. No wheezes, rales or rhonchi. HEART: Regular rate and rhythm. Systolic ejection murmur. No rubs or gallops. S1 and S2 heard. EXTREMITIES: Normal range of motion, no edema. No clubbing or cyanosis. Peripheral pulses intact and strong. IMPRESSION: Ventricular tachycardia, slow with heart rate at 160, status post device reprogramming Hyperthyroidism History of Coronary artery disease History of Ischemic cardiomyopathy status post AICD History of VT ablation Anemia PLAN: Continue sotalol 40mg BID for antiarrhythmic therapy Hold restarting beta colt secondary to bradycardia Plan for venogram today with Dr. Gallardo Restart Losartan 25mg daily Continue anticoagulation with Eliquis and statin Consideration for repeat VT ablation as an outpatient Recommend follow up with Dr. Ken with endocrinology outpatient within 1-2 weeks Follow up outpatient in the office in 1-2 weeks Ok to discharge today from a cardiology perspective. Nurse practitioner note has been reviewed by physician. Signing provider agrees with the documented findings, assessment, and plan of care. Objective - Vital Signs Vital signs: Vital Signs Temp 97.9 F 06/16/22 08:35 Pulse 63 06/16/22 08:35 Resp 17 06/16/22 08:35 BP 130/61 06/16/22 08:35 Pulse Ox 98 06/16/22 08:35 FiO2 Intake & Output 06/15/22 06/16/22 06/16/22 18:59 06:59 18:59 Intake Total 118 120 168 Output Total 2325 1150 Balance -2207 -1030 168 Weight 90.1 kg Intake: IV 50 Oral 118 120 118 Output: Urine 2325 700 Straight 800 400 Post Void Residual 450 Other: Voiding Method Toilet Toilet Toilet # Voids 1 125 # Bowel Movements 1 - Labs CBC & Chem 7: 06/15/22 07:44 06/15/22 07:44 Labs: Abnormal Lab Results - Last 24 Hours (Table) 06/15/22 06/15/22 Range/Units 11:28 16:12 POC Glucose (mg/dL) 118 H 114 H (70-110) mg/dL
[2022-06-16 12:00] LABS: Glucose,Whole Blood 262 mg/dL (70-110)
[2022-06-16 13:52] VITALS: BP 123/58; PULSE 60; RESP 18; TEMP 98.4
--- NOTE | 2022-06-16 17:04 | P.PN ---
Subjective Progress Note Date: 06/16/22 81-year-old male patient was currently in the intensive care unit for episodes of ventricular tachycardia. The patient is being monitored closely in the intensive care unit. The patient's has known history of CAD, CHF with an ejection fraction of 30-35%, diabetes mellitus, hyperlipidemia, hypertension and previous coronary artery bypass surgery. The patient also has a AICD in place. The patient is currently on room air oxygen. He is hemodynamically stable with a pulse ox of 95%. Cardiac rhythm is sinus rhythm. His blood work today shows a white cell count of 9.6 with a hemoglobin of 11.7, electrolytes are all within normal limits. His troponin peaked at 1.6 and up to 1.4. In terms of his medication, the patient is currently on a combination of sotalol 80 mg by mouth twice a day, and he is also on anticoagulation with Eliquis 5 mg by mouth twice a day. He is on diuretics receiving Lasix 80 mg by mouth daily. In terms of diabetes he is on Levemir insulin 8 units, 30 units twice a day in addition to NovoLog 18 units at supper and 10 units with meals in the morning and a slight scale coverage. He was receiving amiodarone an outpatient basis and this was discontinued. He was also taking Cozaar an outpatient basis that was discontinued and metoprolol was also discontinued. The adjustments in his cardiac medication were done by cardiology because of hypotension and bradycardia. On today's evaluation of 06/15/2022, the patient is resting comfortably in bed. The patient was transferred out of the intensive care unit yesterday. Noted the patient was having issues with ventricular tachycardia. The patient was seen by cardiology and the device/AICD was reprogrammed and the patient's sotalol was reduced to 40 mg by mouth twice a day. The patient is also being considered for a VT ablation. Otherwise, the patient is doing well. No specific complaints. No angina or palpitations. No shortness of breath. No episodes of syncope. The patient is hemodynamically stable at this point in time. No cough no sputum production no chest tightness or wheezing. The WBC count is at 7.4 with a hemoglobin of 12.1 and a platelet count of 191. The patient has a sodium level of 139, BUN of 27 and a creatinine of 0.9. On 06/13/2022, the patient is not having any complaints no chest pain. No shortness of breath. Heart rate is sinus. The patient is still on sotalol 40 vigorous by mouth twice a day. Noted the patient had ventricular tachycardia at a slower rate and the patient's AICD has been reprogrammed. The patient will be discharged home today to be reevaluated or possible another VT ablation. The patient was restarted on losartan. Anti-ventilation will be continued with Eliquis. Objective - Vital Signs Vital signs: Vital Signs Temp 98.4 F 06/16/22 12:45 Pulse 60 06/16/22 13:53 Resp 18 06/16/22 13:53 BP 123/58 06/16/22 12:45 Pulse Ox 98 06/16/22 12:45 FiO2 Intake & Output 06/15/22 06/16/22 06/16/22 18:59 06:59 18:59 Intake Total 118 120 286 Output Total 2325 1150 1400 Balance -2207 -1030 -1114 Weight 90.1 kg Intake: IV 50 Oral 118 120 236 Output: Urine 2325 700 1400 Straight 800 400 Post Void Residual 450 Other: Voiding Method Toilet Toilet Toilet # Voids 1 125 # Bowel Movements 1 - Exam No acute distress, oriented 3. Currently on room air. HEENT examination is grossly unremarkable. Neck supple. Full range of motion. No adenopathy thyromegaly or neck vein distention. Cardiovascular examination reveals regular rhythm rate. S1-S2 normal. No S3 or S4. No discernible murmur noted. Heart sounds are distant. Lungs reveal mostly clear breath sounds. Scattered rhonchi and crackles are noted. No wheezes. Saturations are 94% on room air. Abdomen soft bowel sounds are heard. No masses or tenderness. Extremities are intact. No cyanosis clubbing or edema. Skin is without rash or lesion. Neurologic examination is brief but nonfocal. - Labs CBC & Chem 7: 06/15/22 07:44 06/15/22 07:44 Labs: Abnormal Lab Results - Last 24 Hours (Table) 06/16/22 Range/Units 11:57 POC Glucose (mg/dL) 262 H (70-110) mg/dL Assessment and Plan Plan: Sustained ventricular tachycardia, status post cardioversion. This is probably an ischemic V. tach and the patient had a abnormal troponin that peaked 1.6. Currently free of any chest pain. The patient is currently on sotalol 40 mg twice a day. He is on no pressors for now resting comfortably in the intensive care unit. The patient has been followed up by Dr. Mccloud. He has had a previous history of VT ablation. The patient is being considered for another VT ablation. The patient had AICD reprogram and the sotalol dose has been reduced to 40 mg twice a day. Anion gap metabolic acidosis, secondary to lactic acidemia, resolved. Post cardioversion hypotension, sinus bradycardia. CAD with previous bypass grafting, and prior myocardial infarction. Ischemic cardiomyopathy, with ejection fraction of 35%. Prior history of ablation for ventricular tachycardia. Status post AICD implantation. History of hypertension. History of hyperlipidemia. The patient is currently on statins. She of diabetes mellitus. The patient is mentally on Levemir insulin History of carotid artery stenosis. History of gout. Plan: Clinically stable and the patient to be discharged home today to be followed up by cardiology for another possible VT ablation at the later stage. Continue sotalol 40 vigorous by mouth twice a day number continue Cozaar, continue anticoagulation with Eliquis. We will sign off the case.
--- NOTE | 2022-06-16 19:52 | P.DS ---
Providers Date of admission: 06/11/22 03:50 Expected date of discharge: 06/16/22 Attending physician: Radha Amaya Consults: 06/11/22 03:50 Consult Physician Routine Consulting Provider: Jocelyne Turner Consult Reason/Comments: VT Do you want consulting provider notified?: Yes 06/11/22 09:39 Consult Physician Urgent Consulting Provider: William García Consult Reason/Comments: hypotension Do you want consulting provider notified?: Already Contacted Primary care physician: Shannan [facility] [employer] [facility] [employer] Course: Final diagnosis Sustained ventricular tachycardia, status post cardioversion Hypotension, status post levophed with cardiogenic shock Cardiomyopathy, ejection fraction 35% History of atrial fibrillation History of diabetes mellitus, type II, insulin-dependent uncontrolled with hyperglycemia and hypoglycemia Gastroesophageal reflux disease Hyperlipidemia Hypertension AICD Acute systolic heart failure with reduced EF GI prophylaxis DVT prophylaxis Full code Discharge disposition Patient is being discharged in a stable condition with guarded prognosis to home. Patient will follow-up with Dr. Wisdom in the outpatient setting upon discharge. Patient is to follow up with cardiology as scheduled. Continue medications as prescribed. Total time taken is greater than 35 minutes. Hospital course This is a 65-year-old male who was recently admitted with multiple medical issues including hypotension requiring pressor support and ICU monitoring. Patient was maintained on telemetry monitoring. Cardiology Dr. Gallardo adjusted meds and also performed venogram and will follow up outpatient. Patient medications adjusted and has been cleared by cardiology today. Patient is extremely anxious to be discharged home. Currently no reports of chest pain, shortness of breath, or palpitations. Patient is afebrile. No reports of nausea or vomiting and patient is tolerating diet. Patient will be discharged home today. Guarded prognosis. Physical exam: Gen: This is a 81-year-old male awake, alert and oriented 3, well-developed, well-nourished, obese HEENT: Head is atraumatic, normocephalic. Pupils equal, round. Sclerae is anicteric. NECK: Supple. No JVD. No lymphadenopathy. No thyromegaly. LUNGS: Diminished breath sounds bilaterally with no wheezes or rhonchi. No intercostal retractions. HEART: Regular rate and rhythm. No murmur. Bradycardic ABDOMEN: Soft. Bowel sounds are present. No masses. No tenderness. EXTREMITIES: No pedal edema. No calf tenderness. NEUROLOGICAL: Patient is awake, alert and oriented x3. Cranial nerves 2 through 12 are grossly intact. Please refer to medication reconciliation sheet for a list of medications. The impression and plan of care has been dictated by Kaylie Nevarez, Nurse Practitioner as directed. Dr. Jose Luis MD I have performed a history and examination and MDM of this patient, discussed the same with the dictator, and agree with the dictator's assessment and plan as written ,documented as a scribe. Based on total visit time, I have performed more than 50% of the visit. Patient Condition at Discharge: Fair Plan - Discharge Summary New Discharge Prescriptions: New Losartan [Cozaar] 25 mg PO DAILY 30 Days #30 tab Tamsulosin [Flomax] 0.4 mg PO PC-BRKFST #30 cap Insulin Detemir (Levemir) [Levemir] 20 unit SQ BID@0700,2100 each Sotalol [Betapace] 40 mg PO BID #90 tab INSULIN ASPART (NovoLOG) [NovoLOG (formulary)] 10 unit SQ AC-SUPPER each Continue Cyanocobalamin [Vitamin B-12] 500 mcg PO DAILY allopurinoL [Zyloprim] 100 mg PO DAILY Furosemide [Lasix] 80 mg PO DAILY Dorzolamide HCl/Pf [Dorzolamide 2% Eye Drop] 1 drop BOTH EYES BID Pravastatin Sodium [Pravachol] 20 mg PO HS Omeprazole 20 mg PO DAILY Insulin Aspart [NovoLOG Flexpen] 10 units SQ AC-LUNCH Evolocumab [Repatha Syringe] 140 mg SQ Q14D Apixaban [Eliquis] 5 mg PO BID Discontinued Metoprolol Succinate (ER) [Toprol XL] 100 mg PO DAILY Insulin Glargine [Lantus Vial] 30 unit SQ BID Amiodarone [Cordarone] 100 mg PO DAILY Spironolactone [Aldactone] 25 mg PO DAILY Insulin Aspart [NovoLOG Flexpen] 18 units SQ AC-SUPPER Losartan [Cozaar] 50 mg PO DAILY Discharge Medication List Cyanocobalamin [Vitamin B-12] 500 mcg PO DAILY 12/16/16 [History] Furosemide [Lasix] 80 mg PO DAILY 09/15/18 [History] allopurinoL [Zyloprim] 100 mg PO DAILY 09/15/18 [History] Dorzolamide HCl/Pf [Dorzolamide 2% Eye Drop] 1 drop BOTH EYES BID 05/18/19 [History] Evolocumab [Repatha Syringe] 140 mg SQ Q14D 04/13/22 [History] Omeprazole 20 mg PO DAILY 04/13/22 [History] Pravastatin Sodium [Pravachol] 20 mg PO HS 04/13/22 [History] Apixaban [Eliquis] 5 mg PO BID 06/11/22 [History] Insulin Aspart [NovoLOG Flexpen] 10 units SQ AC-LUNCH 06/11/22 [History] INSULIN ASPART (NovoLOG) [NovoLOG (formulary)] 10 unit SQ AC-SUPPER each 06/16/22 [Rx] Insulin Detemir (Levemir) [Levemir] 20 unit SQ BID@0700,2100 each 06/16/22 [Rx] Losartan [Cozaar] 25 mg PO DAILY 30 Days #30 tab 06/16/22 [Rx] Sotalol [Betapace] 40 mg PO BID #90 tab 06/16/22 [Rx] Tamsulosin [Flomax] 0.4 mg PO PC-BRKFST #30 cap 06/16/22 [Rx] Follow up Appointment(s)/Referral(s): Contreras Ken MD [REFERRING] - 1 Week (need primary care doctor to send a referral) Jalil Mccloud DO [STAFF PHYSICIAN] - 1 Week (June 25 12:00) Shannan Storey [Primary Care Provider] - 1-2 days (message left with office, office to call with appt. time) Patient Instructions/Handouts: Heart Failure (DC) Activity/Diet/Wound Care/Special Instructions: Please follow up with an processing spec after discharge about blood sugars and thyroid levels Activity Limited until follow-up Follow-up with cardiology outpatient as discussed Continue taking medications as prescribed Follow up with primary care provider on discharge Continue monitoring Accu-Cheks before meals and at bedtime and keep a diary of all readings for primary care follow-up along with endocrine follow-up, if blood sugars are 100 or less hold insulin Discharge Disposition: HOME SELF-CARE
[2022-06-17] MEDS ORDERED: LOSARTAN 25 MG TAB PO SCH (09:00)
== END 2022-06-16 14:02 | disposition home or self-care (01) | DRG 308 ==
LOC: EC 02:59 → 3SCARD 03:50 → 2SICU 10:13 → 3SCARD 06-14 18:34
PROVIDERS: ADMIT Hospitalist; ATTEND Hospitalist
PROC: 5A2204Z Restoration of Cardiac Rhythm, Single (ICD-10-PCS; principal; 2022-06-11)
PROC: 3E033XZ Introduction of Vasopressor into Peripheral Vein, Percutaneous Approach (ICD-10-PCS; 2022-06-11)
PROC: 4B02XTZ Measurement of Cardiac Defibrillator, External Approach (ICD-10-PCS; 2022-06-16)
PROC: B51N1ZZ Fluoroscopy of Left Upper Extremity Veins using Low Osmolar Contrast (ICD-10-PCS; 2022-06-16)
DX: I49.01 Ventricular fibrillation (principal); I50.21 Acute systolic (congestive) heart failure; R57.0 Cardiogenic shock; I13.0 Hypertensive heart and chronic kidney disease with heart failure and stage 1 through stage 4 chronic kidney disease, or unspecified chronic kidney disease; E87.20 Acidosis, unspecified; E11.22 Type 2 diabetes mellitus with diabetic chronic kidney disease; N18.30 Chronic kidney disease, stage 3 unspecified; E05.90 Thyrotoxicosis, unspecified without thyrotoxic crisis or storm; I65.29 Occlusion and stenosis of unspecified carotid artery; I27.20 Pulmonary hypertension, unspecified; D63.1 Anemia in chronic kidney disease; I47.20 Ventricular tachycardia, unspecified; I48.20 Chronic atrial fibrillation, unspecified; E78.5 Hyperlipidemia, unspecified; I25.2 Old myocardial infarction; K21.9 Gastro-esophageal reflux disease without esophagitis; I25.5 Ischemic cardiomyopathy; R13.10 Dysphagia, unspecified; I08.1 Rheumatic disorders of both mitral and tricuspid valves; R26.2 Difficulty in walking, not elsewhere classified; M10.9 Gout, unspecified; M19.90 Unspecified osteoarthritis, unspecified site; R01.1 Cardiac murmur, unspecified; I25.119 Atherosclerotic heart disease of native coronary artery with unspecified angina pectoris; I49.3 Ventricular premature depolarization; T46.2X5A Adverse effect of other antidysrhythmic drugs, initial encounter; Z28.310 Unvaccinated for COVID-19; Z95.810 Presence of automatic (implantable) cardiac defibrillator; Z82.49 Family history of ischemic heart disease and other diseases of the circulatory system; Z79.899 Other long term (current) drug therapy; Z79.4 Long term (current) use of insulin; Z79.01 Long term (current) use of anticoagulants; Z95.1 Presence of aortocoronary bypass graft; Z87.891 Personal history of nicotine dependence
CPT/HCPCS: 36005; 36415; 51702; 51798; 71045; 75820; 80048; 80053; 81001; 83605; 83735; 84100; 84145; 84439; 84443; 84481; 84484; 85025; 85610; 85730; 93005; 93308; 96361; 96365; 96366; 96367; 96368; 96375; 99291

== ENCOUNTER 2022-12-06 09:41 | Day surgery (SDC) | payer MEDICARE ==
[~2022-12-06 09:41] MED LIST changes: -LACTATED RINGERS 1,000 ML IV SCH; +SODIUM CHLORIDE 0.9% 1,000 ML IV SCH
[2022-12-06] MEDS ORDERED: ceFAZolin 1 GM in SODIUM CHLORIDE 0.9% IRRIG BTL 250 ML IRRIGATION PRN (10:00)
[2022-12-06 10:12] LABS: Glucose,Whole Blood 171 mg/dL (70-110)
[2022-12-06 10:21] VITALS: TEMP 97.8
[2022-12-06] MEDS ORDERED: MIDAZOLAM 2 MG/2 ML VIAL ONE (11:13)
[2022-12-06] MEDS ORDERED: ePHEDrine 50 MG/ML 1 ML VIAL ONE (11:13)
[2022-12-06] MEDS ORDERED: fentaNYL (PF) 50 MCG/ML 2 ML AMP ONE (11:13)
[2022-12-06] MEDS ORDERED: diphenhydrAMINE 50 MG/ML 1 ML VIAL ONE (11:13)
[2022-12-06] MEDS ORDERED: LIDOCAINE 1% INJ 10MG/ML (20 ML MDV) ONE ×2 (11:35)
[2022-12-06] MEDS ORDERED: LIDOCAINE 1% INJ 10MG/ML (20 ML MDV) SQ ONE ×2 (12:09→12:19)
[2022-12-06] MEDS ORDERED: VANCOMYCIN 1,250 MG in SODIUM CHLORIDE 0.9% 250 ML IVPB PRN (12:10)
--- NOTE | 2022-12-06 14:08 | P.EPPROC ---
- EP Procedure Note Electrophysiology Procedure Note: Procedure Upgrade to a biventricular ICD Patient currently has a single chamber ICD Indication for the procedure Patient has severe ischemic cardiomyopathy and congestive heart failure class 2- 3 Underlying left bundle branch block pattern) 130 ms History of sustained VT and ventricular fibrillation, past history of ischemic VT ablation Currently very bradycardic, unable to use beta blockers for management of cardio myopathy in heart failure as well Unable to use antiarrhythmic drugs that could provoke further bradycardia RV lead thresholds are chronically elevated, impedance is stable The LV lead will serve a dual purpose of serving as a heart failure enrollment management director as well as a backup ventricular pacing lead Details of procedure Patient was brought to the EP lab in a fasting state. Written informed consent was obtained prior to the procedure. The left shoulder area was prepped and draped as a protocol. IV antibiotics administered including IV vancomycin An incision was made over the previous surgical site and carried down to the level of the generator. The generator was explanted Partial capsulectomy was performed Venous access was obtained to implant an atrial lead: LV lead A Medtronic 52 cm active fix atrial lead was implanted in the right atrial appendage Pacing impedance 510 ohms, P waves 2.2 mV in pacing threshold 0.5 V at 0.5 ms LV lead was a [employer] medical receptionist medical assistant quadripolar implanted in the anterior lateral vein. Distal tip was at 3 o'clock position in the [place] view Threshold 1 warted 0.5 ms pacing impedance 990 ohms The old generator was explanted, single-chamber ICD lead changes medical New biventricular ICD generator was implanted, [employer] medical/[employer] MP [id number] Leads and the generator were then placed in the subfascial pocket and the wound was closed in 3 layers and dressed per protocol Result Successful upgrade of the single-chamber ICD to a biventricular ICD for management of significant bradycardia that precluded medical treatment as well as management of congestive heart failure, systolic, with underlying left bundle branch block pattern Plan resume beta blockers, metoprolol succinate 50 mrem by mouth daily Continue Lasix, ELIQUIS, losartan Follow-up in the device clinic in one week
[2022-12-06] MEDS ORDERED: ACETAMINOPHEN TAB 325 MG TAB PO PRN (14:09)
[2022-12-06] MEDS ORDERED: ACETAMINOPHEN IV (For NPO) 1,000 MG in EMPTY BAG 1 BAG IVPB ONE (14:09)
[2022-12-06] MEDS ORDERED: METOPROLOL SUCCINATE (ER) 50 MG TAB.ER.24H PO SCH (14:15)
--- NOTE | 2022-12-06 14:39 | XR ---
EXAMINATION TYPE: XR chest 1V portable DATE OF EXAM: 12/06/2022 COMPARISON: NONE HISTORY: Lead placement check TECHNIQUE: Single frontal view of the chest is obtained. FINDINGS: There is no focal air space opacity, pleural effusion, or pneumothorax seen. There is a m ulti lead pacemaker with the proximal lead overlying the region into biventricular leads also noted. AC joint arthropathy is seen in there is postsurgical changes. Atherosclerotic change aorta. The hear t is enlarged with no overt failure. Hyperinflation of the lungs. Correlate for previous right clavic ular remote fracture. IMPRESSION: 1. No evidence of pneumothorax. 2. Multi lead cardiac device as discussed above. 3. Cardiomegaly and COPD.
[2022-12-06 20:24] VITALS: PULSE 60; RESP 16
[2022-12-06 20:30] VITALS: BP 105/60
== END 2022-12-06 17:11 | disposition home or self-care (01) ==
LOC: CATHEP 09:41
PROVIDERS: ATTEND Internal Medicine Clinical Cardiac Electrophysiology
DX: I11.0 Hypertensive heart disease with heart failure (principal); I50.20 Unspecified systolic (congestive) heart failure; I44.7 Left bundle-branch block, unspecified; I25.5 Ischemic cardiomyopathy; I49.01 Ventricular fibrillation; J44.9 Chronic obstructive pulmonary disease, unspecified; E78.5 Hyperlipidemia, unspecified; I48.91 Unspecified atrial fibrillation; E11.9 Type 2 diabetes mellitus without complications; E03.9 Hypothyroidism, unspecified; I25.2 Old myocardial infarction; K21.9 Gastro-esophageal reflux disease without esophagitis; Z79.4 Long term (current) use of insulin; Z79.899 Other long term (current) drug therapy; Z95.1 Presence of aortocoronary bypass graft
CPT/HCPCS: 33225; 33264; 71045; C1769 ×4; C1730; C1887; C1892; C1898; C1900 ×2; C1882; J2250; J3370; J1200; J0690; J2001; J3010; J0131

== ENCOUNTER 2023-07-13 02:04 | Inpatient (IN) | payer MEDICARE ==
--- NOTE | 2023-07-13 02:44 | ED ---
General Adult HPI - General Chief complaint: Shortness of Breath Stated complaint: SOB Time Seen by Provider: 07/13/23 02:11 Source: patient, RN notes reviewed, old records reviewed Mode of arrival: EMS Limitations: no limitations - History of Present Illness Initial comments: Patient Is an 82-year-old male presents emergency department plenty of dyspnea. States it started today. Has been feeling more short of breath. Worse with lying down flat. Worse with exertion. Denies any cough. Denies PND. Is adamant that symptoms started today. Has not been having any symptoms since. Does have a cardiac history. History of bypass, A. fib, congestive heart failure. States he is compliant with medications including blood thinners. Denies any worsening lower extremity edema. Denies any other acute complaints at this time. Presents for further evaluation at this time. Denies any sick contacts. Denies any fevers. Denies any nausea or vomiting. - Related Data Home Medications Medication Instructions Recorded Confirmed Cyanocobalamin [Vitamin B-12] 500 mcg PO DAILY 12/16/16 12/06/22 Furosemide [Lasix] 80 mg PO DAILY 09/15/18 12/06/22 allopurinoL [Zyloprim] 100 mg PO DAILY 09/15/18 12/06/22 Dorzolamide HCl/Pf [Dorzolamide 2% 1 drop BOTH EYES BID 05/18/19 12/06/22 Eye Drop] Evolocumab [Repatha Syringe] 140 mg SQ Q14D 04/13/22 12/06/22 Omeprazole 20 mg PO DAILY 04/13/22 12/06/22 Pravastatin Sodium [Pravachol] 20 mg PO HS 04/13/22 12/06/22 Apixaban [Eliquis] 5 mg PO BID 06/11/22 12/06/22 Insulin Aspart [NovoLOG Flexpen] 10 units SQ AC-TID 06/11/22 12/06/22 Ferrous Sulfate [Feosol] 325 mg PO DAILY 12/02/22 12/06/22 Furosemide [Lasix] 40 mg PO W/SUPPER 12/02/22 12/06/22 Insulin Glargine [Lantus Vial] 20 unit SQ BID@0700,2100 12/02/22 12/06/22 methIMAzole [Tapazole] 5 mg PO DAILY 12/02/22 12/06/22 Previous Rx's Medication Instructions Recorded Losartan [Cozaar] 25 mg PO DAILY 30 Days #30 tab 06/16/22 Sotalol [Betapace] 40 mg PO BID #90 tab 06/16/22 Tamsulosin [Flomax] 0.4 mg PO PC-BRKFST #30 cap 06/16/22 Metoprolol Succinate (ER) [Toprol 50 mg PO DAILY #90 tab 12/06/22 Xl] Allergies Allergy/AdvReac Type Severity Reaction Status Date / Time No Known Allergies Allergy Verified 07/13/23 02:21 Review of Systems ROS Statement: Those systems with pertinent positive or pertinent negative responses have been documented in the HPI. Review of Systems: CONST: Denies fever EYES: Denies blurry vision ENT: Denies nasal congestion C/V: Denies Chest pain RESP: Endorses shortness of breath GI: Denies abdominal pain : Denies dysuria SKIN: Denies rash. MSK: Denies joint pain. NEURO: Denies headache ROS Other: All systems not noted in ROS Statement are negative. Past Medical History Past Medical History: Atrial Fibrillation, Coronary Artery Disease (CAD), Cancer, Chest Pain / Angina, Heart Failure, Diabetes Mellitus, GERD/Reflux, Hyperlipidemia, Hypertension, Myocardial Infarction (LA), Osteoarthritis (OA) Additional Past Medical History / Comment(s): cardiomyopathy, gout, states some difficulty swallowing. BLADDER CANCER Last Myocardial Infarction Date:: 1991 History of Any Multi-Drug Resistant Organisms: None Reported Past Surgical History: AICD, Coronary Bypass/CABG, Heart Catheterization Additional Past Surgical History / Comment(s): DEFIBRILLATOR THRESHOLD TESTING, JOSE cataracts. 4 VESSEL Bypass 1996, AICD 2009, COLONOSCOPY, BLADDER TUMOR REMOVED Past Anesthesia/Blood Transfusion Reactions: No Reported Reaction Additional Past Anesthesia/Blood Transfusion Reaction / Comment(s): . Type of Cardiac Device: AICD Device Placement Date:: 2009 Past Psychological History: No Psychological Hx Reported Smoking Status: Former smoker - Past Family History Sister(s) Family Medical History: Cancer Mother Family Medical History: CVA/TIA Father Family Medical History: Hyperlipidemia, Hypertension, Myocardial Infarction (LA) General Exam - General Exam Comments Initial Comments: General: Appears in no acute distress. HEAD: Normal with no signs of head trauma. EYES: PERRLA, EOMI, conjunctiva normal, no discharge. ENT: Hearing grossly intact, normal oropharynx. RESPIRATORY: Diminished breath sounds bilaterally. Mild increased work of breathing. No hypoxia on 2 L nasal cannula which was started by EMS C/V: Regular rate and rhythm. S1 and S2 auscultated, no significant lower extremity edema, peripheral pulses 2+ and intact throughout ABD: Abd is soft, nontender, nondistended EXT: Normal range of motion, no obvious deformity SKIN: No rashes or lesions observed on exposed skin. NEURO: Alert and oriented 4. Limitations: no limitations Course Vital Signs 07/13/23 07/13/23 07/13/23 02:22 02:26 03:49 Temperature 98.9 F 98.9 F Pulse Rate 73 73 70 Respiratory 18 18 20 Rate Blood Pressure 115/74 115/74 106/82 O2 Sat by Pulse 98 98 97 Oximetry 07/13/23 07/13/23 07/13/23 04:00 05:00 06:00 Temperature Pulse Rate 70 67 64 Respiratory 20 18 18 Rate Blood Pressure 106/82 114/72 108/63 O2 Sat by Pulse 97 99 98 Oximetry 07/13/23 06:07 Temperature 98.3 F Pulse Rate Respiratory Rate Blood Pressure O2 Sat by Pulse Oximetry Medical Decision Making - Medical Decision Making Was pt. sent in by a medical professional or institution (, PA, MACHINE CAPTAIN, urgent care, hospital, or fpc...) When possible be specific @ -No Did you speak to anyone other than the patient for history (EMS, parent, family, police, friend...)? What history was obtained from this source @ -No Did you review nursing and triage notes (agree or disagree)? Why? @ -I reviewed and agree with nursing and triage notes Were old charts reviewed (outside hosp., previous admission, EMS record, old EKG, old radiological studies, urgent care reports/EKG's, fpc records)? Report findings @ -Old charts reviewed Differential Diagnosis (chest pain, altered mental status, abdominal pain women, abdominal pain men, vaginal bleeding, weakness, fever, dyspnea, syncope, headache, dizziness, GI bleed, back pain, seizure, CVA, palpatations, mental health, musculoskeletal)? @ -Differential Dyspnea: Coronary syndrome, arrhythmia, tamponade, asthma, COPD, pulmonary embolism, pneumonia, pneumothorax, pulmonary effusion, anaphylaxis, diabetic ketoacidosis, flailed chest, pulmonary contusion, diaphragmatic rupture, anemia, neuromuscular, this is not meant to be an all-inclusive list. EKG interpreted by me (3pts min.). @ -As above X-rays interpreted by me (1pt min.). @ -Chest x-ray reveals bilateral pulmonary vascular congestion. CT interpreted by me (1pt min.). @ -None done U/S interpreted by me (1pt. min.). @ -None done What testing was considered but not performed or refused? (CT, X-rays, U/S, labs)? Why? @ -None What meds were considered but not given or refused? Why? @ -None Did you discuss the management of the patient with other professionals (professionals i.e. , PA, MACHINE CAPTAIN, lab, RT, psych nurse, bilingual social worker, energy specialist, teacher, youth officer, shelter case manager)? Give summary @ -I spoke with Kanwal LILLY of [facility] accepted the patient. Was smoking cessation discussed for >3mins.? @ -No Was critical care preformed (if so, how long)? @ -yes, 35 minutes Were there social determinants of health that impacted care today? How? (Homelessness, low income, unemployed, alcoholism, drug addiction, transportation, low edu. Level, literacy, decrease access to med. care, shelter, rehab)? @ -No Was there de-escalation of care discussed even if they declined (Discuss DNR or withdrawal of care, Hospice)? DNR status @ -No What co-morbidities impacted this encounter? (DM, HTN, Smoking, COPD, CAD, Cancer, CVA, ARF, Chemo, Hep., AIDS, mental health diagnosis, sleep apnea, morbid obesity)? @ -None Was patient admitted / discharged? Hospital course, mention meds given and route, prescriptions, significant lab abnormalities, going to OR and other pertinent info. @ -Patient presents complaining of dyspnea for 1 day. Has a significant cardiac history. We will obtain cardiopulmonary workup. Patient in agreement this plan. Vital signs are currently within acceptable limits. EKG showed no signs of acute ischemia.Chest x-ray shows bilateral pulmonary vascular congestion. Patient's laboratory studies are remarkable for a mild leukocytosis of 14. Patient has a BNP of 14,000. Patient's troponin is elevated to 1.9. On reevaluation, repeat EKG was obtained and showed no dynamic changes. Remains unremarkable. I discussed results with the patient. He states at no point did he have any sort of chest pain. Patient will be started on a heparin drip for NSTEMI. We will trend the troponin. Patient started on IV Lasix for CHF. Patient was in agreement this plan. Echo ordered. Cardiology consulted. I spoke with Kanwal LILLY of [facility] accepted the patient. Undiagnosed new problem with uncertain prognosis? @ -No Drug Therapy requiring intensive monitoring for toxicity (Heparin, Nitro, Insulin, Cardizem)? @ -heparin Were any procedures done? @ -No Diagnosis/symptom? @ -CHF exacerbation, hypoxia, NSTEMI Acute, or Chronic, or Acute on Chronic? @ -Acute Uncomplicated (without systemic symptoms) or Complicated (systemic symptoms)? @ -Complicated Side effects of treatment? @ -none Exacerbation, Progression, or Severe Exacerbation] @ -no Poses a threat to life or bodily function? @ -Yes - Lab Data Result diagrams: 07/13/23 02:53 07/13/23 02:53 Lab Results 07/13/23 07/13/23 07/13/23 Range/Units 02:53 02:53 02:53 WBC 14.7 H (3.8-10.6) k/uL RBC 4.73 (4.30-5.90) m/uL Hgb 14.6 (13.0-17.5) gm/dL Hct 44.3 (39.0-53.0) % MCV 93.5 (80.0-100.0) fL MCH 30.8 (25.0-35.0) pg MCHC 32.9 (31.0-37.0) g/dL RDW 14.1 (11.5-15.5) % Plt Count 204 (150-450) k/uL MPV 8.1 Neutrophils % 81 % Lymphocytes % 9 % Monocytes % 5 % Eosinophils % 3 % Basophils % 1 % Neutrophils # 11.9 H (1.3-7.7) k/uL Lymphocytes # 1.3 (1.0-4.8) k/uL Monocytes # 0.7 (0-1.0) k/uL Eosinophils # 0.5 (0-0.7) k/uL Basophils # 0.1 (0-0.2) k/uL PT 11.7 (10.0-12.5) sec INR 1.1 (<1.2) APTT 30.5 H (22.0-30.0) sec Sodium 138 (137-145) mmol/L Potassium 3.9 (3.5-5.1) mmol/L Chloride 102 (98-107) mmol/L Carbon Dioxide 25 (22-30) mmol/L Anion Gap 11 mmol/L BUN 35 H (9-20) mg/dL Creatinine 1.40 H (0.66-1.25) mg/dL Est GFR (CKD-EPI)AfAm 55 (>60 ml/min/1.73 sqM) Est GFR (CKD-EPI)NonAf 47 (>60 ml/min/1.73 sqM) Glucose 162 H (74-99) mg/dL Calcium 9.0 (8.4-10.2) mg/dL Magnesium 2.3 (1.6-2.3) mg/dL Total Bilirubin 1.0 (0.2-1.3) mg/dL AST 31 (17-59) U/L ALT 16 (4-49) U/L Alkaline Phosphatase 147 H (38-126) U/L Troponin I (0.000-0.034) ng/mL NT-Pro-B Natriuret Pep 83353 pg/mL Total Protein 6.8 (6.3-8.2) g/dL Albumin 3.8 (3.5-5.0) g/dL Influenza Type A (PCR) (Not Detectd) Influenza Type B (PCR) (Not Detectd) RSV (PCR) (Not Detectd) SARS-CoV-2 (PCR) (Not Detectd) 07/13/23 07/13/23 Range/Units 02:53 02:53 WBC (3.8-10.6) k/uL RBC (4.30-5.90) m/uL Hgb (13.0-17.5) gm/dL Hct (39.0-53.0) % MCV (80.0-100.0) fL MCH (25.0-35.0) pg MCHC (31.0-37.0) g/dL RDW (11.5-15.5) % Plt Count (150-450) k/uL MPV Neutrophils % % Lymphocytes % % Monocytes % % Eosinophils % % Basophils % % Neutrophils # (1.3-7.7) k/uL Lymphocytes # (1.0-4.8) k/uL Monocytes # (0-1.0) k/uL Eosinophils # (0-0.7) k/uL Basophils # (0-0.2) k/uL PT (10.0-12.5) sec INR (<1.2) APTT (22.0-30.0) sec Sodium (137-145) mmol/L Potassium (3.5-5.1) mmol/L Chloride (98-107) mmol/L Carbon Dioxide (22-30) mmol/L Anion Gap mmol/L BUN (9-20) mg/dL Creatinine (0.66-1.25) mg/dL Est GFR (CKD-EPI)AfAm (>60 ml/min/1.73 sqM) Est GFR (CKD-EPI)NonAf (>60 ml/min/1.73 sqM) Glucose (74-99) mg/dL Calcium (8.4-10.2) mg/dL Magnesium (1.6-2.3) mg/dL Total Bilirubin (0.2-1.3) mg/dL AST (17-59) U/L ALT (4-49) U/L Alkaline Phosphatase (38-126) U/L Troponin I 1.970 H* (0.000-0.034) ng/mL NT-Pro-B Natriuret Pep pg/mL Total Protein (6.3-8.2) g/dL Albumin (3.5-5.0) g/dL Influenza Type A (PCR) Not Detected (Not Detectd) Influenza Type B (PCR) Not Detected (Not Detectd) RSV (PCR) Not Detected (Not Detectd) SARS-CoV-2 (PCR) Not Detected (Not Detectd) - EKG Data -: EKG Interpreted by Me EKG Comments: 12-lead Electrocardiogram Interpretation Note EKG was reviewed and interpreted by myself. 12-lead ECG performed at 0217 is interpreted by me as revealing ventricular paced rhythm at a rate of at 73 beats per minute. Right axis deviation. AR intervals 233 ms, QRS durations 124 ms, QTc is 483 ms.. There were no ST or T wave abnormalities to suggest myocardial ischemia or injury. R wave progression across the precordium was satisfactory. By my interpretation this EKG is non-diagnostic for acute ischemia. 12-lead Electrocardiogram Interpretation Note EKG was reviewed and interpreted by myself. 12-lead ECG performed at 0505 is interpreted by me as revealing paced rhythm at a rate of 69 beats per minute. Right axis deviation. AR interval is 204 ms, QRS duration is 136 ms, QTc is 463 ms.. There were no ST or T wave abnormalities to suggest myocardial ischemia or injury. R wave progression across the precordium was satisfactory. By my interpretation this EKG is non-diagnostic for acute ischemia. Critical Care Time Critical Care Time: Yes Total Critical Care Time: 35 Disposition Clinical Impression: CHF (congestive heart failure), NSTEMI (non-ST elevated myocardial infarction), Hypoxia Disposition: ADMITTED IP TO THIS [facility] Condition: Stable Time of Disposition: 04:05
[2023-07-13 03:12] LABS: Basophils # (A) 0.1 k/uL (0-0.2); Basophils % (A) 1 %; Eosinophils # (A) 0.5 k/uL (0-0.7); Eosinophils % (A) 3 %; HCT 44.3 % (39.0-53.0); HGB 14.6 gm/dL (13.0-17.5); Lymphocytes # (A) 1.3 k/uL (1.0-4.8); Lymphocytes % (A) 9 %; MCH 30.8 pg (25.0-35.0); MCHC 32.9 g/dL (31.0-37.0); MCV 93.5 fL (80.0-100.0); Mean Platelet Volume 8.1; Monocytes # (A) 0.7 k/uL (0-1.0); Monocytes % (A) 5 %; Neutrophils # (A) 11.9 k/uL (1.3-7.7); Neutrophils % (A) 81 %; Platelet Count 204 k/uL (150-450); RBC 4.73 m/uL (4.30-5.90); RDW 14.1 % (11.5-15.5); WBC 14.7 k/uL (3.8-10.6)
[2023-07-13 03:28] LABS: ALT 16 U/L (4-49); AST 31 U/L (17-59); African American GFR (CKD) 55 (>60 ml/min/1.73 sqM); Albumin 3.8 g/dL (3.5-5.0); Alkaline Phosphatase 147 U/L (38-126); Anion Gap 11 mmol/L; Blood Urea Nitrogen 35 mg/dL (9-20); Carbon Dioxide 25 mmol/L (22-30); Chloride 102 mmol/L (98-107); Glucose 162 mg/dL (74-99); Magnesium 2.3 mg/dL (1.6-2.3); Non-African American GFR(CKD) 47 (>60 ml/min/1.73 sqM); Potassium 3.9 mmol/L (3.5-5.1); Sodium 138 mmol/L (137-145); Total Protein 6.8 g/dL (6.3-8.2)
[2023-07-13 03:35] LABS: INR 1.1 (<1.2); Partial Thromboplastin Time 30.5 sec (22.0-30.0); Prothrombin Time 11.7 sec (10.0-12.5)
[2023-07-13 03:37] LABS: NT-Pro-B-Type Natriuretic Pept 14000 pg/mL
[2023-07-13] MEDS ORDERED: FUROSEMIDE 10 MG/ML 4 ML VIAL IV STA (04:17)
[2023-07-13] MEDS ORDERED: ASPIRIN 81 MG PO STA (04:18)
[2023-07-13] MEDS ORDERED: NALOXONE 0.4 MG/ML 1 ML VIAL IV PRN (04:18)
[2023-07-13] MEDS ORDERED: HEPARIN SODIUM 1,000 UN/ML (10ML VL) IV PRN (04:59)
[2023-07-13] MEDS ORDERED: HEPARIN SODIUM 1,000 UN/ML (10ML VL) IV ONE (04:59)
[2023-07-13] MEDS: HEPARIN SOD,PORK IN 0.45% NACL 25,000 UNIT in 0.45% NACL 1 250ML.BAG IV SCH (05:42)
[2023-07-13] MEDS ORDERED: DEXTROSE 50% SYRINGE 50 ML IVP PRN ×2 (07:05)
--- NOTE | 2023-07-13 07:17 | XR ---
EXAMINATION TYPE: XR chest 2V DATE OF EXAM: 07/13/2023 3:02 AM CLINICAL INDICATION:Male, 82 years old with history of difficulty breathing; [facility] COMPARISON: Chest radiographs from by [id number] TECHNIQUE: XR chest 2V Frontal and lateral views of the chest. FINDINGS: Lungs/Pleura: No evidence of focal consolidation or pneumothorax. Blunting of the costophrenic angles is present. Pulmonary vascularity: Pulmonary vascular congestion. Heart/mediastinum: Cardiomediastinal silhouette is enlarged and stable. Atherosclerotic calcificatio ns are seen in the aorta. Three lead cardiac conduction device overlying the left hemithorax with charly d tips projecting over the right ventricle, right atrium and coronary sinus. Musculoskeletal: No acute osseous pathology. Remote appearing right clavicle fracture. Other findings: None IMPRESSION: Cardiomegaly, pulmonary vascular congestion and bilateral pleural effusions. Correlate with BNP for c ongestive heart failure.
--- NOTE | 2023-07-13 07:59 | P.HPIM ---
History of Present Illness this is a pleasant 82 yo M with past medical history of multiple medical problems who presents because of shortness of breath of one-day duration. Patient denies coughing or phlegm. Patient denies chest pain. No other GI or urinary complaints or change in his habits regarding these. He is afebrile. He denies headache dizziness weakness or numbness. He denies smoking alcohol or illicit drugs. Vitas looks stable. His creatinine is slightly elevated above baseline of 1.4, baseline 0.9-1.1. Patient sees Dr. Harris as an outpatient for his kidney disease also he follows up with for his history of urinary bladder cancer, as per patient and his been clear regarding this. He is also diabetic taking 20 units of Levemir twice daily and NovoLog 15 units with meals. He has history of bypass surgery and he follows up with Dr. Mccloud. His bypass was in 1996. He denies previous history of stents and he is currently n ot on aspirin or other antiplatelet at home as he states. Other labs showing unremarkable INR. He has mild leukocytosis of 14.7. Troponin is elevated 1.9. Influenza A and type B, RSV, SARS (coronavirus) are and detected His [place] [address]. G showing ventricular paced rhythm at [address]-T changes The chest x-ray by myself and there is increased bilateral infiltrates nitza cially in the lower zone suspicious for CHF Gram was ordered and is pending. It is on a liquid was at home and he was taken off as supposed to be twice a day. This was held on admission and started on heparin drip. A 6 CT daily and 40 at bedside and this was switched to IV Lasix 40 mg twice daily. Also he was given a one-time dose of aspirin 325 mg. Review of Systems Review of systems CONSTITUTIONAL: No fever, no malaise, no fatigue. HEENT: No recent visual problems or hearing problems. Denied any sore throat. CARDIOVASCULAR: No orthopnea, PND, no palpitations, no syncope. PULMONARY: No , chest wall tenderness no cough, no hemoptysis. GASTROINTESTINAL: No diarrhea, no nausea, no vomiting, no abdominal pain. Normoactive bowel sounds. NEUROLOGICAL: No headaches, no weakness, no numbness. HEMATOLOGICAL: Denies any bleeding or petechiae. GENITOURINARY: Denies any burning micturition, frequency, or urgency. MUSCULOSKELETAL/RHEUMATOLOGICAL: Denies any joint pain, swelling, or any muscle pain. ENDOCRINE: Denies any polyuria or polydipsia. Past Medical History Past Medical History: Atrial Fibrillation, Coronary Artery Disease (CAD), Cancer, Chest Pain / Angina, Heart Failure, Diabetes Mellitus, GERD/Reflux, Hyperlipidemia, Hypertension, Myocardial Infarction (AR), Osteoarthritis (OA) Additional Past Medical History / Comment(s): cardiomyopathy, gout, states some difficulty swallowing. BLADDER CANCER Last Myocardial Infarction Date:: 1991 History of Any Multi-Drug Resistant Organisms: None Reported Past Surgical History: AICD, Coronary Bypass/CABG, Heart Catheterization Additional Past Surgical History / Comment(s): DEFIBRILLATOR THRESHOLD TESTING, JOSE cataracts. 4 VESSEL Bypass 1996, AICD 2009, COLONOSCOPY, BLADDER TUMOR REMOVED Past Anesthesia/Blood Transfusion Reactions: No Reported Reaction Additional Past Anesthesia/Blood Transfusion Reaction / Comment(s): . Type of Cardiac Device: AICD Device Placement Date:: 2009 Past Psychological History: No Psychological Hx Reported Smoking Status: Former smoker - Past Family History Sister(s) Family Medical History: Cancer Mother Family Medical History: CVA/TIA Father Family Medical History: Hyperlipidemia, Hypertension, Myocardial Infarction (AR) Medications and Allergies Home Medications Medication Instructions Recorded Confirmed Type Cyanocobalamin [Vitamin B-12] 1,000 mcg PO DAILY 12/16/16 07/13/23 History allopurinoL [Zyloprim] 100 mg PO DAILY 09/15/18 07/13/23 History Dorzolamide HCl/Pf [Dorzolamide 2% 2 drop BOTH EYES BID 05/18/19 07/13/23 History Eye Drop] Evolocumab [Repatha Syringe] 140 mg SQ Q14D 04/13/22 07/13/23 History Omeprazole 20 mg PO DAILY 04/13/22 07/13/23 History Pravastatin Sodium [Pravachol] 20 mg PO HS 04/13/22 07/13/23 History Apixaban [Eliquis] 5 mg PO BID 06/11/22 07/13/23 History Insulin Aspart [NovoLOG Flexpen] 15 units SQ AC-TID 06/11/22 07/13/23 History Losartan [Cozaar] 25 mg PO DAILY 30 Days #30 tab 06/16/22 07/13/23 Rx Sotalol [Betapace] 40 mg PO BID #90 tab 06/16/22 07/13/23 Rx Ferrous Sulfate [Feosol] 325 mg PO DAILY 12/02/22 07/13/23 History Insulin Glargine [Lantus Vial] 20 unit SQ DAILY 12/02/22 07/13/23 History Metoprolol Succinate (ER) [Toprol 50 mg PO DAILY #90 tab 12/06/22 07/13/23 Rx Xl] Dapagliflozin Propanediol [Farxiga] 10 mg PO DAILY 07/13/23 07/13/23 History Furosemide [Lasix] 40 mg PO DAILY@1800 07/13/23 07/13/23 History Furosemide [Lasix] 80 mg PO DAILY 07/13/23 07/13/23 History Insulin Glargine [Lantus Vial] 18 unit SQ HS 07/13/23 07/13/23 History Tamsulosin [Flomax] 0.4 mg PO BID 07/13/23 07/13/23 History Allergies Allergy/AdvReac Type Severity Reaction Status Date / Time No Known Allergies Allergy Verified 07/13/23 07:29 Physical Exam Vitals: Vital Signs Temp Pulse Resp BP Pulse Ox 07/13/23 06:07 98.3 F 07/13/23 06:00 64 18 108/63 98 07/13/23 05:00 67 18 114/72 99 07/13/23 04:00 70 20 106/82 97 07/13/23 03:49 70 20 106/82 97 07/13/23 02:26 98.9 F 73 18 115/74 98 07/13/23 02:22 98.9 F 73 18 115/74 98 Intake and Output 07/12/23 07/13/23 07/13/23 22:59 06:59 14:59 Other: Weight 92.079 kg GENERAL: The patient is alert and oriented x3, not in any acute distress. Well developed, well nourished. HEENT: Pupils are round and equally reacting to light. EOMI. No scleral icterus. No conjunctival pallor. Normocephalic, atraumatic. No pharyngeal erythema. No thyromegaly. CARDIOVASCULAR: S1 and S2 present. No murmurs, rubs, or gallops. PULMONARY: Chest is clear to auscultation, no wheezing , mild bilateral basal crackles. ABDOMEN: Soft, nontender, nondistended, normoactive bowel sounds. No palpable organomegaly. MUSCULOSKELETAL: No joint swelling or deformity. EXTREMITIES: No cyanosis, clubbing, or pedal edema. NEUROLOGICAL: Gross neurological examination did not reveal any focal deficits. SKIN: No rashes. no petechiae. Results CBC & Chem 7: 07/13/23 02:53 07/13/23 02:53 Labs: Abnormal Lab Results - Last 24 Hours (Table) 07/13/23 07/13/23 07/13/23 Range/Units 02:53 02:53 02:53 WBC 14.7 H (3.8-10.6) k/uL Neutrophils # 11.9 H (1.3-7.7) k/uL APTT 30.5 H (22.0-30.0) sec BUN 35 H (9-20) mg/dL Creatinine 1.40 H (0.66-1.25) mg/dL Glucose 162 H (74-99) mg/dL Alkaline Phosphatase 147 H (38-126) U/L Troponin I (0.000-0.034) ng/mL 07/13/23 Range/Units 02:53 WBC (3.8-10.6) k/uL Neutrophils # (1.3-7.7) k/uL APTT (22.0-30.0) sec BUN (9-20) mg/dL Creatinine (0.66-1.25) mg/dL Glucose (74-99) mg/dL Alkaline Phosphatase (38-126) U/L Troponin I 1.970 H* (0.000-0.034) ng/mL Assessment and Plan Assessment: Acute CHF exacerbation Elevated troponin suspicious for a non-STEMI Acute kidney injury on chronic kidney disease stage III Remote history of hyperthyroidism, she stopped taking hyperthyroid medication for several months now A of urinary bladder cancer and he follows up with urologist as an outpatient Paroxysmal atrial fibrillation on liquids at home. He of ventricular tachycardia on ventricular pacemaker. Obesity with BMI of 31.8. Plan: continue with heparin drip Continue with IV Lasix twice daily, we will add fluid restriction Resume Levemir 10 units daily if he is nothing by mouth and this can be increased to 20 units twice daily if his resume his diet, this was discussed with the bedside nurse. Continue with NovoLog 15 units with meals cardiology consult Nephrology consult Labs and medication were reviewed.. Continue same treatment. Continue with symptomatic treatment. Resume home medication. Monitor labs and vitals. DVT and GI prophylaxis. Further recommendations as per clinical course of the patient DVT prophylaxis: heparin GI Prophylaxis: ppi PT/OT: Pending Prognosis is guarded
[2023-07-13] MEDS ORDERED: NON FORMULARY DRUG (Evolocumab [Repatha Syringe] 140 MG/ML Each) SQ SCH (08:00)
[2023-07-13 08:29] LABS: Glucose,Whole Blood 337 mg/dL (70-110)
[2023-07-13] MEDS: TAMSULOSIN 0.4 MG CAP.ER.24H PO SCH ×2 (08:30→22:07)
[2023-07-13] MEDS: PANTOPRAZOLE 40 MG/10 ML VIAL IVP SCH (08:30)
[2023-07-13] MEDS: FERROUS SULFATE 325 MG TAB PO SCH (08:30)
[2023-07-13] MEDS: DAPAGLIFLOZIN PROPANEDIOL 10 MG TABLET PO SCH (08:30)
[2023-07-13] MEDS: DORZOLAMIDE HCL 2% DROPS 10 ML BTL BOTH EYES SCH ×2 (08:30→22:07)
[2023-07-13] MEDS: CYANOCOBALAMIN 500 MCG TAB PO SCH (08:30)
[2023-07-13] MEDS: allopurinoL 100 MG TAB PO SCH (08:30)
[2023-07-13] MEDS: METOPROLOL SUCCINATE (ER) 50 MG TAB.ER.24H PO SCH (08:30)
[2023-07-13] MEDS: INSULIN ASPART (NovoLOG) 100 UNIT/ML VIAL SQ SCH ×7 (08:43→22:07)
[2023-07-13] MEDS: INSULIN DETEMIR (LEVEMIR) 100 UNIT/ML SYR SQ SCH (08:43)
[2023-07-13] MEDS ORDERED: ALPRAZolam 0.5 MG TAB PO PRN (11:51)
[2023-07-13] MEDS ORDERED: NITROGLYCERIN SL TABS 0.4 MG TAB SUBLINGUAL PRN (11:51)
--- NOTE | 2023-07-13 12:19 | P.NPCON ---
History of Present Illness - Reason for Consult acute renal failure - History of Present Illness Patient is an 82-year-old male with history of chronic kidney disease NKF stage III a with baseline creatinine around 1.2-0.9 mg/dL. Patient is admitted to the hospital with complaints of increased shortness of breath. He denied any chest pain. Patient also has history of underlying bladder cancer and follows with urology. Chest x-ray shows pulmonary vascular congestion with bilateral pleural effusions. Patient has been started on IV Lasix. He states he is feeling better than on initial admission. Serum creatinine 1.4 on 07/13/2023. Previous creatinine 0.97 on 06/15/2022. Blood pressure is low with systolic in the 90s - 106 mmHg. Maintained on Cozaar and Lasix at home along with farxiga No urinary symptoms. Voiding on his own. Past Medical History Past Medical History: Atrial Fibrillation, Coronary Artery Disease (CAD), Cancer, Chest Pain / Angina, Heart Failure, Diabetes Mellitus, GERD/Reflux, Hyperlipidemia, Hypertension, Myocardial Infarction (CT), Osteoarthritis (OA) Additional Past Medical History / Comment(s): cardiomyopathy, gout, states some difficulty swallowing. BLADDER CANCER Last Myocardial Infarction Date:: 1991 History of Any Multi-Drug Resistant Organisms: None Reported Past Surgical History: AICD, Coronary Bypass/CABG, Heart Catheterization Additional Past Surgical History / Comment(s): DEFIBRILLATOR THRESHOLD TESTING, JOSE cataracts. 4 VESSEL Bypass 1996, AICD 2009, COLONOSCOPY, BLADDER TUMOR REMOVED Past Anesthesia/Blood Transfusion Reactions: No Reported Reaction Additional Past Anesthesia/Blood Transfusion Reaction / Comment(s): . Type of Cardiac Device: AICD Device Placement Date:: 2009 Past Psychological History: No Psychological Hx Reported Smoking Status: Former smoker Past Alcohol Use History: None Reported Additional Past Alcohol Use History / Comment(s): started smoking a in 1959,quit smoking 1996 - Past Drug Use History: None Reported - Past Family History Sister(s) Family Medical History: Cancer Mother Family Medical History: CVA/TIA Father Family Medical History: Hyperlipidemia, Hypertension, Myocardial Infarction (CT) Medications and Allergies Home Medications Medication Instructions Recorded Confirmed Type Cyanocobalamin [Vitamin B-12] 1,000 mcg PO DAILY 12/16/16 07/13/23 History allopurinoL [Zyloprim] 100 mg PO DAILY 09/15/18 07/13/23 History Dorzolamide HCl/Pf [Dorzolamide 2% 2 drop BOTH EYES BID 05/18/19 07/13/23 History Eye Drop] Evolocumab [Repatha Syringe] 140 mg SQ Q14D 04/13/22 07/13/23 History Omeprazole 20 mg PO DAILY 04/13/22 07/13/23 History Pravastatin Sodium [Pravachol] 20 mg PO HS 04/13/22 07/13/23 History Apixaban [Eliquis] 5 mg PO BID 06/11/22 07/13/23 History Insulin Aspart [NovoLOG Flexpen] 15 units SQ AC-TID 06/11/22 07/13/23 History Losartan [Cozaar] 25 mg PO DAILY 30 Days #30 tab 06/16/22 07/13/23 Rx Sotalol [Betapace] 40 mg PO BID #90 tab 06/16/22 07/13/23 Rx Ferrous Sulfate [Feosol] 325 mg PO DAILY 12/02/22 07/13/23 History Insulin Glargine [Lantus Vial] 20 unit SQ DAILY 12/02/22 07/13/23 History Metoprolol Succinate (ER) [Toprol 50 mg PO DAILY #90 tab 12/06/22 07/13/23 Rx Xl] Dapagliflozin Propanediol [Farxiga] 10 mg PO DAILY 07/13/23 07/13/23 History Furosemide [Lasix] 40 mg PO DAILY@1800 07/13/23 07/13/23 History Furosemide [Lasix] 80 mg PO DAILY 07/13/23 07/13/23 History Insulin Glargine [Lantus Vial] 18 unit SQ HS 07/13/23 07/13/23 History Tamsulosin [Flomax] 0.4 mg PO BID 07/13/23 07/13/23 History Allergies Allergy/AdvReac Type Severity Reaction Status Date / Time No Known Allergies Allergy Verified 07/13/23 07:29 Physical Exam Vitals: Vital Signs Temp Pulse Pulse Resp BP BP Pulse Ox 07/13/23 08:30 98 F 79 18 98/58 95 07/13/23 06:07 98.3 F 07/13/23 06:00 64 18 108/63 98 07/13/23 05:00 67 18 114/72 99 07/13/23 04:00 70 20 106/82 97 07/13/23 03:49 70 20 106/82 97 07/13/23 02:26 98.9 F 73 18 115/74 98 07/13/23 02:22 98.9 F 73 18 115/74 98 Intake and Output 07/12/23 07/13/23 07/13/23 22:59 06:59 14:59 Intake Total 69.667 Balance 69.667 Intake: IV 10 Invasive Line 1 10 Intake, IV Titration 59.667 Amount Heparin Sod,Pork in 0.45% 59.667 NaCl 25,000 unit In 0.45 % NaCl 1 250ml.bag @ 10. 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 Acute kidney injury mostly cardiorenal. Currently nonoliguric. Rule out urine retention. Check UA. Cozaar on hold as blood pressure is on the lower side. 2. Chronic kidney disease NKF stage IIIa with baseline creatinine 0.9-1.2 mg/dL. Check UA 3. Volume overload 4. Acute on chronic systolic CHF with EF 35-40% on echocardiogram performed on 06/11/2022. 5. History of bladder cancer. Follows with Dr. gonzales as outpatient. 6. Elevated troponin maintained on IV heparin and cardiology on consult. Plan: Continue with current dose of IV Lasix. Continue with farxiga. Continue with Cozaar with parameters as blood pressure is on the lower side. Repeat labs in a.m. Check UA Check ultrasound of the kidneys next Thank you for the consultation. We will continue to follow the patient with you during his hospitalization.
[2023-07-13] MEDS ORDERED: INSULIN ASPART (NovoLOG) 100 UNIT/ML VIAL SQ SCH (12:30)
[2023-07-13 12:33] LABS: Glucose,Whole Blood 275 mg/dL (70-110)
--- NOTE | 2023-07-13 12:49 | CA ---
Transthoracic Echo Report Name: Myron Rey Age: 82 Gender: M : 1940 Exam Date: 07/13/2023 08:47 Exam Location: [facility] Ht (in): 67 Wt (lb): 203 Ordering Physician: Raymundo Tabares MD Attending/Referring Phys: News Operations Manager Adelaide Khan RDCS Procedure CPT: Indications: chf Cardiac Hx: Hx of CABG Technical Quality: Fair Contrast 1: Definity Total Dose (mL): 2 Contrast 2: Total Dose (mL): MEASUREMENTS (Male / Female) Normal Values 2D ECHO LV Diastolic Diameter PLAX 6.2 cm 4.2 - 5.9 / 3.9 - 5.3 cm LV Systolic Diameter PLAX 5.0 cm IVS Diastolic Thickness 1.0 cm 0.6 - 1.0 / 0.6 - 0.9 cm LVPW Diastolic Thickness 1.1 cm 0.6 - 1.0 / 0.6 - 0.9 cm LV Relative Wall Thickness 0.3 RV Internal Dim ED PLAX 3.9 cm LVOT Diameter 2.4 cm LA Systolic Diameter LX 5.7 cm 3.0 - 4.0 / 2.7 - 3.8 cm MV Area Planimetry 0.0 cm??? LV Diastolic Volume MOD BP 122.6 cm??? 67 - 155 / 56 - 104 cm??? LV Systolic Volume MOD BP 103.3 cm??? 22 - 58 / 19 - 49 cm??? LV Ejection Fraction MOD BP 15.8 % >= 55 % LV Cardiac Index MOD BP 684.8 cm???/min???m??? LV Diastolic Volume MOD 4C 122.7 cm??? LV Systolic Volume MOD 4C 111.9 cm??? LV Ejection Fraction MOD 4C 8.9 % LV Cardiac Index MOD 4C 385.0 cm???/min???m??? LV Diastolic Length 4C 7.6 cm LV Systolic Length 4C 7.1 cm LV Diastolic Volume MOD 2C 114.7 cm??? LV Systolic Volume MOD 2C 88.5 cm??? LV Ejection Fraction MOD 2C 22.8 % LV Cardiac Index MOD 2C 926.9 cm???/min???m??? LV Diastolic Length 2C 7.6 cm LV Systolic Length 2C 6.6 cm LA Volume 119.8 cm??? 18 - 58 / 22 - 52 cm??? LA Volume Index 56.6 cm???/m??? 16 - 28 cm???/m??? M-MODE LV Diastolic Diameter MM 6.2 cm 4.2 - 5.9 / 3.9 - 5.3 cm LV Systolic Diameter MM 5.3 cm LV Cardiac Index MM Teich 1995.3 cm???/min???m??? IVS Diastolic Thickness MM 1.0 cm 0.6 - 1.0 / 0.6 - 0.9 cm LVPW Diastolic Thickness MM 1.4 cm 0.6 - 1.0 / 0.6 - 0.9 cm LV Relative Wall Thickness MM 0.4 0.24 - 0.42 / 0.22 - 0.42 LV Mass Index MM 164.6 g/m??? 49 - 115 / 43 - 95 g/m??? Aortic Root Diameter MM 3.5 cm MV E Point Septal Separation 1.8 cm AV Cusp Separation MM 1.3 cm DOPPLER AV Peak Velocity 342.8 cm/s AV Peak Gradient 47.0 mmHg AV Mean Velocity 244.1 cm/s AV Mean Gradient 27.1 mmHg AV Velocity Time Integral 116.1 cm LVOT Peak Velocity 64.6 cm/s LVOT Peak Gradient 1.7 mmHg AV Area Cont Eq pk 0.8 cm??? MV Peak Velocity 151.4 cm/s MV Peak Gradient 9.2 mmHg MV Mean Velocity 70.8 cm/s MV Mean Gradient 2.5 mmHg MV Velocity Time Integral 31.0 cm MV Area PHT 4.2 cm??? Mitral E Point Velocity 127.9 cm/s Mitral A Point Velocity 50.4 cm/s Mitral E to A Ratio 2.5 MV Deceleration Time 179.4 ms MV E' Velocity 6.5 cm/s Mitral E to MV E' Ratio 19.7 TR Peak Velocity 366.0 cm/s TR Peak Gradient 53.6 mmHg Right Ventricular Systolic Press 58.2 mmHg FINDINGS Left Ventricle Left ventricular ejection fraction is estimated at 20-25 %.severe global hypokinesis worse on the anterior, apical and lateral wall. Severely decreased left ventricular ejection fraction. Dilated left ventricle Right Ventricle Moderate right ventricular dilatation. Moderate to Severe pulmonary hypertension. Right ventricular systolic pressure estimated at 58 mm hg. a wire is noted in the right ventricle Right Atrium Right atrium not well visualized. Left Atrium Severely increased left atrial diameter. Severely increased left atrial volume. Moderately increased left atrial area. Mitral Valve Mitral valve thickened. Mitral annular calcification. Mild mitral regurgitation. Aortic Valve Aortic valve sclerosis. Moderate aortic stenosis with a peak gradient of 47 mmHg and a mean gradient of 27 mmHg. Tricuspid Valve Tricuspid valve not well visualized. Moderate tricuspid regurgitation. Pulmonic Valve Pulmonic valve not well visualized. Trace pulmonic regurgitation. Pericardium No pericardial effusion. Aorta Normal size aortic root and proximal ascending aorta. CONCLUSIONS 1. Severely impaired left ventricular systolic function 2. Moderate tricuspid regurgitation with moderate to severe pulmonary hypertension 3. Mild mitral regurgitation 4. Moderate aortic stenosis 5. A wire is noted in the right ventricle Previewed by: Dr. Jocelyne Turner MD (Electronically Signed) Final Date: 13 July 2023 12:48
[2023-07-13] MEDS: SOTALOL 80 MG TAB PO SCH ×2 (14:03→22:08)
--- NOTE | 2023-07-13 14:04 | US ---
EXAMINATION TYPE: US kidneys/renal and bladder DATE OF EXAM: 07/13/2023 COMPARISON: 05/20/22 CT, 05/01/22 US CLINICAL INDICATION: Male, 82 years old with history of killian; KILLIAN EXAM MEASUREMENTS: Right Kidney: 10.7x6.2x5.5 cm Left Kidney: 10.1x6.2x4.4 cm Right Kidney: 2.4x2.3x1.9cm anechoic area noted at inferior pole, several scattered hyperechoic areas noted throughout, largest measures 0.6cm Left Kidney: 0.4cm shadowing echogenic area noted Bladder: wnl Bilateral Jets seen: right jet seen There is no evidence for hydronephrosis at this point in time. No nephrolithiasis is seen. No yanira s are identified. The urinary bladder is anechoic. IMPRESSION: Nonobstructing calculus left kidney.
[2023-07-13 17:02] LABS: Glucose,Whole Blood 131 mg/dL (70-110)
[2023-07-13 20:10] LABS: Appearance,Urine Turbid (Clear); Bacteria,Urine Moderate /hpf; Bilirubin,Urine Negative (Negative); Blood,Urine Negative (Negative); Color,Urine Light Yellow; Glucose,Urine (UA) 4+ (Negative); Ketones,Urine Negative (Negative); Leukocyte Esterase,Urine Large (Negative); Mucus,Urine Rare /hpf; Nitrite,Urine Negative (Negative); Protein,Urine Trace (Negative); RBC,Urine 6 /hpf (0-5); Specific Gravity,Urine 1.016 (1.001-1.035); Squamous Epithelial Cell,Urine 1 /hpf (0-4); Urobilinogen,Urine <2.0 mg/dL (<2.0); WBC,Urine >182 /hpf (0-5)
[2023-07-13 20:11] LABS: Glucose,Whole Blood 142 mg/dL (70-110)
[2023-07-13] MEDS: FUROSEMIDE 10 MG/ML 4 ML VIAL IV SCH (22:07)
[2023-07-13] MEDS: PRAVASTATIN SODIUM 20 MG TAB PO SCH (22:07)
--- NOTE | 2023-07-13 23:53 | CONS ---
CONSULTATION HISTORY OF PRESENT ILLNESS: This is an 82-year-old gentleman with history of ischemic cardiomyopathy, previous bypass surgery, ejection fraction of about 35% or so with a history of ventricular tachycardia, status post ablation and recently in November of this year, he had an upgrade from a single-chamber ICD to a biventricular ICD. He presents to the hospital with complaints of mostly shortness of breath and nondescript chest tightness and pressure. His troponin is elevated and his clinical picture is that of congestive heart failure and non-ST elevation MA, troponin suggests it was about 1.9, it is down to 1.08. His proBNP is up to 1400. We are seeing a combination of exacerbation of systolic heart failure along with [id number] MA. Renal function is slightly abnormal. Patient at the time of my evaluation, feels better since he was diuresed, no chest discomfort. I discussed the findings in detail with Dr. Mccloud who suggested that given his elevated troponin and clinical picture, we should perform coronary angiography and then make further recommendations. We will continue him on IV heparin for now and we will hold the Eliquis. He is resting comfortably at the time of my evaluation. PAST MEDICAL HISTORY: 1. Ischemic cardiomyopathy with previous bypass surgery. 2. History of ventricular tachycardia, VT ablation, and upgraded to BiV ICD. 3. Type 2 diabetes. 4. Hypertension. 5. Hyperlipidemia. 6. History of paroxysmal atrial fibrillation, but he is maintaining sinus rhythm. PHYSICAL EXAMINATION: VITAL SIGNS: Blood pressure is 108/60, pulse rate is 70 per minute. HEENT: Unremarkable, fundus was not examined by me. NECK: Supple. There is JVD of 1 cm. No carotid bruit. HEART: Reveals S1, S2 with irregular rhythm. There is a holosystolic murmur at the apex and left sternal border. LUNGS: Bilateral fine rales over bases. ABDOMEN: Soft. EXTREMITIES: Lower extremities reveal diminished pulses. Central nervous system is normal. IMAGING: EKG revealed a sinus mechanism with ventricular paced beats. LABORATORY DATA: Suggests the troponin was up to 1.9, came down to 1.08. IMPRESSION: 1. Exacerbation of systolic heart failure in a patient with ischemic cardiomyopathy. 2. History of ventricular tachycardia with ablation and now has BiV ICD. 3. Type 2 diabetes. 4. Hyperlipidemia. 5. History of persistent atrial fibrillation. 6. [id number]-rymjwigsc MA. RECOMMENDATIONS: We will continue cautious diuresis, intravenous heparin, hold Eliquis, and proceed with cardiac catheterization. Rationale, risks, benefits, options were explained to the patient. He understands all details and wishes to proceed with the procedure. I also spoke to Dr. Mccloud. Thank you very much for the consult. MMMARYL / IJN: [id number] /
[2023-07-14] MEDS: HEPARIN SOD,PORK IN 0.45% NACL 25,000 UNIT in 0.45% NACL 1 250ML.BAG IV SCH (01:50)
[2023-07-14] MEDS: ALPRAZolam 0.25 MG TAB PO PRN (01:54)
[2023-07-14] MEDS ORDERED: FLUTICASONE 50MCG/SPRAY NASAL 16GM EA NOSTRIL PRN (02:00)
[2023-07-14 03:16] LABS: Basophils # (A) 0.1 k/uL (0-0.2); Basophils % (A) 1 %; Eosinophils # (A) 0.3 k/uL (0-0.7); Eosinophils % (A) 2 %; HCT 40.5 % (39.0-53.0); HGB 13.1 gm/dL (13.0-17.5); Lymphocytes % (A) 9 %; MCH 30.4 pg (25.0-35.0); MCHC 32.3 g/dL (31.0-37.0); Mean Platelet Volume 7.9; Monocytes # (A) 0.5 k/uL (0-1.0); Monocytes % (A) 4 %; Neutrophils # (A) 9.4 k/uL (1.3-7.7); Neutrophils % (A) 83 %; Platelet Count 167 k/uL (150-450); RBC 4.31 m/uL (4.30-5.90); RDW 14.2 % (11.5-15.5); WBC 11.4 k/uL (3.8-10.6)
[2023-07-14 03:18] LABS: INR 1.1 (<1.2); Partial Thromboplastin Time 55.5 sec (22.0-30.0); Prothrombin Time 11.9 sec (10.0-12.5)
[2023-07-14 03:45] LABS: African American GFR (CKD) 56 (>60 ml/min/1.73 sqM); Anion Gap 12 mmol/L; Blood Urea Nitrogen 39 mg/dL (9-20); Calcium 8.7 mg/dL (8.4-10.2); Carbon Dioxide 25 mmol/L (22-30); Chloride 102 mmol/L (98-107); Glucose 137 mg/dL (74-99); Non-African American GFR(CKD) 48 (>60 ml/min/1.73 sqM); Potassium 3.6 mmol/L (3.5-5.1); Sodium 139 mmol/L (137-145)
[2023-07-14 05:38] LABS: Glucose,Whole Blood 147 mg/dL (70-110)
[2023-07-14] MEDS ORDERED: ASPIRIN 325 MG TAB PO ONE (06:00)
[2023-07-14] MEDS ORDERED: ATORVASTATIN 80 MG TAB PO ONE (06:00)
[2023-07-14] MEDS ORDERED: HEPARIN SODIUM,PORCINE 10,000 UNIT in SODIUM CHLORIDE 0.9% 1,000 ML IRRIGATION PRN (07:00)
[2023-07-14] MEDS ORDERED: HEPARIN SODIUM,PORCINE (1 ML) 2,500 UNIT in SODIUM CHLORIDE 0.9% 250 ML IRRIGATION PRN (07:00)
[2023-07-14] MEDS: INSULIN DETEMIR (LEVEMIR) 100 UNIT/ML SYR SQ SCH ×2 (08:01→20:48)
[2023-07-14] MEDS: INSULIN ASPART (NovoLOG) 100 UNIT/ML VIAL SQ SCH ×7 (08:01→20:49)
[2023-07-14] MEDS: FUROSEMIDE 10 MG/ML 4 ML VIAL IV SCH (08:14)
[2023-07-14] MEDS: CYANOCOBALAMIN 500 MCG TAB PO SCH (08:14)
[2023-07-14] MEDS: FERROUS SULFATE 325 MG TAB PO SCH (08:15)
[2023-07-14] MEDS: PANTOPRAZOLE 40 MG/10 ML VIAL IVP SCH (08:15)
[2023-07-14] MEDS: allopurinoL 100 MG TAB PO SCH (08:15)
[2023-07-14] MEDS: TAMSULOSIN 0.4 MG CAP.ER.24H PO SCH ×2 (08:15→20:48)
[2023-07-14] MEDS: DORZOLAMIDE HCL 2% DROPS 10 ML BTL BOTH EYES SCH ×2 (08:15→20:47)
[2023-07-14] MEDS: SODIUM CHLORIDE 0.9% 1,000 ML IV SCH ×4 (10:21→17:59)
[2023-07-14 10:28] LABS: Basophils # (A) 0.1 k/uL (0-0.2); Basophils % (A) 1 %; Eosinophils # (A) 0.3 k/uL (0-0.7); Eosinophils % (A) 3 %; HGB 13.4 gm/dL (13.0-17.5); Lymphocytes # (A) 1.2 k/uL (1.0-4.8); Lymphocytes % (A) 12 %; MCH 30.6 pg (25.0-35.0); MCHC 32.7 g/dL (31.0-37.0); MCV 93.7 fL (80.0-100.0); Mean Platelet Volume 7.8; Monocytes # (A) 0.5 k/uL (0-1.0); Monocytes % (A) 5 %; Neutrophils # (A) 7.4 k/uL (1.3-7.7); Neutrophils % (A) 78 %; Platelet Count 182 k/uL (150-450); RBC 4.37 m/uL (4.30-5.90); RDW 13.9 % (11.5-15.5); WBC 9.5 k/uL (3.8-10.6)
[2023-07-14 11:17] LABS: African American GFR (CKD) 50 (>60 ml/min/1.73 sqM); Anion Gap 15 mmol/L; Blood Urea Nitrogen 38 mg/dL (9-20); Calcium 9.1 mg/dL (8.4-10.2); Carbon Dioxide 25 mmol/L (22-30); Chloride 102 mmol/L (98-107); Glucose 159 mg/dL (74-99); Non-African American GFR(CKD) 44 (>60 ml/min/1.73 sqM); Potassium 3.7 mmol/L (3.5-5.1); Sodium 142 mmol/L (137-145)
[2023-07-14 11:35] LABS: Glucose,Whole Blood 158 mg/dL (70-110)
[2023-07-14] MEDS: SOTALOL 80 MG TAB PO SCH ×2 (11:47→20:48)
[2023-07-14] MEDS ORDERED: fentaNYL (PF) 50 MCG/ML 2 ML AMP ONE (12:19)
[2023-07-14] MEDS ORDERED: LIDOCAINE 1% INJ 10MG/ML (20 ML MDV) ONE (12:20)
[2023-07-14] MEDS ORDERED: VERAPAMIL 2.5 MG/ML 2 ML AMP ONE (12:20)
[2023-07-14] MEDS ORDERED: MIDAZOLAM 2 MG/2 ML VIAL IVP ONE (12:35)
[2023-07-14] MEDS ORDERED: IV FLUID CONTINUATION 1,000 ML IV ONE (12:36)
[2023-07-14] MEDS ORDERED: fentaNYL (PF) 50 MCG/1 ML VIAL IVP ONE (12:36)
[2023-07-14] MEDS ORDERED: LIDOCAINE 1% INJ 10MG/ML (30 ML VIAL-PF) SQ ONE (12:36)
--- NOTE | 2023-07-14 12:36 | P.PN ---
Subjective this is a pleasant 82 yo M with past medical history of multiple medical problems who presents because of shortness of breath of one-day duration. Patient denies coughing or phlegm. Patient denies chest pain. No other GI or urinary complaints or change in his habits regarding these. He is afebrile. He denies headache dizziness weakness or numbness. He denies smoking alcohol or illicit drugs. Vitas looks stable. His creatinine is slightly elevated above baseline of 1.4, baseline 0.9-1.1. Patient sees Dr. Harris as an outpatient for his kidney disease also he follows up with for his history of urinary bladder cancer, as per patient and his been clear regarding this. He is also diabetic taking 20 units of Levemir twice daily and NovoLog 15 units with meals. He has history of bypass surgery and he follows up with Dr. Mccloud. His bypass was in 1996. He denies previous history of stents and he is currently not on aspirin or other antiplatelet at home as he states. Other labs showing unremarkable INR. He has mild leukocytosis of 14.7. Troponin is elevated 1.9. Influenza A and type B, RSV, SARS (coronavirus) are and detected His proBNP was elevated 14399. G showing ventricular paced rhythm at [address]-T changes The chest x-ray by myself and there is increased bilateral infiltrates especially in the lower zone suspicious for CHF Gram was ordered and is pending. It is on a liquid was at home and he was taken off as supposed to be twice a day. This was held on admission and started on heparin drip. A 6 CT daily and 40 at bedside and this was switched to IV Lasix 40 mg twice daily. Also he was given a one-time dose of aspirin 325 mg. 07/14/2023 Patient admitted with dyspnea and found to have acute severe cardiomyopathy most likely ischemic heart disease with ejection fraction 20-25% with moderate TR, moderate [id number] pulmonary hypertension. Troponin were significantly elevated, he is currently on aspirin 81 mg and heparin drip and the planned to undergo cardiac cath with cardiology team today. This morning patient denies chest pain, he has only mild tachypnea at rest. No other new complaints Also nephrology for follow-up with the patient for acute kidney injury on chroni c kidney disease stage III, creatinine on admission 1.4, went down to 1.3 and today 1.5. Losartan on admission was put on hold and then restarted at lower dose 25 mg daily. need to check bladder scan which was ordered and pending. On admission he was placed on IV Lasix 40 mg twice daily for acute CHF. Because of planned to undergo cardiac cath and kidney injury disease he was started on normal saline 100 mL/h by home sales service professional team. Currently no change in his breathing pattern. Renal ultrasound show nonobstructive calculus of the left kidney, patient informed. His hemoglobin A1c was elevated 7.8%, would prefer better controlled of his sugar. Admission he was on Lantus 20 units daily and 18 units at bedtime with 15 units of NovoLog with meals. Because patient is going for cardiac cath he was placed on lower dose of Levemir 10 units daily. Sugar looks controlled. blood pressure on the low side 91/54, currently on losartan 25 mg daily. Also he is on aspirin 81 mg. his urine analysis is abnormal but patient denies dysuria, urgency change in frequency, no suprapubic pain or flank pain. Most likely is abnormal UA related to his kidney stone Review of systems CONSTITUTIONAL: No fever, no malaise, no fatigue. HEENT: No recent visual problems or hearing problems. Denied any sore throat. CARDIOVASCULAR: No orthopnea, PND, no palpitations, no syncope. PULMONARY: No chest wall tenderness, no hemoptysis. GASTROINTESTINAL: No diarrhea, no nausea, no vomiting, no abdominal pain. Normoactive bowel sounds. NEUROLOGICAL: No headaches, no weakness, no numbness. Active Medications Generic Name Dose Route Start Last Admin Trade Name Freq PRN Reason Stop Dose Admin Allopurinol 100 mg 07/13/23 09:00 07/14/23 08:15 Allopurinol 100 Mg Tab PO 100 mg DAILY HEAVEN Administration Alprazolam 0.25 mg 07/13/23 11:51 07/14/23 01:54 Alprazolam 0.25 Mg Tab PO 0.25 mg Q6HR PRN Administration Mild Anxiety Alprazolam 0.5 mg 07/13/23 11:51 Alprazolam 0.5 Mg Tab PO Q6HR PRN Moderate Anxiety Cyanocobalamin 1,000 mcg 07/13/23 09:00 07/14/23 08:14 Cyanocobalamin 500 Mcg Tab PO 1,000 mcg DAILY HEAVEN Administration Dapagliflozin 10 mg 07/13/23 09:00 07/13/23 08:30 Dapagliflozin Propanediol 10 Mg Tablet PO 10 mg DAILY HEAVEN Administration Dextrose/Water 25 ml 07/13/23 07:05 Dextrose 50% Syringe 50 Ml IVP PER PROTOCOL PRN Hypoglycemia Protocol Dextrose/Water 50 ml 07/13/23 07:05 Dextrose 50% Syringe 50 Ml IVP PER PROTOCOL PRN Hypoglycemia Protocol Dorzolamide HCl 2 drops 07/13/23 09:00 07/14/23 08:15 Dorzolamide Hcl 2% Drops 10 Ml Btl BOTH EYES 2 drops BID HEAVEN Administration Ferrous Sulfate 325 mg 07/13/23 09:00 07/14/23 08:15 Ferrous Sulfate 325 Mg Tab PO 325 mg DAILY HEAVEN Administration Fluticasone Propionate 2 spray 07/14/23 02:00 07/14/23 02:02 Fluticasone 50mcg/Estero Nasal 16gm EA NOSTRIL 2 spray DAILY PRN Administration Allergy Symptoms Furosemide 40 mg 07/13/23 21:00 07/14/23 08:14 Furosemide 10 Mg/Ml 4 Ml Vial IV 40 mg Q12HR [facility]AV[facility] Administration Heparin Sodium (Porcine) 0 unit 07/13/23 04:59 Heparin Sodium 1,000 Un/Ml (10ml Vl) IV PER PROTOCOL PRN Low PTT Protocol Heparin Sodium/Sodium Chloride 250 mls @ 10 mls/hr 07/13/23 05:00 07/14/23 03:37 25,000 unit/ Sodium Chloride IV 14.86 units/kg/hr .Q24H [facility] 13.683 mls/hr Titration Protocol 10.86 UNITS/KG/HR Heparin Sodium (Porcine) 10, 1,001 mls @ 999 mls/hr 07/14/23 07:00 000 unit/ Sodium Chloride IRRIGATION 07/14/23 23:00 ONCE PRN INTRA-OP Heparin Sodium (Porcine) 2,500 250.5 mls @ 250 mls/hr 07/14/23 07:00 unit/ Sodium Chloride IRRIGATION 07/14/23 23:00 ONCE PRN INTRA-OP Sodium Chloride 1,000 mls @ 100 mls/hr 07/14/23 09:45 07/14/23 10:21 Saline 0.9% IV 100 mls/hr .Q10H [facility] Administration Insulin Aspart 0 unit 07/13/23 07:30 07/14/23 11:48 Insulin Aspart (Novolog) 100 Unit/Ml Vial SQ Not Given ACHS [facility] Protocol Insulin Aspart 15 unit 07/13/23 08:30 07/14/23 11:48 Insulin Aspart (Novolog) 100 Unit/Ml Vial SQ Not Given AC-TID [facility] Insulin Detemir 10 unit 07/13/23 09:00 07/14/23 08:01 Insulin Detemir (Levemir) 100 Unit/Ml Syr SQ Not Given DAILY@0700 [facility] Losartan Potassium 25 mg 07/14/23 09:00 Losartan 25 Mg Tab PO DAILY HEAVEN Metoprolol Succinate 50 mg 07/13/23 09:00 07/13/23 08:30 Metoprolol Succinate (Er) 50 Mg Tab.Er.24h PO 50 mg DAILY HEAVEN Administration Naloxone HCl 0.2 mg 07/13/23 04:18 Naloxone 0.4 Mg/Ml 1 Ml Vial IV Q2M PRN Opioid Reversal Nitroglycerin 0.4 mg 07/13/23 11:51 Nitroglycerin Sl Tabs 0.4 Mg Tab SUBLINGUAL Q5M PRN Chest Pain Pantoprazole Sodium 40 mg 07/13/23 09:00 07/14/23 08:15 Pantoprazole 40 Mg/10 Ml Vial IVP 40 mg DAILY HEAVEN Administration Pravastatin Sodium 20 mg 07/13/23 21:00 07/13/23 22:07 Pravastatin Sodium 20 Mg Tab PO 20 mg HS HEAVEN Administration Sotalol HCl 40 mg 07/13/23 12:00 07/14/23 11:47 Sotalol 80 Mg Tab PO Not Given BID HEAVEN Tamsulosin HCl 0.4 mg 07/13/23 09:00 07/14/23 08:15 Tamsulosin 0.4 Mg Cap.Er.24h PO 0.4 mg BID HEAVEN Administration Objective - Vital Signs Vital signs: Vital Signs Temp 97.7 F 07/14/23 12:00 Pulse 75 07/14/23 12:00 Resp 16 07/14/23 12:00 BP 91/54 07/14/23 12:00 Pulse Ox 97 07/14/23 12:00 FiO2 Intake & Output 07/13/23 07/14/23 07/14/23 18:59 06:59 18:59 Intake Total 197.667 203.384 Output Total 800 Balance -602.333 203.384 Weight 92.079 kg 93.7 kg Intake: IV 20 Invasive Line 1 20 Intake, IV Titration 59.667 203.384 Amount Heparin Sod,Pork in 0.45% 59.667 203.384 NaCl 25,000 unit In 0.45 % NaCl 1 250ml.bag @ 10. 86 UNITS/KG/HR 10 mls/hr IV .Q24H [facility] Rx#: [id number] Oral 118 Output: Urine 800 Other: Voiding Method Urinal Urinal Urinal # Voids 3 - Exam GENERAL: The patient is alert and oriented x3, not in any acute distress. Well developed, well nourished. HEENT: Pupils are round and equally reacting to light. EOMI. No scleral icterus. No conjunctival pallor. Normocephalic, atraumatic. No pharyngeal erythema. No thyromegaly. CARDIOVASCULAR: S1 and S2 present. No murmurs, rubs, or gallops. PULMONARY: Chest is clear to auscultation, no wheezing , no crackles. ABDOMEN: Soft, nontender, nondistended, normoactive bowel sounds. No palpable organomegaly. MUSCULOSKELETAL: No joint swelling or deformity. EXTREMITIES: No cyanosis, clubbing, or pedal edema. NEUROLOGICAL: Gross neurological examination did not reveal any focal deficits. SKIN: No rashes. no petechiae. - Labs CBC & Chem 7: 07/14/23 10:08 07/14/23 10:08 Labs: Abnormal Lab Results - Last 24 Hours (Table) 07/13/23 07/13/23 07/13/23 Range/Units 12:31 16:58 17:36 WBC (3.8-10.6) k/uL Neutrophils # (1.3-7.7) k/uL APTT 36.8 H (22.0-30.0) sec BUN (9-20) mg/dL Creatinine (0.66-1.25) mg/dL Glucose (74-99) mg/dL POC Glucose (mg/dL) 275 H 131 H (70-110) mg/dL Hemoglobin A1c (<=6.0) % Urine Protein (Negative) Urine Glucose (UA) (Negative) Ur Leukocyte Esterase (Negative) Urine RBC (0-5) /hpf Urine WBC (0-5) /hpf Urine WBC Clumps (None) /hpf Urine Bacteria (None) /hpf Urine Mucus (None) /hpf 07/13/23 07/13/23 07/14/23 Range/Units 19:00 20:10 02:24 WBC (3.8-10.6) k/uL Neutrophils # (1.3-7.7) k/uL APTT (22.0-30.0) sec BUN (9-20) mg/dL Creatinine (0.66-1.25) mg/dL Glucose (74-99) mg/dL POC Glucose (mg/dL) 142 H (70-110) mg/dL Hemoglobin A1c 7.8 H (<=6.0) % Urine Protein Trace H (Negative) Urine Glucose (UA) 4+ H (Negative) Ur Leukocyte Esterase Large H (Negative) Urine RBC 6 H (0-5) /hpf Urine WBC >182 H (0-5) /hpf Urine WBC Clumps Many H (None) /hpf Urine Bacteria Moderate H (None) /hpf Urine Mucus Rare H (None) /hpf 07/14/23 07/14/23 07/14/23 Range/Units 02:24 02:24 02:24 WBC 11.4 H (3.8-10.6) k/uL Neutrophils # 9.4 H (1.3-7.7) k/uL APTT 55.5 H (22.0-30.0) sec BUN 39 H (9-20) mg/dL Creatinine 1.38 H (0.66-1.25) mg/dL Glucose 137 H (74-99) mg/dL POC Glucose (mg/dL) (70-110) mg/dL Hemoglobin A1c (<=6.0) % Urine Protein (Negative) Urine Glucose (UA) (Negative) Ur Leukocyte Esterase (Negative) Urine RBC (0-5) /hpf Urine WBC (0-5) /hpf Urine WBC Clumps (None) /hpf Urine Bacteria (None) /hpf Urine Mucus (None) /hpf 07/14/23 07/14/23 07/14/23 Range/Units 05:33 10:08 10:08 WBC (3.8-10.6) k/uL Neutrophils # (1.3-7.7) k/uL APTT 48.0 H (22.0-30.0) sec BUN 38 H (9-20) mg/dL Creatinine 1.50 H (0.66-1.25) mg/dL Glucose 159 H (74-99) mg/dL POC Glucose (mg/dL) 147 H (70-110) mg/dL Hemoglobin A1c (<=6.0) % Urine Protein (Negative) Urine Glucose (UA) (Negative) Ur Leukocyte Esterase (Negative) Urine RBC (0-5) /hpf Urine WBC (0-5) /hpf Urine WBC Clumps (None) /hpf Urine Bacteria (None) /hpf Urine Mucus (None) /hpf 07/14/23 Range/Units 11:33 WBC (3.8-10.6) k/uL Neutrophils # (1.3-7.7) k/uL APTT (22.0-30.0) sec BUN (9-20) mg/dL Creatinine (0.66-1.25) mg/dL Glucose (74-99) mg/dL POC Glucose (mg/dL) 158 H (70-110) mg/dL Hemoglobin A1c (<=6.0) % Urine Protein (Negative) Urine Glucose (UA) (Negative) Ur Leukocyte Esterase (Negative) Urine RBC (0-5) /hpf Urine WBC (0-5) /hpf Urine WBC Clumps (None) /hpf Urine Bacteria (None) /hpf Urine Mucus (None) /hpf Assessment and Plan Assessment: Acute CHF exacerbation Elevated troponin suspicious for a non-STEMI Acute kidney injury on chronic kidney disease stage III Remote history of hyperthyroidism, she stopped taking hyperthyroid medication for several months now A of urinary bladder cancer and he follows up with urologist as an outpatient Paroxysmal atrial fibrillation on liquids at home. He of ventricular tachycardia on ventricular pacemaker. Obesity with BMI of 31.8. Asymptomatic bacteriuria versus abnormal urine analysis related to kidney stone. Currently patient is asymptomatic and no need for antibiotics with no fever and leukocytosis Plan: continue with heparin drip Continue with the plan by home sales service professional for cardiac cath Continue with IV Lasix twice daily, we will add fluid restriction Resume Levemir 10 units daily if he is nothing by mouth and this can be increased to 20 units twice daily if his resume his diet, this was discussed with the bedside nurse. Continue with NovoLog 15 units with meals Patient's on normal saline per cardiology team Small dose losartan 25 mg started No evidence of UTI, no need for antibiotic for now, we'll keep monitoring cardiology consult Nephrology consult Labs and medication were reviewed.. Continue same treatment. Continue with symptomatic treatment. Resume home medication. Monitor labs and vitals. DVT and GI prophylaxis. Further recommendations as per clinical course of the patient DVT prophylaxis: heparin GI Prophylaxis: ppi PT/OT: Pending total after cardiac cath Prognosis is guarded
[2023-07-14] MEDS ORDERED: IOPAMIDOL-370 100ML BTL INJ ONE ×2 (12:59→13:00)
--- NOTE | 2023-07-14 13:05 | PN ---
PROGRESS NOTE SUBJECTIVE: Mr. Rey is doing well. He has history of previous bypass surgery, came in with a [id number] [place]. He is feeling better. His creatinine is slightly elevated. OBJECTIVE: VITALS: Stable. HEART: S1, S2 heard normally. Holosystolic murmur noted. NECK: JVD elevated. LUNGS: Clear. ABDOMEN: Unchanged. EXTREMITIES: Lower extremity exam unchanged. PLAN: To continue current medications, increase activity. Cardiac cath later on today by Dr. Mccloud and subsequent management based on findings. MMODL / IJN: [id number] /
--- NOTE | 2023-07-14 13:22 | P.CARDCATH ---
Description of Procedure: PROCEDURES PERFORMED: Left heart catheterization, bilateral coronary angiography, ultrasound guided arterial access, KAUFFMAN to LAD, radial to OM1 ascending aortic angiography INDICATION: Non-STEMI CONSENT:I have discussed the risks, benefits and alternative therapies for the above-mentioned procedure and for both sedation/analgesia as well as necessary blood product administration, if indicated, as they pertain to this patient. The patient has indicated understanding and acceptance of the risks and procedures discussed. PROCEDURE: After the risks, benefits and alternatives of the above mentioned procedure explained in detail with the patient, informed consent was obtained. Patient was taken to the catheterization lab and prepped and draped in usual fashion. Ultrasound guidance was used to assess for arterial access. 1% lidocaine was used to anesthetize the right femoral artery. A 6-Swedish sheath was placed in the right femoral artery using modified Seldinger technique and ultrasound guidance. Left coronary angiography was performed with a 6-Swedish JL 4.0 catheter and right coronary angiography was performed with a 6-Swedish FR4 catheter in various views. A 6-Swedish FR4 catheter was inserted into the left ventricle and pressure measurements were obtained. KAUFFMAN to LAD and radial artery to OM 1 angiography was performed with the FR4. Ascending aortic angiography was performed with prior injection in the SMITH projection showing no other patent grafts. Given contrast threshold no intervention was recommended at this time. The right femoral angiogram showed adequate anatomy for closure and therefore a 6-Swedish Angio-Seal was placed. The patient tolerated the procedure well. Patient was transported back to the post catheterization holding area in stable condition. Conscious Sedation: Patient was monitored under the direct supervision of myself for conscious sedation using Versed and fentanyl for a total duration of 35 minutes HEMODYNAMICS: Aorta: 93/49 LV: 96/7, LVEDP 25, mild aortic stenosis with gradient of 7mmHg, likely underestimated due to low flow low gradient SELECTIVE CORONARY ARTERIOGRAPHY: LEFT MAIN: The left main is a large caliber vessel which bifurcates into the LAD and circumflex. There is distal left main 60% stenosis at the bifurcation leading into a small caliber circumflex which only feeds the AV groove circumflex. LEFT ANTERIOR DESCENDING CORONARY ARTERY: LAD is a large caliber vessel which wraps around to the apex. There is 100% ostial LAD is no cyst. LEFT CIRCUMFLEX CORONARY ARTERY: Left circumflex is a moderate caliber vessel. There is 95% proximal circumflex stenosis. RIGHT CORONARY ARTERY: The right coronary artery is a large caliber vessel which gives off a PDA and PLV branch and is the dominant vessel. There is subtotal mid RCA occlusion with right to right collaterals. KAUFFMAN to LAD: Patent with [id number] collaterals from the LAD to the RCA Radial artery to OM 1: There is distal anastomosis 95% stenosis and otherwise patent SVG to PDA, SVG to diagonal: Not visualized with aortogram not showing any other patent grafts FINAL IMPRESSION: 1. CAD as described above including left main 60%, ostial LAD 100%, proximal circumflex 95%, 100% RCA stenosis 2. Only patent grafts are KAUFFMAN to LAD, 95% stenosis radial artery to OM 1. 3. Elevated left sided filling pressures 4. Mild aortic stenosis however likely underestimated due to low flow low gradient PLAN: 1. Aggressive risk factor modification per most recent ACC/AHA guidelines. 2. RCA likely chronic and possible culprit vessel of radial to OM1. Recommend intervention however given contrast threshold we will defer to another day. Continue diuresis.
--- NOTE | 2023-07-14 13:42 | P.PN ---
Subjective Patient is seen for follow-up for acute kidney injury. Status post cardiac catheterization today with Massimo for possible intervention down the road. Blood pressure has been low with systolic in the 80s and 90s. Serum creatinine increased to 1.5 today. Patient has been voiding. No complaints today Objective - Vital Signs Vital signs: Vital Signs Temp 97.7 F 07/14/23 12:00 Pulse 75 07/14/23 12:00 Resp 16 07/14/23 12:00 BP 91/54 07/14/23 12:00 Pulse Ox 97 07/14/23 12:00 FiO2 Intake & Output 07/13/23 07/14/23 07/14/23 18:59 06:59 18:59 Intake Total 197.667 203.384 450 Output Total 800 Balance -602.333 203.384 450 Weight 92.079 kg 93.7 kg Intake: IV 20 450 Invasive Line 1 20 Intake, IV Titration 59.667 203.384 Amount Heparin Sod,Pork in 0.45% 59.667 203.384 NaCl 25,000 unit In 0.45 % NaCl 1 250ml.bag @ 10. 86 UNITS/KG/HR 10 mls/hr IV .Q24H [facility] Rx#: [id number] Oral 118 Output: Urine 800 Other: Voiding Method Urinal Urinal Urinal # Voids 3 - Exam Patient is awake, comfortable, alert oriented 3 Examination of the heart S1 and S2 Examination of the lungs bilateral breath sounds are heard Abdomen is soft nontender Examination of lower extremities shows no edema bilaterally [employer] exam grossly intact - Labs CBC & Chem 7: 07/14/23 10:08 07/14/23 10:08 Labs: Abnormal Lab Results - Last 24 Hours (Table) 07/13/23 07/13/23 07/13/23 Range/Units 16:58 17:36 19:00 WBC (3.8-10.6) k/uL Neutrophils # (1.3-7.7) k/uL APTT 36.8 H (22.0-30.0) sec BUN (9-20) mg/dL Creatinine (0.66-1.25) mg/dL Glucose (74-99) mg/dL POC Glucose (mg/dL) 131 H (70-110) mg/dL Hemoglobin A1c (<=6.0) % Urine Protein Trace H (Negative) Urine Glucose (UA) 4+ H (Negative) Ur Leukocyte Esterase Large H (Negative) Urine RBC 6 H (0-5) /hpf Urine WBC >182 H (0-5) /hpf Urine WBC Clumps Many H (None) /hpf Urine Bacteria Moderate H (None) /hpf Urine Mucus Rare H (None) /hpf 07/13/23 07/14/23 07/14/23 Range/Units 20:10 02:24 02:24 WBC 11.4 H (3.8-10.6) k/uL Neutrophils # 9.4 H (1.3-7.7) k/uL APTT (22.0-30.0) sec BUN (9-20) mg/dL Creatinine (0.66-1.25) mg/dL Glucose (74-99) mg/dL POC Glucose (mg/dL) 142 H (70-110) mg/dL Hemoglobin A1c 7.8 H (<=6.0) % Urine Protein (Negative) Urine Glucose (UA) (Negative) Ur Leukocyte Esterase (Negative) Urine RBC (0-5) /hpf Urine WBC (0-5) /hpf Urine WBC Clumps (None) /hpf Urine Bacteria (None) /hpf Urine Mucus (None) /hpf 07/14/23 07/14/23 07/14/23 Range/Units 02:24 02:24 05:33 WBC (3.8-10.6) k/uL Neutrophils # (1.3-7.7) k/uL APTT 55.5 H (22.0-30.0) sec BUN 39 H (9-20) mg/dL Creatinine 1.38 H (0.66-1.25) mg/dL Glucose 137 H (74-99) mg/dL POC Glucose (mg/dL) 147 H (70-110) mg/dL Hemoglobin A1c (<=6.0) % Urine Protein (Negative) Urine Glucose (UA) (Negative) Ur Leukocyte Esterase (Negative) Urine RBC (0-5) /hpf Urine WBC (0-5) /hpf Urine WBC Clumps (None) /hpf Urine Bacteria (None) /hpf Urine Mucus (None) /hpf 07/14/23 07/14/23 07/14/23 Range/Units 10:08 10:08 11:33 WBC (3.8-10.6) k/uL Neutrophils # (1.3-7.7) k/uL APTT 48.0 H (22.0-30.0) sec BUN 38 H (9-20) mg/dL Creatinine 1.50 H (0.66-1.25) mg/dL Glucose 159 H (74-99) mg/dL POC Glucose (mg/dL) 158 H (70-110) mg/dL Hemoglobin A1c (<=6.0) % Urine Protein (Negative) Urine Glucose (UA) (Negative) Ur Leukocyte Esterase (Negative) Urine RBC (0-5) /hpf Urine WBC (0-5) /hpf Urine WBC Clumps (None) /hpf Urine Bacteria (None) /hpf Urine Mucus (None) /hpf Assessment and Plan Assessment: 1. Acute kidney injury mostly cardiorenal. Currently nonoliguric. Serum creatinine is higher today secondary to hypotension. Patient is maintained on Cozaar but parameters are in place for holding for systolic blood pressure less than 110. Patient is also maintained on far which we can continue for now. UA shows trace protein no blood and WBCs more than 182 Cozaar on hold as blood pressure is on the lower side. 2. Chronic kidney disease NKF stage IIIa with baseline creatinine 0.9-1.2 mg/dL. 3. Volume overload 4. Acute on chronic systolic CHF with EF 35-40% on echocardiogram performed on 06/11/2022. 5. History of bladder cancer. Follows with Dr. gonzales as outpatient. 6. Elevated troponin maintained on IV heparin and cardiology on consult. Plan: May continue with farchristinaga Maintain parameters for Cozaar Decrease Lasix Repeat labs in a.m. Repeat chest x-ray in a.m.
[2023-07-14] MEDS: LOSARTAN 25 MG TAB PO SCH (14:38)
[2023-07-14] MEDS: METOPROLOL SUCCINATE (ER) 50 MG TAB.ER.24H PO SCH (14:38)
[2023-07-14 16:28] LABS: Glucose,Whole Blood 137 mg/dL (70-110)
[2023-07-14] MEDS: DAPAGLIFLOZIN PROPANEDIOL 10 MG TABLET PO SCH (16:53)
[2023-07-14 20:12] LABS: Glucose,Whole Blood 281 mg/dL (70-110)
[2023-07-14] MEDS: PRAVASTATIN SODIUM 20 MG TAB PO SCH (20:47)
[2023-07-14] MEDS: HEPARIN SODIUM,PORCINE 5,000 UNIT/ML 1 ML VIAL SQ SCH (20:47)
[2023-07-15] MEDS: ALPRAZolam 0.25 MG TAB PO PRN ×2 (01:34→21:20)
[2023-07-15 07:05] LABS: Glucose,Whole Blood 166 mg/dL (70-110)
[2023-07-15] MEDS: INSULIN ASPART (NovoLOG) 100 UNIT/ML VIAL SQ SCH ×7 (07:19→21:20)
[2023-07-15] MEDS: INSULIN DETEMIR (LEVEMIR) 100 UNIT/ML SYR SQ SCH ×2 (07:19→21:20)
--- NOTE | 2023-07-15 08:31 | XR ---
EXAMINATION TYPE: XR chest 1V DATE OF EXAM: 07/15/2023 6:40 AM CLINICAL INDICATION:Male, 82 years old with history of chf; PH[facility] COMPARISON: Chest radiographs from 07/13/2023 TECHNIQUE: XR chest 1V Frontal view of the chest. FINDINGS: Lungs/Pleura: No evidence of focal consolidation or pneumothorax. Blunting of the costophrenic angles is present. Pulmonary vascularity: Pulmonary vascular congestion. Heart/mediastinum: Cardiomediastinal silhouette is enlarged and stable. The aorta appears tortuous, a finding usually associated with either atherosclerosis or systemic hypertension. Three lead cardiac conduction device overlying the left hemithorax with lead tips projecting over the right ventricle, right atrium and coronary sinus. Musculoskeletal: No acute osseous pathology. Other findings: None IMPRESSION: Cardiomegaly, pulmonary vascular congestion and bilateral pleural effusions. Correlate with BNP for c ongestive heart failure.
[2023-07-15 08:48] LABS: Basophils % (A) 0 %; Eosinophils # (A) 0.2 k/uL (0-0.7); Eosinophils % (A) 1 %; HCT 42.6 % (39.0-53.0); HGB 13.6 gm/dL (13.0-17.5); Hypochromasia Slight; Lymphocytes # (A) 0.7 k/uL (1.0-4.8); Lymphocytes % (A) 6 %; MCH 30.5 pg (25.0-35.0); MCV 95.4 fL (80.0-100.0); Mean Platelet Volume 7.7; Monocytes # (A) 0.5 k/uL (0-1.0); Monocytes % (A) 5 %; Neutrophils # (A) 9.8 k/uL (1.3-7.7); Neutrophils % (A) 87 %; Platelet Count 197 k/uL (150-450); RBC 4.46 m/uL (4.30-5.90); WBC 11.3 k/uL (3.8-10.6)
[2023-07-15] MEDS: LOSARTAN 25 MG TAB PO SCH (08:54)
[2023-07-15] MEDS: TAMSULOSIN 0.4 MG CAP.ER.24H PO SCH ×2 (08:54→21:20)
[2023-07-15] MEDS: FERROUS SULFATE 325 MG TAB PO SCH (08:54)
[2023-07-15] MEDS: allopurinoL 100 MG TAB PO SCH (08:54)
[2023-07-15] MEDS: METOPROLOL SUCCINATE (ER) 50 MG TAB.ER.24H PO SCH (08:54)
[2023-07-15] MEDS: CYANOCOBALAMIN 500 MCG TAB PO SCH (08:55)
[2023-07-15] MEDS: HEPARIN SODIUM,PORCINE 5,000 UNIT/ML 1 ML VIAL SQ SCH (08:55)
[2023-07-15] MEDS: PANTOPRAZOLE 40 MG/10 ML VIAL IVP SCH (08:55)
[2023-07-15] MEDS: DORZOLAMIDE HCL 2% DROPS 10 ML BTL BOTH EYES SCH ×2 (08:55→21:21)
[2023-07-15] MEDS: SODIUM CHLORIDE 0.9% 1,000 ML IV SCH ×2 (08:55→14:40)
[2023-07-15] MEDS: DAPAGLIFLOZIN PROPANEDIOL 10 MG TABLET PO SCH (08:58)
[2023-07-15] MEDS: SOTALOL 80 MG TAB PO SCH ×2 (08:58→21:19)
[2023-07-15] MEDS ORDERED: FUROSEMIDE 10 MG/ML 4 ML VIAL IV SCH (09:00)
[2023-07-15 09:15] LABS: African American GFR (CKD) 46 (>60 ml/min/1.73 sqM); Anion Gap 17 mmol/L; Blood Urea Nitrogen 36 mg/dL (9-20); Carbon Dioxide 23 mmol/L (22-30); Chloride 103 mmol/L (98-107); Glucose 218 mg/dL (74-99); Non-African American GFR(CKD) 40 (>60 ml/min/1.73 sqM); Sodium 143 mmol/L (137-145)
--- NOTE | 2023-07-15 10:55 | PN ---
PROGRESS NOTE SUBJECTIVE: Mr. Rey underwent cardiac cath by Dr. Mccloud yesterday. He has significant disease in the free radial artery graft to the OM. He is going to have PCI of this vessel today. He received contrast yesterday. We will check BUN and creatinine today. He was hydrated, feels well. No chest pain or shortness of breath. OBJECTIVE: VITAL SIGNS: Stable. HEART: S1 and S2 heard normally. Systolic murmur at the apex. LUNGS: Revealed decent air entry. EXTREMITIES: Right femoral site is clean and dry with a good pulse. PLAN: Plan to continue current medications. Check BUN, creatinine, and PCI today. MMODL / IJN: [id number] /
[2023-07-15 11:50] LABS: Glucose,Whole Blood 180 mg/dL (70-110)
--- NOTE | 2023-07-15 12:01 | P.PN ---
Subjective Patient is seen for follow-up for acute kidney injury. Status post cardiac catheterization yesterday with plans for stent placement today. Blood pressure has improved. Patient is maintained on IV fluids. Serum creatinine at 1.6 today. No complaints of shortness of breath or chest pain. Objective - Vital Signs Vital signs: Vital Signs Temp 97.8 F 07/15/23 03:51 Pulse 94 07/15/23 08:43 Resp 20 07/15/23 08:43 BP 115/73 07/15/23 08:43 Pulse Ox 99 07/15/23 11:52 FiO2 Intake & Output 07/14/23 07/15/23 07/15/23 18:59 06:59 18:59 Intake Total 450 360 Output Total 450 125 Balance 0 235 Intake: IV 450 Oral 360 Output: Urine 450 125 Other: Voiding Method Urinal Toilet Toilet Urinal Urinal # Voids 1 1 1 # Bowel Movements 1 0 - Exam Patient is awake, comfortable, alert oriented 3 Examination of the heart S1 and S2 Examination of the lungs bilateral breath sounds are heard Abdomen is soft nontender Examination of lower extremities shows no edema 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 - Labs CBC & Chem 7: 07/15/23 08:21 07/15/23 08:21 Labs: Abnormal Lab Results - Last 24 Hours (Table) 07/14/23 07/14/23 07/15/23 Range/Units 16:27 19:57 07:04 WBC (3.8-10.6) k/uL Neutrophils # (1.3-7.7) k/uL Lymphocytes # (1.0-4.8) k/uL BUN (9-20) mg/dL Creatinine (0.66-1.25) mg/dL Glucose (74-99) mg/dL POC Glucose (mg/dL) 137 H 281 H 166 H (70-110) mg/dL 07/15/23 07/15/23 07/15/23 Range/Units 08:21 08:21 11:46 WBC 11.3 H (3.8-10.6) k/uL Neutrophils # 9.8 H (1.3-7.7) k/uL Lymphocytes # 0.7 L (1.0-4.8) k/uL BUN 36 H (9-20) mg/dL Creatinine 1.61 H (0.66-1.25) mg/dL Glucose 218 H (74-99) mg/dL POC Glucose (mg/dL) 180 H (70-110) mg/dL Assessment and Plan Assessment: 1. Acute kidney injury mostly cardiorenal. Currently nonoliguric. Serum creatinine is higher secondary to hypotension. Patient is maintained on Cozaar but parameters are in place for holding for systolic blood pressure less than 110. Patient is also maintained on farxiga which we can continue for now. UA shows trace protein no blood and WBCs more than 182. 2. Chronic kidney disease NKF stage IIIa with baseline creatinine 0.9-1.2 mg/dL. 3. Volume overload my improved 4. Acute on chronic systolic CHF with EF 35-40% on echocardiogram performed on 06/11/2022. 5. History of bladder cancer. Follows with Dr. gonzales as outpatient. 6. Elevated troponin maintained on IV heparin and cardiology on consult. Plan: May continue with farxiga Maintain parameters for Cozaar Hold Lasix Monitor closely for volume status as chest x-ray shows pulmonary vascular congestion but patient is clinically not in significant fluid overload. Currently maintained on IV fluids for cardiac catheterization today.
[2023-07-15 15:04] LABS: African American GFR (CKD) 51 (>60 ml/min/1.73 sqM); Albumin 3.8 g/dL (3.5-5.0); Anion Gap 12 mmol/L; Blood Urea Nitrogen 37 mg/dL (9-20); Carbon Dioxide 25 mmol/L (22-30); Chloride 105 mmol/L (98-107); Glucose 153 mg/dL (74-99); Non-African American GFR(CKD) 45 (>60 ml/min/1.73 sqM); Phosphorus 3.2 mg/dL (2.5-4.5); Sodium 142 mmol/L (137-145)
[2023-07-15 16:56] LABS: Glucose,Whole Blood 168 mg/dL (70-110)
--- NOTE | 2023-07-15 17:00 | P.PN ---
Subjective Progress Note Date: 07/15/23 82 yo M with past medical history of multiple medical problems who presents because of shortness of breath of one-day duration. Patient denies coughing or phlegm. Patient denies chest pain. No other GI or urinary complaints or change in his habits regarding these. He is afebrile. He denies headache dizziness weakness or numbness. He denies smoking alcohol or illicit drugs. Vitas looks stable. His creatinine is slightly elevated above baseline of 1.4, baseline 0.9-1.1. Patient sees Dr. Harris as an outpatient for his kidney disease also he follows up with for his history of urinary bladder cancer, as per patient and his been clear regarding this. He is also diabetic taking 20 units of Levemir twice daily and NovoLog 15 units with meals. He has history of bypass surgery and he follows up with Dr. Mccloud. His bypass was in 1996. He denies previous history of stents and he is currently not on aspirin or other antiplatelet at home as he states. Other labs showing unremarkable INR. He has mild leukocytosis of 14.7. Troponin is elevated 1.9. Influenza A and type B, RSV, SARS (coronavirus) are and detected [place] 47[address]. G showing ventricular paced rhythm at [address]-T changes The chest x-ray by myself and there is increased bilateral infiltrates especially in the lower zone suspicious for CHF Gram was ordered and is pending. It is on a liquid was at home and he was taken off as supposed to be twice a day. This was held on admission and started on heparin drip. A 6 CT daily and 40 at bedside and this was switched to IV Lasix 40 mg twice daily. Also he was given a one-time dose of aspirin 325 mg. Objective - Vital Signs Vital signs: Vital Signs Temp 98.0 F 07/15/23 12:53 Pulse 104 H 07/15/23 16:00 Resp 16 07/15/23 16:00 BP 101/67 07/15/23 16:00 Pulse Ox 96 07/15/23 16:00 FiO2 Intake & Output 07/14/23 07/15/23 07/15/23 18:59 06:59 18:59 Intake Total 450 360 Output Total 450 125 Balance 0 235 Intake: IV 450 Oral 360 Output: Urine 450 125 Other: Voiding Method Urinal Toilet Toilet Urinal Urinal # Voids 1 1 1 # Bowel Movements 1 0 - Exam GENERAL: The patient is alert and oriented x3, not in any acute distress. Well developed, well nourished. HEENT: Pupils are round and equally reacting to light. EOMI. No scleral icterus. No conjunctival pallor. Normocephalic, atraumatic. No pharyngeal erythema. No thyromegaly. CARDIOVASCULAR: S1 and S2 present. No murmurs, rubs, or gallops. PULMONARY: Chest is clear to auscultation, no wheezing , no crackles. ABDOMEN: Soft, nontender, nondistended, normoactive bowel sounds. No palpable or ganomegaly. MUSCULOSKELETAL: No joint swelling or deformity. EXTREMITIES: No cyanosis, clubbing, or pedal edema. NEUROLOGICAL: Gross neurological examination did not reveal any focal deficits. SKIN: No rashes. no petechiae. - Labs CBC & Chem 7: 07/15/23 08:21 07/15/23 14:36 Labs: Abnormal Lab Results - Last 24 Hours (Table) 07/14/23 07/15/23 07/15/23 Range/Units 19:57 07:04 08:21 WBC 11.3 H (3.8-10.6) k/uL Neutrophils # 9.8 H (1.3-7.7) k/uL Lymphocytes # 0.7 L (1.0-4.8) k/uL BUN (9-20) mg/dL Creatinine (0.66-1.25) mg/dL Glucose (74-99) mg/dL POC Glucose (mg/dL) 281 H 166 H (70-110) mg/dL 07/15/23 07/15/23 07/15/23 Range/Units 08:21 11:46 14:36 WBC (3.8-10.6) k/uL Neutrophils # (1.3-7.7) k/uL Lymphocytes # (1.0-4.8) k/uL BUN 36 H 37 H (9-20) mg/dL Creatinine 1.61 H 1.47 H (0.66-1.25) mg/dL Glucose 218 H 153 H (74-99) mg/dL POC Glucose (mg/dL) 180 H (70-110) mg/dL 07/15/23 Range/Units 16:54 WBC (3.8-10.6) k/uL Neutrophils # (1.3-7.7) k/uL Lymphocytes # (1.0-4.8) k/uL BUN (9-20) mg/dL Creatinine (0.66-1.25) mg/dL Glucose (74-99) mg/dL POC Glucose (mg/dL) 168 H (70-110) mg/dL Assessment and Plan Assessment: Acute CHF exacerbation Elevated troponin suspicious for a non-STEMI Acute kidney injury on chronic kidney disease stage III Remote history of hyperthyroidism, she stopped taking hyperthyroid medication for several months now A of urinary bladder cancer and he follows up with urologist as an outpatient Paroxysmal atrial fibrillation on liquids at home. He of ventricular tachycardia on ventricular pacemaker. Obesity with BMI of 31.8. Asymptomatic bacteriuria versus abnormal urine analysis related to kidney stone. Currently patient is asymptomatic and no need for antibiotics with no fever and leukocytosis Plan: continue with heparin drip Continue with the plan by machine assistant for cardiac cath Continue with IV Lasix twice daily, we will add fluid restriction Resume Levemir 10 units daily if he is nothing by mouth and this can be increased to 20 units twice daily if his resume his diet, this was discussed with the bedside nurse. Continue with NovoLog 15 units with meals Patient's on normal saline per cardiology team Small dose losartan 25 mg started No evidence of UTI, no need for antibiotic for now, we'll keep monitoring cardiology consult Nephrology consult Labs and medication were reviewed.. Continue same treatment. Continue with symptomatic treatment. Resume home medication. Monitor labs and vitals. DVT and GI prophylaxis. Further recommendations as per clinical course of the patient DVT prophylaxis: heparin GI Prophylaxis: ppi PT/OT: Pending total after cardiac cath
[2023-07-15] MEDS ORDERED: HEPARIN SODIUM 1,000 UN/ML (10ML VL) IV PRN (17:14)
[2023-07-15] MEDS ORDERED: HEPARIN SODIUM 1,000 UN/ML (10ML VL) IV ONE (17:14)
[2023-07-15] MEDS: HEPARIN SOD,PORK IN 0.45% NACL 25,000 UNIT in 0.45% NACL 1 250ML.BAG IV SCH (17:41)
[2023-07-15 20:14] LABS: Glucose,Whole Blood 255 mg/dL (70-110)
[2023-07-15] MEDS: PRAVASTATIN SODIUM 20 MG TAB PO SCH (21:20)
[2023-07-16 06:04] LABS: Glucose,Whole Blood 135 mg/dL (70-110)
[2023-07-16] MEDS: INSULIN ASPART (NovoLOG) 100 UNIT/ML VIAL SQ SCH ×7 (06:10→21:29)
[2023-07-16] MEDS: INSULIN DETEMIR (LEVEMIR) 100 UNIT/ML SYR SQ SCH ×2 (06:41→21:29)
[2023-07-16 08:10] LABS: Basophils % (A) 0 %; Eosinophils # (A) 0.3 k/uL (0-0.7); Eosinophils % (A) 3 %; HCT 40.3 % (39.0-53.0); HGB 12.8 gm/dL (13.0-17.5); Hypochromasia Slight; Lymphocytes # (A) 0.9 k/uL (1.0-4.8); Lymphocytes % (A) 9 %; MCH 30.4 pg (25.0-35.0); MCHC 31.9 g/dL (31.0-37.0); MCV 95.6 fL (80.0-100.0); Mean Platelet Volume 7.6; Monocytes # (A) 0.6 k/uL (0-1.0); Monocytes % (A) 6 %; Neutrophils # (A) 8.2 k/uL (1.3-7.7); Neutrophils % (A) 81 %; Platelet Count 175 k/uL (150-450); RBC 4.21 m/uL (4.30-5.90); RDW 13.9 % (11.5-15.5); WBC 10.1 k/uL (3.8-10.6)
[2023-07-16] MEDS: CYANOCOBALAMIN 500 MCG TAB PO SCH (08:46)
[2023-07-16] MEDS: PANTOPRAZOLE 40 MG/10 ML VIAL IVP SCH (08:46)
[2023-07-16] MEDS: DORZOLAMIDE HCL 2% DROPS 10 ML BTL BOTH EYES SCH ×2 (08:47→21:29)
[2023-07-16] MEDS: FERROUS SULFATE 325 MG TAB PO SCH (08:47)
[2023-07-16] MEDS: LOSARTAN 25 MG TAB PO SCH (08:47)
[2023-07-16] MEDS: allopurinoL 100 MG TAB PO SCH (08:47)
[2023-07-16] MEDS: DAPAGLIFLOZIN PROPANEDIOL 10 MG TABLET PO SCH (08:47)
[2023-07-16] MEDS: TAMSULOSIN 0.4 MG CAP.ER.24H PO SCH ×2 (08:47→21:29)
[2023-07-16] MEDS: METOPROLOL SUCCINATE (ER) 50 MG TAB.ER.24H PO SCH (08:47)
[2023-07-16 08:52] LABS: African American GFR (CKD) 45 (>60 ml/min/1.73 sqM); Anion Gap 12 mmol/L; Blood Urea Nitrogen 44 mg/dL (9-20); Calcium 8.7 mg/dL (8.4-10.2); Carbon Dioxide 22 mmol/L (22-30); Chloride 105 mmol/L (98-107); Glucose 194 mg/dL (74-99); Non-African American GFR(CKD) 39 (>60 ml/min/1.73 sqM); Potassium 3.7 mmol/L (3.5-5.1); Sodium 139 mmol/L (137-145)
[2023-07-16] MEDS ORDERED: FUROSEMIDE 40 MG TAB PO SCH (09:00)
--- NOTE | 2023-07-16 10:46 | P.PN ---
Subjective Patient is seen for follow-up for acute kidney injury. Status post cardiac catheterization on 07/14/2023 with plans for stent placement which was not done yesterday. . Patient is status post IV fluids. Serum creatinine at 1.6 today. No complaints of shortness of breath or chest pain. Blood pressure remains low. No significant symptoms. Good urine output. Objective - Vital Signs Vital signs: Vital Signs Temp 98.0 F 07/16/23 04:00 Pulse 82 07/16/23 04:00 Resp 16 07/16/23 04:00 BP 98/57 07/16/23 04:00 Pulse Ox 98 07/16/23 08:46 FiO2 Intake & Output 07/15/23 07/16/23 07/16/23 18:59 06:59 18:59 Intake Total 480 300.988 120 Output Total 825 400 Balance -345 -99.012 120 Intake: Intake, IV Titration 60.988 Amount Heparin Sod,Pork in 0.45% 60.988 NaCl 25,000 unit In 0.45 % NaCl 1 250ml.bag @ 10. 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 - Labs CBC & Chem 7: 07/16/23 07:57 07/16/23 07:57 Labs: Abnormal Lab Results - Last 24 Hours (Table) 07/15/23 07/15/23 07/15/23 Range/Units 11:46 14:36 16:54 RBC (4.30-5.90) m/uL Hgb (13.0-17.5) gm/dL Neutrophils # (1.3-7.7) k/uL Lymphocytes # (1.0-4.8) k/uL APTT (22.0-30.0) sec BUN 37 H (9-20) mg/dL Creatinine 1.47 H (0.66-1.25) mg/dL Glucose 153 H (74-99) mg/dL POC Glucose (mg/dL) 180 H 168 H (70-110) mg/dL 07/15/23 07/15/23 07/16/23 Range/Units 20:12 23:03 06:01 RBC (4.30-5.90) m/uL Hgb (13.0-17.5) gm/dL Neutrophils # (1.3-7.7) k/uL Lymphocytes # (1.0-4.8) k/uL APTT 40.0 H (22.0-30.0) sec BUN (9-20) mg/dL Creatinine (0.66-1.25) mg/dL Glucose (74-99) mg/dL POC Glucose (mg/dL) 255 H 135 H (70-110) mg/dL 07/16/23 07/16/23 07/16/23 Range/Units 07:57 07:57 07:57 RBC 4.21 L (4.30-5.90) m/uL Hgb 12.8 L (13.0-17.5) gm/dL Neutrophils # 8.2 H (1.3-7.7) k/uL Lymphocytes # 0.9 L (1.0-4.8) k/uL APTT 41.7 H (22.0-30.0) sec BUN 44 H (9-20) mg/dL Creatinine 1.65 H (0.66-1.25) mg/dL Glucose 194 H (74-99) mg/dL POC Glucose (mg/dL) (70-110) mg/dL Assessment and Plan Assessment: 1. Acute kidney injury mostly cardiorenal. Currently nonoliguric. Serum creatinine is higher secondary to hypotension. Patient is maintained on Cozaar but parameters are in place for holding for systolic blood pressure less than 110. Patient is also maintained on farxiga which we can continue for now. UA shows trace protein no blood and WBCs more than 182. Status post IV fluids. 2. Chronic kidney disease NKF stage IIIa with baseline creatinine 0.9-1.2 mg/dL. 3. Volume overload my improved 4. Acute on chronic systolic CHF with EF 35-40% on echocardiogram performed on 06/11/2022. 5. History of bladder cancer. Follows with Dr. gonzales as outpatient. 6. Elevated troponin maintained on IV heparin and cardiology on consult. Plan: May continue with adelita Maintain parameters for Cozab[place]ool Patient can be discharged from nephrology standpoint. I would hold the Cozaar as patient will not be able to monitor his blood pressure accurately as outpatient and it is low with systolic in the 90s.
[2023-07-16 11:23] LABS: Glucose,Whole Blood 258 mg/dL (70-110)
[2023-07-16] MEDS: SOTALOL 80 MG TAB PO SCH (12:45)
--- NOTE | 2023-07-16 15:10 | P.PN ---
Subjective Progress Note Date: 07/16/23 82 yo M with past medical history of multiple medical problems who presents because of shortness of breath of one-day duration. Patient denies coughing or phlegm. Patient denies chest pain. No other GI or urinary complaints or change in his habits regarding these. He is afebrile. He denies headache dizziness weakness or numbness. He denies smoking alcohol or illicit drugs. Vitas looks stable. His creatinine is slightly elevated above baseline of 1.4, baseline 0.9-1.1. Patient sees Dr. Harris as an outpatient for his kidney disease also he follows up with for his history of urinary bladder cancer, as per patient and his been clear regarding this. He is also diabetic taking 20 units of Levemir twice daily and NovoLog 15 units with meals. He has history of bypass surgery and he follows up with Dr. Mccloud. His bypass was in 1996. He denies previous history of stents and he is currently not on aspirin or other antiplatelet at home as he states. Other labs showing unremarkable INR. He has mild leukocytosis of 14.7. Troponin is elevated 1.9. Influenza A and type B, RSV, SARS (coronavirus) are and detected His proBNP was [place] 26947. G showing ventricular paced rhythm at [address]-T changes The chest x-ray by myself and there is increased bilateral infiltrates especially in the lower zone suspicious for CHF Gram was ordered and is pending. It is on a liquid was at home and he was taken off as supposed to be twice a day. This was held on admission and started on heparin drip. A 6 CT daily and 40 at bedside and this was switched to IV Lasix 40 mg twice daily. Also he was given a one-time dose of aspirin 325 mg. 24 hour interval change 07/16/2023 Patient is seen and evaluated resting comfortably in bed; denies any complaint of chest pain or shortness of breath Vital signs are reviewed and stable with temperature of 98, pulse 82, respirations 16 and blood pressure of 98/57 Lab review shows WBC of 10.1, hemoglobin 12.8 and platelet count of 175, sodium 139, potassium 2.7, BUN/creatinine of 44/1.65 and blood glucose of 194 Serum creatinine is higher secondary to hypotension. Patient is maintained on Cozaar but parameters are in place for holding for systolic blood pressure less than 110. Patient is also maintained on farxiga which we can continue for now. UA shows trace protein no blood and WBCs more than 182. Status post IV fluids. Patient remains stable and could be discharged per nephrology Objective - Vital Signs Vital signs: Vital Signs Temp 98.0 F 07/16/23 04:00 Pulse 82 07/16/23 04:00 Resp 16 07/16/23 04:00 BP 98/57 07/16/23 04:00 Pulse Ox 98 07/16/23 08:46 FiO2 Intake & Output 07/15/23 07/16/23 07/16/23 18:59 06:59 18:59 Intake Total 480 300.988 120 Output Total 825 400 Balance -345 -99.012 120 Intake: Intake, IV Titration 60.988 Amount Heparin Sod,Pork in 0.45% 60.988 NaCl 25,000 unit In 0.45 % NaCl 1 250ml.bag @ 10. 67 UNITS/KG/HR 9.998 mls/ hr IV .Q24H [facility] Rx#: [id number] Oral 480 240 120 Output: Urine 825 400 Other: Voiding Method Toilet Toilet Urinal Urinal # Voids 1 2 # Bowel Movements 0 - Exam GENERAL: The patient is alert and oriented x3, not in any acute distress. Well developed, well nourished. HEENT: Pupils are round and equally reacting to light. EOMI. No scleral icterus. No conjunctival pallor. Normocephalic, atraumatic. No pharyngeal erythema. No thyromegaly. CARDIOVASCULAR: S1 and S2 present. No murmurs, rubs, or gallops. PULMONARY: Chest is clear to auscultation, no wheezing , no crackles. ABDOMEN: Soft, nontender, nondistended, normoactive bowel sounds. No palpable organomegaly. MUSCULOSKELETAL: No joint swelling or deformity. EXTREMITIES: No cyanosis, clubbing, or pedal edema. NEUROLOGICAL: Gross neurological examination did not reveal any focal deficits. SKIN: No rashes. no petechiae. - Labs CBC & Chem 7: 07/16/23 07:57 07/16/23 07:57 Labs: Abnormal Lab Results - Last 24 Hours (Table) 07/15/23 07/15/23 07/15/23 Range/Units 11:46 14:36 16:54 RBC (4.30-5.90) m/uL Hgb (13.0-17.5) gm/dL Neutrophils # (1.3-7.7) k/uL Lymphocytes # (1.0-4.8) k/uL APTT (22.0-30.0) sec BUN 37 H (9-20) mg/dL Creatinine 1.47 H (0.66-1.25) mg/dL Glucose 153 H (74-99) mg/dL POC Glucose (mg/dL) 180 H 168 H (70-110) mg/dL 07/15/23 07/15/23 07/16/23 Range/Units 20:12 23:03 06:01 RBC (4.30-5.90) m/uL Hgb (13.0-17.5) gm/dL Neutrophils # (1.3-7.7) k/uL Lymphocytes # (1.0-4.8) k/uL APTT 40.0 H (22.0-30.0) sec BUN (9-20) mg/dL Creatinine (0.66-1.25) mg/dL Glucose (74-99) mg/dL POC Glucose (mg/dL) 255 H 135 H (70-110) mg/dL 07/16/23 07/16/23 07/16/23 Range/Units 07:57 07:57 07:57 RBC 4.21 L (4.30-5.90) m/uL Hgb 12.8 L (13.0-17.5) gm/dL Neutrophils # 8.2 H (1.3-7.7) k/uL Lymphocytes # 0.9 L (1.0-4.8) k/uL APTT 41.7 H (22.0-30.0) sec BUN 44 H (9-20) mg/dL Creatinine 1.65 H (0.66-1.25) mg/dL Glucose 194 H (74-99) mg/dL POC Glucose (mg/dL) (70-110) mg/dL Assessment and Plan Assessment: Acute CHF exacerbation Elevated troponin suspicious for a non-STEMI Acute kidney injury on chronic kidney disease stage III Remote history of hyperthyroidism, she stopped taking hyperthyroid medication for several months now A of urinary bladder cancer and he follows up with urologist as an outpatient Paroxysmal atrial fibrillation on liquids at home. He of ventricular tachycardia on ventricular pacemaker. Obesity with BMI of 31.8. Asymptomatic bacteriuria versus abnormal urine analysis related to kidney stone. Currently patient is asymptomatic and no need for antibiotics with no fever and leukocytosis Plan: continue with heparin drip Continue with the plan by tax services specialist for cardiac cath Continue with IV Lasix twice daily, we will add fluid restriction Resume Levemir 10 units daily if he is nothing by mouth and this can be increased to 20 units twice daily if his resume his diet, this was discussed with the bedside nurse. Continue with NovoLog 15 units with meals Patient's on normal saline per cardiology team Small dose losartan 25 mg started No evidence of UTI, no need for antibiotic for now, we'll keep monitoring cardiology consult Nephrology consult Labs and medication were reviewed.. Continue same treatment. Continue with symptomatic treatment. Resume home medication. Monitor labs and vitals. DVT and GI prophylaxis. Further recommendations as per clinical course of the patient DVT prophylaxis: heparin GI Prophylaxis: ppi PT/OT: Pending total after cardiac cath
--- NOTE | 2023-07-16 15:34 | P.PN ---
Subjective Progress Note Date: 07/16/23 The patient is an 82-year-old male who is admitted to the hospital for non-ST elevated myocardial infarction and exacerbation of heart failure. He underwent coronary angiogram where he was found to have a 60% left main, 100% ostial LAD, 95% oxygen will circumflex and 100% RCA stenosis with patent KAUFFMAN to LAD. 95% stenosis of radial the OM1. Plan was to return to the OR for stenting of radial to OM1 with Dr. Mccloud, however the patient had a rising creatinine level. The patient was interviewed and examined sitting comfortably in bed. He states he does feel short of breath with exertional activity but he denies any current chest discomfort. GENERAL: Well-appearing, well-nourished and in no acute distress. NECK: Supple without JVD or thyromegaly. LUNGS: Breath sounds clear to auscultation bilaterally. Respiration equal and unlabored. Fine crackles in the bases. HEART: Irregular rate and rhythm without murmurs, rubs or gallops. S1 and S2 heard. EXTREMITIES: Normal range of motion, no edema. No clubbing or cyanosis. Peripheral pulses intact and strong. TELEMETRY: Atrial fibrillation LABS: Sodium 139, potassium 3.7, BUN 44, creatinine 1.65 IMPRESSION: Non-ST elevated myocardial infarction Congestive heart failure Ischemic cardiomyopathy Paroxysmal atrial fibrillation Type 2 diabetes Sick sinus syndrome History of ventricular tachycardia Chronic kidney disease PLAN: Continue IV heparin Continue diuresis Discontinue sotalol as the patient is in atrial fibrillation Increase beta colt Check BMP tomorrow Further recommendations based on clinical course I am dictating on behalf of Dr Cuco Gallardo's history/physical and assessment/plan. Objective - Vital Signs Vital signs: Vital Signs Temp 97.6 F 07/16/23 08:00 Pulse 77 07/16/23 14:00 Resp 16 07/16/23 14:00 BP 85/50 07/16/23 12:00 Pulse Ox 98 07/16/23 12:00 FiO2 Intake & Output 07/15/23 07/16/23 07/16/23 18:59 06:59 18:59 Intake Total 480 300.988 340 Output Total 825 400 Balance -345 -99.012 340 Intake: Intake, IV Titration 60.988 100 Amount Heparin Sod,Pork in 0.45% 60.988 NaCl 25,000 unit In 0.45 % NaCl 1 250ml.bag @ 10. 67 UNITS/KG/HR 9.998 mls/ hr IV .Q24H [facility] Rx#: [id number] Sodium Chloride 0.9% 1, 100 000 ml @ 100 mls/hr IV . Q10H [facility] Rx#:[id number] Oral 480 240 240 Output: Urine 825 400 Other: Voiding Method Toilet Toilet Toilet Urinal Urinal Urinal # Voids 1 2 # Bowel Movements 0 - Labs CBC & Chem 7: 07/16/23 07:57 07/16/23 07:57 Labs: Abnormal Lab Results - Last 24 Hours (Table) 07/15/23 07/15/23 07/15/23 Range/Units 16:54 20:12 23:03 RBC (4.30-5.90) m/uL Hgb (13.0-17.5) gm/dL Neutrophils # (1.3-7.7) k/uL Lymphocytes # (1.0-4.8) k/uL APTT 40.0 H (22.0-30.0) sec BUN (9-20) mg/dL Creatinine (0.66-1.25) mg/dL Glucose (74-99) mg/dL POC Glucose (mg/dL) 168 H 255 H (70-110) mg/dL 07/16/23 07/16/23 07/16/23 Range/Units 06:01 07:57 07:57 RBC 4.21 L (4.30-5.90) m/uL Hgb 12.8 L (13.0-17.5) gm/dL Neutrophils # 8.2 H (1.3-7.7) k/uL Lymphocytes # 0.9 L (1.0-4.8) k/uL APTT (22.0-30.0) sec BUN 44 H (9-20) mg/dL Creatinine 1.65 H (0.66-1.25) mg/dL Glucose 194 H (74-99) mg/dL POC Glucose (mg/dL) 135 H (70-110) mg/dL 07/16/23 07/16/23 Range/Units 07:57 11:21 RBC (4.30-5.90) m/uL Hgb (13.0-17.5) gm/dL Neutrophils # (1.3-7.7) k/uL Lymphocytes # (1.0-4.8) k/uL APTT 41.7 H (22.0-30.0) sec BUN (9-20) mg/dL Creatinine (0.66-1.25) mg/dL Glucose (74-99) mg/dL POC Glucose (mg/dL) 258 H (70-110) mg/dL
[2023-07-16 16:29] LABS: Glucose,Whole Blood 123 mg/dL (70-110)
[2023-07-16] MEDS: HEPARIN SOD,PORK IN 0.45% NACL 25,000 UNIT in 0.45% NACL 1 250ML.BAG IV SCH (16:55)
[2023-07-16 18:49] LABS: Appearance,Urine Turbid (Clear); Bacteria,Urine Many /hpf; Bilirubin,Urine Negative (Negative); Blood,Urine Small (Negative); Glucose,Urine (UA) 2+ (Negative); Ketones,Urine Negative (Negative); Leukocyte Esterase,Urine Large (Negative); Mucus,Urine Few /hpf; Nitrite,Urine Negative (Negative); PH, Urine 5.5 (5.0-8.0); Protein,Urine 2+ (Negative); RBC,Urine 9 /hpf (0-5); Urobilinogen,Urine <2.0 mg/dL (<2.0); WBC,Urine >182 /hpf (0-5)
[2023-07-16 19:11] LABS: Color,Urine Light Orange
[2023-07-16 20:11] LABS: Glucose,Whole Blood 198 mg/dL (70-110)
[2023-07-16] MEDS: PRAVASTATIN SODIUM 20 MG TAB PO SCH (21:29)
[2023-07-16] MEDS: ALPRAZolam 0.25 MG TAB PO PRN (21:29)
[2023-07-17 06:12] LABS: Glucose,Whole Blood 129 mg/dL (70-110)
[2023-07-17] MEDS: INSULIN ASPART (NovoLOG) 100 UNIT/ML VIAL SQ SCH ×7 (06:19→20:21)
[2023-07-17] MEDS: INSULIN DETEMIR (LEVEMIR) 100 UNIT/ML SYR SQ SCH ×2 (06:35→20:21)
[2023-07-17 08:05] LABS: Partial Thromboplastin Time 37.1 sec (22.0-30.0); Prothrombin Time 11.1 sec (10.0-12.5)
[2023-07-17] MEDS: TAMSULOSIN 0.4 MG CAP.ER.24H PO SCH ×2 (08:12→20:21)
[2023-07-17] MEDS: DAPAGLIFLOZIN PROPANEDIOL 10 MG TABLET PO SCH (08:12)
[2023-07-17] MEDS: allopurinoL 100 MG TAB PO SCH (08:12)
[2023-07-17] MEDS: FERROUS SULFATE 325 MG TAB PO SCH (08:12)
[2023-07-17] MEDS: CYANOCOBALAMIN 500 MCG TAB PO SCH (08:13)
[2023-07-17] MEDS: PANTOPRAZOLE 40 MG/10 ML VIAL IVP SCH (08:13)
[2023-07-17] MEDS: DORZOLAMIDE HCL 2% DROPS 10 ML BTL BOTH EYES SCH ×2 (08:14→20:26)
[2023-07-17] MEDS: METOPROLOL SUCCINATE (ER) 25 MG TAB.ER.24H PO SCH (08:15)
[2023-07-17] MEDS: LOSARTAN 25 MG TAB PO SCH (08:15)
[2023-07-17] MEDS: HEPARIN SOD,PORK IN 0.45% NACL 25,000 UNIT in 0.45% NACL 1 250ML.BAG IV SCH (11:03)
--- NOTE | 2023-07-17 11:06 | P.PN ---
Subjective Patient is seen for follow-up for acute kidney injury. Status post cardiac catheterization on 07/14/2023 with plans for stent placement which was not done as creatinine remained elevated.. Patient is status post IV fluids. Serum creatinine at 1.6 yesterday. No complaints of shortness of breath or chest pain. Blood pressure remains low. No significant symptoms. Good urine output. Objective - Vital Signs Vital signs: Vital Signs Temp 97.4 F L 07/17/23 08:00 Pulse 97 07/17/23 08:00 Resp 18 07/17/23 08:00 BP 94/59 07/17/23 08:00 Pulse Ox 98 07/17/23 08:51 FiO2 Intake & Output 07/16/23 07/17/23 07/17/23 18:59 06:59 18:59 Intake Total 649.012 580.495 Output Total 225 350 Balance 424.012 -350 580.495 Weight 95.8 kg Intake: Intake, IV Titration 289.012 220.495 Amount Heparin Sod,Pork in 0.45% 189.012 220.495 NaCl 25,000 unit In 0.45 % NaCl 1 250ml.bag @ 10. 67 UNITS/KG/HR 9.998 mls/ hr IV .Q24H [facility] Rx#: [id number] Sodium Chloride 0.9% 1, 100 000 ml @ 100 mls/hr IV . 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 exam grossly intact - Labs CBC & Chem 7: 07/16/23 07:57 07/16/23 07:57 Labs: Abnormal Lab Results - Last 24 Hours (Table) 07/16/23 07/16/23 07/16/23 Range/Units 11:21 16:27 18:24 APTT (22.0-30.0) sec POC Glucose (mg/dL) 258 H 123 H (70-110) mg/dL Urine Protein 2+ H (Negative) Urine Glucose (UA) 2+ H (Negative) Urine Blood Small H (Negative) Ur Leukocyte Esterase Large H (Negative) Urine RBC 9 H (0-5) /hpf Urine WBC >182 H (0-5) /hpf Urine WBC Clumps Many H (None) /hpf Urine Bacteria Many H (None) /hpf Urine Mucus Few H (None) /hpf 07/16/23 07/17/23 07/17/23 Range/Units 20:10 06:09 07:09 APTT 37.1 H (22.0-30.0) sec POC Glucose (mg/dL) 198 H 129 H (70-110) mg/dL Urine Protein (Negative) Urine Glucose (UA) (Negative) Urine Blood (Negative) Ur Leukocyte Esterase (Negative) Urine RBC (0-5) /hpf Urine WBC (0-5) /hpf Urine WBC Clumps (None) /hpf Urine Bacteria (None) /hpf Urine Mucus (None) /hpf Assessment and Plan Assessment: 1. Acute kidney injury mostly cardiorenal. Currently nonoliguric. Serum creatinine is higher secondary to hypotension. Patient is maintained on Cozaar but parameters are in place for holding for systolic blood pressure less than 110. Patient is also maintained on farxiga which we can continue for now. UA shows trace protein no blood and WBCs more than 182. Status post IV fluids. 2. Chronic kidney disease NKF stage IIIa with baseline creatinine 0.9-1.2 mg/dL. 3. Volume overload, improved 4. Acute on chronic systolic CHF with EF 35-40% on echocardiogram performed on 06/11/2022. 5. History of bladder cancer. Follows with Dr. gonzales as outpatient. 6. Elevated troponin maintained on IV heparin and cardiology on consult. Plans for cardiac catheterization and stent placement Plan: May continue with farxiga Maintain parameters for Cozaar Agree with urine culture given the significant pyuria and hypotension.
[2023-07-17 11:23] LABS: African American GFR (CKD) 45 (>60 ml/min/1.73 sqM); Anion Gap 13 mmol/L; Blood Urea Nitrogen 47 mg/dL (9-20); Calcium 8.7 mg/dL (8.4-10.2); Carbon Dioxide 20 mmol/L (22-30); Chloride 105 mmol/L (98-107); Glucose 112 mg/dL (74-99); Non-African American GFR(CKD) 39 (>60 ml/min/1.73 sqM); Potassium 3.9 mmol/L (3.5-5.1); Sodium 138 mmol/L (137-145)
[2023-07-17 11:40] LABS: Glucose,Whole Blood 243 mg/dL (70-110)
--- NOTE | 2023-07-17 13:24 | P.PN ---
Subjective Progress Note Date: 07/17/23 The patient is an 82-year-old male who is admitted to the hospital for non-ST elevated myocardial infarction and exacerbation of heart failure. He underwent coronary angiogram where he was found to have a 60% left main, 100% ostial LAD, 95% oxygen will circumflex and 100% RCA stenosis with patent KAUFFMAN to LAD. 95% stenosis of radial the OM1. Plan was to return to the OR for stenting of radial to OM1 with Dr. Mccloud, however the patient had a rising creatinine level. Procedure will be delayed until Tuesday. The patient was interviewed and examined lying comfortably in bed. He denies any orthopnea or shortness of breath at rest. He states he has not been up ambulating in today. No current chest pain or chest pressure. GENERAL: Well-appearing, well-nourished and in no acute distress. NECK: Supple without JVD or thyromegaly. LUNGS: Breath sounds diminished to auscultation bilaterally. Respiration equal and unlabored. Fine crackles in the bases. HEART: Irregular rate and rhythm without murmurs, rubs or gallops. S1 and S2 heard. EXTREMITIES: Normal range of motion, no edema. No clubbing or cyanosis. Peripheral pulses intact and strong. TELEMETRY: Atrial fibrillation LABS: Sodium 138, potassium 3.9, BUN 47, creatinine 1.64 IMPRESSION: Non-ST elevated myocardial infarction Congestive heart failure Ischemic cardiomyopathy Paroxysmal atrial fibrillation Type 2 diabetes Sick sinus syndrome History of ventricular tachycardia Chronic kidney disease PLAN: Continue IV heparin Continue to monitor electrolytes and kidney function Further recommendations based on clinical course I am dictating on behalf of Dr Cuco Gallardo's history/physical and assessment/plan. Objective - Vital Signs Vital signs: Vital Signs Temp 97.4 F L 07/17/23 08:00 Pulse 89 07/17/23 11:34 Resp 16 07/17/23 11:34 BP 99/62 07/17/23 11:34 Pulse Ox 94 L 07/17/23 11:34 FiO2 Intake & Output 07/16/23 07/17/23 07/17/23 18:59 06:59 18:59 Intake Total 649.012 820.495 Output Total 225 350 200 Balance 424.012 -350 620.495 Weight 95.8 kg Intake: Intake, IV Titration 289.012 220.495 Amount Heparin Sod,Pork in 0.45% 189.012 220.495 NaCl 25,000 unit In 0.45 % NaCl 1 250ml.bag @ 10. 67 UNITS/KG/HR 9.998 mls/ hr IV .Q24H [facility] Rx#: [id number] Sodium Chloride 0.9% 1, 100 000 ml @ 100 mls/hr IV . Q10H [facility] Rx#:[id number] Oral 360 600 Output: Urine 225 350 200 Other: Voiding Method Toilet Toilet Toilet Urinal Urinal Urinal # Voids 1 1 - Labs CBC & Chem 7: 07/16/23 07:57 07/17/23 07:09 Labs: Abnormal Lab Results - Last 24 Hours (Table) 07/16/23 07/16/23 07/16/23 Range/Units 16:27 18:24 20:10 APTT (22.0-30.0) sec Carbon Dioxide (22-30) mmol/L BUN (9-20) mg/dL Creatinine (0.66-1.25) mg/dL Glucose (74-99) mg/dL POC Glucose (mg/dL) 123 H 198 H (70-110) mg/dL Urine Protein 2+ H (Negative) Urine Glucose (UA) 2+ H (Negative) Urine Blood Small H (Negative) Ur Leukocyte Esterase Large H (Negative) Urine RBC 9 H (0-5) /hpf Urine WBC >182 H (0-5) /hpf Urine WBC Clumps Many H (None) /hpf Urine Bacteria Many H (None) /hpf Urine Mucus Few H (None) /hpf 07/17/23 07/17/23 07/17/23 Range/Units 06:09 07:09 07:09 APTT 37.1 H (22.0-30.0) sec Carbon Dioxide 20 L (22-30) mmol/L BUN 47 H (9-20) mg/dL Creatinine 1.64 H (0.66-1.25) mg/dL Glucose 112 H (74-99) mg/dL POC Glucose (mg/dL) 129 H (70-110) mg/dL Urine Protein (Negative) Urine Glucose (UA) (Negative) Urine Blood (Negative) Ur Leukocyte Esterase (Negative) Urine RBC (0-5) /hpf Urine WBC (0-5) /hpf Urine WBC Clumps (None) /hpf Urine Bacteria (None) /hpf Urine Mucus (None) /hpf 07/17/23 Range/Units 11:38 APTT (22.0-30.0) sec Carbon Dioxide (22-30) mmol/L BUN (9-20) mg/dL Creatinine (0.66-1.25) mg/dL Glucose (74-99) mg/dL POC Glucose (mg/dL) 243 H (70-110) mg/dL Urine Protein (Negative) Urine Glucose (UA) (Negative) Urine Blood (Negative) Ur Leukocyte Esterase (Negative) Urine RBC (0-5) /hpf Urine WBC (0-5) /hpf Urine WBC Clumps (None) /hpf Urine Bacteria (None) /hpf Urine Mucus (None) /hpf
[2023-07-17 16:06] LABS: Glucose,Whole Blood 209 mg/dL (70-110)
--- NOTE | 2023-07-17 16:34 | P.PN ---
Subjective Progress Note Date: 07/17/23 82 yo M with past medical history of multiple medical problems who presents because of shortness of breath of one-day duration. Patient denies coughing or phlegm. Patient denies chest pain. No other GI or urinary complaints or change in his habits regarding these. He is afebrile. He denies headache dizziness weakness or numbness. He denies smoking alcohol or illicit drugs. Vitas looks stable. His creatinine is slightly elevated above baseline of 1.4, baseline 0.9-1.1. Patient sees Dr. Harris as an outpatient for his kidney disease also he follows up with for his history of urinary bladder cancer, as per patient and his been clear regarding this. He is also diabetic taking 20 units of Levemir twice daily and NovoLog 15 units with meals. He has history of bypass surgery and he follows up with Dr. Mccloud. His bypass was in 1996. He denies previous history of stents and he is currently not on aspirin or other antiplatelet at home as he states. Other labs showing unremarkable INR. He has mild leukocytosis of 14.7. Troponin is elevated 1.9. Influenza A and type B, RSV, SARS (coronavirus) are and detected His proBNP was elevated 58885. G showing ventricular paced rhythm at [address]-T changes The chest x-ray by myself and there is increased bilateral infiltrates especially in the lower zone suspicious for CHF Gram was ordered and is pending. It is on a liquid was at home and he was taken off as supposed to be twice a day. This was held on admission and started on heparin drip. A 6 CT daily and 40 at bedside and this was switched to IV Lasix 40 mg twice daily. Also he was given a one-time dose of aspirin 325 mg. 24 hour interval change 07/16/2023 Patient is seen and evaluated resting comfortably in bed; denies any complaint of chest pain or shortness of breath Vital signs are reviewed and stable with temperature of 98, pulse 82, respirations 16 and blood pressure of 98/57 Lab review shows WBC of 10.1, hemoglobin 12.8 and platelet count of 175, sodium 139, potassium 2.7, BUN/creatinine of 44/1.65 and blood glucose of 194 Serum creatinine is higher secondary to hypotension. Patient is maintained on Cozaar but parameters are in place for holding for systolic blood pressure less than 110. Patient is also maintained on farxiga which we can continue for now. UA shows trace protein no blood and WBCs more than 182. Status post IV fluids. Patient remains stable and could be discharged per nephrology 24 hour interval change 07/17/2023 82-year-old male who is admitted to the hospital for non-ST elevated myocardial infarction and exacerbation of heart failure. He underwent coronary angiogram where he was found to have a 60% left main, 100% ostial LAD, 95% oxygen will circumflex and 100% RCA stenosis with patent KAUFFMAN to LAD. 95% stenosis of radial the OM1. Plan was to return to the OR for stenting of radial to OM1 with Dr. Mccloud, however the patient had a rising creatinine level. Procedure will be delayed until Tuesday. Vital signs are reviewed and remained stable Lab review shows a B UN/creatinine of 47/1.64, sodium of 138 and potassium of 3.9 Patient remains on IV heparin Continue to monitor renal function and electrolytes Objective - Vital Signs Vital signs: Vital Signs Temp 97.4 F L 07/17/23 08:00 Pulse 89 07/17/23 11:34 Resp 16 07/17/23 11:34 BP 99/62 07/17/23 11:34 Pulse Ox 94 L 07/17/23 11:34 FiO2 Intake & Output 07/16/23 07/17/23 07/17/23 18:59 06:59 18:59 Intake Total 649.012 820.495 Output Total 225 350 200 Balance 424.012 -350 620.495 Weight 95.8 kg Intake: Intake, IV Titration 289.012 220.495 Amount Heparin Sod,Pork in 0.45% 189.012 220.495 NaCl 25,000 unit In 0.45 % NaCl 1 250ml.bag @ 10. 67 UNITS/KG/HR 9.998 mls/ hr IV .Q24H [facility] Rx#: [id number] Sodium Chloride 0.9% 1, 100 000 ml @ 100 mls/hr IV . Q10H [facility] Rx#:[id number] Oral 360 600 Output: Urine 225 350 200 Other: Voiding Method Toilet Toilet Toilet Urinal Urinal Urinal # Voids 1 1 - Exam GENERAL: The patient is alert and oriented x3, not in any acute distress. Well developed, well nourished. HEENT: Pupils are round and equally reacting to light. EOMI. No scleral icterus. No conjunctival pallor. Normocephalic, atraumatic. No pharyngeal erythema. No thyromegaly. CARDIOVASCULAR: S1 and S2 present. No murmurs, rubs, or gallops. PULMONARY: Chest is clear to auscultation, no wheezing , no crackles. ABDOMEN: Soft, nontender, nondistended, normoactive bowel sounds. No palpable organomegaly. MUSCULOSKELETAL: No joint swelling or deformity. EXTREMITIES: No cyanosis, clubbing, or pedal edema. NEUROLOGICAL: Gross neurological examination did not reveal any focal deficits. SKIN: No rashes. no petechiae. - Labs CBC & Chem 7: 07/16/23 07:57 07/17/23 07:09 Labs: Abnormal Lab Results - Last 24 Hours (Table) 07/16/23 07/16/23 07/16/23 Range/Units 16:27 18:24 20:10 APTT (22.0-30.0) sec Carbon Dioxide (22-30) mmol/L BUN (9-20) mg/dL Creatinine (0.66-1.25) mg/dL Glucose (74-99) mg/dL POC Glucose (mg/dL) 123 H 198 H (70-110) mg/dL Urine Protein 2+ H (Negative) Urine Glucose (UA) 2+ H (Negative) Urine Blood Small H (Negative) Ur Leukocyte Esterase Large H (Negative) Urine RBC 9 H (0-5) /hpf Urine WBC >182 H (0-5) /hpf Urine WBC Clumps Many H (None) /hpf Urine Bacteria Many H (None) /hpf Urine Mucus Few H (None) /hpf 07/17/23 07/17/23 07/17/23 Range/Units 06:09 07:09 07:09 APTT 37.1 H (22.0-30.0) sec Carbon Dioxide 20 L (22-30) mmol/L BUN 47 H (9-20) mg/dL Creatinine 1.64 H (0.66-1.25) mg/dL Glucose 112 H (74-99) mg/dL POC Glucose (mg/dL) 129 H (70-110) mg/dL Urine Protein (Negative) Urine Glucose (UA) (Negative) Urine Blood (Negative) Ur Leukocyte Esterase (Negative) Urine RBC (0-5) /hpf Urine WBC (0-5) /hpf Urine WBC Clumps (None) /hpf Urine Bacteria (None) /hpf Urine Mucus (None) /hpf 07/17/23 Range/Units 11:38 APTT (22.0-30.0) sec Carbon Dioxide (22-30) mmol/L BUN (9-20) mg/dL Creatinine (0.66-1.25) mg/dL Glucose (74-99) mg/dL POC Glucose (mg/dL) 243 H (70-110) mg/dL Urine Protein (Negative) Urine Glucose (UA) (Negative) Urine Blood (Negative) Ur Leukocyte Esterase (Negative) Urine RBC (0-5) /hpf Urine WBC (0-5) /hpf Urine WBC Clumps (None) /hpf Urine Bacteria (None) /hpf Urine Mucus (None) /hpf Assessment and Plan Assessment: Acute CHF exacerbation Elevated troponin suspicious for a non-STEMI Acute kidney injury on chronic kidney disease stage III Remote history of hyperthyroidism, she stopped taking hyperthyroid medication for several months now A of urinary bladder cancer and he follows up with urologist as an outpatient Paroxysmal atrial fibrillation on liquids at home. He of ventricular tachycardia on ventricular pacemaker. Obesity with BMI of 31.8. Asymptomatic bacteriuria versus abnormal urine analysis related to kidney stone. 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 Continue with NovoLog 15 units with meals Patient's on normal saline per cardiology team Small dose losartan 25 mg started No evidence of UTI, no need for antibiotic for now, we'll keep monitoring cardiology consult Nephrology consult Labs and medication were reviewed.. Continue same treatment. Continue with symptomatic treatment. Resume home medication. Monitor labs and vitals. DVT and GI prophylaxis. Further recommendations as per clinical course of the patient DVT prophylaxis: heparin GI Prophylaxis: ppi PT/OT: Pending total after cardiac cath
[2023-07-17] MEDS: PRAVASTATIN SODIUM 20 MG TAB PO SCH (20:21)
[2023-07-17] MEDS: ALPRAZolam 0.25 MG TAB PO PRN (20:24)
[2023-07-17 20:26] LABS: Glucose,Whole Blood 184 mg/dL (70-110)
[2023-07-18] MEDS: HEPARIN SOD,PORK IN 0.45% NACL 25,000 UNIT in 0.45% NACL 1 250ML.BAG IV SCH ×2 (02:10→18:31)
[2023-07-18 06:02] LABS: Glucose,Whole Blood 148 mg/dL (70-110)
[2023-07-18] MEDS: INSULIN ASPART (NovoLOG) 100 UNIT/ML VIAL SQ SCH ×7 (06:41→21:00)
[2023-07-18] MEDS: INSULIN DETEMIR (LEVEMIR) 100 UNIT/ML SYR SQ SCH ×2 (07:06→20:59)
[2023-07-18 08:44] LABS: Basophils % (A) 1 %; Eosinophils # (A) 0.2 k/uL (0-0.7); Eosinophils % (A) 2 %; HCT 40.3 % (39.0-53.0); HGB 12.7 gm/dL (13.0-17.5); Hypochromasia Slight; Lymphocytes # (A) 0.8 k/uL (1.0-4.8); Lymphocytes % (A) 10 %; MCH 30.2 pg (25.0-35.0); MCHC 31.4 g/dL (31.0-37.0); Monocytes # (A) 0.6 k/uL (0-1.0); Monocytes % (A) 7 %; Neutrophils # (A) 6.6 k/uL (1.3-7.7); Neutrophils % (A) 80 %; Platelet Count 181 k/uL (150-450); RDW 14.3 % (11.5-15.5); WBC 8.3 k/uL (3.8-10.6)
[2023-07-18 08:50] LABS: African American GFR (CKD) 68 (>60 ml/min/1.73 sqM); Anion Gap 14 mmol/L; Blood Urea Nitrogen 40 mg/dL (9-20); Calcium 8.9 mg/dL (8.4-10.2); Carbon Dioxide 19 mmol/L (22-30); Chloride 106 mmol/L (98-107); Glucose 234 mg/dL (74-99); Non-African American GFR(CKD) 59 (>60 ml/min/1.73 sqM); Potassium 3.9 mmol/L (3.5-5.1); Sodium 139 mmol/L (137-145)
[2023-07-18] MEDS: PANTOPRAZOLE 40 MG/10 ML VIAL IVP SCH (08:52)
[2023-07-18] MEDS: TAMSULOSIN 0.4 MG CAP.ER.24H PO SCH ×2 (08:53→21:00)
[2023-07-18] MEDS: METOPROLOL SUCCINATE (ER) 25 MG TAB.ER.24H PO SCH (08:53)
[2023-07-18] MEDS: LOSARTAN 25 MG TAB PO SCH (08:53)
[2023-07-18] MEDS: DORZOLAMIDE HCL 2% DROPS 10 ML BTL BOTH EYES SCH ×2 (08:54→20:52)
[2023-07-18] MEDS: CYANOCOBALAMIN 500 MCG TAB PO SCH (08:54)
[2023-07-18] MEDS: FERROUS SULFATE 325 MG TAB PO SCH (08:54)
[2023-07-18] MEDS: allopurinoL 100 MG TAB PO SCH (08:54)
[2023-07-18] MEDS: DAPAGLIFLOZIN PROPANEDIOL 10 MG TABLET PO SCH (08:54)
[2023-07-18] MEDS ORDERED: ASPIRIN 325 MG TAB PO STA (09:57)
[2023-07-18] MEDS ORDERED: FUROSEMIDE 10 MG/ML 4 ML VIAL IV STA (11:38)
--- NOTE | 2023-07-18 11:38 | P.PN ---
Subjective Patient is seen for follow-up for acute kidney injury. Status post cardiac catheterization on 07/14/2023 with plans for stent placement which was not done as creatinine remained elevated.. Patient is status post IV fluids. Serum creatinine at 1.17 today. No complaints of shortness of breath or chest pain. Blood pressure remains low. No significant symptoms. Good urine output. Objective - Vital Signs Vital signs: Vital Signs Temp 97.7 F 07/18/23 08:41 Pulse 99 07/18/23 08:41 Resp 20 07/18/23 08:41 BP 109/66 07/18/23 08:41 Pulse Ox 95 07/18/23 08:41 FiO2 Intake & Output 07/17/23 07/18/23 07/18/23 18:59 06:59 18:59 Intake Total 1132.891 393.857 223.175 Output Total 200 875 Balance 932.891 -481.143 223.175 Weight 96.6 kg Intake: Intake, IV Titration 292.891 153.857 105.175 Amount Heparin Sod,Pork in 0.45% 292.891 153.857 105.175 NaCl 25,000 unit In 0.45 % NaCl 1 250ml.bag @ 10. 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 exam grossly intact - Labs CBC & Chem 7: 07/18/23 08:08 07/18/23 08:08 Labs: Abnormal Lab Results - Last 24 Hours (Table) 07/17/23 07/17/23 07/17/23 Range/Units 11:38 15:29 16:04 RBC (4.30-5.90) m/uL Hgb (13.0-17.5) gm/dL Lymphocytes # (1.0-4.8) k/uL APTT 43.3 H (22.0-30.0) sec Carbon Dioxide (22-30) mmol/L BUN (9-20) mg/dL Glucose (74-99) mg/dL POC Glucose (mg/dL) 243 H 209 H (70-110) mg/dL 07/17/23 07/17/23 07/18/23 Range/Units 20:13 22:20 06:01 RBC (4.30-5.90) m/uL Hgb (13.0-17.5) gm/dL Lymphocytes # (1.0-4.8) k/uL APTT 48.2 H (22.0-30.0) sec Carbon Dioxide (22-30) mmol/L BUN (9-20) mg/dL Glucose (74-99) mg/dL POC Glucose (mg/dL) 184 H 148 H (70-110) mg/dL 07/18/23 07/18/23 07/18/23 Range/Units 08:08 08:08 08:08 RBC 4.20 L (4.30-5.90) m/uL Hgb 12.7 L (13.0-17.5) gm/dL Lymphocytes # 0.8 L (1.0-4.8) k/uL APTT 49.3 H (22.0-30.0) sec Carbon Dioxide 19 L (22-30) mmol/L BUN 40 H (9-20) mg/dL Glucose 234 H (74-99) mg/dL POC Glucose (mg/dL) (70-110) mg/dL Assessment and Plan Assessment: 1. Acute kidney injury mostly cardiorenal. Currently nonoliguric. Serum creatinine is higher secondary to hypotension. Patient is maintained on Cozaar but parameters are in place for holding for systolic blood pressure less than 110. Patient is also maintained on farxiga which we can continue for now. UA shows trace protein no blood and WBCs more than 182. Status post IV fluids. 2. Chronic kidney disease NKF stage IIIa with baseline creatinine 0.9-1.2 mg/dL. 3. Volume overload, improved 4. Acute on chronic systolic CHF with EF 35-40% on echocardiogram performed on 06/11/2022. 5. History of bladder cancer. Follows with Dr. gonzales as outpatient. 6. Elevated troponin maintained on IV heparin and cardiology on consult. Plans for cardiac catheterization and stent placement Plan: May continue with farxiga Maintain parameters for Cozaar Lasix IV 1
[2023-07-18 12:02] LABS: Glucose,Whole Blood 181 mg/dL (70-110)
--- NOTE | 2023-07-18 12:46 | P.PN ---
Subjective Progress Note Date: 07/18/23 The patient is an 82-year-old male who is admitted to the hospital for non-ST elevated myocardial infarction and exacerbation of heart failure. He underwent coronary angiogram where he was found to have a 60% left main, 100% ostial LAD, 95% oxygen will circumflex and 100% RCA stenosis with patent KAUFFMAN to LAD. 95% stenosis of radial the OM1. Plan was to return to the OR for stenting of radial to OM1 with Dr. Mccloud, however the patient had a rising creatinine level. Creatinine level has now stabilized at 1.17. The patient was interviewed and examined lying comfortably in bed. He denies any orthopnea or shortness of breath at rest. No current chest pain or chest pressure. He remains on a heparin drip. GENERAL: Well-appearing, well-nourished and in no acute distress. NECK: Supple without JVD or thyromegaly. LUNGS: Breath sounds diminished to auscultation bilaterally. Respiration equal a nd unlabored. Fine crackles in the bases. HEART: Irregular rate and rhythm without murmurs, rubs or gallops. S1 and S2 heard. EXTREMITIES: Normal range of motion, no edema. No clubbing or cyanosis. Peripheral pulses intact and strong. TELEMETRY: Atrial fibrillation with heart rates in the 80-90s LABS: WBC 8.3, hemoglobin 12.7, hematocrit 40.3, platelet 80, sodium 139, potassium 3.9, BUN 40, creatinine 1.17 IMPRESSION: Non-ST elevated myocardial infarction Congestive heart failure Ischemic cardiomyopathy Paroxysmal atrial fibrillation Type 2 diabetes Sick sinus syndrome History of ventricular tachycardia Chronic kidney disease PLAN: Continue IV heparin Nothing by mouth after midnight Coronary angiogram with planned intervention with Dr. Mccloud tomorrow I am dictating on behalf of Dr Cuco Gallardo's history/physical and assessment/plan. Objective - Vital Signs Vital signs: Vital Signs Temp 97.7 F 07/18/23 08:41 Pulse 99 07/18/23 08:41 Resp 20 07/18/23 08:41 BP 109/66 07/18/23 08:41 Pulse Ox 95 07/18/23 08:41 FiO2 Intake & Output 07/17/23 07/18/23 07/18/23 18:59 06:59 18:59 Intake Total 1132.891 393.857 223.175 Output Total 200 875 Balance 932.891 -481.143 223.175 Weight 96.6 kg Intake: Intake, IV Titration 292.891 153.857 105.175 Amount Heparin Sod,Pork in 0.45% 292.891 153.857 105.175 NaCl 25,000 unit In 0.45 % NaCl 1 250ml.bag @ 10. 67 UNITS/KG/HR 9.998 mls/ hr IV .Q24H [facility] Rx#: [id number] Oral 840 240 118 Output: Urine 200 875 Other: Voiding Method Toilet Toilet Toilet Urinal Urinal Urinal # Voids 1 - Labs CBC & Chem 7: 07/18/23 08:08 07/18/23 08:08 Labs: Abnormal Lab Results - Last 24 Hours (Table) 07/17/23 07/17/23 07/17/23 Range/Units 15:29 16:04 20:13 RBC (4.30-5.90) m/uL Hgb (13.0-17.5) gm/dL Lymphocytes # (1.0-4.8) k/uL APTT 43.3 H (22.0-30.0) sec Carbon Dioxide (22-30) mmol/L BUN (9-20) mg/dL Glucose (74-99) mg/dL POC Glucose (mg/dL) 209 H 184 H (70-110) mg/dL 07/17/23 07/18/23 07/18/23 Range/Units 22:20 06:01 08:08 RBC 4.20 L (4.30-5.90) m/uL Hgb 12.7 L (13.0-17.5) gm/dL Lymphocytes # 0.8 L (1.0-4.8) k/uL APTT 48.2 H (22.0-30.0) sec Carbon Dioxide (22-30) mmol/L BUN (9-20) mg/dL Glucose (74-99) mg/dL POC Glucose (mg/dL) 148 H (70-110) mg/dL 07/18/23 07/18/23 07/18/23 Range/Units 08:08 08:08 12:00 RBC (4.30-5.90) m/uL Hgb (13.0-17.5) gm/dL Lymphocytes # (1.0-4.8) k/uL APTT 49.3 H (22.0-30.0) sec Carbon Dioxide 19 L (22-30) mmol/L BUN 40 H (9-20) mg/dL Glucose 234 H (74-99) mg/dL POC Glucose (mg/dL) 181 H (70-110) mg/dL
--- NOTE | 2023-07-18 15:27 | P.PN ---
Subjective Progress Note Date: 07/18/23 82 yo M with past medical history of multiple medical problems who presents because of shortness of breath of one-day duration. Patient denies coughing or phlegm. Patient denies chest pain. No other GI or urinary complaints or change in his habits regarding these. He is afebrile. He denies headache dizziness weakness or numbness. He denies smoking alcohol or illicit drugs. Vitas looks stable. His creatinine is slightly elevated above baseline of 1.4, baseline 0.9-1.1. Patient sees Dr. Harris as an outpatient for his kidney disease also he follows up with for his history of urinary bladder cancer, as per patient and his been clear regarding this. He is also diabetic taking 20 units of Levemir twice daily and NovoLog 15 units with meals. He has history of bypass surgery and he follows up with Dr. Mccloud. His bypass was in 1996. He denies previous history of stents and he is currently not on aspirin or other antiplatelet at home as he states. Other labs showing unremarkable INR. He has mild leukocytosis of 14.7. Troponin is elevated 1.9. Influenza A and type B, RSV, SARS (coronavirus) are and detected His proBNP was [place] 14762. G showing ventricular paced rhythm at [address]-T changes The chest x-ray by myself and there is increased bilateral infiltrates especially in the lower zone suspicious for CHF Gram was ordered and is pending. It is on a liquid was at home and he was taken off as supposed to be twice a day. This was held on admission and started on heparin drip. A 6 CT daily and 40 at bedside and this was switched to IV Lasix 40 mg twice daily. Also he was given a one-time dose of aspirin 325 mg. 24 hour interval change 07/16/2023 Patient is seen and evaluated resting comfortably in bed; denies any complaint of chest pain or shortness of breath Vital signs are reviewed and stable with temperature of 98, pulse 82, respirations 16 and blood pressure of 98/57 Lab review shows WBC of 10.1, hemoglobin 12.8 and platelet count of 175, sodium 139, potassium 2.7, BUN/creatinine of 44/1.65 and blood glucose of 194 Serum creatinine is higher secondary to hypotension. Patient is maintained on Cozaar but parameters are in place for holding for systolic blood pressure less than 110. Patient is also maintained on farxiga which we can continue for now. UA shows trace protein no blood and WBCs more than 182. Status post IV fluids. Patient remains stable and could be discharged per nephrology 24 hour interval change 07/17/2023 82-year-old male who is admitted to the hospital for non-ST elevated myocardial infarction and exacerbation of heart failure. He underwent coronary angiogram where he was found to have a 60% left main, 100% ostial LAD, 95% oxygen will circumflex and 100% RCA stenosis with patent KAUFFMAN to LAD. 95% stenosis of radial the OM1. Plan was to return to the OR for stenting of radial to OM1 with Dr. Mccloud, however the patient had a rising creatinine level. Procedure will be delayed until Tuesday. Vital signs are reviewed and remained stable Lab review shows a B UN/creatinine of 47/1.64, sodium of 138 and potassium of 3.9 Patient remains on IV heparin Continue to monitor renal function and electrolytes 07/18/2023 Patient is seen and evaluated in room at bedside; no complaint of chest pain or shortness of breath; tolerating antibiotics Vital signs are reviewed and remained stable with blood pressure 109/66 and O2 saturation 95% on room air - Patient remains on IV Rocephin for UTI with plans to make further adjustments in antibiotic therapy once final culture results and sensitivity is available -- Labs are reviewed; creatinine is down to 1.17; patient will be nothing by mouth at midnight tonight with plans for coronary angiography with intervention tomorrow Objective - Vital Signs Vital signs: Vital Signs Temp 97.7 F 07/18/23 08:41 Pulse 99 07/18/23 08:41 Resp 20 07/18/23 08:41 BP 109/66 07/18/23 08:41 Pulse Ox 95 07/18/23 08:41 FiO2 Intake & Output 07/17/23 07/18/23 07/18/23 18:59 06:59 18:59 Intake Total 1132.891 393.857 223.175 Output Total 200 875 Balance 932.891 -481.143 223.175 Weight 96.6 kg Intake: Intake, IV Titration 292.891 153.857 105.175 Amount Heparin Sod,Pork in 0.45% 292.891 153.857 105.175 NaCl 25,000 unit In 0.45 % NaCl 1 250ml.bag @ 10. 67 UNITS/KG/HR 9.998 mls/ hr IV .Q24H [facility] Rx#: [id number] Oral 840 240 118 Output: Urine 200 875 Other: Voiding Method Toilet Toilet Toilet Urinal Urinal Urinal # Voids 1 - Exam GENERAL: The patient is alert and oriented x3, not in any acute distress. Well developed, well nourished. HEENT: Pupils are round and equally reacting to light. EOMI. No scleral icterus. No conjunctival pallor. Normocephalic, atraumatic. No pharyngeal erythema. No thyromegaly. CARDIOVASCULAR: S1 and S2 present. No murmurs, rubs, or gallops. PULMONARY: Chest is clear to auscultation, no wheezing , no crackles. ABDOMEN: Soft, nontender, nondistended, normoactive bowel sounds. No palpable organomegaly. MUSCULOSKELETAL: No joint swelling or deformity. EXTREMITIES: No cyanosis, clubbing, or pedal edema. NEUROLOGICAL: Gross neurological examination did not reveal any focal deficits. SKIN: No rashes. no petechiae. - Labs CBC & Chem 7: 07/18/23 08:08 07/18/23 08:08 Labs: Abnormal Lab Results - Last 24 Hours (Table) 07/17/23 07/17/23 07/17/23 Range/Units 15:29 16:04 20:13 RBC (4.30-5.90) m/uL Hgb (13.0-17.5) gm/dL Lymphocytes # (1.0-4.8) k/uL APTT 43.3 H (22.0-30.0) sec Carbon Dioxide (22-30) mmol/L BUN (9-20) mg/dL Glucose (74-99) mg/dL POC Glucose (mg/dL) 209 H 184 H (70-110) mg/dL 07/17/23 07/18/23 07/18/23 Range/Units 22:20 06:01 08:08 RBC 4.20 L (4.30-5.90) m/uL Hgb 12.7 L (13.0-17.5) gm/dL Lymphocytes # 0.8 L (1.0-4.8) k/uL APTT 48.2 H (22.0-30.0) sec Carbon Dioxide (22-30) mmol/L BUN (9-20) mg/dL Glucose (74-99) mg/dL POC Glucose (mg/dL) 148 H (70-110) mg/dL 07/18/23 07/18/23 07/18/23 Range/Units 08:08 08:08 12:00 RBC (4.30-5.90) m/uL Hgb (13.0-17.5) gm/dL Lymphocytes # (1.0-4.8) k/uL APTT 49.3 H (22.0-30.0) sec Carbon Dioxide 19 L (22-30) mmol/L BUN 40 H (9-20) mg/dL Glucose 234 H (74-99) mg/dL POC Glucose (mg/dL) 181 H (70-110) mg/dL Assessment and Plan Assessment: Acute CHF exacerbation Elevated troponin suspicious for a non-STEMI Acute kidney injury on chronic kidney disease stage III Remote history of hyperthyroidism, she stopped taking hyperthyroid medication for several months now A of urinary bladder cancer and he follows up with urologist as an outpatient Paroxysmal atrial fibrillation on liquids at home. He of ventricular tachycardia on ventricular pacemaker. Obesity with BMI of 31.8. Asymptomatic bacteriuria versus abnormal urine analysis related to kidney stone. Currently patient is asymptomatic and no need for antibiotics with no fever and leukocytosis Plan: continue with heparin drip Continue with the plan by washer hand for cardiac cath Continue with IV Lasix twice daily, we will add fluid restriction Resume Levemir 10 units daily if he is nothing by mouth and this can be increased to 20 units twice daily if his resume his diet, this was discussed with the bedside nurse. Continue with NovoLog 15 units with meals Patient's on normal saline per cardiology team Small dose losartan 25 mg started No evidence of UTI, no need for antibiotic for now, we'll keep monitoring cardiology consult Nephrology consult Labs and medication were reviewed.. Continue same treatment. Continue with symptomatic treatment. Resume home medication. Monitor labs and vitals. DVT and GI prophylaxis. Further recommendations as per clinical course of the patient DVT prophylaxis: heparin GI Prophylaxis: ppi PT/OT: Pending total after cardiac cath
[2023-07-18 16:22] LABS: Glucose,Whole Blood 232 mg/dL (70-110)
[2023-07-18 19:55] LABS: Glucose,Whole Blood 200 mg/dL (70-110)
[2023-07-18] MEDS: PRAVASTATIN SODIUM 20 MG TAB PO SCH (21:00)
[2023-07-18] MEDS: ALPRAZolam 0.25 MG TAB PO PRN (21:00)
[2023-07-19] MEDS ORDERED: ASPIRIN 325 MG TAB PO ONE (06:00)
[2023-07-19 06:03] LABS: Glucose,Whole Blood 126 mg/dL (70-110)
[2023-07-19] MEDS ORDERED: HEPARIN SODIUM,PORCINE (1 ML) 2,500 UNIT in SODIUM CHLORIDE 0.9% 250 ML IRRIGATION PRN (07:00)
[2023-07-19] MEDS ORDERED: HEPARIN SODIUM,PORCINE 10,000 UNIT in SODIUM CHLORIDE 0.9% 1,000 ML IRRIGATION PRN (07:00)
[2023-07-19] MEDS: INSULIN DETEMIR (LEVEMIR) 100 UNIT/ML SYR SQ SCH ×2 (08:00→20:44)
[2023-07-19] MEDS: INSULIN ASPART (NovoLOG) 100 UNIT/ML VIAL SQ SCH ×7 (08:11→20:44)
[2023-07-19] MEDS: PANTOPRAZOLE 40 MG/10 ML VIAL IVP SCH (08:20)
[2023-07-19] MEDS: METOPROLOL SUCCINATE (ER) 25 MG TAB.ER.24H PO SCH (08:20)
[2023-07-19] MEDS: allopurinoL 100 MG TAB PO SCH (08:20)
[2023-07-19] MEDS: TAMSULOSIN 0.4 MG CAP.ER.24H PO SCH ×2 (08:20→20:44)
[2023-07-19] MEDS: DAPAGLIFLOZIN PROPANEDIOL 10 MG TABLET PO SCH (08:20)
[2023-07-19] MEDS: CYANOCOBALAMIN 500 MCG TAB PO SCH (08:20)
[2023-07-19] MEDS: DORZOLAMIDE HCL 2% DROPS 10 ML BTL BOTH EYES SCH ×2 (08:21→20:45)
[2023-07-19] MEDS: FERROUS SULFATE 325 MG TAB PO SCH (08:21)
[2023-07-19] MEDS: LOSARTAN 25 MG TAB PO SCH (08:21)
[2023-07-19 09:10] LABS: Basophils % (A) 0 %; Eosinophils # (A) 0.1 k/uL (0-0.7); Eosinophils % (A) 1 %; HCT 38.8 % (39.0-53.0); HGB 12.6 gm/dL (13.0-17.5); Hypochromasia Slight; Lymphocytes # (A) 0.9 k/uL (1.0-4.8); Lymphocytes % (A) 9 %; MCH 30.8 pg (25.0-35.0); MCHC 32.4 g/dL (31.0-37.0); MCV 94.9 fL (80.0-100.0); Mean Platelet Volume 7.8; Monocytes # (A) 0.5 k/uL (0-1.0); Monocytes % (A) 6 %; Neutrophils # (A) 7.5 k/uL (1.3-7.7); Neutrophils % (A) 82 %; Platelet Count 205 k/uL (150-450); RBC 4.09 m/uL (4.30-5.90); RDW 14.6 % (11.5-15.5); WBC 9.2 k/uL (3.8-10.6)
[2023-07-19 10:55] LABS: African American GFR (CKD) 65 (>60 ml/min/1.73 sqM); Anion Gap 15 mmol/L; Blood Urea Nitrogen 38 mg/dL (9-20); Calcium 9.1 mg/dL (8.4-10.2); Carbon Dioxide 19 mmol/L (22-30); Chloride 106 mmol/L (98-107); Glucose 119 mg/dL (74-99); Non-African American GFR(CKD) 56 (>60 ml/min/1.73 sqM); Sodium 140 mmol/L (137-145)
[2023-07-19] MEDS ORDERED: fentaNYL (PF) 50 MCG/ML 2 ML AMP ONE (11:20)
[2023-07-19] MEDS ORDERED: LIDOCAINE 1% INJ 10MG/ML (20 ML MDV) SQ ONE (11:22)
[2023-07-19] MEDS ORDERED: VERAPAMIL SYRINGE (5 MG/10 ML) INTRAARTER ONE (11:23)
[2023-07-19] MEDS ORDERED: fentaNYL (PF) 50 MCG/ML 2 ML AMP IVP ONE (11:24)
[2023-07-19] MEDS ORDERED: MIDAZOLAM 2 MG/2 ML VIAL IVP ONE (11:24)
[2023-07-19] MEDS ORDERED: CLOPIDOGREL 75 MG TAB ONE (11:29)
[2023-07-19] MEDS ORDERED: HEPARIN SODIUM 1,000 UN/ML (10ML VL) ONE (11:29)
[2023-07-19] MEDS ORDERED: IV FLUID CONTINUATION 500 ML IV ONE (11:30)
[2023-07-19] MEDS: HEPARIN SODIUM 1,000 UN/ML (10ML VL) IV ONE ×4 (11:30→12:03)
[2023-07-19] MEDS ORDERED: CLOPIDOGREL 75 MG TAB PO ONE (11:31)
[2023-07-19] MEDS ORDERED: SODIUM CHLORIDE 0.9% 500 ML 500 ML IV ONE (11:42)
--- NOTE | 2023-07-19 11:52 | P.PN ---
Subjective this is a pleasant 82 yo M with past medical history of multiple medical problems who presents because of shortness of breath of one-day duration. Patient denies coughing or phlegm. Patient denies chest pain. No other GI or urinary complaints or change in his habits regarding these. He is afebrile. He denies headache dizziness weakness or numbness. He denies smoking alcohol or illicit drugs. Vitas looks stable. His creatinine is slightly elevated above baseline of 1.4, baseline 0.9-1.1. Patient sees Dr. Harris as an outpatient for his kidney disease also he follows up with for his history of urinary bladder cancer, as per patient and his been clear regarding this. He is also diabetic taking 20 units of Levemir twice daily and NovoLog 15 units with meals. He has history of bypass surgery and he follows up with Dr. Mccloud. His bypass was in 1996. He denies previous history of stents and he is currently not on aspirin or other antiplatelet at home as he states. Other labs showing unremarkable INR. He has mild leukocytosis of 14.7. Troponin is elevated 1.9. Influenza A and type B, RSV, SARS (coronavirus) are and detected His proBNP was [place] 15210. G showing ventricular paced rhythm at [address]-T changes The chest x-ray by myself and there is increased bilateral infiltrates especially in the lower zone suspicious for CHF Gram was ordered and is pending. It is on a liquid was at home and he was taken off as supposed to be twice a day. This was held on admission and started on heparin drip. A 6 CT daily and 40 at bedside and this was switched to IV Lasix 40 mg twice daily. Also he was given a one-time dose of aspirin 325 mg. 07/14/2023 Patient admitted with dyspnea and found to have acute severe cardiomyopathy most likely ischemic heart disease with ejection fraction 20-25% with moderate TR, moderate [id number] pulmonary hypertension. Troponin were significantly elevated, he is currently on aspirin 81 mg and heparin drip and the planned to undergo cardiac cath with cardiology team today. This morning patient denies chest pain, he has only mild tachypnea at rest. No other new complaints Also nephrology for follow-up with the patient for acute kidney injury on chroni c kidney disease stage III, creatinine on admission 1.4, went down to 1.3 and today 1.5. Losartan on admission was put on hold and then restarted at lower dose 25 mg daily. need to check bladder scan which was ordered and pending. On admission he was placed on IV Lasix 40 mg twice daily for acute CHF. Because of planned to undergo cardiac cath and kidney injury disease he was started on normal saline 100 mL/h by recreational facilities motel manager team. Currently no change in his breathing pattern. Renal ultrasound show nonobstructive calculus of the left kidney, patient informed. His hemoglobin A1c was elevated 7.8%, would prefer better controlled of his sugar. Admission he was on Lantus 20 units daily and 18 units at bedtime with 15 units of NovoLog with meals. Because patient is going for cardiac cath he was placed on lower dose of Levemir 10 units daily. Sugar looks controlled. blood pressure on the low side 91/54, currently on losartan 25 mg daily. Also he is on aspirin 81 mg. his urine analysis is abnormal but patient denies dysuria, urgency change in frequency, no suprapubic pain or flank pain. Most likely is abnormal UA related to his kidney stone From the records, 24 hour interval change 07/16/2023 Patient is seen and evaluated resting comfortably in bed; denies any complaint of chest pain or shortness of breath Vital signs are reviewed and stable with temperature of 98, pulse 82, respirations 16 and blood pressure of 98/57 Lab review shows WBC of 10.1, hemoglobin 12.8 and platelet count of 175, sodium 139, potassium 2.7, BUN/creatinine of 44/1.65 and blood glucose of 194 Serum creatinine is higher secondary to hypotension. Patient is maintained on Cozaar but parameters are in place for holding for systolic blood pressure less than 110. Patient is also maintained on farxiga which we can continue for now. UA shows trace protein no blood and WBCs more than 182. Status post IV fluids. Patient remains stable and could be discharged per nephrology 24 hour interval change 07/17/2023 82-year-old male who is admitted to the hospital for non-ST elevated myocardial infarction and exacerbation of heart failure. He underwent coronary angiogram where he was found to have a 60% left main, 100% ostial LAD, 95% oxygen will circumflex and 100% RCA stenosis with patent KAUFFMAN to LAD. 95% stenosis of radial the OM1. Plan was to return to the OR for stenting of radial to OM1 with Dr. Mccloud, however the patient had a rising creatinine level. Procedure will be delayed until Tuesday. Vital signs are reviewed and remained stable Lab review shows a B UN/creatinine of 47/1.64, sodium of 138 and potassium of 3.9 Patient remains on IV heparin Continue to monitor renal function and electrolytes 07/18/2023 Patient is seen and evaluated in room at bedside; no complaint of chest pain or shortness of breath; tolerating antibiotics Vital signs are reviewed and remained stable with blood pressure 109/66 and O2 saturation 95% on room air - Patient remains on IV Rocephin for UTI with plans to make further adjustments in antibiotic therapy once final culture results and sensitivity is available. Patient currently denies dysuria or change in frequency -- Labs are reviewed; creatinine is down to 1.17; patient will be nothing by mouth at midnight tonight with plans for coronary angiography with intervention tomorrow I'm resuming the care of the patient today 07/19/2023 Patient is lying in bed not in distress, is mildly tachypneic, he has no orthopnea, he is anxious to go for cardiac cath today with Dr. Mccloud but he denies current any chest pain. His breathing looks okay and at baseline. Blood pressure is stable 110/72 Labs including CBC and BMP were unremarkable, creatinine 1.2 today. Urine culture is growing gram-negative bacilli and patient remains on Rocephin. Distal on heparin drip with the plan for cardiac cath today as above. Preoperatively there is no medical contraindication to proceed with cardiac cath Active Medications Generic Name Dose Route Start Last Admin Trade Name Freq PRN Reason Stop Dose Admin Allopurinol 100 mg 07/13/23 09:00 07/19/23 08:20 Allopurinol 100 Mg Tab PO 100 mg DAILY [facility] Administration Alprazolam 0.25 mg 07/13/23 11:51 07/18/23 21:00 Alprazolam 0.25 Mg Tab PO 0.25 mg Q6HR PRN Administration Mild Anxiety Alprazolam 0.5 mg 07/13/23 11:51 Alprazolam 0.5 Mg Tab PO Q6HR PRN Moderate Anxiety Cyanocobalamin 1,000 mcg 07/13/23 09:00 07/19/23 08:20 Cyanocobalamin 500 Mcg Tab PO 1,000 mcg DAILY [facility] Administration Dapagliflozin 10 mg 07/13/23 09:00 07/19/23 08:20 Dapagliflozin Propanediol 10 Mg Tablet PO 10 mg DAILY [facility] Administration Dextrose/Water 25 ml 07/13/23 07:05 Dextrose 50% Syringe 50 Ml IVP PER PROTOCOL PRN Hypoglycemia Protocol Dextrose/Water 50 ml 07/13/23 07:05 Dextrose 50% Syringe 50 Ml IVP PER PROTOCOL PRN Hypoglycemia Protocol Dorzolamide HCl 2 drops 07/13/23 09:00 07/19/23 08:21 Dorzolamide Hcl 2% Drops 10 Ml Btl BOTH EYES 2 drops BID HEAVEN Administration Ferrous Sulfate 325 mg 07/13/23 09:00 07/19/23 08:21 Ferrous Sulfate 325 Mg Tab PO 325 mg DAILY [facility] Administration Fluticasone Propionate 2 spray 07/14/23 02:00 07/14/23 02:02 Fluticasone 50mcg/[place] Nasal 16gm EA NOSTRIL 2 spray DAILY PRN Administration Allergy Symptoms Heparin Sodium (Porcine) 0 unit 07/15/23 17:14 Heparin Sodium 1,000 Un/Ml (10ml Vl) IV PER PROTOCOL PRN Low PTT Protocol Heparin Sodium/Sodium Chloride 250 mls @ 9.998 mls/hr 07/15/23 17:15 07/18/23 18:31 25,000 unit/ Sodium Chloride IV 16.67 units/kg/hr .Q24H [facility] 15.62 mls/hr Administration Protocol 10.67 UNITS/KG/HR Ceftriaxone Sodium 2 gm/ 50 mls @ 100 mls/hr 07/17/23 13:00 07/19/23 08:21 Sodium Chloride IVPB 100 mls/hr Q24HR [facility] Administration Protocol Heparin Sodium (Porcine) 10, 1,001 mls @ 999 mls/hr 07/19/23 07:00 000 unit/ Sodium Chloride IRRIGATION 07/19/23 23:00 ONCE PRN INTRA-OP Heparin Sodium (Porcine) 2,500 250.5 mls @ 250 mls/hr 07/19/23 07:00 unit/ Sodium Chloride IRRIGATION 07/19/23 23:00 ONCE PRN INTRA-OP Insulin Aspart 0 unit 07/13/23 07:30 07/19/23 08:11 Insulin Aspart (Novolog) 100 Unit/Ml Vial SQ Not Given ACHS [facility] Protocol Insulin Aspart 15 unit 07/13/23 08:30 07/19/23 08:21 Insulin Aspart (Novolog) 100 Unit/Ml Vial SQ Not Given AC-TID [facility] Insulin Detemir 20 unit 07/14/23 21:00 07/18/23 20:59 Insulin Detemir (Levemir) 100 Unit/Ml Syr SQ 20 unit HS [facility] Administration Insulin Detemir 20 unit 07/15/23 07:00 07/18/23 07:06 Insulin Detemir (Levemir) 100 Unit/Ml Syr SQ 20 unit DAILY@0700 [facility] Administration Losartan Potassium 25 mg 07/14/23 09:00 07/19/23 08:21 Losartan 25 Mg Tab PO 25 mg DAILY [facility] Administration Metoprolol Succinate 75 mg 07/17/23 09:00 07/19/23 08:20 Metoprolol Succinate (Er) 25 Mg Tab.Er.24h PO 75 mg DAILY [facility] Administration Naloxone HCl 0.2 mg 07/13/23 04:18 Naloxone 0.4 Mg/Ml 1 Ml Vial IV Q2M PRN Opioid Reversal Nitroglycerin 0.4 mg 07/13/23 11:51 Nitroglycerin Sl Tabs 0.4 Mg Tab SUBLINGUAL Q5M PRN Chest Pain Pantoprazole Sodium 40 mg 07/13/23 09:00 07/19/23 08:20 Pantoprazole 40 Mg/10 Ml Vial IVP 40 mg DAILY [facility] Administration Pravastatin Sodium 20 mg 07/13/23 21:00 07/18/23 21:00 Pravastatin Sodium 20 Mg Tab PO 20 mg HS [facility] Administration Tamsulosin HCl 0.4 mg 07/13/23 09:00 07/19/23 08:20 Tamsulosin 0.4 Mg Cap.Er.24h PO 0.4 mg BID [facility]EN Administration Objective - Vital Signs Vital signs: Vital Signs Temp 97.6 F 07/19/23 08:00 Pulse 92 07/19/23 08:00 Resp 16 07/19/23 08:00 BP 110/72 07/19/23 08:00 Pulse Ox 95 07/19/23 04:00 FiO2 Intake & Output 07/18/23 07/19/23 07/19/23 18:59 06:59 18:59 Intake Total 866.000 50 Output Total 750 675 Balance 116.000 -675 50 Weight 95.9 kg Intake: IV 20 50 Invasive Line 2 10 Invasive Line 3 10 Intake, IV Titration 250.000 Amount Heparin Sod,Pork in 0.45% 250.000 NaCl 25,000 unit In 0.45 % NaCl 1 250ml.bag @ 10. 67 UNITS/KG/HR 9.998 mls/ hr IV .Q24H [facility] Rx#: [id number] Oral 596 Output: Urine 750 675 Other: Voiding Method Toilet Toilet Toilet Urinal Urinal Urinal # Voids 1 - Exam GENERAL: The patient is alert and oriented x3, not in any acute distress. Well developed, well nourished. HEENT: Pupils are round and equally reacting to light. EOMI. No scleral icterus. No conjunctival pallor. Normocephalic, atraumatic. No pharyngeal erythema. No thyromegaly. CARDIOVASCULAR: S1 and S2 present. No murmurs, rubs, or gallops. PULMONARY: Chest is clear to auscultation, no wheezing , no crackles. ABDOMEN: Soft, nontender, nondistended, normoactive bowel sounds. No palpable organomegaly. MUSCULOSKELETAL: No joint swelling or deformity. EXTREMITIES: No cyanosis, clubbing, or pedal edema. NEUROLOGICAL: Gross neurological examination did not reveal any focal deficits. SKIN: No rashes. no petechiae. - Labs CBC & Chem 7: 07/19/23 08:31 07/19/23 08:31 Labs: Abnormal Lab Results - Last 24 Hours (Table) 07/18/23 07/18/23 07/18/23 Range/Units 12:00 16:17 19:53 RBC (4.30-5.90) m/uL Hgb (13.0-17.5) gm/dL Hct (39.0-53.0) % Lymphocytes # (1.0-4.8) k/uL APTT (22.0-30.0) sec Carbon Dioxide (22-30) mmol/L BUN (9-20) mg/dL Glucose (74-99) mg/dL POC Glucose (mg/dL) 181 H 232 H 200 H (70-110) mg/dL 07/19/23 07/19/23 07/19/23 Range/Units 06:02 08:31 08:31 RBC 4.09 L (4.30-5.90) m/uL Hgb 12.6 L (13.0-17.5) gm/dL Hct 38.8 L (39.0-53.0) % Lymphocytes # 0.9 L (1.0-4.8) k/uL APTT 46.4 H (22.0-30.0) sec Carbon Dioxide (22-30) mmol/L BUN (9-20) mg/dL Glucose (74-99) mg/dL POC Glucose (mg/dL) 126 H (70-110) mg/dL 07/19/23 Range/Units 08:31 RBC (4.30-5.90) m/uL Hgb (13.0-17.5) gm/dL Hct (39.0-53.0) % Lymphocytes # (1.0-4.8) k/uL APTT (22.0-30.0) sec Carbon Dioxide 19 L (22-30) mmol/L BUN 38 H (9-20) mg/dL Glucose 119 H (74-99) mg/dL POC Glucose (mg/dL) (70-110) mg/dL Microbiology - Last 24 Hours (Table) 07/16/23 18:24 Urine Culture - Preliminary Urine,Clean Catch Gram Neg Bacilli Assessment and Plan Assessment: Acute CHF exacerbation Elevated troponin suspicious for a non-STEMI Acute kidney injury on chronic kidney disease stage III Remote history of hyperthyroidism, she stopped taking hyperthyroid medication for several months now history of urinary bladder cancer and he follows up with urologist as an outpatient Paroxysmal atrial fibrillation on eliquis at home. He of ventricular tachycardia on ventricular pacemaker. Obesity with BMI of 31.8. Asymptomatic bacteriuria versus abnormal urine analysis related to kidney stone. Currently patient is asymptomatic and no need for antibiotics with no fever and leukocytosis Plan: continue with heparin drip Continue with the plan by recreational facilities motel manager for cardiac cath ; Preoperatively there is no medical contraindication to proceed with the procedure Continue with IV Lasix twice daily, we will add fluid restriction Resume Levemir 20 units twice Small dose losartan 25 mg started No evidence of UTI, no need for antibiotic for now, we'll keep monitoring cardiology consult Nephrology consult Labs and medication were reviewed.. Continue same treatment. Continue with symptomatic treatment. Resume home medication. Monitor labs and vitals. DVT and GI prophylaxis. Further recommendations as per clinical course of the patient DVT prophylaxis: heparin GI Prophylaxis: ppi PT/OT: Pending total after cardiac cath Prognosis is guarded
--- NOTE | 2023-07-19 11:53 | P.PN ---
Subjective Patient is seen for follow-up for acute kidney injury. Status post cardiac catheterization on 07/14/2023 with plans for stent placement which was not done as creatinine remained elevated.. Patient is status post IV fluids. Serum creatinine at 1.2 today. No complaints of shortness of breath or chest pain. Maintained on ceftriaxone for underlying UTI. Urine culture grew 50 - 100,000 gram-negative bacilli Blood pressure remains low. No significant symptoms. Good urine output. Objective - Vital Signs Vital signs: Vital Signs Temp 97.6 F 07/19/23 08:00 Pulse 92 07/19/23 08:00 Resp 16 07/19/23 08:00 BP 110/72 07/19/23 08:00 Pulse Ox 95 07/19/23 04:00 FiO2 Intake & Output 07/18/23 07/19/23 07/19/23 18:59 06:59 18:59 Intake Total 866.000 50 Output Total 750 675 Balance 116.000 -675 50 Weight 95.9 kg Intake: IV 20 50 Invasive Line 2 10 Invasive Line 3 10 Intake, IV Titration 250.000 Amount Heparin Sod,Pork in 0.45% 250.000 NaCl 25,000 unit In 0.45 % NaCl 1 250ml.bag @ 10. 67 UNITS/KG/HR 9.998 mls/ hr IV .Q24H [facility] Rx#: [id number] Oral 596 Output: Urine 750 675 Other: Voiding Method Toilet Toilet Toilet Urinal Urinal Urinal # Voids 1 - Exam Patient is awake, comfortable, alert oriented 3 Examination of the heart S1 and S2 Examination of the lungs bilateral breath sounds are heard Abdomen is soft nontender Examination of lower extremities shows no edema bilaterally [employer] exam grossly intact - Labs CBC & Chem 7: 07/19/23 08:31 07/19/23 08:31 Labs: Abnormal Lab Results - Last 24 Hours (Table) 07/18/23 07/18/23 07/18/23 Range/Units 12:00 16:17 19:53 RBC (4.30-5.90) m/uL Hgb (13.0-17.5) gm/dL Hct (39.0-53.0) % Lymphocytes # (1.0-4.8) k/uL APTT (22.0-30.0) sec Carbon Dioxide (22-30) mmol/L BUN (9-20) mg/dL Glucose (74-99) mg/dL POC Glucose (mg/dL) 181 H 232 H 200 H (70-110) mg/dL 07/19/23 07/19/23 07/19/23 Range/Units 06:02 08:31 08:31 RBC 4.09 L (4.30-5.90) m/uL Hgb 12.6 L (13.0-17.5) gm/dL Hct 38.8 L (39.0-53.0) % Lymphocytes # 0.9 L (1.0-4.8) k/uL APTT 46.4 H (22.0-30.0) sec Carbon Dioxide (22-30) mmol/L BUN (9-20) mg/dL Glucose (74-99) mg/dL POC Glucose (mg/dL) 126 H (70-110) mg/dL 07/19/23 Range/Units 08:31 RBC (4.30-5.90) m/uL Hgb (13.0-17.5) gm/dL Hct (39.0-53.0) % Lymphocytes # (1.0-4.8) k/uL APTT (22.0-30.0) sec Carbon Dioxide 19 L (22-30) mmol/L BUN 38 H (9-20) mg/dL Glucose 119 H (74-99) mg/dL POC Glucose (mg/dL) (70-110) mg/dL Microbiology - Last 24 Hours (Table) 07/16/23 18:24 Urine Culture - Preliminary Urine,Clean Catch Gram Neg Bacilli Assessment and Plan Assessment: 1. Acute kidney injury mostly cardiorenal. Currently nonoliguric. Serum creatinine is higher secondary to hypotension. Patient is maintained on Cozaar but parameters are in place for holding for systolic blood pressure less than 110. Patient is also maintained on farxiga which we can continue for now. UA shows trace protein no blood and WBCs more than 182. Status post IV fluids. 2. Chronic kidney disease NKF stage IIIa with baseline creatinine 0.9-1.2 mg/dL. 3. Volume overload, improved 4. Acute on chronic systolic CHF with EF 35-40% on echocardiogram performed on 06/11/2022. 5. History of bladder cancer. Follows with Dr. gonzales as outpatient. 6. Elevated troponin maintained on IV heparin and cardiology on consult. Plans for cardiac catheterization and stent placement 7. UTI with urine cx growing 50,000-10,000 gram negative bacilli Plan: May continue with adelita Maintain parameters for Kyle
[2023-07-19] MEDS ORDERED: IOPAMIDOL-370 100ML BTL INJ ONE (12:29)
[2023-07-19 12:59] LABS: Glucose,Whole Blood 139 mg/dL (70-110)
[2023-07-19 14:13] VITALS: BMI 33.0
[2023-07-19 17:11] LABS: Glucose,Whole Blood 223 mg/dL (70-110)
[2023-07-19 20:05] LABS: Glucose,Whole Blood 211 mg/dL (70-110)
--- NOTE | 2023-07-19 20:37 | P.CARDCATH ---
Description of Procedure: PROCEDURES PERFORMED: Radial to OM1 angiography with attempted PCI or radial to OM1 INDICATION: Non-STEMI CONSENT:I have discussed the risks, benefits and alternative therapies for the above-mentioned procedure and for both sedation/analgesia as well as necessary blood product administration, if indicated, as they pertain to this patient. The patient has indicated understanding and acceptance of the risks and procedures discussed. PROCEDURE: After the risks, benefits and alternatives of the above mentioned procedure explained in detail with the patient, informed consent was obtained. Patient was taken to the catheterization lab and prepped and draped in usual fashion. Ultrasound guidance was used to assess for arterial access. 1% lidocaine was used to anesthetize the right radial artery. A 6-Croat[place] sheath was placed in the right radial artery using modified Seldinger technique and ultrasound guidance. Patient was still complaining of SOB which had been fairly unchanged since his admission and therefore LV pressures were checked with a 6Fr FR4 catheter. Next, a 6Fr AL 0.75 guide was used to subselectively engage the radial to OM1 and the proximal portion was able to be wired and a Guideliner was extended into the ostium. With angiography, there was JOEY 1 flow. The lesion appeared at the level of the anastamosis and where the artery takes a turn with possibility of softer plaque consistent with ACS vs more chronic calcified lesion which would likely be a more chronic lesion. Therefore initially wiring of the stenosis was achieved with a 0.014 BMW wire. Attempted to advanced a 2.0 x 12, 1.5 x 12mm balloon despite bringing down guideliner with inability to advanced past the lesion. Attempted LCB guide which could not cannulate the origin and a IM guide catheter which was able to advance with poor support. Telescoped the guideliner down the artery however occlusive and unable to pass a balloon past the lesion. Angiography with poor antegrade flow and patient without and angina or EKG changes. Unclear if this was viable tissue and behaving like a chronic lesion and not likely culprit lesion. Considered femoral approach for improved guide support however unclear if this would help and therefore further attempts were abandoned. The patient tolerated the procedure well. Patient was transported back to the post catheterization holding area in stable condition. Conscious Sedation: Patient was monitored under the direct supervision of myself for conscious sedation using Versed and fentanyl for a total duration of 63 minutes HEMODYNAMICS: Aorta: 90/52 LV: 98/15, LVEDP 31, mild aortic stenosis with gradient of 10mmHg, likely underestimated due to low flow low gradient Radial artery to OM 1: There is distal anastomosis 95% stenosis and otherwise patent FINAL IMPRESSION: 1. Unsuccessful PCI of radial artery to OM1 with lesion possibly at the anastamosis and behaving like a chronic lesion, likely not culprit vessel 2. Elevated left sided filling pressures 3. Mild aortic stenosis however likely underestimated due to low flow low gradient PLAN: 1. Aggressive risk factor modification per most recent ACC/AHA guidelines. 2. Lesion with JOEY 1 flow, and likely at anastamosis, behaving like a chronic lesion. Given most of symptoms dyspnea and more likely related to heart failure would treat radial to OM1 medically. Increase diuresis and monitor response.
[2023-07-19] MEDS: BUMETANIDE 0.25 MG/ML 10 ML VIAL IV SCH (20:42)
[2023-07-19] MEDS: PRAVASTATIN SODIUM 20 MG TAB PO SCH (20:44)
[2023-07-19] MEDS: ALPRAZolam 0.25 MG TAB PO PRN (21:41)
[2023-07-20 06:03] LABS: Glucose,Whole Blood 139 mg/dL (70-110)
[2023-07-20] MEDS: INSULIN ASPART (NovoLOG) 100 UNIT/ML VIAL SQ SCH ×6 (08:20→20:07)
[2023-07-20] MEDS: PANTOPRAZOLE 40 MG/10 ML VIAL IVP SCH (08:33)
[2023-07-20] MEDS: CYANOCOBALAMIN 500 MCG TAB PO SCH (08:34)
[2023-07-20] MEDS: INSULIN DETEMIR (LEVEMIR) 100 UNIT/ML SYR SQ SCH ×2 (08:34→20:14)
[2023-07-20] MEDS: allopurinoL 100 MG TAB PO SCH (08:34)
[2023-07-20] MEDS: FERROUS SULFATE 325 MG TAB PO SCH (08:34)
[2023-07-20] MEDS: DORZOLAMIDE HCL 2% DROPS 10 ML BTL BOTH EYES SCH ×2 (08:35→20:14)
[2023-07-20 10:07] LABS: African American GFR (CKD) 53 (>60 ml/min/1.73 sqM); Anion Gap 15 mmol/L; Blood Urea Nitrogen 47 mg/dL (9-20); Calcium 8.7 mg/dL (8.4-10.2); Carbon Dioxide 20 mmol/L (22-30); Chloride 104 mmol/L (98-107); Glucose 213 mg/dL (74-99); Non-African American GFR(CKD) 46 (>60 ml/min/1.73 sqM); Potassium 4.1 mmol/L (3.5-5.1); Sodium 139 mmol/L (137-145)
--- NOTE | 2023-07-20 10:59 | P.PN ---
Subjective this is a pleasant 82 yo M with past medical history of multiple medical problems who presents because of shortness of breath of one-day duration. Patient denies coughing or phlegm. Patient denies chest pain. No other GI or urinary complaints or change in his habits regarding these. He is afebrile. He denies headache dizziness weakness or numbness. He denies smoking alcohol or illicit drugs. Vitas looks stable. His creatinine is slightly elevated above baseline of 1.4, baseline 0.9-1.1. Patient sees Dr. Harris as an outpatient for his kidney disease also he follows up with for his history of urinary bladder cancer, as per patient and his been clear regarding this. He is also diabetic taking 20 units of Levemir twice daily and NovoLog 15 units with meals. He has history of bypass surgery and he follows up with Dr. Mccloud. His bypass was in 1996. He denies previous history of stents and he is currently not on aspirin or other antiplatelet at home as he states. Other labs showing unremarkable INR. He has mild leukocytosis of 14.7. Troponin is elevated 1.9. Influenza A and type B, RSV, SARS (coronavirus) are and detected His [place] was [place] [address]. G showing ventricular paced rhythm at [address]-T changes The chest x-ray by myself and there is increased bilateral infiltrates especially in the lower zone suspicious for CHF Gram was ordered and is pending. It is on a liquid was at home and he was taken off as supposed to be twice a day. This was held on admission and started on heparin drip. A 6 CT daily and 40 at bedside and this was switched to IV Lasix 40 mg twice daily. Also he was given a one-time dose of aspirin 325 mg. 07/14/2023 Patient admitted with dyspnea and found to have acute severe cardiomyopathy most likely ischemic heart disease with ejection fraction 20-25% with moderate TR, moderate [id number] pulmonary hypertension. Troponin were significantly elevated, he is currently on aspirin 81 mg and heparin drip and the planned to undergo cardiac cath with cardiology team today. This morning patient denies chest pain, he has only mild tachypnea at rest. No other new complaints Also nephrology for follow-up with the patient for acute kidney injury on chroni c kidney disease stage III, creatinine on admission 1.4, went down to 1.3 and today 1.5. Losartan on admission was put on hold and then restarted at lower dose 25 mg daily. need to check bladder scan which was ordered and pending. On admission he was placed on IV Lasix 40 mg twice daily for acute CHF. Because of planned to undergo cardiac cath and kidney injury disease he was started on normal saline 100 mL/h by nutrition manager team. Currently no change in his breathing pattern. Renal ultrasound show nonobstructive calculus of the left kidney, patient informed. His hemoglobin A1c was elevated 7.8%, would prefer better controlled of his sugar. Admission he was on Lantus 20 units daily and 18 units at bedtime with 15 units of NovoLog with meals. Because patient is going for cardiac cath he was placed on lower dose of Levemir 10 units daily. Sugar looks controlled. blood pressure on the low side 91/54, currently on losartan 25 mg daily. Also he is on aspirin 81 mg. his urine analysis is abnormal but patient denies dysuria, urgency change in frequency, no suprapubic pain or flank pain. Most likely is abnormal UA related to his kidney stone From the records, 24 hour interval change 07/16/2023 Patient is seen and evaluated resting comfortably in bed; denies any complaint of chest pain or shortness of breath Vital signs are reviewed and stable with temperature of 98, pulse 82, respirations 16 and blood pressure of 98/57 Lab review shows WBC of 10.1, hemoglobin 12.8 and platelet count of 175, sodium 139, potassium 2.7, BUN/creatinine of 44/1.65 and blood glucose of 194 Serum creatinine is higher secondary to hypotension. Patient is maintained on Cozaar but parameters are in place for holding for systolic blood pressure less than 110. Patient is also maintained on farxiga which we can continue for now. UA shows trace protein no blood and WBCs more than 182. Status post IV fluids. Patient remains stable and could be discharged per nephrology 24 hour interval change 07/17/2023 82-year-old male who is admitted to the hospital for non-ST elevated myocardial infarction and exacerbation of heart failure. He underwent coronary angiogram where he was found to have a 60% left main, 100% ostial LAD, 95% oxygen will circumflex and 100% RCA stenosis with patent KAUFFMAN to LAD. 95% stenosis of radial the OM1. Plan was to return to the OR for stenting of radial to OM1 with Dr. Mccloud, however the patient had a rising creatinine level. Procedure will be delayed until Tuesday. Vital signs are reviewed and remained stable Lab review shows a B UN/creatinine of 47/1.64, sodium of 138 and potassium of 3.9 Patient remains on IV heparin Continue to monitor renal function and electrolytes 07/18/2023 Patient is seen and evaluated in room at bedside; no complaint of chest pain or shortness of breath; tolerating antibiotics Vital signs are reviewed and remained stable with blood pressure 109/66 and O2 saturation 95% on room air - Patient remains on IV Rocephin for UTI with plans to make further adjustments in antibiotic therapy once final culture results and sensitivity is available. Patient currently denies dysuria or change in frequency -- Labs are reviewed; creatinine is down to 1.17; patient will be nothing by mouth at midnight tonight with plans for coronary angiography with intervention tomorrow 07/19/2023 Patient is lying in bed not in distress, is mildly tachypneic, he has no orthopnea, he is anxious to go for cardiac cath today with Dr. Mccloud but he denies current any chest pain. His breathing looks okay and at baseline. Blood pressure is stable 110/72 Labs including CBC and BMP were unremarkable, creatinine 1.2 today. Urine culture is growing gram-negative bacilli and patient remains on Rocephin. Distal on heparin drip with the plan for cardiac cath today as above. Preoperatively there is no medical contraindication to proceed with cardiac cath 07/20/2023 Patient sitting in chair, denies chest pain or dyspnea. No new complaint. No significant urinary tract symptoms, no dizziness. Patient gets from the bed to the chair with no problem. He had cardiac cath yesterday and unsuccessful PSI to OM 1, most likely he is not the culprit vessel her nutrition manager. His liquids resumed for his paroxysmal A. fib, EKG showing paced ventricular rhythm. Remains on Rocephin for UTI, urine culture is pending. Creatinine slightly up today 1.4 with keep close monitoring while blood pressure 86/47. Case was discussed with staff, bedside nurse and cardilogy team Review of systems CONSTITUTIONAL: No fever, no malaise, no fatigue. HEENT: No recent visual problems or hearing problems. Denied any sore throat. CARDIOVASCULAR: No orthopnea, PND, no palpitations, no syncope. PULMONARY: No shortness of breath, no cough, no hemoptysis. GASTROINTESTINAL: No diarrhea, no nausea, no vomiting, no abdominal pain. Normoactive bowel sounds. Active Medications Generic Name Dose Route Start Last Admin Trade Name Freq PRN Reason Stop Dose Admin Allopurinol 100 mg 07/13/23 09:00 07/20/23 08:34 Allopurinol 100 Mg Tab PO 100 mg DAILY HEAVEN Administration Alprazolam 0.25 mg 07/13/23 11:51 07/19/23 21:41 Alprazolam 0.25 Mg Tab PO 0.25 mg Q6HR PRN Administration Mild Anxiety Alprazolam 0.5 mg 07/13/23 11:51 Alprazolam 0.5 Mg Tab PO Q6HR PRN Moderate Anxiety Apixaban 5 mg 07/20/23 10:30 Apixaban 5 Mg Tab PO BID HEAVEN Protocol Bumetanide 1 mg 07/20/23 10:30 Bumetanide 0.25 Mg/Ml 10 Ml Vial IV Q12HR [facility] Cyanocobalamin 1,000 mcg 07/13/23 09:00 07/20/23 08:34 Cyanocobalamin 500 Mcg Tab PO 1,000 mcg DAILY HEAVEN Administration Dapagliflozin 10 mg 07/13/23 09:00 07/19/23 08:20 Dapagliflozin Propanediol 10 Mg Tablet PO 10 mg DAILY HEAVEN Administration Dextrose/Water 25 ml 07/13/23 07:05 Dextrose 50% Syringe 50 Ml IVP PER PROTOCOL PRN Hypoglycemia Protocol Dextrose/Water 50 ml 07/13/23 07:05 Dextrose 50% Syringe 50 Ml IVP PER PROTOCOL PRN Hypoglycemia Protocol Dorzolamide HCl 2 drops 07/13/23 09:00 07/20/23 08:35 Dorzolamide Hcl 2% Drops 10 Ml Btl BOTH EYES 2 drops BID HEAVEN Administration Ferrous Sulfate 325 mg 07/13/23 09:00 07/20/23 08:34 Ferrous Sulfate 325 Mg Tab PO 325 mg DAILY HEAVEN Administration Fluticasone Propionate 2 spray 07/14/23 02:00 07/14/23 02:02 Fluticasone 50mcg/[place] Nasal 16gm EA NOSTRIL 2 spray DAILY PRN Administration Allergy Symptoms Heparin Sodium (Porcine) 0 unit 07/15/23 17:14 Heparin Sodium 1,000 Un/Ml (10ml Vl) IV PER PROTOCOL PRN Low PTT Protocol Ceftriaxone Sodium 2 gm/ 50 mls @ 100 mls/hr 07/17/23 13:00 07/20/23 08:33 Sodium Chloride IVPB 100 mls/hr Q24HR HEAVEN Administration Protocol Insulin Aspart 0 unit 07/13/23 07:30 07/20/23 08:20 Insulin Aspart (Novolog) 100 Unit/Ml Vial SQ Not Given ACHS HEAVEN Protocol Insulin Aspart 15 unit 07/13/23 08:30 07/20/23 08:35 Insulin Aspart (Novolog) 100 Unit/Ml Vial SQ 15 unit AC-TID HEAVEN Administration Insulin Detemir 20 unit 07/14/23 21:00 07/19/23 20:44 Insulin Detemir (Levemir) 100 Unit/Ml Syr SQ 20 unit HS HEAVEN Administration Insulin Detemir 20 unit 07/15/23 07:00 07/20/23 08:34 Insulin Detemir (Levemir) 100 Unit/Ml Syr SQ 20 unit DAILY@0700 HEAVEN Administration Metoprolol Succinate 25 mg 07/20/23 09:00 Metoprolol Succinate (Er) 25 Mg Tab.Er.24h PO DAILY HEAVEN Naloxone HCl 0.2 mg 07/13/23 04:18 Naloxone 0.4 Mg/Ml 1 Ml Vial IV Q2M PRN Opioid Reversal Nitroglycerin 0.4 mg 07/13/23 11:51 Nitroglycerin Sl Tabs 0.4 Mg Tab SUBLINGUAL Q5M PRN Chest Pain Pantoprazole Sodium 40 mg 07/13/23 09:00 07/20/23 08:33 Pantoprazole 40 Mg/10 Ml Vial IVP 40 mg DAILY HEAVEN Administration Pravastatin Sodium 20 mg 07/13/23 21:00 07/19/23 20:44 Pravastatin Sodium 20 Mg Tab PO 20 mg HS HEAVEN Administration Tamsulosin HCl 0.4 mg 07/13/23 09:00 07/19/23 20:44 Tamsulosin 0.4 Mg Cap.Er.24h PO 0.4 mg BID HEAVEN Administration Objective - Vital Signs Vital signs: Vital Signs Temp 97.5 F L 07/19/23 20:00 Pulse 83 07/20/23 08:00 Resp 16 07/20/23 08:00 BP 86/47 07/20/23 08:00 Pulse Ox 98 07/20/23 08:00 FiO2 Intake & Output 07/19/23 07/20/23 07/20/23 18:59 06:59 18:59 Intake Total 440 10 118 Output Total 280 150 Balance 160 -140 118 Weight 95.9 kg 96 kg Intake: IV 100 10 Invasive Line 3 10 Oral 340 118 Output: Urine 280 150 Other: Voiding Method Toilet Urinal Urinal # Voids 1 # Bowel Movements 1 - Exam GENERAL: The patient is alert and oriented x3, not in any acute distress. Well developed, well nourished. HEENT: Pupils are round and equally reacting to light. EOMI. No scleral icterus. No conjunctival pallor. Normocephalic, atraumatic. No pharyngeal erythema. No thyromegaly. CARDIOVASCULAR: S1 and S2 present. No murmurs, rubs, or gallops. PULMONARY: Chest is clear to auscultation, no wheezing , no crackles. ABDOMEN: Soft, nontender, nondistended, normoactive bowel sounds. No palpable organomegaly. MUSCULOSKELETAL: No joint swelling or deformity. EXTREMITIES: No cyanosis, clubbing, or pedal edema. NEUROLOGICAL: Gross neurological examination did not reveal any focal deficits. SKIN: No rashes. no petechiae. - Labs CBC & Chem 7: 07/19/23 08:31 07/20/23 08:37 Labs: Abnormal Lab Results - Last 24 Hours (Table) 07/19/23 07/19/23 07/19/23 Range/Units 08:31 12:57 17:10 Carbon Dioxide 19 L (22-30) mmol/L BUN 38 H (9-20) mg/dL Creatinine (0.66-1.25) mg/dL Glucose 119 H (74-99) mg/dL POC Glucose (mg/dL) 139 H 223 H (70-110) mg/dL 07/19/23 07/20/23 07/20/23 Range/Units 20:00 06:01 08:37 Carbon Dioxide 20 L (22-30) mmol/L BUN 47 H (9-20) mg/dL Creatinine 1.44 H (0.66-1.25) mg/dL Glucose 213 H (74-99) mg/dL POC Glucose (mg/dL) 211 H 139 H (70-110) mg/dL Microbiology - Last 24 Hours (Table) 07/16/23 18:24 Urine Culture - Preliminary Urine,Clean Catch Gram Neg Bacilli Assessment and Plan Assessment: Acute CHF exacerbation Elevated troponin suspicious for a non-STEMI Acute kidney injury on chronic kidney disease stage III Remote history of hyperthyroidism, she stopped taking hyperthyroid medication for several months now history of urinary bladder cancer and he follows up with urologist as an outpatient Paroxysmal atrial fibrillation on eliquis at home. He of ventricular tachycardia on ventricular pacemaker. Obesity with BMI of 31.8. Asymptomatic bacteriuria versus abnormal urine analysis related to kidney stone. Currently patient is asymptomatic and no need for antibiotics with no fever and leukocytosis Plan: continue with eliwuis Continue with the plan by nutrition manager for cardiac cath ; Preoperatively there is no medical contraindication to proceed with the procedure Continue with IV bumex twice daily, we will add fluid restriction, monitor bp closely as well as creatinine Resume Levemir 20 units twice Small dose losartan 25 mg started (on hold) Continue with Rocephin for possible UTI, urine culture for gram-negative bacilli. Pending cardiology consult Nephrology consult Labs and medication were reviewed.. Continue same treatment. Continue with symptomatic treatment. Resume home medication. Monitor labs and vitals. DVT and GI prophylaxis. Further recommendations as per clinical course of the patient DVT prophylaxis: heparin GI Prophylaxis: ppi PT/OT: Pending Prognosis is guarded
--- NOTE | 2023-07-20 11:05 | P.PN ---
Subjective Patient is seen for follow-up for acute kidney injury. Status post cardiac catheterization on 07/14/2023 with plans for stent placement which was not done as creatinine remained elevated.. Patient is status post IV fluids. Serum creatinine at 1.2 today. No complaints of shortness of breath or chest pain. Maintained on ceftriaxone for underlying UTI. Urine culture grew 50 - 100,000 gram-negative bacilli Blood pressure remains low. No significant symptoms. Good urine output. Status post cardiac catheterization with angioplasty on 07/19/2023. Stent could not be placed. No complaints today. Objective - Vital Signs Vital signs: Vital Signs Temp 97.5 F L 07/19/23 20:00 Pulse 83 07/20/23 08:00 Resp 16 07/20/23 08:00 BP 86/47 07/20/23 08:00 Pulse Ox 98 07/20/23 08:00 FiO2 Intake & Output 07/19/23 07/20/23 07/20/23 18:59 06:59 18:59 Intake Total 440 10 118 Output Total 280 150 Balance 160 -140 118 Weight 95.9 kg 96 kg Intake: IV 100 10 Invasive Line 3 10 Oral 340 118 Output: Urine 280 150 Other: Voiding Method Toilet Urinal Urinal # Voids 1 # Bowel Movements 1 - Exam Patient is awake, comfortable, alert oriented 3 Examination of the heart S1 and S2 Examination of the lungs bilateral breath sounds are heard Abdomen is soft nontender Examination of lower extremities shows no edema bilaterally MUD LOGGER exam grossly intact - Labs CBC & Chem 7: 07/19/23 08:31 07/20/23 08:37 Labs: Abnormal Lab Results - Last 24 Hours (Table) 07/19/23 07/19/23 07/19/23 Range/Units 08:31 12:57 17:10 Carbon Dioxide 19 L (22-30) mmol/L BUN 38 H (9-20) mg/dL Creatinine (0.66-1.25) mg/dL Glucose 119 H (74-99) mg/dL POC Glucose (mg/dL) 139 H 223 H (70-110) mg/dL 07/19/23 07/20/23 07/20/23 Range/Units 20:00 06:01 08:37 Carbon Dioxide 20 L (22-30) mmol/L BUN 47 H (9-20) mg/dL Creatinine 1.44 H (0.66-1.25) mg/dL Glucose 213 H (74-99) mg/dL POC Glucose (mg/dL) 211 H 139 H (70-110) mg/dL Microbiology - Last 24 Hours (Table) 07/16/23 18:24 Urine Culture - Preliminary Urine,Clean Catch Gram Neg Bacilli Assessment and Plan Assessment: 1. Acute kidney injury mostly cardiorenal. Currently nonoliguric. Serum creatinine is higher secondary to hypotension. Patient is maintained on Cozaar but parameters are in place for holding for systolic blood pressure less than 110. Patient is also maintained on farxiga which we can continue for now. UA shows trace protein no blood and WBCs more than 182. Status post IV fluids. 2. Chronic kidney disease NKF stage IIIa with baseline creatinine 0.9-1.2 mg/dL. 3. Volume overload, improved 4. Acute on chronic systolic CHF with EF 35-40% on echocardiogram performed on 06/11/2022. 5. History of bladder cancer. Follows with Dr. gonzales as outpatient. 6. Elevated troponin maintained on IV heparin and cardiology on consult. Plans for cardiac catheterization and stent placement 7. UTI with urine cx growing 50,000-10,000 gram negative bacilli Plan: Recommend to decrease diuretics in a.m.
[2023-07-20 11:58] LABS: Glucose,Whole Blood 188 mg/dL (70-110)
--- NOTE | 2023-07-20 12:05 | P.PN ---
Subjective HISTORY OF PRESENT ILLNESS: 07/18/23 The patient is an 82-year-old male who is admitted to the hospital for non-ST elevated myocardial infarction and exacerbation of heart failure. He underwent coronary angiogram where he was found to have a 60% left main, 100% ostial LAD, 95% oxygen will circumflex and 100% RCA stenosis with patent KAUFFMAN to LAD. 95% stenosis of radial the OM1. Plan was to return to the OR for stenting of radial to OM1 with Dr. Mccloud, however the patient had a rising creatinine level. Creatinine level has now stabilized at 1.17. 07/20/2023 Patient examined this morning to bedside. Patient is status post cardiac catheterization with unsuccessful PCI of radial artery to OM1 lesion possibly at the anastomosis and behaving like a chronic lesion, likely non-culprit vessel. Elevated left-sided filling pressures. Patient is currently on Bumex 2 mg every 12 hours. Blood pressures a bit on the low side with a systolic ranging between 70 and 90. He did not receive his IV diuretics yesterday evening secondary to hypotension. PHYSICAL EXAM: VITAL SIGNS: Reviewed. GENERAL: Well-developed in no acute distress. NECK: Supple. No JVD or thyromegaly LUNGS: Respirations even and unlabored. Lungs essentially clear to auscultation bilaterally. HEART: Regular rate and rhythm. S1 and S2 heard. EXTREMITIES: Normal range of motion. No clubbing or cyanosis. Peripheral pulses intact. No lower extremity edema ASSESSMENT: Non-ST elevated myocardial infarction, status post cardiac catheterization with unsuccessful PCI of radial artery to OM1 lesion possibly at the anastomosis and behaving like a chronic lesion, likely non-culprit vessel Acute on chronic heart failure with reduced ejection fraction, 20-25% Urinary tract infection Ischemic cardiomyopathy Paroxysmal atrial fibrillation Type 2 diabetes Sick sinus syndrome History of ventricular tachycardia Chronic kidney disease History of AICD implantation Hypotension PLAN: Continue current cardiac medications Discontinue IV heparin. Resume Eliquis 5 mg twice a day for history of atrial fibrillation Decrease Bumex to 1 mg every 12 hours Daily weights, accurate I&O, and monitor kidney function Continue to monitor blood pressure Further recommendations pending patient's course Nurse practitioner note has been reviewed by physician. Signing provider agrees with the documented findings, assessment, and plan of care. Objective - Vital Signs Vital signs: Vital Signs Temp 97.5 F L 07/19/23 20:00 Pulse 83 07/20/23 08:00 Resp 16 07/20/23 08:00 BP 86/47 07/20/23 08:00 Pulse Ox 98 07/20/23 08:00 FiO2 Intake & Output 07/19/23 07/20/23 07/20/23 18:59 06:59 18:59 Intake Total 440 10 118 Output Total 280 150 250 Balance 160 -140 -132 Weight 95.9 kg 96 kg Intake: IV 100 10 Invasive Line 3 10 Oral 340 118 Output: Urine 280 150 250 Other: Voiding Method Toilet Urinal Urinal # Voids 1 1 # Bowel Movements 1 - Labs CBC & Chem 7: 07/19/23 08:31 07/20/23 08:37 Labs: Abnormal Lab Results - Last 24 Hours (Table) 07/19/23 07/19/23 07/19/23 Range/Units 12:57 17:10 20:00 Carbon Dioxide (22-30) mmol/L BUN (9-20) mg/dL Creatinine (0.66-1.25) mg/dL Glucose (74-99) mg/dL POC Glucose (mg/dL) 139 H 223 H 211 H (70-110) mg/dL 07/20/23 07/20/23 07/20/23 Range/Units 06:01 08:37 11:56 Carbon Dioxide 20 L (22-30) mmol/L BUN 47 H (9-20) mg/dL Creatinine 1.44 H (0.66-1.25) mg/dL Glucose 213 H (74-99) mg/dL POC Glucose (mg/dL) 139 H 188 H (70-110) mg/dL Microbiology - Last 24 Hours (Table) 07/16/23 18:24 Urine Culture - Preliminary Urine,Clean Catch Gram Neg Bacilli
[2023-07-20] MEDS: BUMETANIDE 0.25 MG/ML 10 ML VIAL IV SCH ×3 (12:30→20:13)
[2023-07-20] MEDS: APIXABAN 5 MG TAB PO SCH ×2 (12:32→20:13)
[2023-07-20] MEDS: DAPAGLIFLOZIN PROPANEDIOL 10 MG TABLET PO SCH (16:02)
[2023-07-20] MEDS: METOPROLOL SUCCINATE (ER) 25 MG TAB.ER.24H PO SCH (16:02)
[2023-07-20] MEDS: TAMSULOSIN 0.4 MG CAP.ER.24H PO SCH ×2 (16:03→20:13)
[2023-07-20] MEDS: MIDODRINE 5 MG TAB PO SCH ×2 (16:06→16:07)
[2023-07-20 17:08] LABS: Glucose,Whole Blood 112 mg/dL (70-110)
[2023-07-20 20:07] LABS: Glucose,Whole Blood 139 mg/dL (70-110)
[2023-07-20] MEDS: PRAVASTATIN SODIUM 20 MG TAB PO SCH (20:13)
[2023-07-20] MEDS: ALPRAZolam 0.25 MG TAB PO PRN (21:01)
[2023-07-21] MEDS: MIDODRINE 5 MG TAB PO SCH ×3 (06:39→17:24)
[2023-07-21 07:13] LABS: Glucose,Whole Blood 90 mg/dL (70-110)
[2023-07-21] MEDS: INSULIN ASPART (NovoLOG) 100 UNIT/ML VIAL SQ SCH ×7 (07:13→21:22)
[2023-07-21] MEDS: INSULIN DETEMIR (LEVEMIR) 100 UNIT/ML SYR SQ SCH ×2 (07:25→21:22)
[2023-07-21] MEDS: PANTOPRAZOLE 40 MG/10 ML VIAL IVP SCH (08:52)
[2023-07-21] MEDS: DAPAGLIFLOZIN PROPANEDIOL 10 MG TABLET PO SCH (08:53)
[2023-07-21] MEDS: allopurinoL 100 MG TAB PO SCH (08:53)
[2023-07-21] MEDS: CYANOCOBALAMIN 500 MCG TAB PO SCH (08:53)
[2023-07-21] MEDS: BUMETANIDE 0.25 MG/ML 10 ML VIAL IV SCH ×2 (08:53→21:21)
[2023-07-21] MEDS: FERROUS SULFATE 325 MG TAB PO SCH (08:53)
[2023-07-21] MEDS: APIXABAN 5 MG TAB PO SCH ×2 (08:54→21:21)
[2023-07-21] MEDS: DORZOLAMIDE HCL 2% DROPS 10 ML BTL BOTH EYES SCH ×2 (08:54→21:22)
[2023-07-21] MEDS: TAMSULOSIN 0.4 MG CAP.ER.24H PO SCH ×2 (08:54→21:22)
[2023-07-21] MEDS: METOPROLOL SUCCINATE (ER) 25 MG TAB.ER.24H PO SCH (08:54)
[2023-07-21 09:25] LABS: African American GFR (CKD) 64 (>60 ml/min/1.73 sqM); Anion Gap 14 mmol/L; Blood Urea Nitrogen 42 mg/dL (9-20); Carbon Dioxide 24 mmol/L (22-30); Chloride 105 mmol/L (98-107); Glucose 82 mg/dL (74-99); Non-African American GFR(CKD) 55 (>60 ml/min/1.73 sqM); Potassium 3.7 mmol/L (3.5-5.1); Sodium 143 mmol/L (137-145)
[2023-07-21] MEDS ORDERED: LEVOFLOXACIN 500MG-D5W PMX 500 MG in DEXTROSE/WATER 1 100ML.BAG IVPB SCH (10:00)
--- NOTE | 2023-07-21 11:30 | P.PN ---
Subjective HISTORY OF PRESENT ILLNESS: 07/18/23 The patient is an 82-year-old male who is admitted to the hospital for non-ST elevated myocardial infarction and exacerbation of heart failure. He underwent coronary angiogram where he was found to have a 60% left main, 100% ostial LAD, 95% oxygen will circumflex and 100% RCA stenosis with patent KAUFFMAN to LAD. 95% stenosis of radial the OM1. Plan was to return to the OR for stenting of radial to OM1 with Dr. Mccloud, however the patient had a rising creatinine level. Creatinine level has now stabilized at 1.17. 07/20/2023 Patient examined this morning to bedside. Patient is status post cardiac catheterization with unsuccessful PCI of radial artery to OM1 lesion possibly at the anastomosis and behaving like a chronic lesion, likely non-culprit vessel. Elevated left-sided filling pressures. Patient is currently on Bumex 2 mg every 12 hours. Blood pressures a bit on the low side with a systolic ranging between 70 and 90. He did not receive his IV diuretics yesterday evening secondary to hypotension. 07/20/2023 Patient examined this morning at the bedside. Patient is sitting up in the chair. He currently denies chest pain or pressure. He denies shortness of breath. He states he was ambulating this morning in the hallway and did get s lightly short of breath. Patient's vital signs are stable. PHYSICAL EXAM: VITAL SIGNS: Reviewed. GENERAL: Well-developed in no acute distress. NECK: Supple. No JVD or thyromegaly LUNGS: Respirations even and unlabored. Lungs essentially clear to auscultation bilaterally. HEART: Regular rate and rhythm. S1 and S2 heard. EXTREMITIES: Normal range of motion. No clubbing or cyanosis. Peripheral pulses intact. No lower extremity edema ASSESSMENT: Non-ST elevated myocardial infarction, status post cardiac catheterization with unsuccessful PCI of radial artery to OM1 lesion possibly at the anastomosis and behaving like a chronic lesion, likely non-culprit vessel Acute on chronic heart failure with reduced ejection fraction, 20-25% Urinary tract infection Ischemic cardiomyopathy Paroxysmal atrial fibrillation Type 2 diabetes Sick sinus syndrome History of ventricular tachycardia Chronic kidney disease History of AICD implantation Hypotension PLAN: Continue current cardiac medications Continue Bumex 1 mg every 12 hours. Transition to oral diuretics upon discharge Daily weights, accurate I&O, and monitor kidney function Continue to monitor blood pressure Patient is stable from a cardiac standpoint Further recommendations pending patient's course Nurse practitioner note has been reviewed by physician. Signing provider agrees with the documented findings, assessment, and plan of care. Objective - Vital Signs Vital signs: Vital Signs Temp 97.8 F 07/20/23 20:00 Pulse 89 07/21/23 08:00 Resp 16 07/21/23 08:00 BP 110/67 07/21/23 08:00 Pulse Ox 97 07/21/23 08:00 FiO2 Intake & Output 07/20/23 07/21/23 07/21/23 18:59 06:59 18:59 Intake Total 700 10 236 Output Total 250 1620 Balance 450 -1610 236 Weight 96 kg Intake: IV 10 Invasive Line 3 10 Oral 700 236 Output: Urine 250 1620 Other: Voiding Method Urinal Urinal # Voids 1 - Labs CBC & Chem 7: 07/19/23 08:31 07/21/23 07:25 Labs: Abnormal Lab Results - Last 24 Hours (Table) 07/20/23 07/20/23 07/20/23 Range/Units 11:56 17:07 20:03 BUN (9-20) mg/dL POC Glucose (mg/dL) 188 H 112 H 139 H (70-110) mg/dL 07/21/23 Range/Units 07:25 BUN 42 H (9-20) mg/dL POC Glucose (mg/dL) (70-110) mg/dL Microbiology - Last 24 Hours (Table) 07/16/23 18:24 Urine Culture - Final Urine,Clean Catch Pseudomonas aeruginosa Enterococcus faecalis
[2023-07-21 11:34] LABS: Glucose,Whole Blood 163 mg/dL (70-110)
--- NOTE | 2023-07-21 13:01 | P.PN ---
Subjective Patient is seen for follow-up for acute kidney injury. Status post cardiac catheterization on 07/14/2023 with plans for stent placement which was not done as creatinine remained elevated.. Patient is status post IV fluids. Serum creatinine at 1.2 today. No complaints of shortness of breath or chest pain. Maintained on ceftriaxone for underlying UTI. Urine culture grew 50 - 100,000 gram-negative bacilli Blood pressure remains low. No significant symptoms. Good urine output. Status post cardiac catheterization with angioplasty on 07/19/2023. Stent could not be placed. No complaints today. Objective - Vital Signs Vital signs: Vital Signs Temp 97.8 F 07/20/23 20:00 Pulse 96 07/21/23 12:00 Resp 16 07/21/23 12:00 BP 110/77 07/21/23 12:00 Pulse Ox 98 07/21/23 12:00 FiO2 Intake & Output 07/20/23 07/21/23 07/21/23 18:59 06:59 18:59 Intake Total 700 10 236 Output Total 250 1620 770 Balance 089 -1204 -967 Weight 96 kg Intake: IV 10 Invasive Line 3 10 Oral 700 236 Output: Urine 250 1620 770 Other: Voiding Method Urinal Urinal Urinal # Voids 1 2 - Exam Patient is awake, comfortable, alert oriented 3 Examination of the heart S1 and S2 Examination of the lungs bilateral breath sounds are heard Abdomen is soft nontender Examination of lower extremities shows trace edema bilaterally [employer]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 Acute kidney injury mostly cardiorenal. Currently nonoliguric. Serum creatinine is higher secondary to hypotension. Patient is maintained on Cozaar but parameters are in place for holding for systolic blood pressure less than 110. Patient is also maintained on farxiga which we can continue for now. UA shows trace protein no blood and WBCs more than 182. Status post IV fluids. 2. Chronic kidney disease NKF stage IIIa with baseline creatinine 0.9-1.2 mg/dL. 3. Volume overload, improved 4. Acute on chronic systolic CHF with EF 35-40% on echocardiogram performed on 06/11/2022. 5. History of bladder cancer. Follows with Dr. gonzales as outpatient. 6. Elevated troponin maintained on IV heparin and cardiology on consult. Plans for cardiac catheterization and stent placement 7. UTI with urine cx growing 50,000-10,000 gram negative bacilli Plan: Patient can be discharged from nephrology standpoint. He will resume Lasix 80 mg in a.m. and 40 mg p.m. upon discharge. He can take a couple of doses of 80 mg twice a day for 2 days post discharge Follow-up as outpatient
[2023-07-21 17:20] LABS: Glucose,Whole Blood 175 mg/dL (70-110)
[2023-07-21] MEDS: AMOXIC-POT CLAV 875-125MG 1 EACH TAB PO SCH ×2 (17:20→21:21)
[2023-07-21 20:41] LABS: Glucose,Whole Blood 135 mg/dL (70-110)
[2023-07-21] MEDS: CIPROFLOXACIN HCL 500 MG TAB PO SCH (21:21)
[2023-07-21] MEDS: ALPRAZolam 0.25 MG TAB PO PRN (21:22)
[2023-07-21] MEDS: PRAVASTATIN SODIUM 20 MG TAB PO SCH (21:22)
--- NOTE | 2023-07-21 22:08 | P.PN ---
Subjective this is a pleasant 82 yo M with past medical history of multiple medical problems who presents because of shortness of breath of one-day duration. Patient denies coughing or phlegm. Patient denies chest pain. No other GI or urinary complaints or change in his habits regarding these. He is afebrile. He denies headache dizziness weakness or numbness. He denies smoking alcohol or illicit drugs. Vitas looks stable. His creatinine is slightly elevated above baseline of 1.4, baseline 0.9-1.1. Patient sees Dr. Harris as an outpatient for his kidney disease also he follows up with for his history of urinary bladder cancer, as per patient and his been clear regarding this. He is also diabetic taking 20 units of Levemir twice daily and NovoLog 15 units with meals. He has history of bypass surgery and he follows up with Dr. Mccloud. His bypass was in 1996. He denies previous history of stents and he is currently not on aspirin or other antiplatelet at home as he states. Other labs showing unremarkable INR. He has mild leukocytosis of 14.7. Troponin is elevated 1.9. Influenza A and type B, RSV, SARS (coronavirus) are and detected [place] 80[address]. G showing ventricular paced rhythm at [address]-T changes The chest x-ray by myself and there is increased bilateral infiltrates especially in the lower zone suspicious for CHF Gram was ordered and is pending. It is on a liquid was at home and he was taken off as supposed to be twice a day. This was held on admission and started on heparin drip. A 6 CT daily and 40 at bedside and this was switched to IV Lasix 40 mg twice daily. Also he was given a one-time dose of aspirin 325 mg. 07/14/2023 Patient admitted with dyspnea and found to have acute severe cardiomyopathy most likely ischemic heart disease with ejection fraction 20-25% with moderate TR, moderate [id number] pulmonary hypertension. Troponin were significantly elevated, he is currently on aspirin 81 mg and heparin drip and the planned to undergo cardiac cath with cardiology team today. This morning patient denies chest pain, he has only mild tachypnea at rest. No other new complaints Also nephrology for follow-up with the patient for acute kidney injury on chroni c kidney disease stage III, creatinine on admission 1.4, went down to 1.3 and today 1.5. Losartan on admission was put on hold and then restarted at lower dose 25 mg daily. need to check bladder scan which was ordered and pending. On admission he was placed on IV Lasix 40 mg twice daily for acute CHF. Because of planned to undergo cardiac cath and kidney injury disease he was started on normal saline 100 mL/h by earth science professor team. Currently no change in his breathing pattern. Renal ultrasound show nonobstructive calculus of the left kidney, patient informed. His hemoglobin A1c was elevated 7.8%, would prefer better controlled of his sugar. Admission he was on Lantus 20 units daily and 18 units at bedtime with 15 units of NovoLog with meals. Because patient is going for cardiac cath he was placed on lower dose of Levemir 10 units daily. Sugar looks controlled. blood pressure on the low side 91/54, currently on losartan 25 mg daily. Also he is on aspirin 81 mg. his urine analysis is abnormal but patient denies dysuria, urgency change in frequency, no suprapubic pain or flank pain. Most likely is abnormal UA related to his kidney stone From the records, 24 hour interval change 07/16/2023 Patient is seen and evaluated resting comfortably in bed; denies any complaint of chest pain or shortness of breath Vital signs are reviewed and stable with temperature of 98, pulse 82, respirations 16 and blood pressure of 98/57 Lab review shows WBC of 10.1, hemoglobin 12.8 and platelet count of 175, sodium 139, potassium 2.7, BUN/creatinine of 44/1.65 and blood glucose of 194 Serum creatinine is higher secondary to hypotension. Patient is maintained on Cozaar but parameters are in place for holding for systolic blood pressure less than 110. Patient is also maintained on farxiga which we can continue for now. UA shows trace protein no blood and WBCs more than 182. Status post IV fluids. Patient remains stable and could be discharged per nephrology 24 hour interval change 07/17/2023 82-year-old male who is admitted to the hospital for non-ST elevated myocardial infarction and exacerbation of heart failure. He underwent coronary angiogram where he was found to have a 60% left main, 100% ostial LAD, 95% oxygen will circumflex and 100% RCA stenosis with patent KAUFFMAN to LAD. 95% stenosis of radial the OM1. Plan was to return to the OR for stenting of radial to OM1 with Dr. Mccloud, however the patient had a rising creatinine level. Procedure will be delayed until Tuesday. Vital signs are reviewed and remained stable Lab review shows a B UN/creatinine of 47/1.64, sodium of 138 and potassium of 3.9 Patient remains on IV heparin Continue to monitor renal function and electrolytes 07/18/2023 Patient is seen and evaluated in room at bedside; no complaint of chest pain or shortness of breath; tolerating antibiotics Vital signs are reviewed and remained stable with blood pressure 109/66 and O2 saturation 95% on room air - Patient remains on IV Rocephin for UTI with plans to make further adjustments in antibiotic therapy once final culture results and sensitivity is available. Patient currently denies dysuria or change in frequency -- Labs are reviewed; creatinine is down to 1.17; patient will be nothing by mouth at midnight tonight with plans for coronary angiography with intervention tomorrow 07/19/2023 Patient is lying in bed not in distress, is mildly tachypneic, he has no orthopnea, he is anxious to go for cardiac cath today with Dr. Mccloud but he denies current any chest pain. His breathing looks okay and at baseline. Blood pressure is stable 110/72 Labs including CBC and BMP were unremarkable, creatinine 1.2 today. Urine culture is growing gram-negative bacilli and patient remains on Rocephin. Distal on heparin drip with the plan for cardiac cath today as above. Preoperatively there is no medical contraindication to proceed with cardiac cath 07/20/2023 Patient sitting in chair, denies chest pain or dyspnea. No new complaint. No significant urinary tract symptoms, no dizziness. Patient gets from the bed to the chair with no problem. He had cardiac cath yesterday and unsuccessful PSI to OM 1, most likely he is not the culprit vessel her earth science professor. His liquids resumed for his paroxysmal A. fib, EKG showing paced ventricular rhythm. Remains on Rocephin for UTI, urine culture is pending. Creatinine slightly up today 1.4 with keep close monitoring while blood pressure 86/47. Case was discussed with staff, bedside nurse and cardilogy team 07/21/2023 Patient feels better today and he wanted to go home. Blood pressure 1 to the low side but improved currently on midodrine 5 mg. Also he is on metoprolol 75 mg. Eliquis home dose he takes for A. fib was resumed. His urine culture is growing pseudomonas and enterococcus and his antibiotics were adjusted to Cipro and Augmentin. He remains on IV diuretics with Bumex for another 24 hours which can be switched to oral Lasix upon discharge Abdominal ultrasound show nonobstructive left kidney stone which may be contributing to his infection. Creatinine back to 1.2 Case was discussed with cardiology team and bedside nurse. Possible discharge in 24-48 hours Review of systems CONSTITUTIONAL: No fever, no malaise, no fatigue. HEENT: No recent visual problems or hearing problems. Denied any sore throat. CARDIOVASCULAR: No orthopnea, PND, no palpitations, no syncope. PULMONARY: No shortness of breath, no cough, no hemoptysis. GASTROINTESTINAL: No diarrhea, no nausea, no vomiting, no abdominal pain. Normoactive bowel sounds. Active Medications Generic Name Dose Route Start Last Admin Trade Name Freq PRN Reason Stop Dose Admin Allopurinol 100 mg 07/13/23 09:00 07/21/23 08:53 Allopurinol 100 Mg Tab PO 100 mg DAILY HEAVEN Administration Alprazolam 0.25 mg 07/13/23 11:51 07/21/23 21:22 Alprazolam 0.25 Mg Tab PO 0.25 mg Q6HR PRN Administration Mild Anxiety Alprazolam 0.5 mg 07/13/23 11:51 Alprazolam 0.5 Mg Tab PO Q6HR PRN Moderate Anxiety Amoxicillin/Clavulanate Potassium 1 each 07/21/23 13:15 07/21/23 21:21 Amoxic-Pot Clav 875-125mg 1 Each Tab PO 1 each Q12HR HEAVEN Administration Protocol Apixaban 5 mg 07/20/23 10:30 07/21/23 21:21 Apixaban 5 Mg Tab PO 5 mg BID HEAVEN Administration Protocol Bumetanide 1 mg 07/20/23 10:30 07/21/23 21:21 Bumetanide 0.25 Mg/Ml 10 Ml Vial IV 1 mg Q12HR HEAVEN Administration Ciprofloxacin 500 mg 07/21/23 21:00 07/21/23 21:21 Ciprofloxacin Hcl 500 Mg Tab PO 500 mg BID HEAVEN Administration Protocol Cyanocobalamin 1,000 mcg 07/13/23 09:00 07/21/23 08:53 Cyanocobalamin 500 Mcg Tab PO 1,000 mcg DAILY HEAVEN Administration Dapagliflozin 10 mg 07/13/23 09:00 07/21/23 08:53 Dapagliflozin Propanediol 10 Mg Tablet PO 10 mg DAILY HEAVEN Administration Dextrose/Water 25 ml 07/13/23 07:05 Dextrose 50% Syringe 50 Ml IVP PER PROTOCOL PRN Hypoglycemia Protocol Dextrose/Water 50 ml 07/13/23 07:05 Dextrose 50% Syringe 50 Ml IVP PER PROTOCOL PRN Hypoglycemia Protocol Dorzolamide HCl 2 drops 07/13/23 09:00 07/21/23 21:22 Dorzolamide Hcl 2% Drops 10 Ml Btl BOTH EYES 2 drops BID HEAVEN Administration Ferrous Sulfate 325 mg 07/13/23 09:00 07/21/23 08:53 Ferrous Sulfate 325 Mg Tab PO 325 mg DAILY HEAVEN Administration Fluticasone Propionate 2 spray 07/14/23 02:00 07/14/23 02:02 Fluticasone 50mcg/[place] Nasal 16gm EA NOSTRIL 2 spray DAILY PRN Administration Allergy Symptoms Heparin Sodium (Porcine) 0 unit 07/15/23 17:14 Heparin Sodium 1,000 Un/Ml (10ml Vl) IV PER PROTOCOL PRN Low PTT Protocol Insulin Aspart 0 unit 07/13/23 07:30 07/21/23 21:22 Insulin Aspart (Novolog) 100 Unit/Ml Vial SQ Not Given ACHS [facility] Protocol Insulin Aspart 15 unit 07/13/23 08:30 07/21/23 17:20 Insulin Aspart (Novolog) 100 Unit/Ml Vial SQ 15 unit AC-TID HEAVEN Administration Insulin Detemir 20 unit 07/14/23 21:00 07/21/23 21:22 Insulin Detemir (Levemir) 100 Unit/Ml Syr SQ 20 unit HS HEAVEN Administration Insulin Detemir 20 unit 07/15/23 07:00 07/21/23 07:25 Insulin Detemir (Levemir) 100 Unit/Ml Syr SQ 20 unit DAILY@0700 HEAVEN Administration Metoprolol Succinate 25 mg 07/20/23 09:00 07/21/23 08:54 Metoprolol Succinate (Er) 25 Mg Tab.Er.24h PO 25 mg DAILY HEAVEN Administration Midodrine 5 mg 07/20/23 12:45 07/21/23 17:24 Midodrine 5 Mg Tab PO 5 mg AC-TID HEAVEN Administration Naloxone HCl 0.2 mg 07/13/23 04:18 Naloxone 0.4 Mg/Ml 1 Ml Vial IV Q2M PRN Opioid Reversal Nitroglycerin 0.4 mg 07/13/23 11:51 Nitroglycerin Sl Tabs 0.4 Mg Tab SUBLINGUAL Q5M PRN Chest Pain Pantoprazole Sodium 40 mg 07/13/23 09:00 07/21/23 08:52 Pantoprazole 40 Mg/10 Ml Vial IVP 40 mg DAILY HEAVEN Administration Pravastatin Sodium 20 mg 07/13/23 21:00 07/21/23 21:22 Pravastatin Sodium 20 Mg Tab PO 20 mg HS HEAVEN Administration Tamsulosin HCl 0.4 mg 07/13/23 09:00 07/21/23 21:22 Tamsulosin 0.4 Mg Cap.Er.24h PO 0.4 mg BID HEAVEN Administration Objective - Vital Signs Vital signs: Vital Signs Temp 97.8 F 07/20/23 20:00 Pulse 103 H 07/21/23 16:00 Resp 16 07/21/23 16:00 BP 109/69 07/21/23 16:00 Pulse Ox 97 07/21/23 16:00 FiO2 Intake & Output 07/21/23 07/21/23 07/22/23 06:59 18:59 06:59 Intake Total 10 680 Output Total 1620 1120 Balance -1610 -440 Weight 96 kg Intake: IV 10 Invasive Line 3 10 Oral 680 Output: Urine 1620 1120 Other: Voiding Method Urinal Urinal # Voids 1 - Exam GENERAL: The patient is alert and oriented x3, not in any acute distress. Well developed, well nourished. HEENT: Pupils are round and equally reacting to light. EOMI. No scleral icterus. No conjunctival pallor. Normocephalic, atraumatic. No pharyngeal erythema. No thyromegaly. CARDIOVASCULAR: S1 and S2 present. No murmurs, rubs, or gallops. PULMONARY: Chest is clear to auscultation, no wheezing , no crackles. ABDOMEN: Soft, nontender, nondistended, normoactive bowel sounds. No palpable organomegaly. MUSCULOSKELETAL: No joint swelling or deformity. EXTREMITIES: No cyanosis, clubbing, or pedal edema. NEUROLOGICAL: Gross neurological examination did not reveal any focal deficits. SKIN: No rashes. no petechiae. - Labs CBC & Chem 7: 07/19/23 08:31 07/21/23 07:25 Labs: Abnormal Lab Results - Last 24 Hours (Table) 07/21/23 07/21/23 07/21/23 Range/Units 07:25 11:33 17:19 BUN 42 H (9-20) mg/dL POC Glucose (mg/dL) 163 H 175 H (70-110) mg/dL 07/21/23 Range/Units 20:39 BUN (9-20) mg/dL POC Glucose (mg/dL) 135 H (70-110) mg/dL Assessment and Plan Assessment: Acute CHF exacerbation Elevated troponin suspicious for a non-STEMI Acute kidney injury on chronic kidney disease stage III Remote history of hyperthyroidism, she stopped taking hyperthyroid medication for several months now history of urinary bladder cancer and he follows up with urologist as an outpatient Paroxysmal atrial fibrillation on eliquis at home. He of ventricular tachycardia on ventricular pacemaker. Obesity with BMI of 31.8. Asymptomatic bacteriuria versus abnormal urine analysis related to kidney stone. Currently patient is asymptomatic and no need for antibiotics with no fever and leukocytosis Plan: continue with eliquis Status post cardiac cath, stent could not be done, coronary artery disease was not thought to be the culprit for the patient presentation Patient also with significant aortic stenosis require follow-up as an outpatient Continue with IV bumex twice daily, we will add fluid restriction, monitor bp closely as well as creatinine Resume Levemir 20 units twice Small dose losartan 25 mg started (on hold) Antibiotics were switched to Cipro and Augmentin with ID team on the case cardiology consult Nephrology consult Labs and medication were reviewed.. Continue same treatment. Continue with symptomatic treatment. Resume home medication. Monitor labs and vitals. DVT and GI prophylaxis. Further recommendations as per clinical course of the patient DVT prophylaxis: heparin GI Prophylaxis: ppi PT/OT: Home with home health care, ordered Prognosis is guarded Possible discharge soon
--- NOTE | 2023-07-21 23:05 | P.CONS ---
History of Present Illness - Reason for Consult Consult date: 07/21/23 Pseudomonas urinary tract infection Requesting physician: Toñito E Elisa - Chief Complaint Cloudy urine x few days - History of Present Illness Patient is a 82-year-old male with a past medical history significant for atrial fibrillation coronary disease diabetes mellitus hypertension hyperlipidemia history of bladder cancer presented to the hospital about 8 days ago for evaluation of chest pain shortness of breath patient has been diagnosed with PA the patient is status post cardiac cath and noted to have multivessel disease patient has been under care of cardiology and nephrology services patient did have an elevated white count patient subsequently normalized patient did have a positive UA on 1220 however no culture ordered repeat UA on 1223 also positive culture came back positive with Pseudomonas Enterococcus faecalis that has prompted this infectious disease consultation patient mention his urine was mostly cloudy when the urine sample was obtained did have some difficulty urination no burning or feeling suprapubic or flank pain no nausea no vomiting patient currently denies having any chest pain shortness of breath or cough no diarrhea Review of Systems Positive point and negatives has been mentioned in the HPI, complete review of systems was performed and all other systems are negative Past Medical History Past Medical History: Atrial Fibrillation, Coronary Artery Disease (CAD), Cancer, Chest Pain / Angina, Heart Failure, Diabetes Mellitus, GERD/Reflux, Hyperlipidemia, Hypertension, Myocardial Infarction (PA), Osteoarthritis (OA) Additional Past Medical History / Comment(s): cardiomyopathy, gout, states some difficulty swallowing. BLADDER CANCER Last Myocardial Infarction Date:: 1991 History of Any Multi-Drug Resistant Organisms: None Reported Past Surgical History: AICD, Coronary Bypass/CABG, Heart Catheterization Additional Past Surgical History / Comment(s): DEFIBRILLATOR THRESHOLD TESTING, JOSE cataracts. 4 VESSEL Bypass 1996, AICD 2009, COLONOSCOPY, BLADDER TUMOR REMOVED Past Anesthesia/Blood Transfusion Reactions: No Reported Reaction Additional Past Anesthesia/Blood Transfusion Reaction / Comm: . Type of Cardiac Device: AICD Device Placement Date:: 2009 Past Psychological History: No Psychological Hx Reported Smoking Status: Former smoker Past Alcohol Use History: None Reported Additional Past Alcohol Use History / Comment(s): started smoking a in 1959,quit smoking 1996 -1PPD Past Drug Use History: None Reported - Past Family History Sister(s) Family Medical History: Cancer Mother Family Medical History: CVA/TIA Father Family Medical History: Hyperlipidemia, Hypertension, Myocardial Infarction (PA) Medications and Allergies Home Medications Medication Instructions Recorded Confirmed Type Cyanocobalamin [Vitamin B-12] 1,000 mcg PO DAILY 12/16/16 07/13/23 History allopurinoL [Zyloprim] 100 mg PO DAILY 09/15/18 07/13/23 History Dorzolamide HCl/Pf [Dorzolamide 2% 2 drop BOTH EYES BID 05/18/19 07/13/23 His tory Eye Drop] Evolocumab [Repatha Syringe] 140 mg SQ Q14D 04/13/22 07/13/23 History Omeprazole 20 mg PO DAILY 04/13/22 07/13/23 History Pravastatin Sodium [Pravachol] 20 mg PO HS 04/13/22 07/13/23 History Apixaban [Eliquis] 5 mg PO BID 06/11/22 07/13/23 History Insulin Aspart [NovoLOG Flexpen] 15 units SQ AC-TID 06/11/22 07/13/23 History Ferrous Sulfate [Iron (65 MG 325 mg PO DAILY 12/02/22 07/13/23 History Elemental)] Insulin Glargine [Lantus Vial] 20 unit SQ DAILY 12/02/22 07/13/23 History Dapagliflozin Propanediol [Farxiga] 10 mg PO DAILY 07/13/23 07/13/23 History Furosemide [Lasix] 40 mg PO DAILY@1800 07/13/23 07/13/23 History Furosemide [Lasix] 80 mg PO DAILY 07/13/23 07/13/23 History Insulin Glargine [Lantus Vial] 18 unit SQ HS 07/13/23 07/13/23 History Tamsulosin [Flomax] 0.4 mg PO BID 07/13/23 07/13/23 History Amoxic-Pot Clav 875-125Mg 1 each PO Q12HR 5 Days #10 tab 07/22/23 Rx [Augmentin 875-125] Ciprofloxacin HCl [Cipro] 500 mg PO BID 5 Days #10 tab 07/22/23 Rx Metoprolol Succinate (ER) [Toprol 25 mg PO DAILY #30 tab 07/22/23 Rx XL] Midodrine [ProAmatine] 5 mg PO AC-TID #90 tab 07/22/23 Rx Allergies Allergy/AdvReac Type Severity Reaction Status Date / Time No Known Allergies Allergy Verified 07/13/23 07:29 Physical Exam Vitals: Vital Signs Temp Pulse Resp BP Pulse Ox 07/21/23 08:00 89 16 110/67 97 07/21/23 04:00 96 16 94/59 94 L 07/21/23 00:00 106 H 16 116/68 93 L 07/20/23 20:00 97.8 F 94 16 115/71 94 L 07/20/23 16:00 91 16 101/65 96 07/20/23 12:00 85 16 107/71 97 Intake and Output 07/20/23 07/21/23 07/21/23 22:59 06:59 14:59 Intake Total 370 236 Output Total 320 1300 Balance 50 -1300 236 Intake: IV 10 Invasive Line 3 10 Oral 360 236 Output: Urine 320 1300 Other: Voiding Method Urinal Urinal Weight 96 kg GENERAL DESCRIPTION: Elderly male up in the chair no distress. No tachypnea or accessory muscle of respiration use. HEENT: Shows Pallor , no scleral icterus. Oral mucous membrane is dry. No pharyngeal erythema or thrush NECK: Trachea central, no thyromegaly. LUNGS: Unlabored breathing. Clear to auscultation anteriorly. No wheeze or crackle. HEART: S1, S2, regular rate and rhythm. No loud murmur ABDOMEN: Soft, no tenderness , guarding or rigidity, no organomegaly EXTREMITIES: No edema of feet. SKIN: No rash, no masses palpable. NEUROLOGICAL: The patient is awake, alert, oriented x3, mood and affect normal. Results CBC & Chem 7: 07/19/23 08:31 07/22/23 08:01 Labs: Abnormal Lab Results - Last 24 Hours (Table) 07/20/23 07/20/23 07/20/23 Range/Units 11:56 17:07 20:03 BUN (9-20) mg/dL POC Glucose (mg/dL) 188 H 112 H 139 H (70-110) mg/dL 07/21/23 Range/Units 07:25 BUN 42 H (9-20) mg/dL POC Glucose (mg/dL) (70-110) mg/dL Microbiology - Last 24 Hours (Table) 07/16/23 18:24 Urine Culture - Final Urine,Clean Catch Pseudomonas aeruginosa Enterococcus faecalis Assessment and Plan (1) Pseudomonas urinary tract infection Status: Acute Code(s): N39.0 - URINARY TRACT INFECTION, SITE NOT SPECIFIED; B96.5 - PSEUDOMONAS (MALLEI) CAUSING DISEASES [facility] Code(s): [id number] Plan: 1patient with a history of recurrent UTIs also have a history of bladder cancer admitted to hospital with chest pain MRI patient noticed to have a cloudy urine on 07/13/2023 did have significantly positive UA and culture now showing Pseudomonas aeruginosa and Enterococcus faecalis patient behaving more of his cystitis rather than a deep infection with no fever or elevated white count 2-discontinue Levaquin 3-we will start the patient on oral Cipro and Augmentin recommend a 5-day course of antibiotic should be enough We will follow on clinical condition and cultures to further adjust medication if needed Thank you for this consultation we will follow the patient along with you Dictation was produced using [employer] dictation software. please excuse any grammatical, word or spelling errors. Time with Patient: Greater than 30
[2023-07-22 06:43] LABS: Glucose,Whole Blood 221 mg/dL (70-110)
[2023-07-22] MEDS: MIDODRINE 5 MG TAB PO SCH (07:00)
[2023-07-22] MEDS: INSULIN ASPART (NovoLOG) 100 UNIT/ML VIAL SQ SCH ×2 (07:00)
[2023-07-22] MEDS: INSULIN DETEMIR (LEVEMIR) 100 UNIT/ML SYR SQ SCH (07:01)
[2023-07-22 08:49] LABS: African American GFR (CKD) 64 (>60 ml/min/1.73 sqM); Anion Gap 17 mmol/L; Blood Urea Nitrogen 36 mg/dL (9-20); Calcium 8.9 mg/dL (8.4-10.2); Carbon Dioxide 21 mmol/L (22-30); Chloride 104 mmol/L (98-107); Glucose 195 mg/dL (74-99); Non-African American GFR(CKD) 55 (>60 ml/min/1.73 sqM); Potassium 3.9 mmol/L (3.5-5.1); Sodium 142 mmol/L (137-145)
[2023-07-22] MEDS ORDERED: LEVOFLOXACIN 250MG-D5W PMX 250 MG in DEXTROSE/WATER 1 50ML.BAG IVPB SCH (09:00)
[2023-07-22] MEDS: AMOXIC-POT CLAV 875-125MG 1 EACH TAB PO SCH (10:19)
[2023-07-22] MEDS: BUMETANIDE 0.25 MG/ML 10 ML VIAL IV SCH (10:19)
[2023-07-22] MEDS: CIPROFLOXACIN HCL 500 MG TAB PO SCH (10:19)
[2023-07-22] MEDS: APIXABAN 5 MG TAB PO SCH (10:20)
[2023-07-22] MEDS: allopurinoL 100 MG TAB PO SCH (10:20)
[2023-07-22] MEDS: DAPAGLIFLOZIN PROPANEDIOL 10 MG TABLET PO SCH (10:20)
[2023-07-22] MEDS: PANTOPRAZOLE 40 MG/10 ML VIAL IVP SCH (10:20)
[2023-07-22] MEDS: FERROUS SULFATE 325 MG TAB PO SCH (10:20)
[2023-07-22] MEDS: CYANOCOBALAMIN 500 MCG TAB PO SCH (10:20)
[2023-07-22] MEDS: METOPROLOL SUCCINATE (ER) 25 MG TAB.ER.24H PO SCH (10:21)
[2023-07-22] MEDS: TAMSULOSIN 0.4 MG CAP.ER.24H PO SCH (10:21)
[2023-07-22 10:45] VITALS: BP 105/71; PULSE 90; RESP 16; TEMP 97.7
[2023-07-22 11:37] LABS: Glucose,Whole Blood 134 mg/dL (70-110)
--- NOTE | 2023-07-22 12:33 | P.PN ---
Subjective HISTORY OF PRESENT ILLNESS: 07/18/23 The patient is an 82-year-old male who is admitted to the hospital for non-ST elevated myocardial infarction and exacerbation of heart failure. He underwent coronary angiogram where he was found to have a 60% left main, 100% ostial LAD, 95% oxygen will circumflex and 100% RCA stenosis with patent KAUFFMAN to LAD. 95% stenosis of radial the OM1. Plan was to return to the OR for stenting of radial to OM1 with Dr. Mccloud, however the patient had a rising creatinine level. Creatinine level has now stabilized at 1.17. 07/20/2023 Patient examined this morning to bedside. Patient is status post cardiac catheterization with unsuccessful PCI of radial artery to OM1 lesion possibly at the anastomosis and behaving like a chronic lesion, likely non-culprit vessel. Elevated left-sided filling pressures. Patient is currently on Bumex 2 mg every 12 hours. Blood pressures a bit on the low side with a systolic ranging between 70 and 90. He did not receive his IV diuretics yesterday evening secondary to hypotension. 07/21/2023 Patient examined this morning at the bedside. Patient is sitting up in the chair. He currently denies chest pain or pressure. He denies shortness of breath. He states he was ambulating this morning in the hallway and did get s lightly short of breath. Patient's vital signs are stable. July 22 2023 Patient examined this morning at the bedside. Patient currently denies chest pain or pressure. He denies shortness of breath. He has been up ambulating without difficulty. He remains on IV Bumex. He is very anxious to be discharged home today. PHYSICAL EXAM: VITAL SIGNS: Reviewed. GENERAL: Well-developed in no acute distress. NECK: Supple. No JVD or thyromegaly LUNGS: Respirations even and unlabored. Lungs essentially clear to auscultation bilaterally. HEART: Regular rate and rhythm. S1 and S2 heard. EXTREMITIES: Normal range of motion. No clubbing or cyanosis. Peripheral pulses intact. No lower extremity edema ASSESSMENT: Non-ST elevated myocardial infarction, status post cardiac catheterization with unsuccessful PCI of radial artery to OM1 lesion possibly at the anastomosis and behaving like a chronic lesion, likely non-culprit vessel Acute on chronic heart failure with reduced ejection fraction, 20-25% Urinary tract infection Ischemic cardiomyopathy Paroxysmal atrial fibrillation Type 2 diabetes Sick sinus syndrome History of ventricular tachycardia Chronic kidney disease History of AICD implantation Hypotension PLAN: Continue current cardiac medications Continue Bumex 1 mg every 12 hours. Transition to oral diuretics upon discharge Daily weights, accurate I&O, and monitor kidney function Continue to monitor blood pressure Patient is stable from a cardiac standpoint Further recommendations pending patient's course Nurse practitioner note has been reviewed by physician. Signing provider agrees with the documented findings, assessment, and plan of care. Objective - Vital Signs Vital signs: Vital Signs Temp 97.7 F 07/22/23 10:15 Pulse 90 07/22/23 10:15 Resp 16 07/22/23 10:15 BP 105/71 07/22/23 10:15 Pulse Ox 97 07/22/23 10:15 FiO2 Intake & Output 07/21/23 07/22/23 07/22/23 18:59 06:59 18:59 Intake Total 680 354 Output Total 1120 900 Balance -440 -900 354 Weight 95.5 kg Intake: Oral 680 354 Output: Urine 1120 900 Other: Voiding Method Urinal Urinal Urinal # Voids 1 - Labs CBC & Chem 7: 07/19/23 08:31 07/22/23 08:01 Labs: Abnormal Lab Results - Last 24 Hours (Table) 07/21/23 07/21/23 07/22/23 Range/Units 17:19 20:39 06:41 Carbon Dioxide (22-30) mmol/L BUN (9-20) mg/dL Glucose (74-99) mg/dL POC Glucose (mg/dL) 175 H 135 H 221 H (70-110) mg/dL 07/22/23 07/22/23 Range/Units 08:01 11:35 Carbon Dioxide 21 L (22-30) mmol/L BUN 36 H (9-20) mg/dL Glucose 195 H (74-99) mg/dL POC Glucose (mg/dL) 134 H (70-110) mg/dL
--- NOTE | 2023-07-22 12:57 | P.PN ---
Subjective Patient is seen in follow-up for acute kidney injury on chronic kidney disease. Renal function stable. No chest pain or shortness of breath. Good urine output. Vital signs are stable. General: No acute distress. HEENT: Head exam is unremarkable. LUNGS: No audible rhonchi or wheezes. HEART: Rate and Rhythm are regular. ABDOMEN: Nontender. EXTREMITITES: Trace edema. Objective - Vital Signs Vital signs: Vital Signs Temp 97.7 F 07/22/23 10:15 Pulse 90 07/22/23 10:15 Resp 16 07/22/23 10:15 BP 105/71 07/22/23 10:15 Pulse Ox 97 07/22/23 10:15 FiO2 Intake & Output 07/21/23 07/22/23 07/22/23 18:59 06:59 18:59 Intake Total 680 354 Output Total 1120 900 Balance -440 -900 354 Weight 95.5 kg Intake: Oral 680 354 Output: Urine 1120 900 Other: Voiding Method Urinal Urinal Urinal # Voids 1 - Labs CBC & Chem 7: 07/19/23 08:31 07/22/23 08:01 Labs: Abnormal Lab Results - Last 24 Hours (Table) 07/21/23 07/21/23 07/22/23 Range/Units 17:19 20:39 06:41 Carbon Dioxide (22-30) mmol/L BUN (9-20) mg/dL Glucose (74-99) mg/dL POC Glucose (mg/dL) 175 H 135 H 221 H (70-110) mg/dL 07/22/23 07/22/23 Range/Units 08:01 11:35 Carbon Dioxide 21 L (22-30) mmol/L BUN 36 H (9-20) mg/dL Glucose 195 H (74-99) mg/dL POC Glucose (mg/dL) 134 H (70-110) mg/dL Assessment and Plan Plan: Assessment: 1. Acute kidney injury secondary to vasomotor nephropathy secondary to cardiorenal syndrome. Renal function stable. No hydronephrosis noted on kidney ultrasound. 2. Chronic kidney disease stage IIIa with baseline creatinine 1-1.2. 3. Acute on chronic systolic CHF with ejection fraction of 20-25%. Status post AICD. 4. History of bladder cancer. Follows with urology outpatient. 5. Non-ST elevated myocardial infarction status post cardiac catheterization with unsuccessful PCI. 6. Diabetes mellitus. 7. UTI on antibiotics. 8. Fluid overload. Improved with diuresis. Plan: Has been transitioned to oral diuretics. Also on farxiga. Advised patient to maintain low salt diet and fluid restriction of less than 50 ounces per day. Advised patient to monitor his weight closely at home and to notify physician if develops edema or gains more than 3 pounds in 1 week duration. Repeat BMP and magnesium level 3 days postdischarge. Follow up outpatient in 1 week. He was also advised to follow-up with his PCP next week.
--- NOTE | 2023-07-22 16:14 | P.PN ---
Subjective Progress Note Date: 07/22/23 Principal diagnosis: Reason for follow-up Pseudomonas and tract infection Patient is a 82-year male with multiple comorbidities including bladder cancer and history recurrent UTI admitted to the hospital with MO patient also noted to have cloudy urine and urine culture subsequently grew Pseudomonas and Enterococcus On today's evaluation that is 07/22/2023 patient denies having any fever or any chills patient is breathing comfortably on room air patient denies having any chest pain shortness of breath or cough no nausea vomiting no abdominal pain or diarrhea urinary symptoms improve labs patient did have a creatinine of 1.24 white count of 9.2 Objective - Vital Signs Vital signs: Vital Signs Temp 97.7 F 07/22/23 10:15 Pulse 90 07/22/23 10:15 Resp 16 07/22/23 10:15 BP 105/71 07/22/23 10:15 Pulse Ox 97 07/22/23 10:15 FiO2 Intake & Output 07/21/23 07/22/23 07/22/23 18:59 06:59 18:59 Intake Total 680 354 Output Total 1120 900 Balance -440 -900 354 Weight 95.5 kg Intake: Oral 680 354 Output: Urine 1120 900 Other: Voiding Method Urinal Urinal Urinal # Voids 1 - Exam GENERAL DESCRIPTION: An elderly male up in the chair in no distress RESPIRATORY SYSTEM: Unlabored breathing , decreased breath sounds at bases HEART: S1 S2 regular rate and rhythm , ABDOMEN: Soft , no tenderness EXTREMITIES: No edema feet - Labs CBC & Chem 7: 07/19/23 08:31 07/22/23 08:01 Labs: Abnormal Lab Results - Last 24 Hours (Table) 07/21/23 07/21/23 07/22/23 Range/Units 17:19 20:39 06:41 Carbon Dioxide (22-30) mmol/L BUN (9-20) mg/dL Glucose (74-99) mg/dL POC Glucose (mg/dL) 175 H 135 H 221 H (70-110) mg/dL 07/22/23 07/22/23 Range/Units 08:01 11:35 Carbon Dioxide 21 L (22-30) mmol/L BUN 36 H (9-20) mg/dL Glucose 195 H (74-99) mg/dL POC Glucose (mg/dL) 134 H (70-110) mg/dL Assessment and Plan (1) Pseudomonas urinary tract infection Status: Acute Code(s): N39.0 - URINARY TRACT INFECTION, SITE NOT SPECIFIED; B96.5 - PSEUDOMONAS (MALLEI) [facility] Code(s): 828467337552822 Plan: 1patient with a history of recurrent UTIs also have a history of bladder cancer admitted to hospital with chest pain MRI patient noticed to have a cloudy urine on 07/13/2023 did have significantly positive UA and culture now showing Pseudomonas aeruginosa and Enterococcus faecalis patient behaving more of his cystitis rather than a deep infection with no fever or elevated white count 2patient to continue with oral Cipro and Augmentin x 5 days to finish course of therapy question concern were answered Dictation was produced using [employer] dictation software. please excuse any grammatical, word or spelling errors.
--- NOTE | 2023-07-22 21:05 | P.DS ---
Providers Date of admission: 07/13/23 04:22 Attending physician: Radha Amaya Consults: 07/13/23 04:18 Consult Physician Routine Consulting Provider: [facility] Consult Reason/Comments: chf,NSTEMI Do you want consulting provider notified?: Yes 07/13/23 07:57 Consult Physician Routine Consulting Provider: Destiney Harris Consult Reason/Comments: known to your service Do you want consulting provider notified?: Yes 07/21/23 09:41 Consult Physician Urgent Consulting Provider: Seth Wilson Consult Reason/Comments: pseudomonas uti Do you want consulting provider notified?: Yes Primary care physician: Sal R[facility] Course: Diagnoses: Acute CHF exacerbation Elevated troponin suspicious for a non-STEMI, however cardiac cath showing unsuccessful stent to OM 1 vessel, thought not the culprit vessel or lesion Moderate aortic stenosis, moderate tricuspid regurgitation with severe hypertension of the pulmonary arteries Acute on chronic systolic CHF with ejection fraction 20-25% Acute kidney injury on chronic kidney disease stage III, improved Remote history of hyperthyroidism, she stopped taking hyperthyroid medication for several months now history of urinary bladder cancer and he follows up with urologist as an outpatient Paroxysmal atrial fibrillation on eliquis at home. He of ventricular tachycardia on ventricular pacemaker. Obesity with BMI of 31.8. Asymptomatic bacteriuria versus abnormal urine analysis related to kidney stone. Currently patient is asymptomatic and no need for antibiotics with no fever and leukocytosis Hospital course: this is a pleasant 82 yo M with past medical history of multiple medical problems who presents because of shortness of breath of one-day duration. Patient was found to have multiple medical problems including nonischemic with acute CHF with ejection fraction 20-25% associated with valvular heart disease with moderate TR, moderate aortic stenosis and moderate to severe pulmonary hypertension. He has been evaluated by saddle mechanic biomedical electronics technician and infectious disease team. He was treated with IV Bumex, heparin drip . Also he was treated with antibiotic for his acute urinary tract infection with culture growing ps eudomonas and enterococcus. Patient showed interval improvement and on the last 24-48 hours patient denies dyspnea or chest pain no other new complaint, no change in urine or bowel habits. No fever. Patient is eager to go home Patient was cleared for discharge by all consultants including biomedical electronics technician saddle mechanic and infectious disease team Patient will be discharged on short course of oral antibiotics with Cipro and Augmentin 5 days per ID team recommendation Problems and management plan were discussed with the patient and he verbalized understanding and acceptance Patient was found stable and can be discharged home in guarded prognosis however he needs follow-up as an outpatient. Patient was instructed to follow up with PCP Dr. Dominguez and he sees nurse practitioner Kenia Cook within one week and patient agrees Patient was instructed to follow up with Dr. Harris in one week and urologist Dr. Heller in 1-2 weeks and he agrees and saddle mechanic Dr. Mccloud in 1-2 weeks and he agrees with the appointments made for him on 08/01 Patient confirms he has Eliquis at home Physical exam Gen: patient is a AAOx3, no distress CVS: S1-S2, RRR, no murmur Lungs: B/L CTA, no wheezing Abdomen: soft, no distention, no tenderness, positive bowel sounds Extremity: no leg edema or induration Time spent more than 35 minutes Patient Condition at Discharge: Stable Plan - Discharge Summary Discharge Rx Participant: No New Discharge Prescriptions: New Metoprolol Succinate (ER) [Toprol XL] 25 mg PO DAILY #30 tab Midodrine [ProAmatine] 5 mg PO AC-TID #90 tab Amoxic-Pot Clav 875-125Mg [Augmentin 875-125] 1 each PO Q12HR 5 Days #10 tab Ciprofloxacin HCl [Cipro] 500 mg PO BID 5 Days #10 tab Continue Cyanocobalamin [Vitamin B-12] 1,000 mcg PO DAILY allopurinoL [Zyloprim] 100 mg PO DAILY Dorzolamide HCl/Pf [Dorzolamide 2% Eye Drop] 2 drop BOTH EYES BID Pravastatin Sodium [Pravachol] 20 mg PO HS Omeprazole 20 mg PO DAILY Insulin Aspart [NovoLOG Flexpen] 15 units SQ AC-TID Insulin Glargine [Lantus Vial] 20 unit SQ DAILY Insulin Glargine [Lantus Vial] 18 unit SQ HS Furosemide [Lasix] 40 mg PO DAILY@1800 Tamsulosin [Flomax] 0.4 mg PO BID Evolocumab [Repatha Syringe] 140 mg SQ Q14D Apixaban [Eliquis] 5 mg PO BID Ferrous Sulfate [Iron (65 MG Elemental)] 325 mg PO DAILY Dapagliflozin Propanediol [Farxiga] 10 mg PO DAILY Furosemide [Lasix] 80 mg PO DAILY Discontinued Losartan [Cozaar] 25 mg PO DAILY 30 Days #30 tab Metoprolol Succinate (ER) [Toprol Xl] 50 mg PO DAILY #90 tab Sotalol [Betapace] 40 mg PO BID #90 tab Discharge Medication List Cyanocobalamin [Vitamin B-12] 1,000 mcg PO DAILY 12/16/16 [History] allopurinoL [Zyloprim] 100 mg PO DAILY 09/15/18 [History] Dorzolamide HCl/Pf [Dorzolamide 2% Eye Drop] 2 drop BOTH EYES BID 05/18/19 [History] Evolocumab [Repatha Syringe] 140 mg SQ Q14D 04/13/22 [History] Omeprazole 20 mg PO DAILY 04/13/22 [History] Pravastatin Sodium [Pravachol] 20 mg PO HS 04/13/22 [History] Apixaban [Eliquis] 5 mg PO BID 06/11/22 [History] Insulin Aspart [NovoLOG Flexpen] 15 units SQ AC-TID 06/11/22 [History] Ferrous Sulfate [Iron (65 MG Elemental)] 325 mg PO DAILY 12/02/22 [History] Insulin Glargine [Lantus Vial] 20 unit SQ DAILY 12/02/22 [History] Dapagliflozin Propanediol [Farxiga] 10 mg PO DAILY 07/13/23 [History] Furosemide [Lasix] 40 mg PO DAILY@1800 07/13/23 [History] Furosemide [Lasix] 80 mg PO DAILY 07/13/23 [History] Insulin Glargine [Lantus Vial] 18 unit SQ HS 07/13/23 [History] Tamsulosin [Flomax] 0.4 mg PO BID 07/13/23 [History] Amoxic-Pot Clav 875-125Mg [Augmentin 875-125] 1 each PO Q12HR 5 Days #10 tab 07/22/23 [Rx] Ciprofloxacin HCl [Cipro] 500 mg PO BID 5 Days #10 tab 07/22/23 [Rx] Metoprolol Succinate (ER) [Toprol XL] 25 mg PO DAILY #30 tab 07/22/23 [Rx] Midodrine [ProAmatine] 5 mg PO AC-TID #90 tab 07/22/23 [Rx] Follow up Appointment(s)/Referral(s): Destiney Harris MD [STAFF PHYSICIAN] - 1 Week (Office is closed at time of discharge, please ensure office is aware this is an appointment following a hospital stay.) Kenia Cook NPC [REFERRING] - 1-2 days (Office is closed at time of discharge, please ensure office is aware this is an appointment following a hospital stay.) Jalil Mccloud DO [STAFF PHYSICIAN] - 08/01/23 11:00 am (with SUGEY Dunaway) Mauri Raymond MD [STAFF PHYSICIAN] - 2 Weeks (Urologist. Unable to schedule appointment, patient to call. Please ensure the office is aware this appointment is following a hospital stay.) Patient Instructions/Handouts: Heart Failure (DC), Heart Healthy Diet (DC) Activity/Diet/Wound Care/Special Instructions: Heart healthy diet Activity is restricted till you see your doctor Please hold your (Midorine 5 mg three time per day) if your systolic blood pressure is 120 or higher. Discharge Disposition: HOME WITH HOME HEALTH SERVICES
--- NOTE | 2023-07-27 22:46 | CDI ---
Documentation Clarification Form Date: 07/27/2023 10:39:38 PM From: Norma Reid Phone: Admit Date: 07/13/2023 04:22:00 AM Patient Name: Myron Rey Visit Number: [id number] Discharge Date: 07/22/2023 12:41:00 PM ATTENTION: The Clinical Documentation Specialists (CDI) and [facility] Coding Staff appreciate your assistance in clarifying documentation. Please respond to the clarification below the line at the bottom and electronically sign. The CDI & [facility] Coding staff will review the response and follow-up if needed. Please note: Queries are made part of the Legal Health Record. If you have any questions, please contact the author of this message via ITS. Dr. Sibley E Sheet Your patient has diagnostic/radiology results: POC Glucose 275 H Progress Note 07/14. Please clarify if there is an additional diagnosis and/or clinical significance related to this result. 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 Treatment: Admission he was on Lantus 20 units daily and 18 units at bedtime with 15 units of NovoLog with meals. Because patient is going forCardiac Cath,he wasplacedon lower dose of Levemir 10 units daily. Sugar looks controlled. Is there an additional diagnosis and/or clinical significance related to the above diagnostic/radiology result? [ x ] Diabetes Type 2 with hyperglycemia [ ] Result is not clinically significant (no additional diagnosis) [ ] Other, please specify [ ] Unable to determine (Template Last Reviewed: August 2020) MTDD
== END 2023-07-22 12:41 | disposition home health service (06) | DRG 280 ==
LOC: EC 02:04 → 4SSUR 04:22 → 3SCARD 05:05 → 3NCARDOBS 07-15 00:43 → 3SCARD 07-15 00:46
PROVIDERS: ADMIT Hospitalist; ATTEND Hospitalist
PROC: B3101ZZ Fluoroscopy of Thoracic Aorta using Low Osmolar Contrast (ICD-10-PCS; 2023-07-14)
PROC: B2151ZZ Fluoroscopy of Left Heart using Low Osmolar Contrast (ICD-10-PCS; 2023-07-14)
PROC: 4A023N7 Measurement of Cardiac Sampling and Pressure, Left Heart, Percutaneous Approach (ICD-10-PCS; principal; 2023-07-14 11:30)
PROC: B2111ZZ Fluoroscopy of Multiple Coronary Arteries using Low Osmolar Contrast (ICD-10-PCS; 2023-07-14 11:30)
PROC: B2131ZZ Fluoroscopy of Multiple Coronary Artery Bypass Grafts using Low Osmolar Contrast (ICD-10-PCS; 2023-07-14 11:30)
PROC: B2121ZZ Fluoroscopy of Single Coronary Artery Bypass Graft using Low Osmolar Contrast (ICD-10-PCS; 2023-07-19)
DX: I21.4 Non-ST elevation (NSTEMI) myocardial infarction (principal); I50.23 Acute on chronic systolic (congestive) heart failure; N17.0 Acute kidney failure with tubular necrosis; I47.20 Ventricular tachycardia, unspecified; I13.0 Hypertensive heart and chronic kidney disease with heart failure and stage 1 through stage 4 chronic kidney disease, or unspecified chronic kidney disease; I48.19 Other persistent atrial fibrillation; I25.810 Atherosclerosis of coronary artery bypass graft(s) without angina pectoris; I49.5 Sick sinus syndrome; I27.22 Pulmonary hypertension due to left heart disease; N18.31 Chronic kidney disease, stage 3a; E11.22 Type 2 diabetes mellitus with diabetic chronic kidney disease; E11.65 Type 2 diabetes mellitus with hyperglycemia; N30.90 Cystitis, unspecified without hematuria; I08.2 Rheumatic disorders of both aortic and tricuspid valves; I25.82 Chronic total occlusion of coronary artery; I95.9 Hypotension, unspecified; E66.9 Obesity, unspecified; E78.5 Hyperlipidemia, unspecified; I25.5 Ischemic cardiomyopathy; R82.71 Bacteriuria; B95.2 Enterococcus as the cause of diseases classified elsewhere; Z53.8 Procedure and treatment not carried out for other reasons; Z79.4 Long term (current) use of insulin; I25.2 Old myocardial infarction; Z95.810 Presence of automatic (implantable) cardiac defibrillator; Z82.49 Family history of ischemic heart disease and other diseases of the circulatory system; B96.5 Pseudomonas (aeruginosa) (mallei) (pseudomallei) as the cause of diseases classified elsewhere; N20.0 Calculus of kidney; K21.9 Gastro-esophageal reflux disease without esophagitis; M10.9 Gout, unspecified; I25.10 Atherosclerotic heart disease of native coronary artery without angina pectoris; Z68.31 Body mass index [BMI] 31.0-31.9, adult; Z85.51 Personal history of malignant neoplasm of bladder; Z79.01 Long term (current) use of anticoagulants; Z86.79 Personal history of other diseases of the circulatory system; Z79.899 Other long term (current) drug therapy; Z95.1 Presence of aortocoronary bypass graft; Z87.891 Personal history of nicotine dependence; Z11.52 Encounter for screening for COVID-19; Z79.84 Long term (current) use of oral hypoglycemic drugs; Z86.39 Personal history of other endocrine, nutritional and metabolic disease; Z87.440 Personal history of urinary (tract) infections
CPT/HCPCS: 36415; 71045; 71046; 76770; 76937; 80048; 80053; 80069; 81001; 83036; 83735; 83880; 84484; 85025; 85610; 85730; 87077; 87086; 87186; 87636; 93005; 93306; 93458; 93459; 93567; 94760; 96365; 96366; 96375; 99291

== ENCOUNTER 2023-07-24 09:23 | Emergency (ER) | payer MEDICARE ==
--- NOTE | 2023-07-24 09:55 | ED ---
General Adult HPI - General Chief complaint: Shortness of Breath Stated complaint: SOB Time Seen by Provider: 07/24/23 09:30 Source: patient, family, RN notes reviewed, old records reviewed Mode of arrival: wheelchair Limitations: no limitations - History of Present Illness Initial comments: This is an 82-year-old male who presents emergency Department with a past medical history significant for diabetes hypertension and congestive heart failure. Patient comes in today stating that he was just discharged from the hospital on Tuesday after he was here for congestive heart failure. Patient states that he also was given antibiotic for urinary tract infection. Patient states this morning about 4 AM he woke up and he was short of breath. Patient s tates she was lying flat except for his head was raised little with a pillow. Patient states he went and sat up in a chair for about 2 hours and he felt considerably better she went back to bed and then he became more short of breath again so he decided to come to the hospital. Patient states currently he feels good and has no shortness of breath lying here. Patient denies any chest pain and times a day. Patient denies any fever chills. Patient denies any abdominal pain. - Related Data Home Medications Medication Instructions Recorded Confirmed Cyanocobalamin [Vitamin B-12] 1,000 mcg PO DAILY 12/16/16 07/13/23 allopurinoL [Zyloprim] 100 mg PO DAILY 09/15/18 07/13/23 Dorzolamide HCl/Pf [Dorzolamide 2% 2 drop BOTH EYES BID 05/18/19 07/13/23 Eye Drop] Evolocumab [Repatha Syringe] 140 mg SQ Q14D 04/13/22 07/13/23 Omeprazole 20 mg PO DAILY 04/13/22 07/13/23 Pravastatin Sodium [Pravachol] 20 mg PO HS 04/13/22 07/13/23 Apixaban [Eliquis] 5 mg PO BID 06/11/22 07/13/23 Insulin Aspart [NovoLOG Flexpen] 15 units SQ AC-TID 06/11/22 07/13/23 Ferrous Sulfate [Iron (65 MG 325 mg PO DAILY 12/02/22 07/13/23 Elemental)] Insulin Glargine [Lantus Vial] 20 unit SQ DAILY 12/02/22 07/13/23 Dapagliflozin Propanediol [Farxiga] 10 mg PO DAILY 07/13/23 07/13/23 Furosemide [Lasix] 40 mg PO DAILY@1800 07/13/23 07/13/23 Furosemide [Lasix] 80 mg PO DAILY 07/13/23 07/13/23 Insulin Glargine [Lantus Vial] 18 unit SQ HS 07/13/23 07/13/23 Tamsulosin [Flomax] 0.4 mg PO BID 07/13/23 07/13/23 Previous Rx's Medication Instructions Recorded Amoxic-Pot Clav 875-125Mg 1 each PO Q12HR 5 Days #10 tab 07/22/23 [Augmentin 875-125] Ciprofloxacin HCl [Cipro] 500 mg PO BID 5 Days #10 tab 07/22/23 Metoprolol Succinate (ER) [Toprol 25 mg PO DAILY #30 tab 07/22/23 XL] Midodrine [ProAmatine] 5 mg PO AC-TID #90 tab 07/22/23 Allergies Allergy/AdvReac Type Severity Reaction Status Date / Time No Known Allergies Allergy Verified 07/24/23 09:29 Review of Systems ROS Statement: Those systems with pertinent positive or pertinent negative responses have been documented in the HPI. ROS Other: All systems not noted in ROS Statement are negative. Past Medical History Past Medical History: Atrial Fibrillation, Coronary Artery Disease (CAD), Cancer, Chest Pain / Angina, Heart Failure, Diabetes Mellitus, GERD/Reflux, Hyperlipidemia, Hypertension, Myocardial Infarction (NE), Osteoarthritis (OA) Additional Past Medical History / Comment(s): cardiomyopathy, gout, states some difficulty swallowing. BLADDER CANCER Last Myocardial Infarction Date:: 1991 History of Any Multi-Drug Resistant Organisms: None Reported Past Surgical History: AICD, Coronary Bypass/CABG, Heart Catheterization Additional Past Surgical History / Comment(s): DEFIBRILLATOR THRESHOLD TESTING, JOSE cataracts. 4 VESSEL Bypass 1996, AICD 2009, COLONOSCOPY, BLADDER TUMOR REMOVED Past Anesthesia/Blood Transfusion Reactions: No Reported Reaction Additional Past Anesthesia/Blood Transfusion Reaction / Comment(s): . Type of Cardiac Device: AICD Device Placement Date:: 2009 Past Psychological History: No Psychological Hx Reported Smoking Status: Former smoker Past Alcohol Use History: None Reported Past Drug Use History: None Reported - Past Family History Sister(s) Family Medical History: Cancer Mother Family Medical History: CVA/TIA Father Family Medical History: Hyperlipidemia, Hypertension, Myocardial Infarction (NE) General Exam - General Exam Comments Initial Comments: GENERAL: Patient is well-developed and well-nourished. Patient is nontoxic and well-hydrated and is in no acute distress. ENT: Neck is soft and supple. No significant lymphadenopathy is noted. Oropharynx is clear. Moist mucous membranes. Neck has full range of motion without eliciting any pain. EYES: The sclera were anicteric and conjunctiva were pink and moist. Extraocular mov ements were intact and pupils were equal round and reactive to light. Eyelids were unremarkable. PULMONARY: Unlabored respirations. Good breath sounds bilaterally. No audible rales rhonchi or wheezing was noted. CARDIOVASCULAR: There is a regular rate and rhythm without any murmurs gallops or rubs. ABDOMEN: Soft and nontender with normal bowel sounds. SKIN: Skin is clear with no lesions or rashes and otherwise unremarkable. NEUROLOGIC: Patient is alert and oriented x3. Cranial nerves II through XII are grossly intact. Motor and sensory are also intact. Normal speech, volume and content. Symmetrical smile. MUSCULOSKELETAL: Normal extremities with adequate strength and full range of motion. No lower extremity swelling or edema. No calf tenderness. LYMPHATICS: No significant lymphadenopathy is noted PSYCHIATRIC: Normal psychiatric evaluation. [id number] Limitations: no limitations Course Vital Signs 07/24/23 07/24/23 07/24/23 09:26 09:39 09:43 Temperature 96.0 F L 97.8 F Pulse Rate 105 H 90 Respiratory 20 22 21 Rate Blood Pressure 103/72 105/76 O2 Sat by Pulse 95 95 Oximetry 07/24/23 11:05 Temperature Pulse Rate 72 Respiratory 19 Rate Blood Pressure 101/84 O2 Sat by Pulse 95 Oximetry Medical Decision Making - Medical Decision Making EKG is interpreted by myself. Patient's EKG shows a paced rhythm at 95 bpm QRS is 131 Q-T intervals 395 QTC is 447. Patient's EKG appears to have patient's breaks in the middle of the QRS. Was pt. sent in by a medical professional or institution (, [facility], BROADCAST PROGRAM DIRECTOR, urgent care, hospital, or assisted...) When possible be specific @ -No Did you speak to anyone other than the patient for history (EMS, parent, family, police, friend...)? What history was obtained from this source @ -No Did you review nursing and triage notes (agree or disagree)? Why? @ -I reviewed and agree with nursing and triage notes Were old charts reviewed (outside hosp., previous admission, EMS record, old EKG, old radiological studies, urgent care reports/EKG's, assisted records)? Report findings @ -I reviewed her charts are available on this patient Differential Diagnosis (chest pain, altered mental status, abdominal pain women, abdominal pain men, vaginal bleeding, weakness, fever, dyspnea, syncope, headache, dizziness, GI bleed, back pain, seizure, CVA, palpatations, mental health, musculoskeletal)? @ -Differential Dyspnea: Coronary syndrome, arrhythmia, tamponade, asthma, COPD, pulmonary embolism, pneumonia, pneumothorax, pulmonary effusion, anaphylaxis, diabetic ketoacidosis, flailed chest, pulmonary contusion, diaphragmatic rupture, anemia, neuromuscular, this is not meant to be an all-inclusive list. EKG interpreted by me (3pts min.). @ -As above X-rays interpreted by me (1pt min.). @ -Chest x-ray shows no acute abnormality CT interpreted by me (1pt min.). @ -None done U/S interpreted by me (1pt. min.). @ -None done What testing was considered but not performed or refused? (CT, X-rays, U/S, labs)? Why? @ -None What meds were considered but not given or refused? Why? @ -None Did you discuss the management of the patient with other professionals (professionals i.e. , PA, BROADCAST PROGRAM DIRECTOR, lab, RT, psych nurse, director social, qualitative executive researcher, teacher, medical laboratory technical officer, machine adjuster leader case trim)? Give summary @ -No Was smoking cessation discussed for >3mins.? @ -No Was critical care preformed (if so, how long)? @ -No Were there social determinants of health that impacted care today? How? (Homelessness, low income, unemployed, alcoholism, drug addiction, transportation, low edu. Level, literacy, decrease access to med. care, half-way, rehab)? @ -No Was there de-escalation of care discussed even if they declined (Discuss DNR or withdrawal of care, Hospice)? DNR status @ -No What co-morbidities impacted this encounter? (DM, HTN, Smoking, COPD, CAD, Cancer, CVA, ARF, Chemo, Hep., AIDS, mental health diagnosis, sleep apnea, morbid obesity)? @ -None Was patient admitted / discharged? Hospital course, mention meds given and route, prescriptions, significant lab abnormalities, going to OR and other per tinent info. @ -Patient was not dyspneic on arrival and continued to be that way throughout his ED stay. Patient was ambulated around the emergency department he had no complaints at that time. I reevaluated the patient stated he was satting 98% and so he felt comfortable going home and states she come back if anything worsen. Undiagnosed new problem with uncertain prognosis? @ -No Drug Therapy requiring intensive monitoring for toxicity (Heparin, Nitro, Insulin, Cardizem)? @ -No Were any procedures done? @ -No Diagnosis/symptom? @ -Dyspnea Acute, or Chronic, or Acute on Chronic? @ -Acute Uncomplicated (without systemic symptoms) or Complicated (systemic symptoms)? @ -Complicated Side effects of treatment? @ -No Exacerbation, Progression, or Severe Exacerbation? @ -No Poses a threat to life or bodily function? How? (Chest pain, USA, NE, pneumonia, PE, COPD, DKA, ARF, appy, cholecystitis, CVA, Diverticulitis, Homicidal, Suicidal, threat to staff... and all critical care pts) @ -No - Lab Data Result diagrams: 07/24/23 09:54 07/24/23 09:54 Lab Results 07/24/23 07/24/23 07/24/23 Range/Units 09:54 09:54 09:54 WBC 12.7 H (3.8-10.6) k/uL RBC 4.68 (4.30-5.90) m/uL Hgb 14.4 (13.0-17.5) gm/dL Hct 45.0 (39.0-53.0) % MCV 96.2 (80.0-100.0) fL MCH 30.8 (25.0-35.0) pg MCHC 32.0 (31.0-37.0) g/dL RDW 15.2 (11.5-15.5) % Plt Count 226 (150-450) k/uL MPV 7.7 Neutrophils % 82 % Lymphocytes % 9 % Monocytes % 6 % Eosinophils % 2 % Basophils % 1 % Neutrophils # 10.4 H (1.3-7.7) k/uL Lymphocytes # 1.1 (1.0-4.8) k/uL Monocytes # 0.7 (0-1.0) k/uL Eosinophils # 0.2 (0-0.7) k/uL Basophils # 0.1 (0-0.2) k/uL Hypochromasia Slight PT 14.8 H (10.0-12.5) sec INR 1.4 H (<1.2) APTT 31.5 H (22.0-30.0) sec Sodium 142 (137-145) mmol/L Potassium 3.9 (3.5-5.1) mmol/L Chloride 102 (98-107) mmol/L Carbon Dioxide 26 (22-30) mmol/L Anion Gap 14 mmol/L BUN 40 H (9-20) mg/dL Creatinine 1.42 H (0.66-1.25) mg/dL Est GFR (CKD-EPI)AfAm 54 (>60 ml/min/1.73 sqM) Est GFR (CKD-EPI)NonAf 47 (>60 ml/min/1.73 sqM) Glucose 174 H (74-99) mg/dL Calcium 8.9 (8.4-10.2) mg/dL Magnesium 2.3 (1.6-2.3) mg/dL Total Bilirubin 1.4 H (0.2-1.3) mg/dL AST 29 (17-59) U/L ALT 31 (4-49) U/L Alkaline Phosphatase 183 H (38-126) U/L Troponin I (0.000-0.034) ng/mL NT-Pro-B Natriuret Pep 81681 pg/mL Total Protein 6.9 (6.3-8.2) g/dL Albumin 3.9 (3.5-5.0) g/dL 07/24/23 Range/Units 09:54 WBC (3.8-10.6) k/uL RBC (4.30-5.90) m/uL Hgb (13.0-17.5) gm/dL Hct (39.0-53.0) % MCV (80.0-100.0) fL MCH (25.0-35.0) pg MCHC (31.0-37.0) g/dL RDW (11.5-15.5) % Plt Count (150-450) k/uL MPV Neutrophils % % Lymphocytes % % Monocytes % % Eosinophils % % Basophils % % Neutrophils # (1.3-7.7) k/uL Lymphocytes # (1.0-4.8) k/uL Monocytes # (0-1.0) k/uL Eosinophils # (0-0.7) k/uL Basophils # (0-0.2) k/uL Hypochromasia PT (10.0-12.5) sec INR (<1.2) APTT (22.0-30.0) sec Sodium (137-145) mmol/L Potassium (3.5-5.1) mmol/L Chloride (98-107) mmol/L Carbon Dioxide (22-30) mmol/L Anion Gap mmol/L BUN (9-20) mg/dL Creatinine (0.66-1.25) mg/dL Est GFR (CKD-EPI)AfAm (>60 ml/min/1.73 sqM) Est GFR (CKD-EPI)NonAf (>60 ml/min/1.73 sqM) Glucose (74-99) mg/dL Calcium (8.4-10.2) mg/dL Magnesium (1.6-2.3) mg/dL Total Bilirubin (0.2-1.3) mg/dL AST (17-59) U/L ALT (4-49) U/L Alkaline Phosphatase (38-126) U/L Troponin I 0.281 H* (0.000-0.034) ng/mL NT-Pro-B Natriuret Pep pg/mL Total Protein (6.3-8.2) g/dL Albumin (3.5-5.0) g/dL Disposition Clinical Impression: Dyspnea Disposition: HOME SELF-CARE Instructions (If sedation given, give patient instructions): Dyspnea (ED) Additional Instructions: Patient should return if there is any worsening dyspnea. Patient returns as any new symptoms. Patient should try not to lie flat while sleeping. Is patient prescribed a controlled substance at d/c from ED?: No Referrals: Shannan Storey [Primary Care Provider] - 1-2 days Time of Disposition: 12:32
[2023-07-24 10:04] LABS: Basophils # (A) 0.1 k/uL (0-0.2); Basophils % (A) 1 %; Eosinophils # (A) 0.2 k/uL (0-0.7); Eosinophils % (A) 2 %; HGB 14.4 gm/dL (13.0-17.5); Hypochromasia Slight; Lymphocytes # (A) 1.1 k/uL (1.0-4.8); Lymphocytes % (A) 9 %; MCH 30.8 pg (25.0-35.0); MCV 96.2 fL (80.0-100.0); Mean Platelet Volume 7.7; Monocytes # (A) 0.7 k/uL (0-1.0); Monocytes % (A) 6 %; Neutrophils # (A) 10.4 k/uL (1.3-7.7); Neutrophils % (A) 82 %; Platelet Count 226 k/uL (150-450); RBC 4.68 m/uL (4.30-5.90); RDW 15.2 % (11.5-15.5); WBC 12.7 k/uL (3.8-10.6)
[2023-07-24 10:13] LABS: INR 1.4 (<1.2); Partial Thromboplastin Time 31.5 sec (22.0-30.0); Prothrombin Time 14.8 sec (10.0-12.5)
[2023-07-24 10:15] LABS: ALT 31 U/L (4-49); AST 29 U/L (17-59); African American GFR (CKD) 54 (>60 ml/min/1.73 sqM); Albumin 3.9 g/dL (3.5-5.0); Alkaline Phosphatase 183 U/L (38-126); Anion Gap 14 mmol/L; Blood Urea Nitrogen 40 mg/dL (9-20); Calcium 8.9 mg/dL (8.4-10.2); Carbon Dioxide 26 mmol/L (22-30); Chloride 102 mmol/L (98-107); Glucose 174 mg/dL (74-99); Magnesium 2.3 mg/dL (1.6-2.3); Non-African American GFR(CKD) 47 (>60 ml/min/1.73 sqM); Potassium 3.9 mmol/L (3.5-5.1); Sodium 142 mmol/L (137-145); Total Bilirubin 1.4 mg/dL (0.2-1.3); Total Protein 6.9 g/dL (6.3-8.2)
[2023-07-24 10:24] LABS: NT-Pro-B-Type Natriuretic Pept 18200 pg/mL
--- NOTE | 2023-07-24 10:43 | XR ---
EXAMINATION TYPE: XR chest 2V DATE OF EXAM: 07/24/2023 10:03 AM CLINICAL INDICATION:Male, 82 years old with history of difficulty breathing; [facility] COMPARISON: 07/15/2023 TECHNIQUE: XR chest 2V. Frontal PA and lateral views of the chest. FINDINGS: Lines/Tubes: EKG leads overlie the chest. No indwelling lines are seen. Heart/mediastinum: Heart appears mildly to moderately enlarged. Stable mediastinum. Partially calcif ied aorta. Stable appearance of left chest multilead pacemaker/AICD. Sternotomy wires. Pulmonary vascularity: Pulmonary vascular congestion. Lungs/Pleura: Possible trace pleural effusions. There is no focal consolidation, or pneumothorax. Musculoskeletal: No acute osseous abnormality demonstrated in the limits of the exam. Chronic healed fracture deformity of the mid to distal right clavicle. Other findings: None. IMPRESSION: Cardiomegaly with postoperative changes. Similar mild pulmonary vascular congestion.
[2023-07-24 12:51] VITALS: BP 109/79; PULSE 80; RESP 31; TEMP 98.9
== END 2023-07-24 12:50 | disposition home or self-care (01) ==
LOC: EC 09:23
DX: R06.00 Dyspnea, unspecified (principal); I48.91 Unspecified atrial fibrillation; I25.10 Atherosclerotic heart disease of native coronary artery without angina pectoris; I11.0 Hypertensive heart disease with heart failure; I50.9 Heart failure, unspecified; K21.9 Gastro-esophageal reflux disease without esophagitis; E11.9 Type 2 diabetes mellitus without complications; E78.5 Hyperlipidemia, unspecified; I25.2 Old myocardial infarction; Z87.891 Personal history of nicotine dependence; Z79.84 Long term (current) use of oral hypoglycemic drugs; Z79.4 Long term (current) use of insulin; Z79.01 Long term (current) use of anticoagulants; Z79.899 Other long term (current) drug therapy
CPT/HCPCS: 36415; 71046; 80053; 83735; 83880; 84484; 85025; 85610; 85730; 93005; 99285